=== PATIENT | female | born 1940 | race Caucasian/White ===

== ENCOUNTER → 2016-04-05 | Outpatient (CLI) | payer MEDICARE ==
[~2016-04-05] MED LIST: ATEN50TA2 PO; MODU5TA PO; OMEP20CA3 PO; POTA10CA32 PO
--- NOTE | 2016-04-05 09:36 | REPMRS ---
Patient History The patient states she had a clinical breast exam in December 2015. Patient is postmenopausal, has history of breast cancer at age 67, and had previous chemotherapy. Family history of prostate cancer in father at age 90 and breast cancer in sister at age 50 or over. Chemotherapy. Radiation therapy. Taking tamoxifen for 3 years. Digital Mammo Screening Bilat: April 05, 2016 - Exam #: [id number] Bilateral CC and MLO view(s) were taken. Technologist: Brittani Dykes, Technologist Prior study comparison: April 05, 2015, bilateral digital mammo screening bilat performed at [facility]. April 03, 2014, bilateral digital mammo screening bilat performed at [facility]. February 20, 2013, right breast MRI. January 21, 2013, right breast digital mammo diagnostic unilateral performed at [facility]. April 01, 2012, bilateral bilat screen digital mammo, performed at [facility] ([facility]). FINDINGS: There are scattered fibroglandular densities. There has been no change in the appearance of the mammogram from the prior studies. There are stable post treatment changes in the right breast.There is a mild amount of scattered fibroglandular density which is fairly symmetric. There is no interval development of dominant mass, architectural distortion, or clustered microcalcification suggestive of malignancy. ASSESSMENT: BI-RADS/ACR category 1 mammogram. Negative. Recommendation Routine screening mammogram in 1 year (for women over age 40). This mammogram was interpreted with the aid of an FDA-approved computer-aided dectection system. Electronically Signed By: Pieter Jeffers MD 04/05/16 0991
== END ==
LOC: M RAD 08:53
PROVIDERS: ATTEND Internal Medicine Medical Oncology
DX: Z12.31 Encounter for screening mammogram for malignant neoplasm of breast (principal); Z78.0 Asymptomatic menopausal state; Z85.3 Personal history of malignant neoplasm of breast; Z80.3 Family history of malignant neoplasm of breast; Z92.21 Personal history of antineoplastic chemotherapy; Z92.3 Personal history of irradiation

== ENCOUNTER → 2016-05-04 | Outpatient (REF) | payer MEDICARE ==
[2016-05-04 12:20] LABS: ALBUMIN 3.4 GM/DL (3.2-5.2); ALBUMIN/GLOBULIN RATIO 1.26 (1.00-1.93); ALKALINE PHOSPHATASE 79 U/L (45-117); ALT/SGPT 17 U/L (12-78); ANION GAP 7 MEQ/L (8-16); AST/SGOT 16 U/L (15-37); BILIRUBIN,TOTAL 0.6 MG/DL (0.2-1.0); BLOOD UREA NITROGEN 16 MG/DL (7-18); CALCIUM LEVEL 8.6 MG/DL (8.8-10.2); CARBON DIOXIDE LEVEL 31 MEQ/L (21-32); CHLORIDE LEVEL 105 MEQ/L (98-107); CHOLESTEROL LEVEL 189 MG/DL (<200); CREATININE FOR GFR 0.87 MG/DL (0.55-1.02); GLOMERULAR FILTRATION RATE > 60.0 (>39); GLUCOSE, FASTING 136 MG/DL (83-110); POTASSIUM SERUM 4.1 MEQ/L (3.5-5.1); SODIUM LEVEL 143 MEQ/L (136-145); TOTAL PROTEIN 6.1 GM/DL (6.4-8.2); TRIGLYCERIDES LEVEL 101 MG/DL (<150)
== END ==
LOC: M SFHCCLAY 07:45
PROVIDERS: ATTEND Family Medicine
DX: I10 Essential (primary) hypertension (principal); E11.65 Type 2 diabetes mellitus with hyperglycemia; E78.2 Mixed hyperlipidemia

== ENCOUNTER → 2016-06-28 | Outpatient (REF) | payer MEDICARE | LOC: M LAB REF 16:22 | PROVIDERS: ATTEND Internal Medicine Medical Oncology | DX: C50.919 Malignant neoplasm of unspecified site of unspecified female breast (principal) ==

== ENCOUNTER → 2016-12-01 | Outpatient (REF) | payer MEDICARE ==
[2016-12-01 12:30] LABS: ALBUMIN 3.5 GM/DL (3.2-5.2); ALKALINE PHOSPHATASE 82 U/L (45-117); ALT/SGPT 27 U/L (12-78); ANION GAP 7 MEQ/L (8-16); AST/SGOT 16 U/L (15-37); BILIRUBIN,TOTAL 0.4 MG/DL (0.2-1.0); BLOOD UREA NITROGEN 12 MG/DL (7-18); CALCIUM LEVEL 8.9 MG/DL (8.8-10.2); CARBON DIOXIDE LEVEL 31 MEQ/L (21-32); CHLORIDE LEVEL 103 MEQ/L (98-107); CHOLESTEROL LEVEL 201 MG/DL (<200); CREATININE FOR GFR 0.81 MG/DL (0.55-1.02); GLOMERULAR FILTRATION RATE > 60.0 (>39); GLUCOSE, FASTING 127 MG/DL (83-110); SODIUM LEVEL 141 MEQ/L (136-145); TOTAL PROTEIN 6.2 GM/DL (6.4-8.2); TRIGLYCERIDES LEVEL 148 MG/DL (<150)
== END ==
LOC: M SFHCCLAY 07:39
PROVIDERS: ATTEND Family Medicine
DX: I10 Essential (primary) hypertension (principal); E11.65 Type 2 diabetes mellitus with hyperglycemia; E78.2 Mixed hyperlipidemia

== ENCOUNTER → 2017-01-01 | Outpatient (REF) | payer MEDICARE | LOC: M LAB REF 12:44 | PROVIDERS: ATTEND Internal Medicine Medical Oncology | DX: C50.919 Malignant neoplasm of unspecified site of unspecified female breast (principal) ==

== ENCOUNTER 2017-03-30 17:27 | Emergency (ER) | payer MEDICARE ==
[2017-03-30 20:58] LABS: KETONE, URINE AUTO RFX 1+ mg/dL (NEGATIVE); LEUKOCYTE ESTERASE UR AUTO RFX TRACE (NEGATIVE); MUCUS, URINE RFX SMALL (NEGATIVE); NITRITE, URINE AUTO RFX NEGATIVE (NEGATIVE); RBC, URINE AUTO RFX 8 /HPF (0-3); SPECIFIC GRAVITY UR AUTO RFX 1.013 (1.002-1.035); SQUAM EPITHELIAL CELL UR AURFX 0 /HPF (0-6); WBC, URINE AUTO RFX 6 /HPF (0-3)
[2017-03-30] MEDS: CIPROFLOXACIN 500 MG TAB PO (21:30)
== END 2017-03-30 21:47 | disposition home or self-care (01) ==
LOC: M ED 17:27
DX: H65.03 Acute serous otitis media, bilateral (principal); N39.0 Urinary tract infection, site not specified; I10 Essential (primary) hypertension; Z85.3 Personal history of malignant neoplasm of breast; Z88.0 Allergy status to penicillin; Z88.8 Allergy status to other drugs, medicaments and biological substances; Z79.2 Long term (current) use of antibiotics; Z79.899 Other long term (current) drug therapy
CPT/HCPCS: 71046

== ENCOUNTER → 2017-05-02 | Outpatient (CLI) | payer MEDICARE | LOC: M RAD 10:15 | DX: Z12.31 Encounter for screening mammogram for malignant neoplasm of breast (principal); Z85.3 Personal history of malignant neoplasm of breast; Z78.0 Asymptomatic menopausal state; Z92.21 Personal history of antineoplastic chemotherapy; Z92.3 Personal history of irradiation; Z79.810 Long term (current) use of selective estrogen receptor modulators (SERMs) | CPT/HCPCS: 77067 ==

== ENCOUNTER → 2017-12-24 | Outpatient (REF) | payer MEDICARE ==
[2017-12-24 12:15] LABS: ESTIMATED AVERAGE GLUCOSE 143 MG/DL (60-110); HEMOGLOBIN A1c 6.6 %
[2017-12-24 12:31] LABS: ALBUMIN 3.5 GM/DL (3.2-5.2); ALBUMIN/GLOBULIN RATIO 1.35 (1.00-1.93); ALKALINE PHOSPHATASE 80 U/L (45-117); ALT/SGPT 20 U/L (12-78); ANION GAP 5 MEQ/L (8-16); AST/SGOT 15 U/L (7-37); BILIRUBIN,TOTAL 0.6 MG/DL (0.2-1.0); BLOOD UREA NITROGEN 21 MG/DL (7-18); CALCIUM LEVEL 9.2 MG/DL (8.8-10.2); CARBON DIOXIDE LEVEL 33 MEQ/L (21-32); CHLORIDE LEVEL 105 MEQ/L (98-107); CHOLESTEROL LEVEL 192 MG/DL (<200); CHOLESTEROL RISK RATIO 4.923 (<5); CREATININE FOR GFR 0.96 MG/DL (0.55-1.30); GLOMERULAR FILTRATION RATE 59.7 (>39); GLUCOSE, FASTING 137 MG/DL (70-100); HDL CHOLESTEROL 39 MG/DL (>40); LDL CHOLESTEROL 135 MG/DL (<100); NON-HDL-C 153 MG/DL; POTASSIUM SERUM 4.1 MEQ/L (3.5-5.1); SODIUM LEVEL 143 MEQ/L (136-145); TOTAL PROTEIN 6.1 GM/DL (6.4-8.2); TRIGLYCERIDES LEVEL 89 MG/DL (<150)
== END ==
LOC: M SFHCCLAY 07:17
DX: E11.9 Type 2 diabetes mellitus without complications (principal); E78.2 Mixed hyperlipidemia
CPT/HCPCS: 80053

== ENCOUNTER → 2018-05-06 | Outpatient (CLI) | payer MEDICARE ==
[~2018-05-06] MED LIST changes: +AMOX500C PO; +BENZ-18 PO; +CALC1TAB40 PO; +CIPR-249 PO; +METO50TA7 PO; +VITA10006 PO
--- NOTE | 2018-05-06 09:34 | REPMRS ---
Patient History The patient states she had a clinical breast exam in 2018. Family history of breast cancer at age 50 or over in sister, prostate cancer at age 90 in father. Chemotherapy. Radiation therapy. Taking tamoxifen for 3 years. 3D TOMOSYNTHESIS WAS PERFORMED. Digital Mammo Screening Bilat: May 06, 2018 - Exam #: [id number] Bilateral CC and MLO view(s) were taken. Technologist: Melody Vernon, Technologist Prior study comparison: May 02, 2017, bilateral digital mammo screening bilat performed at [facility]. April 05, 2016, bilateral digital mammo screening bilat performed at [facility]. FINDINGS: There are scattered fibroglandular densities. There is no evidence of cancer on this mammogram. No significant changes when compared with prior studies. Assessment: BI-RADS/ACR category 2 mammogram. Benign Findings. Recommendation Routine screening mammogram of both breasts in 1 year (for women over age 40). This mammogram was interpreted with the aid of an FDA-approved computer-aided dectection system. Electronically Signed By: Abraham Eddy MD 05/06/18 0933
== END ==
LOC: M RAD 08:13
PROVIDERS: ATTEND Nurse Practitioner Family
DX: Z12.31 Encounter for screening mammogram for malignant neoplasm of breast (principal); Z79.890 Hormone replacement therapy; Z80.3 Family history of malignant neoplasm of breast; Z92.21 Personal history of antineoplastic chemotherapy; Z92.3 Personal history of irradiation

== ENCOUNTER → 2018-06-24 | Outpatient (REF) | payer MEDICARE ==
[2018-06-24 12:24] LABS: ALBUMIN 3.7 GM/DL (3.2-5.2); ALT/SGPT 18 U/L (12-78); BILIRUBIN,TOTAL 0.6 MG/DL (0.2-1.0); BLOOD UREA NITROGEN 17 MG/DL (7-18); CALCIUM LEVEL 9.1 MG/DL (8.8-10.2); CARBON DIOXIDE LEVEL 30 MEQ/L (21-32); CHLORIDE LEVEL 105 MEQ/L (98-107); GLOMERULAR FILTRATION RATE > 60.0 (>32); GLUCOSE, FASTING 143 MG/DL (70-100); POTASSIUM SERUM 4.3 MEQ/L (3.5-5.1); SODIUM LEVEL 141 MEQ/L (136-145); TOTAL PROTEIN 6.3 GM/DL (6.4-8.2)
[2018-06-24 21:59] LABS: HEMOGLOBIN A1c 6.7 %
== END ==
LOC: M SFHCCLAY 07:36
PROVIDERS: ATTEND Family Medicine
DX: E11.9 Type 2 diabetes mellitus without complications (principal)

== ENCOUNTER 2018-10-02 10:24 | Emergency (ER) | payer MEDICARE ==
[~2018-10-02] VITALS: Ht 162.6 cm; Wt 61.4 kg
[~2018-10-02 10:24] MED LIST changes: -OMEP20CA3 PO; +OMEP20CA4 PO
[2018-10-02] MEDS ORDERED: AMOX500C PO (11:10)
[2018-10-02 11:33] LABS: BASO # 0.1 10^3/uL (0.0-0.2); BASO % 0.8 % (0.0-1.0); EOS # 0.1 10^3/uL (0.0-0.50); HEMATOCRIT 42.4 % (36.0-47.0); HEMOGLOBIN 15.2 g/dl (12.0-15.5); LYMPH # 1.5 10^3/uL (1.5-4.5); LYMPH % 19.2 % (24.0-44.0); MEAN CORPUSCULAR HEMOGLOBIN 31.7 pg (27.0-33.0); MEAN CORPUSCULAR HGB CONC 35.8 g/dl (32.0-36.5); MEAN CORPUSCULAR VOLUME 88.5 fl (80.0-96.0); MONO # 0.6 10^3/uL (0.0-0.8); MONO % 7.8 % (0.0-5.0); NEUTROPHILS # 5.6 10^3/uL (1.8-7.7); NEUTROPHILS % 70.8 % (36.0-66.0); PLATELET COUNT, AUTOMATED 156 10^3/uL (150-450); RED BLOOD COUNT 4.79 10^6/uL (4.00-5.40); WHITE BLOOD COUNT 7.9 10^3/uL (4.0-10.0)
[2018-10-02 12:07] LABS: CALCIUM LEVEL 9.3 MG/DL (8.8-10.2); CK-MB VALUE MASS 1.7 NG/ML (<3.6); CREATININE FOR GFR 0.99 MG/DL (0.55-1.30); GLOMERULAR FILTRATION RATE 57.5 (>32); MB/CK RELATIVE INDEX 2.74 (< OR =4); TROPONIN I 0.1 NG/ML (< 0.10)
[2018-10-02] MEDS ORDERED: NS 1,000 ML IV ONE (13:00)
--- NOTE | 2018-10-02 13:52 | REP ---
CHEST X-RAY: Two views. HISTORY: Jaw pain and shoulder pain. Recent dental extraction. The patient has a prior history of right breast cancer status post radiation therapy and chemotherapy. Comparison is made with prior chest x-rays, most recent of which is from March 30, 2017 and the most remote of which is from March 24, 2010. FINDINGS: The breast silhouettes are somewhat asymmetric as before with surgical clips in the right axillary soft tissues. There is a nodular opacity projecting in the right lung today increased in size and more nodular than the fibrosis noted in this location previously. It currently measures 1.5 x 1.6 cm. A pulmonary nodule must be suspected. Chest CT scanning is suggested. The lung farmer are otherwise clear. The pleural angles are sharp. The aorta somewhat tortuous. Heart is not enlarged. There are mild degenerative changes in the thoracic spine. IMPRESSION: Nodular density in the right upper lobe, 1.6 cm in greatest diameter, rule out neoplastic pulmonary nodule. Recommend chest CT study. Postoperative changes in the right axilla and right breast. Otherwise no active disease. Electronically Signed by Niall Jeffers MD 10/02/2018 04:41 P
--- NOTE | 2018-10-02 15:17 | REP ---
CT of the chest without contrast Indication: Right upper lobe nodule revealed on chest x-ray. Comparison: Two-view chest of the same day. Technique: Axial CT of the chest was performed from the thoracic inlet to the upper abdomen was lung and soft tissue reformatted images. Coronal and sagittal reformatted images were provided. Findings: The upper airway is patent. There is a somewhat spiculated and lobulated solid nodule within the right upper lobe on image 35. This oblong nodule measures 20 x 14 mm and is suspicious for malignancy. There are a few subcentimeter nodules within the right lower lobe, the largest of which measures 4 mm, image 56 . Smaller two - 3 mm nodules are seen within the right lower lobe on image 61 and 47 in the left lower lobe on image 65. There is peribronchial thickening within the right lung. There are scattered tree-in-bud opacities within the left upper lobe (image 40) and right upper and lower lobes, suggestive of inflammation. There are patchy consolidative opacities within the lung base which may represent atelectasis. There is no pleural effusion. There are atherosclerotic calcifications of the thoracic aorta and coronary arteries. The heart size is normal. There is no pericardial effusion. There are surgical clips within the right subpectoral region. There is an 2.5 cm fluid collection within the right rods adjacent to the chest wall, presumably representing seroma. There are degenerative changes within the imaged thoracolumbar spine. Within the upper abdomen, there is a 1 cm hypodense lesion within the right hepatic lobe on image 92. A gallstone is present. There its extensive atherosclerotic calcifications of the imaged abdominal aorta and its branches. Impression: 2 x 1.4 cm right upper lobe nodules suspicious for malignancy. Scattered two - 4 mm nodules within both lungs. Recommend tissue diagnosis. Background of inflammatory changes within the lungs. No pleural effusion. Right breast fluid collection measuring 2.5 cm, presumably representing seroma. Hypodense lesion within the right hepatic lobe which is nonspecific. Recommend MRI for further characterization. Electronically Signed by Lb Carranza MD 10/02/2018 03:09 P
[2018-10-02 16:31] VITALS: BP 180/82
--- NOTE | 2018-10-03 20:37 | ECGEPIP ---
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
--- NOTE | 2018-10-06 07:33 | ED PDOC ---
Post-Departure Follow-Up dr palacios faxed formal report of cxr for fuy bongg Neena Middleton MD Oct 06, 2018 07:33
--- NOTE | 2018-10-06 07:53 | ED PDOC ---
Post-Departure Follow-Up dr javed faxed formal report of ct chest for fu Neena Cook MD Oct 06, 2018 07:53
[2018-10-08] MEDS ORDERED: ASCO500T PO (08:58)
[2018-10-08] MEDS ORDERED: ATIV1TAB7 PO (09:36)
[2018-11-01] MEDS ORDERED: CHOL100029 PO (09:10)
[2018-11-01] MEDS ORDERED: METO50TA7 PO (09:10)
== END 2018-10-02 16:32 | disposition home or self-care (01) ==
LOC: M ED 10:24
DX: K08.89 Other specified disorders of teeth and supporting structures (principal); R91.8 Other nonspecific abnormal finding of lung field; R00.1 Bradycardia, unspecified; I10 Essential (primary) hypertension; Z85.3 Personal history of malignant neoplasm of breast; Z92.21 Personal history of antineoplastic chemotherapy; Z92.3 Personal history of irradiation; Z79.899 Other long term (current) drug therapy; Z88.0 Allergy status to penicillin; Z88.8 Allergy status to other drugs, medicaments and biological substances

== ENCOUNTER → 2018-10-15 | Outpatient (CLI) | payer MEDICARE ==
[~2018-10-15] MED LIST changes: +ASCO500T PO; +ATIV1TAB7 PO
--- NOTE | 2018-10-15 18:47 | REP ---
PET/CT: History: Diagnosing right upper lobe pulmonary nodule. Remote prior history of breast carcinoma. Comparisons: Comparison chest CT study October 02, 2018. TECHNIQUE: 59 minutes following the intravenous injection of a 8.60 mCi dose of F-18 FDG, three-dimensional PET scintigraphy is acquired from the skull base to the proximal thighs. Triplanar noncontrast CT scanning is acquired through the same anatomic range for attenuation correction, and image registration with scan parameters optimized to minimize radiation exposure to the patient. PET scintigraphy and CT datasets were fused and displayed on a workstation with multiplanar and projection display capability. PET/CT Findings: The right upper lobe nodule seen on recent chest CT is hypermetabolic. Maximum standard uptake value is 5.94. No other hypermetabolic pulmonary parenchymal uptake is appreciated. The other visualized pulmonary nodules are quite small. There is no evidence of adrenal mass. There is no evidence of hilar or mediastinal hypermetabolic uptake. No abnormal hepatic or abdominal or pelvic hypermetabolic uptake is seen. Head and neck soft tissues are unremarkable. Impression: The 2.6 cm spiculated nodule in the anterior aspect of the right upper lobe is hypermetabolic. No other abnormal hypermetabolic uptake is seen. Electronically Signed by Niall Jeffers MD 10/16/2018 09:09 A
== END ==
LOC: M PLARAD 12:03
PROVIDERS: ATTEND Internal Medicine Medical Oncology
DX: R91.1 Solitary pulmonary nodule (principal)
CPT/HCPCS: 78815; A9552

== ENCOUNTER → 2018-11-01 | Outpatient (CLI) | payer MEDICARE ==
[~2018-11-01] MED LIST changes: +CHOL100029 PO; +LIDOCAINE 1% MDV 20ML VIAL As Ordered ONE
--- NOTE | 2018-11-01 10:21 | REP ---
CHEST, SINGLE VIEW: Single view of the chest is performed following CT guided biopsy of a right lung nodule. Postbiopsy CT images showed a tiny focal pneumothorax at the biopsy site. The chest radiograph does not show evidence of an appreciable pneumothorax. The right lung nodule is visualized. Followup will be performed in 2 hours. Electronically Signed by Abraham Eddy MD 11/01/2018 04:37 P
[2018-11-01 12:15] VITALS: BP 151/67
--- NOTE | 2018-11-01 12:42 | REP ---
CHEST, SINGLE VIEW: Single view of the chest is performed status post right lung biopsy. There is no pneumothorax. Right lung mass is again seen. Left lung is clear. IMPRESSION: No pneumothorax status post right lung biopsy. Electronically Signed by Abraham Eddy MD 11/01/2018 04:40 P
--- NOTE | 2018-11-01 16:04 | REP ---
CT-guided right upper lobe lung biopsy The procedure is performed by DMITRI Ramey, under the direct supervision of Dr. Eddy. The patient has a history of a hypermetabolic 2.6 cm spiculated nodule in the anterior aspect of the right upper lobe on a PET CT dated 10/15/2018. The risks and benefits of the procedure were explained to the patient and informed consent was obtained both orally and written. Directly prior to the start of the procedure, a formal timeout was done in the exam room. The right upper lobe lung nodule was localized using CT guidance. Skin was prepped and draped in the usual sterile fashion. 7 ml of 1% lidocaine was used as a local anesthetic. Using CT guidance a 19/20 gauge coaxial needle biopsy system was inserted and advanced into the nodule. 4 core biopsy samples were obtained and sent to the lab. CT images obtained directly after the biopsy show a very small pneumothorax. The pneumothorax was followed by serial chest x-rays and after the appropriate amount of monitored convalescence the patient was discharged from the department. Reviewed by DMITRI Pierce 11/01/2018 01:22 P Electronically Signed by Abraham Eddy MD 11/01/2018 03:56 P
== END ==
LOC: M IRPRO 08:15
PROVIDERS: ATTEND Nurse Practitioner Family
DX: C34.91 Malignant neoplasm of unspecified part of right bronchus or lung (principal)

== ENCOUNTER → 2018-11-11 | Outpatient (CLI) | payer MEDICARE ==
[~2018-11-11] MED LIST changes: -LIDOCAINE 1% MDV 20ML VIAL As Ordered ONE
--- NOTE | 2018-11-11 13:19 | PFTRPT ---
Height: 65.00 Inches Weight: 136.00 Lbs BSA: 1.68 Diagnosis: ABNORMAL FINDING OF LUNG FIELD DATE OF STUDY: 11/11/2018 ORDERED BY: Michelle Nguyen Spirometry: Study of excellent technical quality. Forced vital capacity reduced FEV1 in proportion. Obstructive index is, therefore, normal. Flow Volume Loop: Expiratory limb of the flow volume loop suggests a nonspecific limitation. Lung Volumes: Total lung capacity normal. Residual volume within normal limits. Diffusing Capacity: Diffusing capacity, although reduced, is appropriate for alveolar volume. Hemoglobin: No hemoglobin available for correction. Airway Mechanics: Airway resistance and conductance are normal. IMPRESSION: Nonspecific flow rate limitation with decreased diffusing capacity. Please correlate clinically. MTDD
--- NOTE | 2018-11-13 11:10 | PULFX ---
DATE OF STUDY: 11/11/2018 ORDERING PROVIDER: Michelle Nguyen NP Study of excellent technical quality. Forced vital capacity reduced. FEV1 in proportion. Obstructive index is, therefore, normal. Flow volume loop suggesting nonspecific limitation. Total lung capacity normal. Residual volume within normal limits. Diffusing capacity, although reduced, is appropriate for alveolar volume and no hemoglobin available for correction. Airway resistance and conductance are normal. IMPRESSION: Nonspecific flow rate limitation with decreased diffusing capacity. Please correlate clinically.
== END ==
LOC: M CARPUL 12:23
PROVIDERS: ATTEND Nurse Practitioner Family
DX: R91.8 Other nonspecific abnormal finding of lung field (principal)

== ENCOUNTER → 2018-11-12 | Outpatient (REF) | payer MEDICARE | LOC: M LAB REF 17:01 | PROVIDERS: ATTEND Nurse Practitioner Family | DX: R30.0 Dysuria (principal) ==

== ENCOUNTER → 2019-01-30 | Outpatient (CLI) | payer MEDICARE ==
[~2019-01-30] MED LIST changes: +OMEP-172 PO; -OMEP20CA4 PO; +VITA100054 PO
--- NOTE | 2019-01-30 12:32 | REP ---
BILATERAL LOWER EXTREMITY DUPLEX DOPPLER ARTERIAL ULTRASOUND: Real-time ultrasound evaluation and duplex Doppler interrogation of bilateral lower extremity arterial systems performed. Moderate to severe plaquing is seen bilaterally. On the right, there is no hemodynamically significant stenosis identified in the common femoral, superficial femoral, or popliteal arteries. The tibioperoneal trunk is occluded proximally. There is reconstitution of the distal aspect. Biphasic and triphasic waveforms are seen above that level. Monophasic waveforms are seen distal to that level. Distal right posterior tibial artery is occluded. Distal right anterior tibial artery is occluded with revascularization distally. On the left, there is no hemodynamically significant stenosis proximally with diffuse biphasic waveforms. However, both the distal, anterior, and posterior tibial arteries appear occluded, with distal revascularization and monophasic waveforms. Left popliteal cyst is visualized measuring 3.9 x 1.8 x 3.4 cm. SADIE could not be performed due to pain. PEAK SYSTOLIC VELOCITY RIGHT LEFT Common femoral artery 94.7 cm/s 86.8 cm/s Profunda 76.7 51.3 SFA 71.6 78.7 Popliteal 30.0 46.8 Proximal TICO 72.1 62.1 Tibial/peroneal trunk Occluded/26.3 56.7 Proximal [employer] 28.1 39.3 Distal [employer] Occluded Occluded Distal TICO Occluded Occluded IMPRESSION: Occlusion right tibioperoneal trunk with reconstitution of distal aspect. Bilateral occlusion of distal anterior and posterior tibial arteries with revascularization. Electronically Signed by Abraham Eddy MD 01/30/2019 01:49 P
== END ==
LOC: M RAD 08:59
PROVIDERS: ATTEND Podiatrist Foot & Ankle Surgery
DX: I73.9 Peripheral vascular disease, unspecified (principal)

== ENCOUNTER → 2019-02-11 | Outpatient (POV) | payer MEDICARE ==
[~2019-02-11] VITALS: Ht 160 cm; Wt 61.8 kg
[2019-02-11 14:05] VITALS: BP 137/62
--- NOTE | 2019-02-12 15:48 | IRCOV ---
[facility] IR Consult Office Visit IR Consult Office Visit DATE: Feb 11, 2019 REASON FOR CONSULTATION/CHIEF COMPLAINT: Right leg pain. Cracking fragile skin and sores. HISTORY OF PRESENT ILLNESS: 78-year-old pleasant female complaining of right leg pain for greater than 6 weeks. This is associated with easy skin breakdown on the foot. No problems in the left leg. Pain occurs with walking around the house. Denies rest pain. Pain goes away with rest. No chest pain. No shortness of breath. No paroxysmal nocturnal dyspnea or orthopnea. Patient does not currently take aspirin. ALLERGIES: Please see below. HOME MEDICATIONS: Please see below. PAST MEDICAL HISTORY: Lung cancer PAST SURGICAL HISTORY: Noncontributory FAMILY HISTORY: Noncontributory. SOCIAL HISTORY: Nonsmoker. No alcohol or drugs. REVIEW OF SYSTEMS: Otherwise negative. PHYSICAL EXAMINATION: VITAL SIGNS: Please see below. GENERAL APPEARANCE: Appears well. Comfortable at rest. HEENT: No scleral icterus. RESPIRATORY: Normal breathing at rest. CARDIOVASCULAR: Normal rate. ABDOMEN: Soft nontender. EXTREMITIES: Right lower extremity: No edema. Redness to the skin below the knees. Warm. Dry. No gangrene. No ulcers. Femoral pulse 2+ popliteal pulse plus DP PT negative Left lower extremity: No edema. Skin normal. Warm to touch. Femoral pulse 2+ popliteal pulse +. Mass or cyst in the popliteal fossa. DP PT negative. NEUROLOGICAL: Alert and oriented. PSYCHIATRIC: Appropriate to circumstance. LABORATORY DATA: 10/02/2018 hemoglobin 15.2 hematocrit 42.4 WBC 7.9 platelets 156 sodium 138 potassium 4.0 BUN 17 creatinine 0.99 GFR 57.5 Imaging: I personally reviewed the arterial ultrasound of the lower extremities from January 2019. The right SFA and popliteal are patent. There is below-knee atherosclerotic disease with monophasic waveform. Large Sanchez cyst in the left popliteal fossa. ASSESSMENT/PLAN: 78-year-old female with right lower extremity pain associated with easy skin breakdown and skin changes. I agree a diagnostic angiogram with or without intervention at the same time is appropriate. We will schedule the patient for the procedure under moderate sedation. I spent 30 minutes in consultation with the patient. Thank you for this referral. Cc Dr. Abdiel Hester Allergies Coded Allergies: exemestane (Verified Allergy, Mild, Rash, 06/03/18) Penicillins (Verified Adverse Reaction, Mild, Yeast Infection, 06/03/18) Home Medications Scheduled Amiloride/Hctz (Amiloride HCl-Hctz 5-50 mg Tab), 2 TAB PO DAILY, (Reported) Ascorbic Acid (Ascorbic Acid), 500 MG PO DAILY, (Reported) Calcium Carb/Mag Ox/Zinc Sulf (Vkxnhyd-Nycbqszkc-Aenb Tablet), 1 TAB PO DAILY, (Reported) Cholecalciferol (Vitamin D3) (Vitamin D3), 1 CAP PO DAILY, (Reported) Metoprolol Tartrate (Metoprolol Tartrate), 50 MG PO BID, (Reported) Omeprazole (Omeprazole), 20 MG PO DAILY, (Reported) Potassium Chloride (Potassium Chloride), 10 MEQ PO BID, (Reported) VS, I&O, 24H, Fishbone Vital Signs/I&O Vital Signs Date Time Temp Pulse Resp B/P (MAP) Pulse Ox O2 Delivery O2 Flow Rate FiO2 02/11/19 14:05 97.4 69 16 137/62 (87) 99 Room Air LYNNE HER MD Feb 12, 2019 15:48
== END ==
LOC: M IRPOV 13:55
PROVIDERS: ATTEND Radiology Diagnostic Radiology
DX: I70.221 Atherosclerosis of native arteries of extremities with rest pain, right leg (principal); M71.22 Synovial cyst of popliteal space [Baker], left knee

== ENCOUNTER → 2019-02-20 | Outpatient (CLI) | payer MEDICARE ==
[~2019-02-20] MED LIST changes: +HEPARIN 1,000 UNITS/ML 10ML VIAL (FOR RADIOLOGY& DIALYSIS ONLY) As Ordered ONE; +ISOVUE-300 61% 50ML VIAL (Q9967) As Ordered ONE; +LIDOCAINE 1% MDV 20ML VIAL As Ordered ONE; +MIDAZOLAM INJ 2 MG/2 ML VIAL (J2250) As Ordered ONE; -OMEP-172 PO; +OMEP1CAP73 PO; +diphenhydrAMINE INJ 50MG/ML VIAL (J1200) As Ordered ONE; +fentaNYL 100 MCG/2 ML INJECTION (J3010) As Ordered ONE
[2019-02-20 09:11] LABS: HEMATOCRIT 45.5 % (36.0-47.0); HEMOGLOBIN 15.4 g/dl (12.0-15.5); MEAN CORPUSCULAR HEMOGLOBIN 30.9 pg (27.0-33.0); MEAN CORPUSCULAR HGB CONC 33.8 g/dl (32.0-36.5); MEAN CORPUSCULAR VOLUME 91.4 fl (80.0-96.0); PLATELET COUNT, AUTOMATED 145 10^3/uL (150-450); RED BLOOD COUNT 4.98 10^6/uL (4.00-5.40); WHITE BLOOD COUNT 7.1 10^3/uL (4.0-10.0)
--- NOTE | 2019-02-20 09:29 | IRHP ---
[facility] IR Pre-Procedure H & P General Date of Service: Feb 20, 2019 Procedure: Same Day Surgery Interval History and Physical I have seen the patient and reviewed last H & P performed within 30 days. There is no significant interval change. History of Present Illness Chief Complaint The patient is a 78-year-old female admitted with a reason for visit of PAD. PRE-PROCEDURE DIAGNOSIS:PAD HEART: normal rate. LUNGS: normal breathing at rest. ASA Classification ASA Classification: III-Severe systemic dis. Mallampati Score: I NPO: Yes Problems with prior sedation: No Obstructive Sleep Apnea: No Plan moderate sedation Allergies Coded Allergies: exemestane (Verified Allergy, Mild, Rash, 06/03/18) Penicillins (Verified Adverse Reaction, Mild, Yeast Infection, 06/03/18) Home Medications Scheduled Amiloride/Hctz (Amiloride HCl-Hctz 5-50 mg Tab), 2 TAB PO DAILY, (Reported) Ascorbic Acid (Ascorbic Acid), 500 MG PO DAILY, (Reported) Calcium Carb/Mag Ox/Zinc Sulf (Dmojwey-Zlldrxsqp-Qafc Tablet), 1 TAB PO DAILY, (Reported) Cholecalciferol (Vitamin D3) (Vitamin D3), 1 CAP PO DAILY, (Reported) Metoprolol Tartrate (Metoprolol Tartrate), 50 MG PO BID, (Reported) Omeprazole (Omeprazole), 20 MG PO DAILY, (Reported) Potassium Chloride (Potassium Chloride), 10 MEQ PO BID, (Reported) VS, I&O, 24H, Fishbone Vital Signs/I&O Vital Signs Date Time Temp Pulse Resp B/P (MAP) Pulse Ox O2 Delivery O2 Flow Rate FiO2 02/20/19 09:00 98.5 65 16 98 Room Air Laboratory Data 24H LABS Laboratory Tests 2 02/20/19 08:55: Nucleated Red Blood Cells % (auto) 0.0 CBC/BMP Laboratory Tests 02/20/19 08:55 LYNNE HER MD Feb 20, 2019 09:29
[2019-02-20 09:39] LABS: CALCIUM LEVEL 8.9 MG/DL (8.8-10.2); CREATININE FOR GFR 0.96 MG/DL (0.55-1.30); GLOMERULAR FILTRATION RATE 59.5 (>32)
--- NOTE | 2019-02-20 12:35 | POST-OPPD ---
Postoperative Procedure Note Date Of Procedure: Feb 20, 2019 Time Of Procedure: 11:49 PREOPERATIVE DIAGNOSIS: PAD POSTOPERATIVE DIAGNOSIS: same FINDINGS: popliteal occlusion. 1 vessel run off to foot. PROCEDURE: popliteal and distal SFA angioplasty. supera stent ordered as behind knee stenting will be needed to improve flow. will discuss risk of stent fracture with patient. SURGEON: wilner ANESTHESIA: mod sed ESTIMATED BLOOD LOSS: < 5 ml COMPLICATIONS: none POSTOPERATIVE CONDITION: stable LYNNE HER MD Feb 20, 2019 12:35
[2019-02-20 15:00] VITALS: BP 114/56
--- NOTE | 2019-02-21 07:58 | REP ---
IR Right leg angiogram. IR Selective right iliac artery catheterization. IR Selective right common femoral artery catheterization. IR selective right popliteal artery recanalization. IR right distal SFA and popliteal artery angioplasty. IR right below-knee runoff. IR moderate sedation. Clinical Information: Right lower extremity pain and wounds. Physician: Dr Cadet.Procedure: The patient was advised of the benefits, risks, and alternatives of the procedure and informed consent was obtained.A time out was performed with verification of the patient's name, MRN, site of procedure, and type of procedure to be performed. The patient was positioned in the supine position on the angiographic table. The site was prepped and draped in the usual sterile fashion.Moderate sedation was performed by the physician including the presence of an independent trained observer who assisted in monitoring the patient's level of consciousness and physiological status. Following the administration of Fentanyl and Versed, the physician spent 120 minutes of continuous [id number] time with the patient. A computer applications developer radiograph reveals no gross abnormality. The left femoral artery was accessed with a micropuncture kit. A IKOTECH wire was advanced into the aorta. The micropuncture sheath was exchanged over the wire for a a 6-Iranian vascular sheath. A 4-Iranian flush catheter was advanced over the wire and used to catheterize the abdominal aorta. A pelvic arteriogram was performed. This demonstrates patent right common iliac, external iliac, internal iliac, common femoral, proximal superficial femoral and profunda femoris arteries. A Glidewire was advanced through the flush catheter and under fluoroscopy guidance was used to gain up and over access into the right common iliac artery. The flush catheter was exchanged over the wire for a glide cath. The glide cath in conjunction with a Glidewire was used to catheterize the right common femoral artery. A right leg angiogram was performed and this demonstrates patent proximal superficial femoral artery and profunda femoris. Moderate atherosclerotic irregularity in the mid and distal superficial femoral artery. An angiogram further down the leg was performed and this demonstrates multi short segment stenosis greater than 50%, in the distal superficial femoral artery. Multiple short segment occlusions and severe stenosis in the popliteal artery. A below-knee runoff arteriogram was performed and this demonstrates single vessel peroneal runoff below the knee which supplies distal collaterals to the anterior tibial and posterior tibial artery in the foot. A glide wire in conjunction with the glide cath was used under fluoroscopy guidance to catheterize the mid and distal SFA, and recanalize the occluded popliteal artery. Injection of contrast confirmed intraluminal location in the popliteal artery. A 6 x 200 mm [place] balloon was advanced over the wire under fluoroscopy guidance into the distal SFA. This was used to angioplasty the distal SFA. Heparin was administered. The balloon was deflated and removed over the wire. A 4 x 200 mm Riverside balloon was then advanced over the wire under fluoroscopy guidance into the distal SFA and proximal popliteal artery. This was used to angioplasty up to the mid popliteal artery. The balloon was then deflated and removed over the wire. A 3 x 200 mm balloon was then advanced over the wire under fluoroscopy guidance, into the mid and distal popliteal artery. This was used to angioplasty the mid and distal popliteal artery under fluoroscopy guidance. The balloon was deflated and removed over the wire. A micro catheter and micro wire was advanced through the diagnostic catheter and under fluoroscopy guidance was used to try to recanalize the anterior, posterior tibial or peroneal artery. However, after catheterization of multiple second and third order branch collaterals and extravasation, I felt it best to stop. The catheter was retracted back to the popliteal artery and contrast injection confirmed spasm below the knee. Therefore no further intervention was performed. The catheter was removed. A 6-Iranian Mynx device was used to close the groin arteriotomy and the sheath was removed. Hemostasis achieved. A sterile dressing was applied to the site. Patient tolerated the procedure well and was transferred to PRU in stable condition. Right leg appearance and Doppler remained unchanged post procedure. Complications: None. Estimated blood loss: Less than 5 ml. Impression: 1. Right leg angiogram demonstrates moderate atherosclerotic disease in the mid and distal superficial femoral artery and multi segment occlusions in the popliteal artery. 2. Below-knee runoff demonstrates single vessel peroneal runoff to the foot with distal collaterals to the anterior and posterior tibial artery. 3. Successful distal SFA and popliteal artery angioplasty. 4. 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 Stents are prone to fracture in this location. However, there is a special stent named Supera which would do better in this location. I'll discuss the risks and benefits of behind knee stenting with the patient and order this stent. Will see patient back in 2 weeks for repeat angiogram, angioplasty popliteal stenting and attempt at below-knee recanalization. Thank you for this referral. Electronically Signed by Amrita Cadet MD 02/21/2019 07:57 A
== END ==
LOC: M IRPRO 08:22
PROVIDERS: ATTEND Radiology Diagnostic Radiology
DX: I70.221 Atherosclerosis of native arteries of extremities with rest pain, right leg (principal); I70.239 Atherosclerosis of native arteries of right leg with ulceration of unspecified site; Z88.0 Allergy status to penicillin; Z88.8 Allergy status to other drugs, medicaments and biological substances
CPT/HCPCS: 37224; 75710; 80048; 85027; 99152; 99153; C1725; C1760; C1769; C1887; C1894; J2250; J3010; Q9967

== ENCOUNTER 2019-02-21 19:07 | Inpatient (IN) | payer MEDICARE ==
[~2019-02-21] VITALS: Ht 165.1 cm; Wt 78.7 kg
[~2019-02-21 19:07] MED LIST changes: -ALTEPLASE RECOMBINANT 10 MG in NS 990 ML XX SCH; -CALCIUM CHLORIDE 10% 1 GM/10 ML SYR IV ONE; -HEPARIN 1,000 UNITS/ML 10ML VIAL (FOR RADIOLOGY& DIALYSIS ONLY) As Ordered ONE; -HEPARIN DRIP 25,000 UNITS in IV 1 EA XX SCH; -ISOVUE-300 61% 50ML VIAL (Q9967) As Ordered ONE; -LIDOCAINE 1% MDV 20ML VIAL As Ordered ONE; -MIDAZOLAM INJ 2 MG/2 ML VIAL (J2250) As Ordered ONE; -diphenhydrAMINE INJ 50MG/ML VIAL (J1200) As Ordered ONE; -fentaNYL 100 MCG/2 ML INJECTION (J3010) As Ordered ONE
[2019-02-21 20:10] VITALS: BP 182/72
[2019-02-21 21:00] VITALS: BP 150/95
[2019-02-21] MEDS: HEPARIN DRIP 25,000 UNITS in IV 1 EA XX SCH (21:00)
[2019-02-21] MEDS ORDERED: PERCOCET 5MG/325MG TAB PO PRN (21:00)
[2019-02-21] MEDS ORDERED: ONDANSETRON 4MG/2ML VIAL (J2405) IV PRN (21:00)
[2019-02-21] MEDS: ALTEPLASE RECOMBINANT 10 MG in NS 990 ML XX SCH (21:00)
[2019-02-21] MEDS: POTASSIUM CHLORIDE 10 MEQ SR TABLET PO SCH (21:00)
[2019-02-21] MEDS: METOPROLOL TART 50 MG TAB PO SCH (21:01)
[2019-02-21 22:00] VITALS: BP 156/67
[2019-02-21 23:00] VITALS: BP 152/70
[2019-02-22] VITALS (19 sets, daily range): BP systolic 108–192; BP diastolic 53–132
[2019-02-22 00:22] LABS: INR 1.21
[2019-02-22 00:30] LABS: HEMATOCRIT 35.8 % (36.0-47.0); MEAN CORPUSCULAR HGB CONC 34.9 g/dl (32.0-36.5); MEAN CORPUSCULAR VOLUME 91.6 fl (80.0-96.0); PLATELET COUNT, AUTOMATED 112 10^3/uL (150-450); RED BLOOD COUNT 3.91 10^6/uL (4.00-5.40); WHITE BLOOD COUNT 9.2 10^3/uL (4.0-10.0)
[2019-02-22 00:39] LABS: HEMOGLOBIN 12.5 g/dl (12.0-15.5)
[2019-02-22 00:40] LABS: PARTIAL THROMBOPLASTIN TIME 32.7 SECONDS (25.0-38.4)
[2019-02-22] MEDS: ACETAMINOPHEN TAB 650MG DOSE (2X325MG) PO PRN ×2 (03:54→22:04)
[2019-02-22 06:01] LABS: HEMATOCRIT 35.3 % (36.0-47.0); MEAN CORPUSCULAR HEMOGLOBIN 31.4 pg (27.0-33.0); MEAN CORPUSCULAR VOLUME 92.4 fl (80.0-96.0); PLATELET COUNT, AUTOMATED 114 10^3/uL (150-450); RED BLOOD COUNT 3.82 10^6/uL (4.00-5.40); WHITE BLOOD COUNT 9.1 10^3/uL (4.0-10.0)
[2019-02-22 06:12] LABS: INR 1.26; PROTHROMBIN TIME 15.5 SECONDS (11.8-14.0)
[2019-02-22] MEDS: PERCOCET 5MG/325MG TAB PO PRN ×2 (07:36→10:05)
[2019-02-22] MEDS: HYDROMORPHONE HCL 0.5 MG/ 0.5 ML SYRINGE (J1170 PER 1) IV PRN ×5 (08:52→22:03)
[2019-02-22] MEDS ORDERED: aMILoride 5 MG TAB PO SCH (09:00)
[2019-02-22] MEDS ORDERED: hydroCHLOROthiazide 25 MG TAB PO SCH (09:00)
[2019-02-22] MEDS: POTASSIUM CHLORIDE 10 MEQ SR TABLET PO SCH ×2 (09:00→21:51)
[2019-02-22] MEDS: OMEPRAZOLE 20 MG CAP PO SCH (10:04)
[2019-02-22] MEDS: METOPROLOL TART 50 MG TAB PO SCH ×2 (10:05→21:51)
[2019-02-22 12:05] LABS: HEMATOCRIT 34.1 % (36.0-47.0); HEMOGLOBIN 11.7 g/dl (12.0-15.5); MEAN CORPUSCULAR HEMOGLOBIN 31.4 pg (27.0-33.0); MEAN CORPUSCULAR HGB CONC 34.3 g/dl (32.0-36.5); MEAN CORPUSCULAR VOLUME 91.4 fl (80.0-96.0); PLATELET COUNT, AUTOMATED 126 10^3/uL (150-450); RED BLOOD COUNT 3.73 10^6/uL (4.00-5.40); WHITE BLOOD COUNT 11.9 10^3/uL (4.0-10.0)
[2019-02-22 12:19] LABS: INR 1.31; PROTHROMBIN TIME 16.1 SECONDS (11.8-14.0)
[2019-02-22] MEDS: IBUPROFEN 600 MG TAB PO PRN (14:22)
[2019-02-22] MEDS: ALTEPLASE RECOMBINANT 10 MG in NS 990 ML XX SCH (15:46)
[2019-02-22 18:09] LABS: HEMATOCRIT 32.8 % (36.0-47.0); HEMOGLOBIN 11.1 g/dl (12.0-15.5); MEAN CORPUSCULAR HEMOGLOBIN 31.4 pg (27.0-33.0); MEAN CORPUSCULAR HGB CONC 33.8 g/dl (32.0-36.5); MEAN CORPUSCULAR VOLUME 92.9 fl (80.0-96.0); PLATELET COUNT, AUTOMATED 138 10^3/uL (150-450); RED BLOOD COUNT 3.53 10^6/uL (4.00-5.40); WHITE BLOOD COUNT 15.8 10^3/uL (4.0-10.0)
[2019-02-22 18:22] LABS: PARTIAL THROMBOPLASTIN TIME 35.3 SECONDS (25.0-38.4)
--- NOTE | 2019-02-22 21:00 | POST-OPPD ---
Postoperative Procedure Note Date Of Procedure: Feb 22, 2019 Time Of Procedure: 20:58 PREOPERATIVE DIAGNOSIS: SFA/popliteal artery thrombosis POSTOPERATIVE DIAGNOSIS: same FINDINGS: partial thrombolysis PROCEDURE: angiogram and infusion catheter placement. 24 more hours of thrombolysis and recheck tomorrow evening SURGEON: wilner ANESTHESIA: mod sed ESTIMATED BLOOD LOSS: < 5 ml COMPLICATIONS: none POSTOPERATIVE CONDITION: stable LYNNE HER MD Feb 22, 2019 21:00
[2019-02-22] MEDS: HEPARIN DRIP 25,000 UNITS in IV 1 EA XX SCH (21:53)
[2019-02-23] VITALS (21 sets, daily range): BP systolic 85–149; BP diastolic 46–67; O2SAT 91
[2019-02-23 00:23] LABS: PARTIAL THROMBOPLASTIN TIME 32.3 SECONDS (25.0-38.4)
[2019-02-23 00:38] LABS: HEMATOCRIT 26.2 % (36.0-47.0); MEAN CORPUSCULAR HEMOGLOBIN 31.9 pg (27.0-33.0); MEAN CORPUSCULAR VOLUME 93.9 fl (80.0-96.0); PLATELET COUNT, AUTOMATED 138 10^3/uL (150-450); RED BLOOD COUNT 2.79 10^6/uL (4.00-5.40); WHITE BLOOD COUNT 13.5 10^3/uL (4.0-10.0)
[2019-02-23 00:45] LABS: HEMOGLOBIN 8.9 g/dl (12.0-15.5)
[2019-02-23] MEDS: HYDROMORPHONE HCL 0.5 MG/ 0.5 ML SYRINGE (J1170 PER 1) IV PRN ×3 (02:03→22:37)
[2019-02-23] MEDS: IBUPROFEN 600 MG TAB PO PRN (02:03)
[2019-02-23] MEDS: NS 1,000 ML IV SCH ×6 (02:50→21:01)
--- NOTE | 2019-02-23 03:02 | REPVR ---
PROCEDURE INFORMATION: Exam: US Right Non-Vascular Joint or Other Extremity Structure, Limited Lower Extremity Exam date and time: 02/23/2019 2:22 AM Age: 78 years old Clinical indication: Pain; Lower leg; Right; Additional info: R/O hematoma TECHNIQUE: Imaging protocol: Right US Non-Vascular Joint or Other Extremity Structure. Limited exam of the lower extremity. COMPARISON: US BILAT LOWER EXTREM ARTERIAL 01/30/2019 9:31 AM FINDINGS: Soft tissues: Mild subcutaneous edema in the right calf. No hematoma or other fluid collection is seen. IMPRESSION: 1. Mild subcutaneous edema. 2. No hematoma or other fluid collection. Electronically signed by: Ayo Moseley On 02/23/2019 03:02:11 AM
[2019-02-23 06:09] LABS: HEMATOCRIT 21.1 % (36.0-47.0); HEMOGLOBIN 7.2 g/dl (12.0-15.5); MEAN CORPUSCULAR HGB CONC 34.1 g/dl (32.0-36.5); MEAN CORPUSCULAR VOLUME 93.8 fl (80.0-96.0); PLATELET COUNT, AUTOMATED 124 10^3/uL (150-450); RED BLOOD COUNT 2.25 10^6/uL (4.00-5.40); WHITE BLOOD COUNT 11.6 10^3/uL (4.0-10.0)
[2019-02-23 06:30] LABS: PARTIAL THROMBOPLASTIN TIME 42.6 SECONDS (25.0-38.4)
[2019-02-23 06:31] LABS: CALCIUM LEVEL 7.4 MG/DL (8.8-10.2); CREATININE FOR GFR 1.8 MG/DL (0.55-1.30); GLOMERULAR FILTRATION RATE 28.8 (>32)
--- NOTE | 2019-02-23 07:29 | IRMSE ---
[facility] IR Moderate Sedation Eval. Date and Time Date: Feb 23, 2019 Time: 07:28 ASA Classification ASA Classification: III-Severe systemic dis. Mallampati Score: II NPO: Yes Obstructive Sleep Apnea: No Interval Plan: moderate sedation LYNNE HER MD Feb 23, 2019 07:29
[2019-02-23] MEDS: OMEPRAZOLE 20 MG CAP PO SCH (09:00)
[2019-02-23] MEDS: METOPROLOL TART 50 MG TAB PO SCH ×2 (09:00→21:00)
[2019-02-23] MEDS: POTASSIUM CHLORIDE 10 MEQ SR TABLET PO SCH ×2 (09:00→21:00)
[2019-02-23] MEDS ORDERED: ISOVUE-300 61% 50ML VIAL (Q9967) As Ordered ONE (09:48)
[2019-02-23] MEDS ORDERED: propofoL 200 MG/20 ML VIAL As Ordered ONE (11:14)
[2019-02-23] MEDS ORDERED: LIDOCAINE 2% INJ 100 MG/5 ML SDV (FOR ANES.) As Ordered ONE (11:14)
--- NOTE | 2019-02-23 11:25 | HPEPDOC ---
[facility] Medical History & Physical Date of Admission Feb 23, 2019 Date of Service: Feb 23, 2019 Attending Physician: OSMANI SAMUEL MD History and Physical TIME OF SERVICE: 4:30 PM CHIEF COMPLAINT: Low blood pressure, ANGELINA HISTORY OF PRESENT ILLNESS: This is an 78-year-old female who had an interventional procedure done to improve the blood flow at the right lower extremity; she returned to Dr. Pam deleon's office on the with complaints of a cold right leg and had TPA with catheterization for about 36 hours. Per discussion with Dr. Cadet today the patient's blood pressure dropped and her creatinine was noted to increase to 1.8, therefore, she requested our assistance for medical comanagement. Prior to my evaluation, the patient went back to IR for additional imaging and intervention along with fasciotomy because she had developed compartment syndrome. At the time of my evaluation, the patient was intubated and sedated and couldn't provide a history. Per discussion with nursing staff she was noted to have a hemoglobin of 4.6 and received a total of 4 units of PRBCs along with 4 L of IV fluids; there was some concern that the patient may have had an episode of unspecified altered mental status prior to surgery, but per discussion with Drs. Tejada and Chichi, after the procedure the patient was talking and responsive prior to the procedure and moving all 4 extremities. REVIEW OF SYSTEMS: 12 point review of systems negative except as listed in HPI PAST MEDICAL/ SURGICAL HISTORY: Severe PVD status post multiple interventional procedures CAD Right lower extremity compartment syndrome, status post fasciotomy NIDDM Chronic hypertension. 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 FAMILY HISTORY: Per chart review, CAD ALLERGIES: Please see below. HOME MEDICATIONS: Please see below. PHYSICAL EXAMINATION: VITAL SIGNS: Please see below. GEN: Debated and sedated INTEGUMENT: . She has an IJ at the right neck that's losing quite a bit of blood around the dressing HEENT: ET and OG tubes are in place / she has periorbital edema / I'm unable to assess her biliary response. Because the patient is resisting me opening her eyes CVS: RRR/NMRG/ +2 bilateral lower extremity edema LUNGS: vent settings 200/420/50%/5 PEEP, pressure 13 / has bronchovesicular breath sounds bilaterally ABDOMEN: obese, soft on palpation /doesn't grimace when I palpate the abdomen MSK/EXTREMITIES: occasionally moving all 4 extremities NEURO: Gag reflex intact PSYCH: Frost agitation sedation scale -3 to -4 LABORATORY DATA: See below. IMAGING: Chest x-ray ET tube appears to be about 4 cm's above ry and she appears to have right sided heart enlargement. The final read is pending MICROBIOLOGY: Please see below. ASSESSMENT: 1. Acute Vent Dependent Respiratory Failure Plan: Per Dr. Garza 2. Possible encephalopathy? May have multifactorial in the setting of his receiving sedatives, uremia, hypotension and acute anemia Despite limited exam, the patient appears to be neurologically intact Plan: Follow-up RASS/CAM scores will consider CT of the head if her neurological status does not improve after the sedatives have been weaned off 3. Hypotension. She has a history of hypertension Likely due to dehydration. Lactic acidosis is also likely due to dehydration Plan: Discontinue hydralazine and amiloride / will hold off discontinue metoprolol to avoid rebound tachycardia 4. Acute bicytopenia Her hemoglobin dropped to 4.6 and platelets dropped to 92 Plan: Follow-up serial CBC / transfuse to keep hemoglobin above 8 and platelets above 50,000 / heparin is on hold for now 5. Right lower extremity PVD/compartment syndrome. Plan: Management per Vesna Cadet & Terrell 6. ANGELINA Likely mutifactorial prerenal and possibly SARAH BETH Plan: IV fluids/ / f/u ulytes for FENa or FEUrea / renal US / follow-up CPK 7. Coagulopathy. Her unclear reasons her INR is elevated Plan: we'll give 1 dose of vitamin K / follow-up LFTs 8. Bandemia. The WBC count is normal. The other SIRS criteria. She has had this transient tachycardia. Plan: Monitor vitals. If she spikes a fever, will start antibiotics and order blood cultures DVT PROPHYLAXIS: On hold because of acute bicytopenia DISPOSITION: Pending clinical course Vital Signs Vital Signs Date Time Temp Pulse Resp B/P (MAP) Pulse Ox O2 Delivery O2 Flow Rate FiO2 02/23/19 11:05 86 16 97 Nasal Cannula 6 02/23/19 07:00 100/63 (75) 1/19/20 04:00 98.4 Laboratory Data Labs 24H Laboratory Tests 2 02/22/19 11:56: Nucleated Red Blood Cells % (auto) 0.0, Prothrombin Time 16.1H, Prothromb Time International Ratio 1.31, Activated Partial Thromboplast Time 32.8, Fibrinogen 224 02/22/19 18:04: Nucleated Red Blood Cells % (auto) 0.0, Activated Partial Thromboplast Time 35.3, Fibrinogen 156L 02/22/19 23:52: Nucleated Red Blood Cells % (auto) 0.0, Activated Partial Thromboplast Time 32.3, Fibrinogen 140L 02/23/19 05:53: Nucleated Red Blood Cells % (auto) 0.0, Activated Partial Thromboplast Time 42.6H, Fibrinogen 149L, Anion Gap 8, Glomerular Filtration Rate 28.8L, Calcium Level 7.4#L CBC/BMP Laboratory Tests 02/22/19 11:56 02/22/19 18:04 02/22/19 23:52 02/23/19 05:53 Home Medications Scheduled Amiloride/Hctz (Amiloride HCl-Hctz 5-50 mg Tab) 1 Ea Tab, 2 TAB PO DAILY Ascorbic Acid (Ascorbic Acid) 500 Mg Tablet, 500 MG PO DAILY Calcium Carb/Mag Ox/Zinc Sulf (Ehikrai-Lmxhpavfj-Zchv Tablet) 1 Tab Tab, 1 TAB PO DAILY Cholecalciferol (Vitamin D3) (Vitamin D3) 1,000 Unit Capsule, 1 CAP PO DAILY Metoprolol Tartrate (Metoprolol Tartrate) 50 Mg Tablet, 50 MG PO BID Omeprazole (Omeprazole) 20 Mg Cap, 20 MG PO DAILY Potassium Chloride (Potassium Chloride) 10 Meq Cap, 10 MEQ PO BID Allergies Coded Allergies: exemestane (Verified Allergy, Mild, Rash, 06/03/18) Penicillins (Verified Adverse Reaction, Mild, Yeast Infection, 06/03/18) A-FIB/CHADSVASC A-FIB History Current/History of A-Fib/PAF?: No Current PO Anticoag Therapy: OSMANI Whaley MD Feb 23, 2019 11:25
--- NOTE | 2019-02-23 11:29 | POST-OPPD ---
Postoperative Procedure Note Date Of Procedure: Feb 23, 2019 Time Of Procedure: 11:25 PREOPERATIVE DIAGNOSIS: critical limb ischemia POSTOPERATIVE DIAGNOSIS: same FINDINGS: single vessel outflow to foot as before. poor flow through distal SFA and popliteal. PROCEDURE: The distal SFA and popliteal were stented. The anterior tibial and peroneal were recanalized and angioplastied. Patient sent to OR for fasciotomy for compartment syndrome. PHYSICIANS: Drs. Cadet and Terrell ANESTHESIA: mod sed ESTIMATED BLOOD LOSS: < 15 ml COMPLICATIONS: none POSTOPERATIVE CONDITION: stable LYNNE CADET MD Feb 23, 2019 11:29
--- NOTE | 2019-02-23 11:41 | ROOPDOC ---
[facility] Report Of Operation Report of Operation DATE OF PROCEDURE: 02/23/19 PREPROCEDURE DIAGNOSES: Acute on chronic right lower extremity ischemia. POSTPROCEDURE DIAGNOSES: Same. PROCEDURE: Prior to my arrival, the patient had a planned return to IR for right lower extremity arteriogram status post 48 hours of TPA thrombolysis. Dr. Cadet performed a right lower extremity arteriogram through the existing sheath, angioplasty of the SFA and popliteal, stenting of the proximal popliteal and mid distal SFA. I then joined her to see if I can provide any additional options to improve right lower extremity circulation. 1. Cross focal segmental occlusions in the distal peroneal artery and angioplasty peroneal artery with 2 x 220 Joshua balloon 2. Angioplasty TP trunk and popliteal artery with 3.5 x 220 Joshua balloon 3. Attempt to cross chronic total occlusion posterior tibial artery, aborted 4. Cross chronic total occlusion anterior tibial artery to dorsal pedis artery and angioplasty with 2 x 220 Joshua balloon 5. Completion arteriograms including a selection of the right popliteal artery and runoff to the foot Following my portion of the case the patient also had a left iliofemoral arteriogram after Dr. Cadet replaced the 45 cm 6 Niuean sheath with a short 6 Niuean sheath and she also deployed Mynx closure device in the left groin. Please see her dictation for further details on her portions of the case. SURGEON: Li Tejada MD ANESTHESIA: Sedation was monitored by Dr. Cadet. Please see her dictation for further information about sedation and medications given during the case. INDICATION FOR PROCEDURE: Ms. Montiel is a very pleasant 78-year-old patient who underwent an elective arteriogram and popliteal angioplasty with Dr. Cadet on 02/20/2019, and returned to her clinic the following day with a reported cold leg. Dr. Cadet admitted the patient to the ICU and took her directly for thrombolysis catheter placement with TPA. She underwent thrombolysis for the n ext 2 days, with intermittent imaging with Dr. Cadet. Today, Dr. Cadet brought the patient back to IR for additional imaging and also performed a right SFA and popliteal artery angioplasty and proximal popliteal and mid distal SFA stent placement. During this procedure, she had concerned that there might be some residual thrombus because are still was not good runoff and gave additional TPA and nitroglycerin as well to improve runoff. However, she did not feel this was providing adequate perfusion. She asked if I might join her to see if we could possibly do any additional intervention to help with runoff. We are more than happy to help with this. INTERPRETATION: 1. When I arrived, the patient had patent inflow throughout the SFA, the stent was patent, the popliteal artery stent was patent, the popliteal artery distal to the stent was patent, and there was thready runoff through the peroneal artery to the ankle with no name vessel patent at the ankle or foot. There were intermittent occlusions in the peroneal artery. No residual thrombus was noted in the left popliteal artery after Dr. Cadet's thrombolysis and intraprocedure TPA administration. 2. After angioplasty of the peroneal artery, it was open to the ankle, but there was limited runoff to the foot. 3. After angioplasty of the anterior tibial artery, it was opened down to the DP artery, but runoff from there was almost nonexistent through the microvascular circulation of the foot. There was minimal outflow through some thready collaterals in the proximal vessel, but it is unclear if there is enough outflow to keep this open. REPORT OF PROCEDURE: When I reviewed the images, I felt runoff was likely limited and could not support the in decreased flow provided by angioplasty and stenting in the popliteal artery and SFA. Additionally, I think the patient had a little bit of outflow through genicular arteries which were not patent after angioplasty and stenting, and thus the very thready and diseased small peroneal artery was the only runoff. At the ankle, she just had some very tiny collaterals around to the foot. I was able to cross through to the distal peroneal artery with an O18 wire and angioplasty across the length with a 2 x 220 Joshua balloon. I then angioplastied in the TP trunk and across the popliteal artery with a 3.5 x 220 Joshua balloon. The angioplasties were 3 minutes in duration to help prevent spasm. Following this, there was in-line flow, but it was still sluggish due to lack of outflow at the ankle. I then that without additional outflow we likely with clot off the entire area time, so I first attempted to cross into the posterior tibial artery. The origin was not visible but eventually was able to navigate into the artery however I could only get a few centimeters before the wire went extra anatomical and I felt we were outside the vessel. I therefore aborted that and then tried to cross into the anterior tibial artery. It took some time but I was able to find the origin and get through this. It was completely occluded from the origin to the DP, but after considerable work we were able to get across into the ankle. I angioplasty the length of the vessel with a 2 x 220 Joshua balloon for three-minute inflations. Following this, the entire vessel was open but since the microvascul ature in the foot distal to our angioplasty was chronically occluded and diseased, there still was not great outflow. However the proximal aspect of the AT stayed open due to collaterals in the midportion a little bit of outflow. All in all, despite aggressive efforts, I just do not think the patient has enough outflow at the ankle and in the foot to maintain patency. However, my last hope is that she may have enough increased perfusion that she may have a compartment syndrome. Her calf was tight yesterday, and overnight a venous ultrasound was performed showing swelling in the calf and on my exam after the procedure, the patient definitely had a tight tense calf. With clinical compartment syndrome, runoff can be occluded. I think it is worthwhile to take urgently for a 4 compartment fasciotomy and it attempt for limb salvage. This was discussed with the patient and her family and in consent was obtained. Following my portion of the procedure, Dr. Cadet then exchange the sheath, performed a left groin arteriogram, and a closure device. Please see her operative report for those details. PLAN: Our plan is to go urgently to the OR for 4 compartment fasciotomy. Further recommendations to follow this procedure. LI TEJADA MD Feb 23, 2019 11:41
[2019-02-23] MEDS ORDERED: ROCURONIUM BROMIDE 50 MG/5 ML VIAL As Ordered ONE (11:50)
[2019-02-23] MEDS ORDERED: ONDANSETRON 4MG/2ML VIAL (J2405) As Ordered ONE (11:51)
[2019-02-23] MEDS ORDERED: fentaNYL 100 MCG/2 ML INJECTION (J3010) As Ordered ONE ×2 (11:51→14:13)
[2019-02-23] MEDS ORDERED: ETOMIDATE INJ 20MG/10ML VIAL As Ordered ONE (11:53)
--- NOTE | 2019-02-23 11:54 | CR.PDOC ---
General Date of Consultation: Feb 23, 2019 Consultation REASON FOR CONSULTATION/CHIEF COMPLAINT: Right lower extremity acute on chronic ischemia HISTORY OF PRESENT ILLNESS: Ms. Montiel is a very pleasant 78-year-old patient who underwent an elective right lower extremity arteriogram and intervention with Dr. Cadet on 02/20/2019 rest pain and nonhealing wound of the right foot. She then return to clinic the following day with a cold right leg. Dr. Cadet admitted the patient and started her on tPA thrombolysis, catheter directed. She was then on tPA over the next 24-48 hours with intermittent imaging. Today, Dr. Cadet brought the patient back to IR for additional imaging and possible intervention. Despite opening up flow with angioplasty and stenting in the popliteal and SFA the patient did not have runoff. I was asked if I might come and assist and I was more than happy to do so. I was able to cross down to the ankle and the peroneal vessel and open up flow the length of the peroneal, but it is such a small vessel distal was not enough outflow, and thus I felt we needed additional outflow. Unfortunately, the origins of the posterior tibial artery and anterior tibial artery were not visible, but I still felt it might be worthwhile to try and prosody them and see if we could open them up. I did get into the posterior tibial artery but could not cross past the proximal aspect. I aborted this and was able to get into the anterior tibial artery, and after some extensive maneuvering I was able to cross in the proximal dorsal pedis artery and angioplasty the length of the anterior tibial artery. Unfortunately, there was still not much outflow due to microvascular disease of the foot. Additionally, the cath was noted to be extremely tight and I think compartment syndrome may be contributing to her ischemia. Following the procedure, I discussed with the patient and her family the risks benefits and alternatives to an urgent right 4 compartment fasciotomy and they are agreeable to proceed. Informed consent was obtained we will proceed directly to the OR. ALLERGIES: Please see below. HOME MEDICATIONS: Please see below. PAST MEDICAL HISTORY: 1. Hypertension 2. Diet controlled diabetes 3. Peripheral vascular disease 4. History of lung cancer and breast cancer PAST SURGICAL HISTORY: 1. Lower extremity arteriograms FAMILY HISTORY: Heart disease, denies bleeding or clotting disorders SOCIAL HISTORY: Patient lives independently. Denies tobacco alcohol or illicit drug use. REVIEW OF SYSTEMS: Not performed. Patient is under a small amount of sedation for the procedure and is too tired to answer extensive questions. PHYSICAL EXAMINATION: VITAL SIGNS: Please see below. GENERAL APPEARANCE: Medically stable, some distress due to complaints of back pain and right leg pain HEENT: Poor dentition but otherwise within normal limits RESPIRATORY: Clear to auscultation CARDIOVASCULAR: Radial rate and rhythm ABDOMEN: Soft nontender nondistended. Bruising noted around left groin, appropriate after TPA procedure through sheath from left common femoral access EXTREMITIES: Right lower extremity is cool, sluggish monophasic signals at DP, capillary refill is delayed, calf is tight and tender to touch. Left lower extremity Doppler signals present foot is warm and well-perfused NEUROLOGICAL: Alert and oriented to person and place but not time due to sedation. No focal deficits noted. PSYCHIATRIC: Cooperative but in some distress due to pain. LABORATORY DATA: Please see below. ASSESSMENT/PLAN: Ms. Montiel is a very pleasant 78-year-old patient with acute on chronic right lower extremity ischemia and compartment syndrome of the right lower extremity 1. We'll proceed for fasciotomy of the right lower extremity, 4 compartment calf 2. Recommend full anticoagulation for threatened perfusion right lower extremity 3. Family and patient have been counseled that she is high risk for limb loss due to microvascular disease and limited outflow at the foot with nonhealing wound right foot rest pain. We will see if she has any improvement after fasciotomy. Unfortunately, I do not see further options for revascularization at this time. The patient has in-line flow all the way to the distal tibials status post angioplasty and/or stenting. There still is sluggish flow due to limited outflow. Doing a bypass is not going to change things because there still will be no outflow for the bypass and it will also have sluggish flow and likely clot off. Unfortunately, we do not have a lot of options to improve the microvascular circulation. Hopefully the fasciotomy will allow for more tibial outflow. The patient and her family were extensively counseled and all questions were answered. We appreciate the opportunity to participate in the care of this patient. Vital Signs/I&O Vital Signs Date Time Temp Pulse Resp B/P (MAP) Pulse Ox O2 Delivery O2 Flow Rate FiO2 02/23/19 11:17 96 16 92 Nasal Cannula 6 02/23/19 07:00 100/63 (75) 02/23/19 04:00 98.4 I&O- Last 24 Hours up to 6 AM 02/23/19 06:00 Intake Total 2254 ml Output Total 725 ml Balance 1529 ml Laboratory Data Labs 24H Laboratory Tests 2 02/22/19 11:56: Nucleated Red Blood Cells % (auto) 0.0, Prothrombin Time 16.1H, Prothromb Time International Ratio 1.31, Activated Partial Thromboplast Time 32.8, Fibrinogen 224 02/22/19 18:04: Nucleated Red Blood Cells % (auto) 0.0, Activated Partial Thromboplast Time 35.3, Fibrinogen 156L 02/22/19 23:52: Nucleated Red Blood Cells % (auto) 0.0, Activated Partial Thromboplast Time 32.3, Fibrinogen 140L 02/23/19 05:53: Nucleated Red Blood Cells % (auto) 0.0, Activated Partial Thromboplast Time 42.6H, Fibrinogen 149L, Anion Gap 8, Glomerular Filtration Rate 28.8L, Calcium Level 7.4#L CBC/BMP Laboratory Tests 02/22/19 11:56 02/22/19 18:04 02/22/19 23:52 02/23/19 05:53 Allergies Coded Allergies: exemestane (Verified Allergy, Mild, Rash, 06/03/18) Penicillins (Verified Adverse Reaction, Mild, Yeast Infection, 06/03/18) Home Medications Scheduled Amiloride/Hctz (Amiloride HCl-Hctz 5-50 mg Tab) 1 Ea Tab, 2 TAB PO DAILY, (Reported) Ascorbic Acid (Ascorbic Acid) 500 Mg Tablet, 500 MG PO DAILY, (Reported) Calcium Carb/Mag Ox/Zinc Sulf (Fylgfwd-Zmtmhxyev-Brop Tablet) 1 Tab Tab, 1 TAB PO DAILY, (Reported) Cholecalciferol (Vitamin D3) (Vitamin D3) 1,000 Unit Capsule, 1 CAP PO DAILY for 30 Days, #30 (Reported) Metoprolol Tartrate (Metoprolol Tartrate) 50 Mg Tablet, 50 MG PO BID, (Reported) Omeprazole (Omeprazole) 20 Mg Cap, 20 MG PO DAILY, (Reported) Potassium Chloride (Potassium Chloride) 10 Meq Cap, 10 MEQ PO BID, (Reported) LI OBREGON MD Feb 23, 2019 11:53
[2019-02-23] MEDS ORDERED: ACETAMINOPHEN 650MG ER TAB (TYLENOL ARTHRITIS) PO PRN (12:00)
--- NOTE | 2019-02-23 12:02 | REP ---
IR right leg angiogram. IR lysis check IR infusion catheter placement. IR moderate sedation. Clinical Information: Right cold leg. Lysis check. Physician: Dr Cadet.Procedure: The patient was advised of the benefits, risks, and alternatives of the procedure and informed consent was obtained.A time out was performed with verification of the patient's name, MRN, site of procedure, and type of procedure to be performed. The patient was positioned in the supine position on the angiographic table. The site was prepped and draped in the usual sterile fashion.Moderate sedation was performed by the physician including the presence of an independent trained observer who assisted in monitoring the patient's level of consciousness and physiological status. Following the administration of Fentanyl and Versed, the physician spent 60 minutes of continuous pkih-yj-lrrp time with the patient. A black topper radiograph reveals infusion catheter in the distal SFA and popliteal artery. The inner stylet was removed and an arteriogram was performed through the infusion catheter. This demonstrates single vessel peroneal artery runoff to the right foot with intermittent irregularity. A wire was advanced through the infusion catheter under fluoroscopy guidance and the infusion catheter was removed over the wire. The short vascular sheath was exchanged over the wire for a long vascular sheath which was positioned in the right common femoral artery. A right leg angiogram was performed and this demonstrates patent proximal and mid right superficial femoral artery and patent profunda femoris. An angiogram further down the leg was performed and this demonstrates persistent thrombus in the distal SFA and popliteal artery. A new 20 cm in diffuse catheter was advanced over the wire and positioned in the distal SFA and popliteal artery. The catheter was reconnected to TPA 0.5 mg per hour for continuous lysis. Heparin 400 units per hour was connected to the sheath. The catheters were secured and a sterile dressing was applied to the groin. Patient tolerated the procedure well and was transferred to PRU in stable condition. Complications: None. Estimated blood loss: Less than 5 ml. Impression: 1. Lysis check demonstrates persistent occlusion in the right distal SFA and popliteal artery. 2. Successful replacement of infusion catheter for ongoing lysis. Electronically Signed by Amrita Cadet MD 02/23/2019 12:01 P
[2019-02-23] MEDS ORDERED: VASOPRESSIN INJ 20 UNITS/ML VIAL As Ordered ONE (12:09)
[2019-02-23] MEDS ORDERED: PHENYLEPHRINE INJ 10MG/ML VIAL (J2370) As Ordered ONE (12:10)
[2019-02-23] MEDS ORDERED: CLINDAMYCIN 600 MG/50 ML PREMIX BAG As Ordered ONE (12:18)
[2019-02-23] MEDS ORDERED: BUPIVACAINE/EPIN 0.5% 30 ML VIAL As Ordered ONE (12:20)
--- NOTE | 2019-02-23 12:43 | REP ---
IR right leg angiogram. IR lysis check. IR distal right SFA and popliteal artery stenting. IR distal right SFA and popliteal artery angioplasty. IR anterior tibial artery recanalization. IR anterior tibial artery angioplasty. IR peroneal artery angioplasty. IR moderate sedation. Clinical Information: Right cold leg. Increased swelling. Physicians: Dr Cadet and Dr. Tejada.Procedure: The patient was advised of the benefits, risks, and alternatives of the procedure and informed consent was obtained.A time out was performed with verification of the patient's name, MRN, site of procedure, and type of procedure to be performed. The patient was positioned in the supine position on the angiographic table. The site was prepped and draped in the usual sterile fashion.Moderate sedation was performed by the physician including the presence of an independent trained observer who assisted in monitoring the patient's level of consciousness and physiological status. Following the administration of Fentanyl and Versed, the physicians spent 120 minutes of continuous [id number]-ul-dyyb time with the patient. A freelance interpreter/translator radiograph reveals infusion catheter in the distal SFA and popliteal artery. The inner stylet of the catheter was removed and an arteriogram was performed through the infusion catheter. This demonstrates patent single-vessel peroneal artery runoff to the right foot. An 035 wire was advanced through the catheter under fluoroscopy guidance and the catheter was removed over the wire. A right leg angiogram was performed through the groin sheath and this demonstrates irregular slow flow in the distal superficial femoral artery and proximal popliteal artery. Angiogram further down the right leg was performed and this demonstrates flow in the proximal/mid right superficial femoral artery and irregular flow in the distal superficial femoral artery. Given irregularity of flow in distal superficial femoral artery and popliteal and freshly lysed clot, it was felt best to stent first to prevent distal emboli. A 6 x 120 mm Cristela stent was advanced over the wire under fluoroscopy guidance and positioned in the popliteal artery. This was deployed under fluoroscopy guidance. A second 6 x 120 mm Cristela stent was advanced over the wire under fluoroscopy guidance and overlapped with the first stent. This was deployed in the distal superficial femoral artery. The deployment device was removed over the wire. A 6 x 200 mm Baudette angioplasty balloon was advanced over the wire into the distal SFA and popliteal artery. This was used to angioplasty the stented vessel. Heparin was administered. The balloon was deflated and removed over the wire. A follow-up post angioplasty arteriogram was performed and this demonstrates lack of flow in the proximal right superficial femoral artery. 100 mcg of nitroglycerin were administered into the right superficial femoral artery through the sheath. 2 mg of TPA was also administered into the right superficial femoral artery. After 30 minutes, a follow-up arteriogram was performed and this demonstrates flow in the proximal and mid right superficial femoral artery. However it's irregular and slow. There is no flow through the distal superficial femoral artery stent. This was felt to be due to poor outflow. A 3 x 220 mm stef balloon was advanced over the wire into the right peroneal artery. The catheter in conjunction with a wire was used to catheterize the distal peroneal artery. Prolonged angioplasty was performed. The balloon was deflated and removed over the wire. A 3.5 x 220 mm stef angioplasty balloon was then advanced over the wire into the distal superficial femoral artery popliteal artery. This was inflated under fluoroscopy guidance. After prolonged angioplasty, the balloon was deflated and removed over the wire. A follow-up arteriogram was performed through the groin sheath and this demonstrates no flow within the distal superficial femoral artery and popliteal artery. An 018 wire in conjunction with the angioplasty balloon was used to catheterize the anterior tibial artery. Under fluoroscopy guidance, the catheter and wire were used to catheterize the distal anterior tibial artery. The wire was removed and injection of contrast confirmed intraluminal location. The 2 x 220 mm angioplasty balloon was used under fluoroscopy guidance to angioplasty the anterior tibial artery. Additional heparin was administered. After prolonged angioplasty, the catheter was deflated and removed. A follow-up arteriogram demonstrates reflux in the recanalized anterior tibial artery. However, there is lack of forward flow into the foot. The angioplasty balloon was removed over the wire. The diagnostic catheter was then advanced over the wire into the superficial femoral artery. An arteriogram was performed and this demonstrates flow within the proximal and mid right superficial femoral artery. A pullback arteriogram was performed and this demonstrates flow in the proximal mid and distal popliteal artery and in the distal superficial femoral artery through the stents. However, flow is stagnant likely due to poor outflow. The diagnostic catheter was re-advanced over the wire to the distal popliteal artery and an arteriogram was performed. This demonstrates flow in the distal popliteal artery, proximal anterior tibial artery and peroneal artery. Small area of extravasation from a collateral. Angiogram runoff to the right foot was performed and this demonstrates the vessels are constricted and threadlike, indicating compound effect of compresison syndrome on microvascular disease. Therefore, it was felt best at this time to transfer the patient to the OR for fasciotomy. The left groin sheath was exchanged over the wire for a short sheath. A left groin arteriogram was performed and this demonstrates no extravasation from the accessed right common femoral artery, no vessel spasm or injury. A 6-Welsh Mynx device was used to close the left groin arteriotomy and the sheath was removed. Hemostasis achieved. A sterile dressing was applied to the site. Patient tolerated the procedure well and was transferred to the OR in stable condition. Complications: None. Estimated blood loss: Less than 15 ml. Impression: 1. Right leg angiogram demonstrates preserved single peroneal vessel runoff to the right foot. 2. Successful right distal SFA and popliteal artery stenting. 3. Successful right distal SFA and popliteal artery angioplasty. 4. Successful right anterior tibial artery recanalization and angioplasty. 5. Successful right peroneal artery catheterization and angioplasty. 6. Follow-up demonstrates slow flow through the distal SFA and popliteal artery and improved proximal run off. The patient was transferred to the OR for fasciotomy to relieve pressure in the lower leg in order to help improve distal run off. 7. Continue hourly vascular checks. Systemic heparin will be started. Patient to start on aspirin and Plavix. Electronically Signed by Amrita Cadet MD 02/23/2019 12:41 P
[2019-02-23 12:58] LABS: ABG BASE EXCESS -13.5 (-2.0-2.0); ABG FIO2 60; ABG HCO3 14.2 MEQ/L (22.0-26.0); ABG O2 LITER FLOW 60%; ABG O2 SATURATION 98.5 % (95.0-99.0); ABG PARTIAL PRESSURE CO2 42.6 mmHg (35.0-45.0); ABG PARTIAL PRESSURE O2 188.2 mmHg (75.0-100.0); ABG SITE ART LINE; ABG STANDARD HCO3 13.5 MEQ/L (22.0-26.0); ABG TOTAL CO2 15.5 MEQ/L (23.0-31.0)
[2019-02-23 12:59] LABS: ABG pH (ARTERIAL) 7.141 UNITS (7.350-7.450)
[2019-02-23] MEDS: ALTEPLASE RECOMBINANT 10 MG in NS 990 ML XX SCH (13:00)
[2019-02-23] MEDS ORDERED: SODIUM BICARBONATE 8.4% INJ 50MEQ 50 ML VIAL As Ordered ONE (13:04)
[2019-02-23 13:05] LABS: MEAN CORPUSCULAR HEMOGLOBIN 31.3 pg (27.0-33.0); MEAN CORPUSCULAR HGB CONC 32.2 g/dl (32.0-36.5); MEAN CORPUSCULAR VOLUME 97.3 fl (80.0-96.0); RED BLOOD COUNT 1.47 10^6/uL (4.00-5.40); WHITE BLOOD COUNT 9.6 10^3/uL (4.0-10.0)
[2019-02-23 13:17] LABS: INR 2.33; PROTHROMBIN TIME 25.4 SECONDS (11.8-14.0)
[2019-02-23 13:23] LABS: HEMATOCRIT 14.3 % (36.0-47.0); HEMOGLOBIN 4.6 g/dl (12.0-15.5); PLATELET COUNT, AUTOMATED 92 10^3/uL (150-450)
--- NOTE | 2019-02-23 13:45 | REP ---
Chest x-ray: Two views. History: Central line placement. 4-[id number]-[id number]-second of fluoroscopy time is reported. Findings: A sequence of two last image hold fluoroscopically obtained spot radiographs document a right internal jugular central venous line with its tip in the expected location of the right atrium. Electronically Signed by Niall Jeffers MD 02/23/2019 01:37 P
[2019-02-23 14:03] LABS: CALCIUM LEVEL 5.7 MG/DL (8.8-10.2); CREATININE FOR GFR 1.18 MG/DL (0.55-1.30); GLOMERULAR FILTRATION RATE 46.9 (>32); POTASSIUM SERUM 4.8 MEQ/L (3.5-5.1)
[2019-02-23] MEDS: fentaNYL 100 MCG/2 ML INJECTION (J3010) IV PRN ×4 (14:06→14:52)
[2019-02-23] MEDS ORDERED: ONDANSETRON 4MG/2ML VIAL (J2405) IV PRN (14:15)
[2019-02-23] MEDS ORDERED: PROPOFOL 1,000 MG/100 ML VIAL As Ordered ONE (14:17)
[2019-02-23 14:19] LABS: ABG BASE EXCESS -10.1 (-2.0-2.0); ABG HCO3 15.1 MEQ/L (22.0-26.0); ABG PARTIAL PRESSURE CO2 30.9 mmHg (35.0-45.0); ABG PARTIAL PRESSURE O2 98.5 mmHg (75.0-100.0); ABG STANDARD HCO3 16.3 MEQ/L (22.0-26.0); ABG TOTAL CO2 16.1 MEQ/L (23.0-31.0); ABG pH (ARTERIAL) 7.308 UNITS (7.350-7.450)
[2019-02-23] MEDS: propofoL 1,000 MG in IV 1 EA IV SCH ×4 (14:20→15:08)
--- NOTE | 2019-02-23 15:08 | CCN ---
DATE: 02/23/2019 START TIME: 1350 hours STOP TIME: 1428 hours I was called to attend Rachel Montiel here in the recovery room. The patient has been examined and the chart was reviewed. I spoke at length with Dr. Tejada, as well as Dr. France from anesthesia. 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 She presented with complaints of lower extremity pain. She was found to have significant vascular compromise. She underwent a procedure via interventional radiology and was getting PPA. She underwent reprocedure this morning. She had significant compromise of her outflow and had a markedly edematous leg. Developed essentially compartment syndrome and is now status post fasciotomy. She had a significant hematoma and hemoglobin dropped to 4.6 at 1251 today. She was intubated for her fasciotomy. Blood gas done at 1251 shows a pH of 7.141, PCO2 of 42.6 and PO2 of 198.2. She was volume resuscitated. Blood and blood products were being given by anesthesia and vascular surgery. She is on a SIMV tidal volume of 420, PEEP of 5, rate of 20, FiO2 of 50%, has a pH of 7.308, pCO2 of 30.9, pO2 of 98.5. Chest x-ray is pending at the time of this dictation. PHYSICAL EXAMINATION She is beginning to awaken. Blood pressure 108 systolic, heart rate 80s with a sinus mechanism. She is beginning to move from wearing off of her anesthesia. Pupils interact. Sclerae clear. Endotracheal tube is in place. Chest shows symmetric expansion. Lung famrer are essentially clear without any wheezes, rhonchi, crackles or rubs. Cardiac exam is regular with no gallop. Peripheral pulses are essentially diminished. She has surgical dressings on the right. Abdomen is soft and nontender with normoactive bowel sounds. Extremities show her bandages on the right. Left foot is warm. Neurologically, she is sedate. Repeat coagulations are pending, as are repeat hemoglobin. Repeat electrolytes are also pending. Her first lactic acid at 1251 was 5.4. Sodium at that time was 146, potassium 4.8, chloride 117, CO2 of 15, BUN 21, creatinine 1.18. The most pressing problems requiring my presence at the bedside are: 1. Respiratory failure requiring endotracheal intubation and mechanical ventilation, multifactorial. 2. Profound metabolic acidosis. 3. Blood loss anemia. 4. Peripheral vascular disease, status post procedure. 5. Adenocarcinoma of the right upper lobe, I believe status post SBRT. 6. History of breast cancer, status post radiation. At this point, I need to be able to find more history regarding her underlying lung disease. At this point, her oxygenation is reasonable. There are catching up with her blood loss and her acidosis is improving. She has not made any urine as of yet. Her baseline creatinine of 1.18 will be followed. Of interest, it was 1.80 this morning earlier. I will assure adequate volume resuscitation. No ventilator weaning is planned for tonight. We will use propofol and Versed for sedation. Fentanyl has been ordered for pain. I will speak with her primary service when they are available. At this point, she is critically ill. I left the bedside at 1428 hours. 38 minutes of critical care time was delivered at the bedside, not including procedures.
--- NOTE | 2019-02-23 15:13 | ROOPDOC ---
[facility] Report Of Operation Report of Operation DATE OF PROCEDURE: 02/23/19 PREPROCEDURE DIAGNOSES: 1. Compartment syndrome right lower extremity 2. Need for IV access POSTPROCEDURE DIAGNOSES: Same. PROCEDURE: 1. Four compartment fasciotomy right calf 2. Ultrasound-guided placement of a right IJ triple-lumen catheter, non-tunneled SURGEON: Li Tejada MD ANESTHESIA: General anesthesia INDICATION FOR PROCEDURE: Ms. Montiel is a very pleasant 78-year-old patient stat us post extensive revascularization attempts over the past [address] Cadet, secondary to chronic severe peripheral vascular disease with rest pain and nonhealing wound of the right foot, and then acute on chronic right lower extremity ischemia. Postprocedure in IR today, the patient's calf was very tight and her foot was mottled and cold. Risks benefits and alternatives were explained to the patient and her family for an urgent right lower extremity 4 compartment fasciotomy and they were agreeable to proceed. Informed consent was obtained. REPORT OF OPERATION: The patient was brought to the OR in stable but critical condition. General anesthesia and antibiotics were administered without complication. A Link catheter was placed. A left radial art line was placed. Her right lower extremity was prepped and draped in a sterile fashion. A timeout was performed. An incision was made and the lateral calf over the fibula and carried down through subcutaneous tissue with Bovie cautery. A Metzenbaum scissors was used to open up both the anterior compartment and the lateral compartment along their entire length. The muscle did bulge significantly. There was old clot that was evacuated. There were some bridging veins that we controlled with Bovie cautery, but they did bleed quite a bit initially due to full anticoagulation. Good hemostasis was achieved. We then made an incision along the medial calf and carried this down to the subcutaneous tissue Bovie cautery. The saphenous vein was identified and preserved. The fascia for the medial compartment was opened along its length. There was a considerable bulge of muscle with this as well. We then opened up the deep compartment as well. There was quite a bit of clot in the deep and medial compartments which was evacuated. We then irrigated with 2 L of warm normal saline to evacuate all the old clot from both areas. A large amount of old clot was evacuated and this dramatically reduced the tension in the calf. Next, we examined the lateral compartment. Bovie cautery was used for final hemostasis, and then we were able to close the skin without to much tension with tanner. On the medial side we irrigated a second time, Bovie cautery was used for hemostasis, and we attempted to close the medial skin. Unfortunately only the distal and proximal aspects could be closed the rest of the muscle would've been under too much tension if we closed so this was left open. Surgicel was placed over the ROM muscle where there was a light amount of oozing, with good hemostasis. Xeroform was placed over the open muscle belly and the tanner. Xeroform was placed over the lateral tanner as well. 4 x 4's ABDs Kerlix and Coban were used to dress the leg. The foot appeared slightly better, and the skin over the calf had markedly improved after fasciotomy. However, I could not Doppler significant signals at the DP or PT following fasciotomy. Next, the right neck was prepped and draped in a sterile fashion. Ultrasound was used to guide access to the right jugular vein. Under fluoroscopic guidance a wire was passed into the central system. A small incision was made at the skin and a dilator was passed over the wire using the Seldinger technique. The dilator was removed and the triple-lumen catheter was placed over the wire into the central system and the wire was removed. All 3 ports saloni back and flushed easily and appropriate caps were placed. The line was secured to the neck in 4 places with silk suture. Sterile dressings were applied. The patient was taken out of Trendelenburg and was then transferred to PACU in critical but stable condition. ESTIMATED BLOOD LOSS: Approximately 100 mL somewhat fresh blood and 200 mL older clot evacuated. TRANSFUSIONS: The patient received 2 units of packed red blood cells in the OR, 2 units of packed red blood cells in recovery, 1 unit of FFP and recovery. She will receive 2 more units of packed red blood cells in the ICU. COMPLICATIONS: None. PLAN: The patient will return to the ICU, and we will keep her intubated for now. We are giving her considerable amount of blood and IV fluids to reverse her metabolic acidosis and anemia, and the safest option is to keep her intubated at this point. Although the fasciotomy was urgently needed, unfortunately releasing the muscle compartments did not dramatically improve perfusion to the foot. 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 This is not something that we can improve upon with endovascular techniques or open vascular surgery. We will see how she does after fasciotomies with supportive care. Eventually, we would like to have the patient back on anticoagulation, but for now, she is delusionally anticoagulated secondary to IV fluids, packed red blood cell transfusions, anemia and thrombocytopenia. We will wait until her platelet count is greater than 100,000 and her hemoglobin is greater than 8 before restarting the heparin drip. I discussed the patient at length with the hospitalist team. I've also discussed with Dr. Garza that we would appreciate his help with management management. We appreciate the assistance with this critical patient. It is unclear at this point if her right lower extremity is salvageable. I have discussed with the patient's family that there is a strong possibility she will required above-knee amputation. They are aware that this is very tenuous. I did reassure them that she is starting to look better after appropriate resuscitation. The next 24 hours will be very telling as far as limb salvageability. LI TEJADA MD Feb 23, 2019 15:13
[2019-02-23] MEDS: MIDAZOLAM INJ 2 MG/2 ML VIAL (J2250) IV PRN ×5 (15:22→20:37)
[2019-02-23] MEDS ORDERED: MIDAZOLAM INJ 2 MG/2 ML VIAL (J2250) As Ordered ONE (15:23)
[2019-02-23] MEDS: CALCIUM CHLORIDE 10% 1 GM/10 ML SYR IV ONE ×2 (15:30→16:57)
[2019-02-23] MEDS: NS 1,000 ML IV STA ×2 (15:41→16:57)
[2019-02-23 15:56] LABS: HEMATOCRIT 30.7 % (36.0-47.0); MEAN CORPUSCULAR HEMOGLOBIN 29.7 pg (27.0-33.0); MEAN CORPUSCULAR HGB CONC 33.2 g/dl (32.0-36.5); MEAN CORPUSCULAR VOLUME 89.2 fl (80.0-96.0); RED BLOOD COUNT 3.44 10^6/uL (4.00-5.40); WHITE BLOOD COUNT 7.6 10^3/uL (4.0-10.0)
[2019-02-23 15:58] LABS: PLATELET COUNT, AUTOMATED 65 10^3/uL (150-450)
[2019-02-23 15:59] LABS: HEMOGLOBIN 10.2 g/dl (12.0-15.5)
[2019-02-23] MEDS ORDERED: SODIUM CHLORIDE 0.9% 1000ML IV ONE ×2 (16:45→17:15)
[2019-02-23] MEDS ORDERED: CALCIUM CHLORIDE 10% 1 GM/10 ML SYR IV ONE (16:45)
[2019-02-23 17:01] LABS: HEMATOCRIT 30.4 % (36.0-47.0); MEAN CORPUSCULAR HEMOGLOBIN 29.9 pg (27.0-33.0); MEAN CORPUSCULAR HGB CONC 32.9 g/dl (32.0-36.5); MEAN CORPUSCULAR VOLUME 90.7 fl (80.0-96.0); RED BLOOD COUNT 3.35 10^6/uL (4.00-5.40); WHITE BLOOD COUNT 7.8 10^3/uL (4.0-10.0)
[2019-02-23 17:02] LABS: PLATELET COUNT, AUTOMATED 74 10^3/uL (150-450)
[2019-02-23] MEDS ORDERED: NS 1,000 ML IV SCH (17:15)
[2019-02-23 17:25] LABS: PARTIAL THROMBOPLASTIN TIME 50.1 SECONDS (25.0-38.4)
[2019-02-23 17:35] LABS: CREATININE,RANDOM URINE 58.5 MG/DL
[2019-02-23 17:36] LABS: ANISOCYTOSIS 1+; ATYPICAL LYMPH 8 % (0-5); LYMPHOCYTES 16 % (16-44); MONOCYTES 9 % (0-5); NEUTROPHILS 53 % (28-66)
[2019-02-23 17:37] LABS: BURR CELLS 1+; HYPOCHROMASIA 1+
[2019-02-23 17:39] LABS: PLATELET ESTIMATE DECREASED (NORMAL)
[2019-02-23 18:02] LABS: CALCIUM LEVEL 8.5 MG/DL (8.8-10.2); CREATININE FOR GFR 1.28 MG/DL (0.55-1.30); GLOMERULAR FILTRATION RATE 42.7 (>32); MAGNESIUM LEVEL 1.4 MG/DL (1.8-2.4); POTASSIUM SERUM 4.7 MEQ/L (3.5-5.1)
[2019-02-23] MEDS ORDERED: PHENYLephrine HCL 500 MCG/5 ML (100MCG/ML) SYRINGE (J2370) As Ordered ONE (18:20)
[2019-02-23] MEDS ORDERED: MAG SULF 1GM/100ML (MAG RUN) 1 GM in IV 1 EA IV ONE (18:30)
[2019-02-23] MEDS ORDERED: PHYTONADIONE 5 MG TAB GT ONE (18:45)
[2019-02-23 20:13] LABS: ABG BASE EXCESS -9.1 (-2.0-2.0); ABG HCO3 16.4 MEQ/L (22.0-26.0); ABG O2 SATURATION 98.8 % (95.0-99.0); ABG PARTIAL PRESSURE CO2 34.3 mmHg (35.0-45.0); ABG PARTIAL PRESSURE O2 196.6 mmHg (75.0-100.0); ABG STANDARD HCO3 17.1 MEQ/L (22.0-26.0); ABG TOTAL CO2 17.5 MEQ/L (23.0-31.0); ABG pH (ARTERIAL) 7.298 UNITS (7.350-7.450)
[2019-02-23 20:29] LABS: HEMATOCRIT 27.4 % (36.0-47.0); HEMOGLOBIN 9.1 g/dl (12.0-15.5); MEAN CORPUSCULAR HEMOGLOBIN 29.6 pg (27.0-33.0); MEAN CORPUSCULAR HGB CONC 33.2 g/dl (32.0-36.5); MEAN CORPUSCULAR VOLUME 89.3 fl (80.0-96.0); PLATELET COUNT, AUTOMATED 106 10^3/uL (150-450); RED BLOOD COUNT 3.07 10^6/uL (4.00-5.40); WHITE BLOOD COUNT 8.1 10^3/uL (4.0-10.0)
[2019-02-23 20:46] LABS: INR 1.51; PROTHROMBIN TIME 17.9 SECONDS (11.8-14.0)
[2019-02-23 21:07] LABS: ALBUMIN 1.8 GM/DL (3.2-5.2); BILIRUBIN,DIRECT 0.3 MG/DL (0.0-0.2); TOTAL PROTEIN 3.8 GM/DL (6.4-8.2)
[2019-02-23] MEDS ORDERED: NS 1,000 ML IV ONE (22:00)
[2019-02-23] MEDS: MAG SULF 1GM/100ML (MAG RUN) 1 GM in IV 1 EA IV SCH (22:38)
[2019-02-24] VITALS (30 sets, daily range): BP systolic 93–153; BP diastolic 46–75
[2019-02-24] MEDS: MAG SULF 1GM/100ML (MAG RUN) 1 GM in IV 1 EA IV SCH (00:15)
[2019-02-24 00:30] LABS: HEMATOCRIT 24.8 % (36.0-47.0); HEMOGLOBIN 8.3 g/dl (12.0-15.5); MEAN CORPUSCULAR HEMOGLOBIN 29.4 pg (27.0-33.0); MEAN CORPUSCULAR HGB CONC 33.5 g/dl (32.0-36.5); MEAN CORPUSCULAR VOLUME 87.9 fl (80.0-96.0); PLATELET COUNT, AUTOMATED 123 10^3/uL (150-450); RED BLOOD COUNT 2.82 10^6/uL (4.00-5.40); WHITE BLOOD COUNT 7.1 10^3/uL (4.0-10.0)
[2019-02-24] MEDS: MIDAZOLAM INJ 2 MG/2 ML VIAL (J2250) IV PRN ×2 (00:39→04:04)
[2019-02-24 00:51] LABS: CALCIUM LEVEL 7.8 MG/DL (8.8-10.2); CREATININE FOR GFR 1.23 MG/DL (0.55-1.30); GLOMERULAR FILTRATION RATE 44.7 (>32); POTASSIUM SERUM 4.6 MEQ/L (3.5-5.1)
[2019-02-24] MEDS ORDERED: NS 1,000 ML IV SCH (02:00)
[2019-02-24] MEDS: HYDROMORPHONE HCL 0.5 MG/ 0.5 ML SYRINGE (J1170 PER 1) IV PRN ×2 (02:26→20:24)
[2019-02-24 06:17] LABS: ABG BASE EXCESS -9.5 (-2.0-2.0); ABG HCO3 15.5 MEQ/L (22.0-26.0); ABG O2 SATURATION 96.4 % (95.0-99.0); ABG PARTIAL PRESSURE CO2 30.9 mmHg (35.0-45.0); ABG PARTIAL PRESSURE O2 92.4 mmHg (75.0-100.0); ABG STANDARD HCO3 16.9 MEQ/L (22.0-26.0); ABG TOTAL CO2 16.4 MEQ/L (23.0-31.0); ABG pH (ARTERIAL) 7.317 UNITS (7.350-7.450)
[2019-02-24 07:04] LABS: HEMATOCRIT 34.1 % (36.0-47.0); MEAN CORPUSCULAR HEMOGLOBIN 29.9 pg (27.0-33.0); MEAN CORPUSCULAR HGB CONC 33.7 g/dl (32.0-36.5); MEAN CORPUSCULAR VOLUME 88.6 fl (80.0-96.0); PLATELET COUNT, AUTOMATED 121 10^3/uL (150-450); RED BLOOD COUNT 3.85 10^6/uL (4.00-5.40); WHITE BLOOD COUNT 8.1 10^3/uL (4.0-10.0)
[2019-02-24 07:09] LABS: HEMOGLOBIN 11.5 g/dl (12.0-15.5)
--- NOTE | 2019-02-24 07:14 | REP ---
PORTABLE CHEST X-RAY: Single view. HISTORY: Intubated patient. Comparison chest x-ray November 01, 2018. FINDINGS: A right internal jugular central venous line terminates in the expected location of the right atrium. And endotracheal tube is seen in position at the level of the proximal clavicles. There is no evidence of pneumothorax or hydrothorax. There is right paratracheal fullness consistent with mediastinal adenopathy. There is linear opacity in the right upper lobe consistent with plate-like atelectasis. The previously noted right lung nodule is less well seen. There are surgical clips in the right axillary or breast soft tissues. IMPRESSION: Endotracheal tube in good position. A right internal jugular central venous line is seen in place. There is fullness in the right mediastinum question adenopathy. Right upper lobe plate-like atelectasis. Electronically Signed by Niall Jeffers MD 02/24/2019 07:48 A
[2019-02-24 07:15] LABS: INR 1.24; PROTHROMBIN TIME 15.3 SECONDS (11.8-14.0)
[2019-02-24 07:30] LABS: ALBUMIN 2.3 GM/DL (3.2-5.2); BILIRUBIN,TOTAL 0.5 MG/DL (0.2-1.0); CALCIUM LEVEL 7.9 MG/DL (8.8-10.2); CREATININE FOR GFR 1.11 MG/DL (0.55-1.30); GLOMERULAR FILTRATION RATE 50.3 (>32); MAGNESIUM LEVEL 2.1 MG/DL (1.8-2.4); POTASSIUM SERUM 4.7 MEQ/L (3.5-5.1); TOTAL PROTEIN 4.6 GM/DL (6.4-8.2)
--- NOTE | 2019-02-24 07:54 | REP ---
Portable chest x-ray: Single view. History: Intubated patient. Comparison study: February 23, 2019. Findings: Endotracheal tube is in good position. NG tube enters left upper quadrant of the abdomen. A right-sided central venous catheter is seen in place with its tip in the region of the right atrium. There is mild fullness of the right mediastinum unchanged. No new infiltrate. Electronically Signed by Niall Jeffers MD 02/24/2019 07:46 A
--- NOTE | 2019-02-24 08:06 | IRPN ---
[facility] IR Progress Note IR Progress Note DATE: Feb 24, 2019 FOLLOW-UP: day #2 status post right limb thrombolysis, revascularization, stenting and fasciotomy. Patient's blood pressure now improved after volume repletion. She remains intubated on low PEEp, but alert and cooperative. ON EXAMINATION: Comfortable at rest, alert, intubated but oriented. BP 113/89 HR 90. No respiratory distress. Right lower extremity, warm to touch and improved color. Still edematous to above knee but improved since fasciotomy. Posterior tibial pulse palpable and dorsalis pedis 2+ on Doppler. No discoloration of toes or gangrene. Labs: 02/24/19 0655 Hgb 11.5 Hct 34.1 wbc 8.1 Plt 121 Na 144 K 4.7 BUN 23 Cr 1.11 GFR 50.3 INR 1.24 IMPRESSION: 1. Right cold leg- improved post revascularization, stenting and fasciotomy. Will need to start on ASA 81 mg and Plavix 75mg when appropriate for drug eluting stents in SFA and popliteal artery. Continue vascular checks. 2. Pre renal failure: improved post volume repletion. Improved urine output. Improved GFR. 3. Anemia: related to interventions. Improved post blood transfusions 4. Thrombocytopenia and coagulopathy - improved post FFP and platelet transfusion. Will continue to follow. Allergies Coded Allergies: exemestane (Verified Allergy, Mild, Rash, 06/03/18) Penicillins (Verified Adverse Reaction, Mild, Yeast Infection, 06/03/18) Current Medications Current Medications Medications (Trade) Dose Ordered Sig/Joaquin Route PRN Reason Start Time Stop Time Status Last Admin Dose Admin Acetaminophen (Tylenol Arthritis Er) 1,300 mg Q8HP PRN PO PAIN 02/23/19 12:00 Acetaminophen (Tylenol Tab) 650 mg Q6HP PRN PO PAIN / FEVER 02/21/19 21:00 02/23/19 11:31 DC 02/22/19 22:04 Alteplase, Recombinant 10 mg/ Sodium Chloride 1,000 ml @ 50 mls/hr Q20H XX 02/21/19 21:00 02/23/19 17:22 DC 02/22/19 15:46 Amiloride HCl (Midamor) 5 mg DAILY PO 02/22/19 09:00 02/23/19 11:31 DC 02/22/19 10:04 Fentanyl Citrate (Sublimaze) 25 mcg Q5MP PRN IV PAIN LEVEL 5-10, AGITATION 02/23/19 14:15 02/23/19 15:15 DC 02/23/19 14:17 Heparin Sodium (Porcine) 37824 units/IV Miscellaneous Supplies 250 ml @ 4 mls/hr Q24H XX 02/21/19 21:00 02/23/19 17:22 DC 02/22/19 21:53 Hydrochlorothiazide (Hydrodiuril) 50 mg DAILY PO 02/22/19 09:00 02/23/19 11:31 DC 02/22/19 10:04 Hydromorphone HCl (Dilaudid) 0.5 mg Q2HP PRN IV MODERATE PAIN (PS 5-7) 02/21/19 21:00 02/24/19 02:26 Ibuprofen (Advil) 600 mg Q8HP PRN PO PAIN 02/22/19 13:45 02/23/19 11:31 DC 02/23/19 02:03 Magnesium Sulfate/ Dextrose 1 gm/IV Miscellaneous Supplies 100 ml @ 100 mls/hr 2215,2315 IV 02/23/19 22:15 02/24/19 02:30 DC 02/24/19 00:15 Metoprolol Tartrate (Lopressor) 12.5 mg BID PO 02/24/19 09:00 Metoprolol Tartrate (Lopressor) 50 mg BID PO 02/21/19 21:00 02/24/19 07:24 DC 02/22/19 21:51 Midazolam HCl (Versed) 2 mg Q15MP PRN IV AGITATION 02/23/19 14:45 02/24/19 04:04 Omeprazole (PriLOSEC) 20 mg DAILY PO 02/22/19 09:00 02/22/19 10:04 Ondansetron HCl (ZOFRAN INJection) 4 mg Q4HP PRN IV NAUSEA OR VOMITING 02/23/19 14:15 02/23/19 15:15 DC Ondansetron HCl (ZOFRAN INJection) 4 mg Q8HP PRN IV NAUSEA OR VOMITING 02/21/19 21:00 02/22/19 22:05 Oxycodone/ Acetaminophen (Percocet 5mg/ 325mg Tablet) 1 tab Q8HP PRN PO MILD/MODERATE PAIN (PS 1-7) 02/21/19 21:00 02/22/19 10:05 Oxycodone/ Acetaminophen (Percocet 5mg/ 325mg Tablet) 2 tab Q8HP PRN PO SEVERE PAIN (PS 8-10) 02/21/19 21:00 Potassium Chloride (Micro-K Extencaps) 10 meq BID PO 02/21/19 21:00 02/22/19 21:51 Propofol 1000 mg/ IV Miscellaneous Supplies 100 ml @ 3.924 mls/ hr Q24H IV 02/23/19 15:00 02/23/19 22:12 DC 02/23/19 15:08 Sodium Chloride 1,000 ml @ 100 mls/hr Q10H IV 02/23/19 17:15 02/23/19 17:48 DC 02/23/19 17:36 Sodium Chloride 1,000 ml @ 100 mls/hr Q10H IV 02/24/19 02:00 02/24/19 04:30 Sodium Chloride 1,000 ml @ 150 mls/hr Q6H40M IV 02/23/19 07:00 02/23/19 17:22 DC 02/23/19 07:09 Sodium Chloride 1,000 ml @ 250 mls/hr Q4H IV 02/23/19 02:30 02/23/19 06:30 DC 02/23/19 02:50 Sodium Chloride 1,000 ml @ 250 mls/hr Q4H IV 02/23/19 17:45 02/23/19 21:54 DC 02/23/19 18:21 Sodium Chloride 1,000 ml @ 1,000 mls/hr Q1H STAT IV 02/23/19 16:28 02/23/19 17:27 DC 02/23/19 15:41 VS,Fishbone, I+O VS, Fishbone, I+O Laboratory Tests 02/23/19 12:51 02/23/19 15:25 02/23/19 16:41 02/23/19 17:26 02/23/19 20:15 02/24/19 00:18 02/24/19 06:55 Vital Signs Date Time Temp Pulse Resp B/P (MAP) Pulse Ox O2 Delivery O2 Flow Rate FiO2 02/24/19 06:00 45 02/24/19 04:19 98.3 94 21 105/51 95 Ventilator 02/23/19 11:17 6 I&O- Last 24 Hours up to 6 AM 02/24/19 06:00 Intake Total 68795 ml Output Total 1255 ml Balance 9932 ml LYNNE HER MD Feb 24, 2019 08:06
[2019-02-24] MEDS ORDERED: BUPIVACAINE/EPIN 0.5% 30 ML VIAL IM ONE (10:00)
[2019-02-24] MEDS: POTASSIUM CHLORIDE 10 MEQ SR TABLET PO SCH ×2 (12:05→20:10)
[2019-02-24] MEDS: OMEPRAZOLE 20 MG CAP PO SCH (12:05)
[2019-02-24] MEDS: METOPROLOL TART 12.5 MG PER 1/2 TAB PO SCH ×2 (12:05→20:10)
[2019-02-24] MEDS: NS 1,000 ML IV SCH ×2 (16:27→21:52)
[2019-02-24] MEDS: PERCOCET 5MG/325MG TAB PO PRN (16:27)
--- NOTE | 2019-02-24 16:45 | IPNPDOC ---
Date Seen The patient was seen on 02/24/19. Progress Note Patient seen and examined earlier today. She is doing much better. She is extubated, sitting up in the bed, joking around with her family and I. She is denying any pain, and says she feels a lot better. On exam her foot is warm and pink and she has a strong biphasic PT signal the softer monophasic DP signal. Her lateral fasciotomy wound is completely closed with tanner and has minimal serous oozing. Her medial fasciotomy wound is not closed due to bulging muscle and too much tension to close the skin. The skin at the posterior and anterior calf were cleaned and dried. Due to some light bruising over the medial muscle bellies, the muscle was sprayed with Marcaine with epi, which was also injected into the subcutaneous tissue around the open fasciotomy. This provided excellent hemostasis and analgesia. Xeroform was placed over the lateral tanner and over the muscle belly. 4 x 4's ABDs and Kerlix were used to wrap the leg and a Coban was placed over the top for security and gentle compression. The leg was re- elevated in the bed. The patient tolerated this without difficulty. I'm pleased with her progress. At this point, her right lower extremity appears salvageable although she will likely need a wound VAC placement and a split-thickness skin graft for healing of the medial fasciotomy incision. She currently is not on anticoagulation because of the oozing from the right lower extremity, but she does have fresh stents from Dr. Cadet in the right popliteal and SFA, and ne eds to be on either Plavix or heparin. I would prefer heparin since we can turn it off if she has to much bleeding, but once we have the medial incision managed with a wound VAC, we will likely be able to convert from heparin drip to Plavix. For now continue right lower extremity elevation to diminish swelling and ongoing supportive care. VS, I&O, 24H, Fishbone Vital Signs/I&O Vital Signs Date Time Temp Pulse Resp B/P (MAP) Pulse Ox O2 Delivery O2 Flow Rate FiO2 02/24/19 16:27 20 02/24/19 14:04 107 117/55 (79) 93 Room Air 108/55 02/24/19 12:01 98.6 40 02/23/19 11:17 6 I&O- Last 24 Hours up to 6 AM 02/24/19 06:00 Intake Total 29716 ml Output Total 1255 ml Balance 58685 ml Laboratory Data 24H LABS Laboratory Tests 2 02/23/19 16:41: Nucleated Red Blood Cells % (auto) 0.0, Neutrophils 53, Band Neutrophils 14H, Lymphocytes (Manual) 16, Monocytes (Manual) 9H, Atypical Lymphocytes 8H, Hypochromasia 1+, Anisocytosis 1+, Aristides Cells 1+, Platelet Estimate DECREASED 02/23/19 16:51: Urine Random Creatinine 58.5, Urine Random Sodium 84, Urine Random Urea Nitrogen 375, Lactic Acid Level 3.6*H 02/23/19 16:52: Activated Partial Thromboplast Time 50.1H, Fibrinogen 153L 02/23/19 17:26: Anion Gap 11, Glomerular Filtration Rate 42.7, Calcium Level 8.5#L, Magnesium Level 1.4L 02/23/19 20:00: Blood Gas Bicarbonate Standard 17.1L, Arterial Blood pH 7.298L, Arterial Blood Partial Pressure CO2 34.3L, Arterial Blood Partial Pressure O2 196.6H, Arterial Blood Total CO2 17.5L, Arterial Blood HCO3 16.4L, Arterial Blood Base Excess - 9.1L, Arterial Blood Oxygen Saturation 98.8 02/23/19 20:15: Nucleated Red Blood Cells % (auto) 0.2H, Prothrombin Time 17.9H, Prothromb Time International Ratio 1.51, Fibrinogen 181L, Lactic Acid Followup at 4 Hours 2.8*H, Total Bilirubin 1.0, Direct Bilirubin 0.3H, Aspartate Amino Transf (AST/SGOT) 197H, Alanine Aminotransferase (ALT/SGPT) 33, Alkaline Phosphatase 34L, Total Creatine Kinase 5752H, Total Protein 3.8L, Albumin 1.8L, Albumin/Globulin Ratio 0.90L 02/24/19 00:18: Nucleated Red Blood Cells % (auto) 0.3H, Lactic Acid Followup at 4 Hours 1.8, Anion Gap 8, Glomerular Filtration Rate 44.7, Calcium Level 7.8L, Magnesium Level 2.0 02/24/19 05:59: Blood Gas Bicarbonate Standard 16.9L, Arterial Blood pH 7.317L, Arterial Blood Partial Pressure CO2 30.9L, Arterial Blood Partial Pressure O2 92.4, Arterial Blood Total CO2 16.4L, Arterial Blood HCO3 15.5L, Arterial Blood Base Excess - 9.5L, Arterial Blood Oxygen Saturation 96.4 02/24/19 06:55: Nucleated Red Blood Cells % (auto) 0.7H, Prothrombin Time 15.3H, Prothromb Time International Ratio 1.24, Fibrinogen 283, Anion Gap 7L, Glomerular Filtration Rate 50.3, Calcium Level 7.9L, Magnesium Level 2.1, Total Bilirubin 0.5, Aspartate Amino Transf (AST/SGOT) 381H, Alanine Aminotransferase (ALT/SGPT) 61, Alkaline Phosphatase 39L, Total Creatine Kinase 9756H, Total Protein 4.6#L, Albumin 2.3#L, Albumin/Globulin Ratio 1.00 02/24/19 13:14: Activated Partial Thromboplast Time 26.2 CBC/BMP Laboratory Tests 02/23/19 16:41 02/23/19 17:26 02/23/19 20:15 02/24/19 00:18 02/24/19 06:55 LI OBREGON MD Feb 24, 2019 16:45
--- NOTE | 2019-02-24 17:43 | IPNPDOC ---
Date Seen The patient was seen on 02/24/19. Progress Note SUBJECTIVE: Rachel was seen and examined this morning while lying upright in bed. She was just recently extubated by Dr. Garza of pulmonary/critical care. At time of our exam, she is receiving 10 L of humidified oxygen via aerosol mask. She is awake, alert and oriented 3, interacting with her family. She denies any pain at this time. She does endorse a sore throat which is likely secondary to the recent extubation, as well as some phlegm expectorate. A Link catheter is in place that has approximately 100mL of vivek-colored urine. Patient denies fever, chills, night sweats, headache, lightheadedness, dizziness, syncope, chest pain or pressure, palpitations, increased work of breathing or shortness of breath, abdominal pain, nausea, vomiting, or numbness/paresthesias at this time. OBJECTIVE PHYSICAL EXAMINATION: VITAL SIGNS: Please see below. GENERAL: Elderly female who is lying upright in bed with an aerosol mask supplying 10 L of humidified oxygen. She is awake, alert and oriented 3. She is responding properly to questions and commands. HEENT: Atraumatic, normocephalic. Breathing 10 L oxygen via aerosol mask. Erythema of right lateral eye sclera. Gelatinous substance present in the left lateral eye. Mild pharyngeal erythema with no fragile exudate. Trachea is m idline. CARDIOVASCULAR: Tachycardic rate with regular rhythm. S1, S2 auscultated but very faint with ambient noise aerosol respiratory mask. Difficult to assess for murmurs, rubs or clicks respiratory aerosol mask noise. RESPIRATORY: Breathing with the assistance of 10 L supplemental humidified oxyg en via aerosol mask. Very challenging to assess for wheezes, crackles or rhonchi due to the background ambient noise made by the respiratory aerosol mask ABDOMINAL: Soft, moderately obese. Nondistended and nontender. Hypoactive bowel sounds. No rebound, guarding or rigidity. EXTREMITIES: Right lower extremity is bandaged extensively. There does not appear to be any discharge from the bandaging and no malodorous seroma. NEUROLOGICAL: Awake, alert and oriented 3. Interacting with myself and family, responding appropriately to questions and commands. No focal neurological deficits appreciated. Patient able to move extremities on command, although she is unable to specifically wiggle the toes on her right foot. PSYCHOLOGICAL: Mood and affect appear appropriate LABORATORY DATA, IMAGING STUDIES, MICROBIOLOGY: Please see below. Imaging today (02/24/19)- portable chest x-ray showing good positioning of ET tube with unchanged mild fullness of right mediastinum and no new infiltrate. 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 The right lower extremity. Patient subsequently developed coolness and changed appearance of the skin of the right lower extremity a day after this procedure, and subsequently underwent a second interventional radiology procedure. Drug-eluting stents were inserted into the patient's popliteal artery and SFA. Patient then developed compartment syndrome in the right lower extremity and vascular surgery came on and performed a fasciotomy. For the fasciotomy, patient was intubated and remained intubated after completion of the fasciotomy. Patient developed acute anemia, thrombocytopenia, significant metabolic acidosis, ANGELINA, elevated INR, and bandemia. Patient received 6 transfusions of leukocyte reduced RBCs, 2 transfusions of leukocyte reduced pheresis platelets, and a single transfusion of fresh frozen plasma platelets. Patient's anemia and thrombocytopenia , improved after infusions. Elevated INR, also improved after infusions. Renal functioning improved after IV fluid administration in the form of increased urine output and GFR. Subsequent ABG today still showed metabolic acidosis but that has also improved. After trial of pressure support on the morning of 02/24, the patient was extubated successfully. #Severe peripheral vascular disease, status post drug-eluting stents and right popliteal artery and right SFA -Vascular surgery saw patient today and feels as though the leg is salvageable -Patient will likely need a wound VAC and skin graft to assist in healing of medial fasciotomy incision -Anticoagulation, currently being held due to active oozing of right lower extremity -Patient does have 2 drug-eluting stents in right popliteal artery and right SFA and will soon need to be re-started on Plavix and/or aspirin -Wound dressing changed today by vascular surgery, which included an antimicrobial dressing -c/w vascular check #Right lower extremity compartment syndrome, status post fasciotomy -Patient was seen by vascular surgery today (Dr. Tejada) who is pleased with patient's progress -Right lower extremity seems salvageable although she will likely need a wound VAC placement and skin graft for healing of the medial fasciotomy incision. -Not currently on anticoagulation due to active oozing from right lower extremity but does have stents in right popliteal and SFA and needs to be on either Plavix or heparin. Vascular surgery would prefer heparin since he can be initiated or stopped. If excess bleeding occurs. With placement of wound VAC, patient will likely need to be converted to Plavix. -Continue to elevate right lower extremity to decrease swelling and provide supportive care. -Wound dressing changed today by vascular surgery, which included an antimicrobial dressing #Normocytic normochromic anemia -Hemoglobin improved to 11.5 today (8.3 yesterday from a min of 4.6) -Patient has received 6 transfusions of leukocyte reduced RBCs and one transfusion of fresh frozen plasma -Per interventional radiology, anemia is likely related to patient's recent interventions -Continue to follow repeat CBCs #Thrombocytopenia -Platelets are 121 this morning, improved from 106 yesterday evening. -Patient is status post 2 transfusions of leukocyte reduced pheresis platelets. -Continue to follow repeat CBCs #Elevated total creatinine kinase -Increased to 9756 today, from 5752 yesterday -Potential for rhabdomyolysis -IV fluid rate increased to 150mL/hr -Continue to follow total CK as well as patient's urine output #Acute kidney injury, resolved -Serum creatinine returned to normal limits (most recently 1.11) after acute el evation yesterday evening (1.8) -Improvement occurred status post IV fluid administration -Continue to follow repeat metabolic panels #Metabolic acidosis -PH 7.3, PCO2 30.9, CO2 18 measured this morning -Improved from yesterday -Continue to follow repeat ABGs -Patient extubated this morning #Elevated INR -Improved since yesterday afternoon following blood transfusions, vitamin K and platelet infusions -Continue to monitor via coagulation measures #DVT prophylaxis: Currently not on anticoagulation due to active oozing from right lower extremity. Per vascular surgery, patient should soon be started on both Plavix and aspirin due to drug-eluting stents in SFA and popliteal artery. DISPOSITION: Pending continued overall improvement and recommendations from interventional radiology, vascular surgery, and rounding and backing machine operator teams. VS, I&O, 24H, Fishbone Vital Signs/I&O Vital Signs Date Time Temp Pulse Resp B/P (MAP) Pulse Ox O2 Delivery O2 Flow Rate FiO2 02/24/19 16:57 20 Room Air 02/24/19 16:01 100.1 109 127/60 (85) 93 126/59 02/24/19 12:01 40 02/23/19 11:17 6 I&O- Last 24 Hours up to 6 AM 02/24/19 06:00 Intake Total 07076 ml Output Total 1255 ml Balance 62309 ml Laboratory Data 24H LABS Laboratory Tests 2 02/23/19 20:00: Blood Gas Bicarbonate Standard 17.1L, Arterial Blood pH 7.298L, Arterial Blood Partial Pressure CO2 34.3L, Arterial Blood Partial Pressure O2 196.6H, Arterial Blood Total CO2 17.5L, Arterial Blood HCO3 16.4L, Arterial Blood Base Excess - 9.1L, Arterial Blood Oxygen Saturation 98.8 02/23/19 20:15: Nucleated Red Blood Cells % (auto) 0.2H, Prothrombin Time 17.9H, Prothromb Time International Ratio 1.51, Fibrinogen 181L, Lactic Acid Followup at 4 Hours 2.8*H, Total Bilirubin 1.0, Direct Bilirubin 0.3H, Aspartate Amino Transf (AST/SGOT) 197H, Alanine Aminotransferase (ALT/SGPT) 33, Alkaline Phosphatase 34L, Total Creatine Kinase 5752H, Total Protein 3.8L, Albumin 1.8L, Albumin/Globulin Ratio 0.90L 02/24/19 00:18: Nucleated Red Blood Cells % (auto) 0.3H, Lactic Acid Followup at 4 Hours 1.8, Anion Gap 8, Glomerular Filtration Rate 44.7, Calcium Level 7.8L, Magnesium Level 2.0 02/24/19 05:59: Blood Gas Bicarbonate Standard 16.9L, Arterial Blood pH 7.317L, Arterial Blood Partial Pressure CO2 30.9L, Arterial Blood Partial Pressure O2 92.4, Arterial Blood Total CO2 16.4L, Arterial Blood HCO3 15.5L, Arterial Blood Base Excess - 9.5L, Arterial Blood Oxygen Saturation 96.4 02/24/19 06:55: Nucleated Red Blood Cells % (auto) 0.7H, Prothrombin Time 15.3H, Prothromb Time International Ratio 1.24, Fibrinogen 283, Anion Gap 7L, Glomerular Filtration Rate 50.3, Calcium Level 7.9L, Magnesium Level 2.1, Total Bilirubin 0.5, Aspartate Amino Transf (AST/SGOT) 381H, Alanine Aminotransferase (ALT/SGPT) 61, Alkaline Phosphatase 39L, Total Creatine Kinase 9756H, Total Protein 4.6#L, Albumin 2.3#L, Albumin/Globulin Ratio 1.00 02/24/19 13:14: Activated Partial Thromboplast Time 26.2 CBC/BMP Laboratory Tests 02/23/19 20:15 02/24/19 00:18 02/24/19 06:55 GME ATTESTATION GME ATTESTATION My faculty preceptor for this patient encounter was physically present during the encounter and was fully available. All aspects of the patient interview, examination, medical decision making process, and medical care plan development were reviewed and approved by the faculty preceptor. The faculty preceptor is aware and concurs with the plan as stated in the body of this note and will attest to such by his/her cosignature. ATTENDING NOTE I examined Ms. Montiel at 7:[address] and agree with Dr. Espinosa's note as documented CARLENE ESPINOSA D.O. Feb 24, 2019 17:43 OSMANI SAMUEL MD Feb 24, 2019 19:14
[2019-02-25] VITALS (21 sets, daily range): BP systolic 86–156; BP diastolic 50–87
[2019-02-25 04:26] LABS: HEMATOCRIT 29.6 % (36.0-47.0); HEMOGLOBIN 9.8 g/dl (12.0-15.5); MEAN CORPUSCULAR HGB CONC 33.1 g/dl (32.0-36.5); MEAN CORPUSCULAR VOLUME 90.5 fl (80.0-96.0); PLATELET COUNT, AUTOMATED 105 10^3/uL (150-450); RED BLOOD COUNT 3.27 10^6/uL (4.00-5.40); WHITE BLOOD COUNT 7.5 10^3/uL (4.0-10.0)
[2019-02-25 04:48] LABS: CREATININE FOR GFR 1.07 MG/DL (0.55-1.30); GLOMERULAR FILTRATION RATE 52.5 (>32); MAGNESIUM LEVEL 2.1 MG/DL (1.8-2.4); POTASSIUM SERUM 4.9 MEQ/L (3.5-5.1)
[2019-02-25] MEDS ORDERED: HEPARIN SOD (PORCINE) 5000 UNITS/ML VIAL (J1644 PER 1000UNITS) IV PRN (07:30)
[2019-02-25 08:24] LABS: ABG BASE EXCESS -9.1 (-2.0-2.0); ABG PARTIAL PRESSURE CO2 27.5 mmHg (35.0-45.0); ABG PARTIAL PRESSURE O2 59.9 mmHg (75.0-100.0); ABG TOTAL CO2 15.9 MEQ/L (23.0-31.0); ABG pH (ARTERIAL) 7.356 UNITS (7.350-7.450)
[2019-02-25 08:29] LABS: HEMATOCRIT 31.4 % (36.0-47.0); HEMOGLOBIN 10.4 g/dl (12.0-15.5); MEAN CORPUSCULAR HGB CONC 33.1 g/dl (32.0-36.5); MEAN CORPUSCULAR VOLUME 90.5 fl (80.0-96.0); PLATELET COUNT, AUTOMATED 112 10^3/uL (150-450); RED BLOOD COUNT 3.47 10^6/uL (4.00-5.40); WHITE BLOOD COUNT 9.9 10^3/uL (4.0-10.0)
[2019-02-25] MEDS: METOPROLOL TART 12.5 MG PER 1/2 TAB PO SCH ×2 (08:36→21:13)
[2019-02-25] MEDS: PERCOCET 5MG/325MG TAB PO PRN (08:38)
[2019-02-25] MEDS: OMEPRAZOLE 20 MG CAP PO SCH (08:39)
[2019-02-25] MEDS: HEPARIN DRIP 25,000 UNITS in IV 1 EA IV SCH (10:11)
--- NOTE | 2019-02-25 11:25 | IPNPDOC ---
Text Note Date of Service The patient was seen on 02/25/19. NOTE Vascular surgery. Dr. Tejada Patient seen and examined in the ICU. She is sitting up in the bed. She reports pain is controlled. On exam her right foot is warm and pink and she has a strong biphasic PT signal, softer monophasic DP signal. Left toes are cooler than rt, DP/PT pulses obtained with doppler. Her lateral fasciotomy wound is completely closed with tanner and has had minimal serous oozing. Her medial fasciotomy wound is not closed due to bulging muscle and too much tension to close the skin. Dressing remains intact at this time, there is some oozing noted on the pillowcase. Plan is to change the dressing later today with Dr. Tejada. Heparin per protocol initiated this a.m., she does have fresh stents from Dr. Cadet in the right popliteal and SFA. Possibly consider wound debridement/wound VAC placement. For now continue right lower extremity elevation to diminish swelling and ongoing supportive care. VS,Dewaynebone, I+O VS, Dewaynebone, I+O Laboratory Tests 02/25/19 04:17 02/25/19 08:15 Vital Signs Date Time Temp Pulse Resp B/P (MAP) Pulse Ox O2 Delivery O2 Flow Rate FiO2 02/25/19 08:38 99.5 27 127/65 91 Room Air 02/25/19 08:36 106 02/24/19 12:01 40 02/23/19 11:17 6 I&O- Last 24 Hours up to 6 AM 02/25/19 06:00 Intake Total 3850 ml Output Total 1067 ml Balance 2783 ml Blanche Gómez Feb 25, 2019 11:25
--- NOTE | 2019-02-25 14:15 | IRPN ---
[facility] IR Progress Note IR Progress Note DATE: Feb 25, 2019 FOLLOW-UP: Patient sitting up in bed. Alert and oriented in good spirits and says she feels wonderful. ON EXAMINATION: Blood pressure 124/65 heart rate 90. Sitting comfortably at rest. Lower extremities: Right lower extremity warm to touch, pink. Dorsalis pedis and posterior tibial pulses positive on Doppler. Swelling is still present but impro ving. No discoloration or gangrene. Left lower extremity: Normal color. Cooler then the right lower extremity. DP and PT present on Doppler. Nontender. No edema. Labs: 02/25/2019 hemoglobin 10.4 hematocrit 31.4 WBC 9.9 platelets 112 sodium 147 potassium 4.9 BUN 23 creatinine 1.07 GFR 52.5 IMPRESSION: Doing well post right lower extremity revascularization, stenting and fasciotomy. Started on heparin for drug-eluting stents as aspirin and Plavix are not appropriate at present. Will continue to follow. Thank you all for taking excellent care of this patient. Allergies Coded Allergies: exemestane (Verified Allergy, Mild, Rash, 06/03/18) Penicillins (Verified Adverse Reaction, Mild, Yeast Infection, 06/03/18) Current Medications Current Medications Medications (Trade) Dose Ordered Sig/Joaquin Route PRN Reason Start Time Stop Time Status Last Admin Dose Admin Acetaminophen (Tylenol Arthritis Er) 1,300 mg Q8HP PRN PO PAIN 02/23/19 12:00 Acetaminophen (Tylenol Tab) 650 mg Q6HP PRN PO PAIN / FEVER 02/21/19 21:00 02/23/19 11:31 DC 02/22/19 22:04 Alteplase, Recombinant 10 mg/ Sodium Chloride 1,000 ml @ 50 mls/hr Q20H XX 02/21/19 21:00 02/23/19 17:22 DC 02/22/19 15:46 Amiloride HCl (Midamor) 5 mg DAILY PO 02/22/19 09:00 02/23/19 11:31 DC 02/22/19 10:04 Fentanyl Citrate (Sublimaze) 25 mcg Q5MP PRN IV PAIN LEVEL 5-10, AGITATION 02/23/19 14:15 02/23/19 15:15 DC 02/23/19 14:17 Heparin Sodium (Porcine) (Heparin) ASDIRECTED PRN IV SEE LABEL COMMENTS 02/25/19 07:30 Heparin Sodium (Porcine) 05458 units/IV Miscellaneous Supplies 250 ml @ 0 mls/hr Q0M IV 02/25/19 07:28 02/25/19 10:11 Heparin Sodium (Porcine) 60776 units/IV Miscellaneous Supplies 250 ml @ 4 mls/hr Q24H XX 02/21/19 21:00 02/23/19 17:22 DC 02/22/19 21:53 Hydrochlorothiazide (Hydrodiuril) 50 mg DAILY PO 02/22/19 09:00 02/23/19 11:31 DC 02/22/19 10:04 Hydromorphone HCl (Dilaudid) 0.5 mg Q2HP PRN IV MODERATE PAIN (PS 5-7) 02/21/19 21:00 02/24/19 20:24 Ibuprofen (Advil) 600 mg Q8HP PRN PO PAIN 02/22/19 13:45 02/23/19 11:31 DC 02/23/19 02:03 Magnesium Sulfate/ Dextrose 1 gm/IV Miscellaneous Supplies 100 ml @ 100 mls/hr 2215,2315 IV 02/23/19 22:15 02/24/19 02:30 DC 02/24/19 00:15 Metoprolol Tartrate (Lopressor) 12.5 mg BID PO 02/24/19 09:00 02/25/19 08:36 Metoprolol Tartrate (Lopressor) 50 mg BID PO 02/21/19 21:00 02/24/19 07:24 DC 02/22/19 21:51 Midazolam HCl (Versed) 2 mg Q15MP PRN IV AGITATION 02/23/19 14:45 02/24/19 10:30 DC 02/24/19 04:04 Non-Formulary Medication (Heparin Iv Rate Change Documentation ml/ Hr) ASDIRECTED XX 02/25/19 07:30 03/02/19 07:29 Omeprazole (PriLOSEC) 20 mg DAILY PO 02/22/19 09:00 02/25/19 08:39 Ondansetron HCl (ZOFRAN INJection) 4 mg Q4HP PRN IV NAUSEA OR VOMITING 02/23/19 14:15 02/23/19 15:15 DC Ondansetron HCl (ZOFRAN INJection) 4 mg Q8HP PRN IV NAUSEA OR VOMITING 02/21/19 21:00 02/22/19 22:05 Oxycodone/ Acetaminophen (Percocet 5mg/ 325mg Tablet) 1 tab Q8HP PRN PO MILD/MODERATE PAIN (PS 1-7) 02/21/19 21:00 02/25/19 08:38 Oxycodone/ Acetaminophen (Percocet 5mg/ 325mg Tablet) 2 tab Q8HP PRN PO SEVERE PAIN (PS 8-10) 02/21/19 21:00 02/25/19 00:44 Potassium Chloride (Micro-K Extencaps) 10 meq BID PO 02/21/19 21:00 Hold 02/24/19 20:10 Propofol 1000 mg/ IV Miscellaneous Supplies 100 ml @ 3.924 mls/ hr Q24H IV 02/23/19 15:00 02/23/19 22:12 DC 02/23/19 15:08 Sodium Chloride 1,000 ml @ 100 mls/hr Q10H IV 02/23/19 17:15 02/23/19 17:48 DC 02/23/19 17:36 Sodium Chloride 1,000 ml @ 150 mls/hr Q6H40M IV 02/23/19 07:00 02/23/19 17:22 DC 02/23/19 07:09 Sodium Chloride 1,000 ml @ 150 mls/hr Q6H40M IV 02/24/19 02:00 02/24/19 15:22 DC 02/24/19 04:30 Sodium Chloride 1,000 ml @ 150 mls/hr Q6H40M IV 02/24/19 16:00 02/25/19 05:45 DC 02/24/19 21:52 Sodium Chloride 1,000 ml @ 250 mls/hr Q4H IV 02/23/19 02:30 02/23/19 06:30 DC 02/23/19 02:50 Sodium Chloride 1,000 ml @ 250 mls/hr Q4H IV 02/23/19 17:45 02/23/19 21:54 DC 02/23/19 18:21 Sodium Chloride 1,000 ml @ 1,000 mls/hr Q1H STAT IV 02/23/19 16:28 02/23/19 17:27 DC 02/23/19 15:41 VS,Ivye, I+O VS, Fishbone, I+O Laboratory Tests 02/25/19 04:17 02/25/19 08:15 Vital Signs Date Time Temp Pulse Resp B/P (MAP) Pulse Ox O2 Delivery O2 Flow Rate FiO2 02/25/19 08:38 99.5 27 127/65 91 Room Air 02/25/19 08:36 106 02/24/19 12:01 40 02/23/19 11:17 6 I&O- Last 24 Hours up to 6 AM 02/25/19 06:00 Intake Total 3850 ml Output Total 1067 ml Balance 2783 ml LYNNE HER MD Feb 25, 2019 14:15
[2019-02-25] MEDS: HYDROMORPHONE HCL 0.5 MG/ 0.5 ML SYRINGE (J1170 PER 1) IV PRN (15:20)
[2019-02-25] MEDS ORDERED: METOPROLOL TART 12.5 MG PER 1/2 TAB PO ONE (15:45)
--- NOTE | 2019-02-25 15:45 | IPNPDOC ---
Date Seen The patient was seen on 02/25/19. Progress Note SUBJECTIVE: Rachel was seen and examined today while lying upright in bed. She denies any adverse events overnight and complains of no generalized or specific pain at this time. She tolerated her clear liquid diet well yesterday. She is yet to have a bowel movement since coming to the hospital a few days ago and there is a Link catheter in place. She continues to have a right internal jugular central line in place. She reports her sore throat from yesterday has improved and she no longer has any phlegm expectorate. She is breathing on room air after having been on an aerosol mask with supplemental oxygen yesterday post extubation. Patient denies any fever, chills, night sweats, headache, lightheadedness, dizziness, syncope, chest pain or pressure, palpitations, shortness of breath, cough, abdominal pain, nausea, vomiting, dysuria, or hematuria at this time. OBJECTIVE PHYSICAL EXAMINATION: VITAL SIGNS: Please see below. GENERAL: Elderly female who is lying upright in bed. She is awake, alert and oriented 3. She is responding properly to questions and commands. HEENT: Atraumatic, normocephalic. Erythema of right lateral eye sclera. Gelatinous substance present in the left lateral eye. Mild pharyngeal erythema with no fragile exudate. Trachea is midline. Right internal jugular vein central line present. CARDIOVASCULAR: Tachycardic rate with regular rhythm. S1, S2 auscultated. No murmurs appreciated. RESPIRATORY: Diminished tidal volume, likely secondary to patient's bedbound habitus. Difficult to fully appreciate for any wheezes, crackles or rhonchi. Symmetric chest expansion. Breathing on room air. Speaking in full sentences. ABDOMINAL: Soft, moderately obese. Nondistended and nontender. Normoactive bowel sounds. No rebound, guarding or rigidity. EXTREMITIES: Right lower extremity is bandaged extensively. There is some moderate amount of oozing from the right lower extremity through bandaging, but no malodorous aroma. 2+ pedal edema. Right lower extremity. Trace swelling of left lower extremity. Bilateral hands and left lower extremity cool to the t ouch. NEUROLOGICAL: Awake, alert and oriented 3. Interactive, responding properly to questions and commands. No focal neurological deficits appreciated. Patient able to move extremities on command, except she is unable to specifically wiggle the toes of her right foot, or dorsiflex or plantar flex at right ankle, on command. PSYCHOLOGICAL: Mood and affect appear appropriate LABORATORY DATA, IMAGING STUDIES, MICROBIOLOGY: Please see below. ASSESSMENT AND PLAN: This is an 78-year-old female with history of severe peripheral vascular disease, coronary artery disease, breast cancer and lung cancer, and type 2 diabetes who underwent two interventional radiology revascularization procedures for right lower extremity PVD at [facility] from 02/20-02/22. She subsequently developed RLE compartment syndrome and underwent a fasciotomy on 02/23. She was intubated for the fasciotomy and remain intubated overnight, with extubation on 02/24. Patient tolerated extubation well. Patient also developed bicytopenia (anemia with low platelets) and was transfused multiple times with blood, FFP, and platelets. After extubation, patient's respiratory status steadily improved along with ABGs and overall alertness. #Severe peripheral vascular disease, status post drug-eluting stents and right popliteal artery and right SFA -Vascular surgery saw patient today and feels as though the leg is salvageable -Per medical record, vascular surgery feels leg is salvageable; patient will likely need a wound VAC and skin graft to assist in healing of medial fasciotomy incision -Heparin restarted today as patient has 2 drug-eluting stents in right popliteal artery and right SFA; per IR, aspirin and Plavix not appropriate at this time. -PFS consult to evaluate patient for eventual placement -Bed rest was stopped and PT evaluation placed to prevent deconditioning and critical illness myopathy/neuropathy. Important for patient to optimize activity. #Right lower extremity compartment syndrome, status post fasciotomy -Patient was seen by vascular surgery today (Dr. Tejada) who is pleased with patient's progress -Right lower extremity seems salvageable although she will likely need a wound VAC placement and skin graft for healing of the medial fasciotomy incision. -Per medical record, IR saw patient this morning and started patient back on heparin for drug-eluting stents. ASA and Plavix not deemed appropriate at this time. -Continue to elevate RLE #Bicytopenia -Normocytic normochromic anemia and thrombocytopenia -Hgb 10.4 today; PLT 112 -Patient has received 6 transfusions of leukocyte reduced RBCs, 1 transfusion of FFP, and 2 units of PLTs -Continue to follow repeat CBCs #Elevated total creatinine kinase -Decreased to 8990 today from 9756 yesterday -IV fluids stopped as creatinine values remained within normal limits and patient seemed to be retaining fluid overnight -Continue to follow total CK as well as patient's urine output #Metabolic acidosis -PH 7.3 56, PCO2 27.5, bicarbonate 20 this morning -Continues to improve daily -Continue to follow repeat ABGs -Likely secondary to compartment syndrome #Elevated INR -Improved yesterday from Sunday s/p following blood transfusions, vitamin K and platelet infusions -Continue to monitor via coagulation measures #DVT prophylaxis: Heparin restarted today DISPOSITION: Pending continued improvement rested today and overnight, patient likely will be transferred to PCU (02/26) VS, I&O, 24H, Fishbone Vital Signs/I&O Vital Signs Date Time Temp Pulse Resp B/P (MAP) Pulse Ox O2 Delivery O2 Flow Rate FiO2 02/25/19 08:38 99.5 27 127/65 91 Room Air 02/25/19 08:36 106 02/24/19 12:01 40 02/23/19 11:17 6 I&O- Last 24 Hours up to 6 AM 02/25/19 06:00 Intake Total 3850 ml Output Total 1067 ml Balance 2783 ml Laboratory Data 24H LABS Laboratory Tests 2 02/25/19 04:17: Nucleated Red Blood Cells % (auto) 0.9H, Anion Gap 4L, Glomerular Filtration Rate 52.5, Calcium Level 7.0L, Magnesium Level 2.1 02/25/19 08:15: Nucleated Red Blood Cells % (auto) 0.6H, Activated Partial Thromboplast Time 27.1, Blood Gas Bicarbonate Standard 17.0L, Arterial Blood pH 7.356, Arterial Blood Partial Pressure CO2 27.5L, Arterial Blood Partial Pressure O2 59.9L, Arterial Blood Total CO2 15.9L, Arterial Blood HCO3 15.0L, Arterial Blood Base Excess -9.1L, Arterial Blood Oxygen Saturation 91.0L, Total Creatine Kinase 8990H 02/25/19 09:28: Whole Blood Ionized Calcium 4.7 CBC/BMP Laboratory Tests 02/25/19 04:17 02/25/19 08:15 GME ATTESTATION GME ATTESTATION My faculty preceptor for this patient encounter was physically present during the encounter and was fully available. All aspects of the patient interview, examination, medical decision making process, and medical care plan development were reviewed and approved by the faculty preceptor. The faculty preceptor is aware and concurs with the plan as stated in the body of this note and will attest to such by his/her cosignature. ATTENDING NOTE I examined the patient, at 7:25 AM reviewed and admitted to the notes and agree with the findings as documented CARLENE BENNETT D.O. Feb 25, 2019 15:45 OSMANI SAMUEL MD Feb 25, 2019 19:06
--- NOTE | 2019-02-25 16:59 | IPNPDOC ---
Date Seen The patient was seen on 02/25/19. Progress Note Pt seen and examined. She seems a bit tired this evening, but still friendly and cooperative. She dozed off and on during her dressing change and conversation. On exam her foot is warm and pink and she has a strong monophasic PT signal and a fainter monophasic DP signal. Her lateral fasciotomy wound is completely closed with tanner and has minimal serous oozing. She had a little odor from th e leg with dressings off- possibly due to old blood but concerning for possible infection. Her medial fasciotomy wound is not closed due to bulging muscle and too much tension to close the skin. The skin at the posterior and anterior calf were cleaned and dried. There is some non-viable gastrocnemius muscle visible, and this will need OR debridement. However, the rest of the muscle appeared viable. We thoroughly irrigated with saline. Xeroform was placed over the lateral tanner and over the muscle belly. 4 x 4's ABDs and Kerlix were used to wrap the leg and a Coban was placed over the top for security and gentle compression. Plan for OR tomorrow afternoon as add-on case, tentatively at 3pm. We will hold the heparin gtt prior to leaving the ICU en route to OR. NPO p 6am. When I went back to consent the patient, she was difficult to keep aroused. She fell asleep trying to sign her consent. Her daughter signed the consent with RN witness. She had some SVT with HR 120s-140s, and the nurse reported a temp of 101.9. I spoke with our hospitalist team and they will order lactic acid, blood cultures, UA urine cultures and antibiotics. We will follow closely. I think debriding the leg will be helpful. I restarted heparin gtt this morning, and so far she is doing well with no significant bleeding from her fasciotomies. Will continue anticoagulation with heparin and eventually switch to plavix before discharge. VS, I&O, 24H, Fishbone Vital Signs/I&O Vital Signs Date Time Temp Pulse Resp B/P (MAP) Pulse Ox O2 Delivery O2 Flow Rate FiO2 02/25/19 15:20 144 31 137/73 92 Room Air 02/25/19 08:38 99.5 02/24/19 12:01 40 02/23/19 11:17 6 I&O- Last 24 Hours up to 6 AM 02/25/19 06:00 Intake Total 3850 ml Output Total 1067 ml Balance 2783 ml Laboratory Data 24H LABS Laboratory Tests 2 02/25/19 04:17: Nucleated Red Blood Cells % (auto) 0.9H, Anion Gap 4L, Glomerular Filtration Rate 52.5, Calcium Level 7.0L, Magnesium Level 2.1 02/25/19 08:15: Nucleated Red Blood Cells % (auto) 0.6H, Activated Partial Thromboplast Time 27.1, Blood Gas Bicarbonate Standard 17.0L, Arterial Blood pH 7.356, Arterial Blood Partial Pressure CO2 27.5L, Arterial Blood Partial Pressure O2 59.9L, Arterial Blood Total CO2 15.9L, Arterial Blood HCO3 15.0L, Arterial Blood Base Excess -9.1L, Arterial Blood Oxygen Saturation 91.0L, Total Creatine Kinase 8990H 02/25/19 09:28: Whole Blood Ionized Calcium 4.7 CBC/BMP Laboratory Tests 02/25/19 04:17 02/25/19 08:15 LI OBREGON MD Feb 25, 2019 16:59
[2019-02-25 18:02] LABS: APPEARANCE, URINE TURBID (CLEAR); BACTERIA, URINE AUTO 3+ (NEGATIVE); BILIRUBIN, URINE AUTO NEGATIVE (NEGATIVE); BLOOD, URINE BLOOD 3+ (NEGATIVE); COLOR, URINE AMBER (YELLOW); GLUCOSE, URINE (UA) AUTO NEGATIVE (NEGATIVE); KETONE, URINE AUTO NEGATIVE (NEGATIVE); LEUKOCYTE ESTERASE, URINE AUTO 3+ (NEGATIVE); MUCUS, URINE LARGE (NEGATIVE); NITRITE, URINE AUTO POSITIVE (NEGATIVE); PROTEIN, URINE AUTO 2+ mg/dL (NEGATIVE); RBC, URINE AUTO 41 /HPF (0-3); SPECIFIC GRAVITY URINE AUTO 1.027 (1.002-1.035); SQUAMOUS EPITHELIAL CELL UR AU 7 /HPF (0-6); WBC, URINE AUTO TNTC /HPF (0-3)
[2019-02-25] MEDS ORDERED: NS 1,000 ML IV ONE ×2 (18:15)
[2019-02-25] MEDS: PIPERACILLIN/TAZOBACTAM SOD 4.5 GM in D5W MINI-BAG PLUS 50 ML IV SCH (18:23)
[2019-02-25] MEDS ORDERED: ACETAMINOPHEN 650 MG SUPP PR PRN (18:30)
[2019-02-25 18:32] LABS: ABG BASE EXCESS -7.4 (-2.0-2.0); ABG HCO3 15.7 MEQ/L (22.0-26.0); ABG O2 SATURATION 96.1 % (95.0-99.0); ABG PARTIAL PRESSURE O2 79.2 mmHg (75.0-100.0); ABG STANDARD HCO3 18.4 MEQ/L (22.0-26.0); ABG TOTAL CO2 16.5 MEQ/L (23.0-31.0); ABG pH (ARTERIAL) 7.416 UNITS (7.350-7.450)
[2019-02-25] MEDS ORDERED: diltiaZEM 125 MG in NS 100 ML IV SCH (20:00)
[2019-02-25] MEDS ORDERED: ISOVUE-370 76% 100ML VIAL (Q9967) As Ordered ONE (20:27)
--- NOTE | 2019-02-25 20:57 | REPVR ---
PROCEDURE INFORMATION: Exam: CT Chest With Contrast Exam date and time: 02/25/2019 8:25 PM Age: 78 years old Clinical indication: Dyspnea; Additional info: Dyspnea /tachycardia TECHNIQUE: Imaging protocol: Computed tomography of the chest with intravenous contrast. 3D rendering: MIP and/or 3D reconstructed images were created by the technologist. Radiation optimization: All CT scans at this facility use at least one of these dose optimization techniques: automated exposure control; mA and/or kV adjustment per patient size (includes targeted exams where dose is matched to clinical indication); or iterative reconstruction. Contrast material: ISOVUE 370; Contrast volume: 75 ml; Contrast route: IV; COMPARISON: CT Chest without contrast 10/02/2018 2:23 PM FINDINGS: Lungs: Interval decrease in the size of a spiculated nodular opacity in the right upper lobe now measuring 1.5 x 1 cm. Bibasilar atelectasis. Pleural space: Small bilateral pleural effusions. Heart: There is moderate atherosclerotic calcification of the coronary arteries. Aorta: The aorta demonstrates mild atherosclerotic calcification. Lymph nodes: Unremarkable. No enlarged lymph nodes. Multiple small mediastinal lymph nodes. Bones/joints: Unremarkable. No acute fracture. Soft tissues: Unremarkable. IMPRESSION: 1. Small bilateral pleural effusions. 2. Interval decrease in the size of a spiculated nodular opacity in the right upper lobe now measuring 1.5 x 1 cm. Continued interval follow-up suggested in 3-6 months. Electronically signed by: Da Mclaughlin On 02/25/2019 20:57:27 PM
[2019-02-25] MEDS ORDERED: FUROSEMIDE 40 MG/4 ML VIAL (J1940) IV ONE (21:00)
[2019-02-25 21:31] LABS: CALCIUM LEVEL 7.8 MG/DL (8.8-10.2); CREATININE FOR GFR 1.36 MG/DL (0.55-1.30); GLOMERULAR FILTRATION RATE 39.8 (>32); MAGNESIUM LEVEL 2.1 MG/DL (1.8-2.4); POTASSIUM SERUM 4.7 MEQ/L (3.5-5.1); THYROID STIMULATING HORMONE 0.259 uIU/ML (0.358-3.740); TROPONIN I 33.2 NG/ML (< 0.10)
[2019-02-25 22:16] LABS: CK-MB VALUE MASS 28.1 NG/ML (<3.6); MB/CK RELATIVE INDEX 0.45 (< OR =4); TROPONIN I 37.7 NG/ML (< 0.10)
--- NOTE | 2019-02-25 23:56 | ECHO ---
DATE OF PROCEDURE: 02/25/2019 REFERRING PHYSICIAN: Dr. Nicole Griffiths INDICATION: Troponin elevation. DIMENSIONS: IVS: 0.9 LV: 4.3 LVPW: 1.1 LA: 4.2 Aorta: 3.1 Mitral E wave velocity: 86 E prime septal: 8.3 E prime lateral: 8.4 FINDINGS: The study is of acceptable technical quality. The patient is in sinus tachycardia with ventricular rate approximately 110 beats per minute. Left ventricle is normal size. There is extensive wall motion abnormality involving mid and distal septum, and distal anterior wall and apex. These segments are virtually akinetic, the septum appears almost dyskinetic. I estimate overall LVEF around 25-30%. Right ventricle appears grossly normal and has normal contractility. Left atrium is at least mildly enlarged. Right atrium was poorly seen but also appears enlarged. Aortic valve is mildly sclerotic but cusp mobility is preserved. There are mild degenerative abnormalities of mitral valve but mobility of leaflets is preserved as well. Tricuspid valve appears normal. Pulmonic valve also appears normal. No pericardial effusion is noted. Left pleural effusion is noted. Inferior vena cava is dilated, and there is fairly small collapse with inspiration, indicative of likely very high central venous pressure. Doppler interrogation reveals trivial aortic stenosis and mild aortic insufficiency. There is approximately moderate mitral insufficiency and mild tricuspid insufficiency. Calculated pulmonary artery pressure is around 30, corresponding to borderline pulmonary hypertension. Mild pulmonic insufficiency is also seen. Evaluation of diastolic function is inconclusive due to fusion of E and A wave on mitral inflow, but tissue Doppler velocities are relatively preserved considering patient's age. CONCLUSIONS: 1. Study is of acceptable technical quality, the patient is in sinus rhythm. 2. Normal left ventricular (LV) size with extensive wall motion abnormality as noted above and overall estimated left ventricular ejection fraction (LVEF) 25-30%. 3. Mild aortic insufficiency. 4. Moderate mitral insufficiency. 5. Likely high central venous pressure and probably at least mild pulmonary hypertension. COMMENT: Subacute bacterial endocarditis (SBE) prophylaxis is not recommended. Results of the study were discussed with Dr. Nicole Briscoe. [facility]
[2019-02-26] VITALS (15 sets, daily range): BP systolic 79–103; BP diastolic 49–60
[2019-02-26] MEDS: ASPIRIN 81 MG ENTERIC TAB PO SCH ×2 (00:50→09:26)
[2019-02-26] MEDS: PIPERACILLIN/TAZOBACTAM SOD 4.5 GM in D5W MINI-BAG PLUS 50 ML IV SCH ×2 (02:40→09:25)
[2019-02-26] MEDS ORDERED: CLOPIDOGREL 75 MG TAB PO STA (02:45)
[2019-02-26 03:01] LABS: CK-MB VALUE MASS 23.8 NG/ML (<3.6); MB/CK RELATIVE INDEX 0.4 (< OR =4)
[2019-02-26] MEDS ORDERED: DAKIN'S 0.25% HALF-STRENGTH SOLN 480 ML TOP SCH (03:15)
--- NOTE | 2019-02-26 04:32 | IPNPDOC ---
Date Seen The patient was seen on 02/26/19. Progress Note Pt seen and examined. Hospitalist d/w me last night that pt had a CT chest to r/o PE, and I reviewed this last night and there was no PE, and I notified hospitalist. I would not expect PE with pt on heparin gtt, but was still worried about her tacchycardia, and felt it might be related to sepsis, or other factors. The workup continued and troponin was 30, and echo confirmed anterior septal defect. I was notified and told there was concern about transferring the pt due to fasciotomy, and inability to give plavix after PCI, but I assured the hospitalist team it is fine to give plavix- it is always life over limb and we can wrap the leg tighter if increased oozing occurred from fasciotomy. However, pt has tolerated heparin gtt without bleeding thus she will likely have no trouble with plavix if needed post PCI. I then saw the pt and she is sitting up in bed, no c/o chest pain, afib with RVR, BP stable. I feel urgent transfer for PCI is indicated and have asked the hospitalist team to fascilitate transfer for her and she was accepted to [facility], Dr Armendariz was accepting physician. I have spoken to the family and notified them of imminent transfer, and nurses will call them with details of where/when she will transfer. I have changed her dressing RLE prior to transfer: soap and water and rinse for skin, xeroform and 4x4 over lateral fasciotomy, dakins damp to dry medial fasciotomy, ABDs, kerlex, coban not too tight. DP signal is monophasic, PT is strong but monophasic RLE. LLE PT is strong monophasic signal, DP is faint. Pt tolerated without difficulty. Unfortunately, she will not be able to undergo washout of her fasciotomy today with possible wound vac as planned. Will address when pt returns. The pt is agreeable to transfer and plan. Later this morning, [facility] informed me transfer was delayed indefinitely due to lack of ICU beds, and I asked that she d/w Dr Velázquez and see if he could facilitate a transfer sooner/elsewhere/possibly [place], and he spoke with Dr. Alarcon at [facility] in [place] who willing to accept the patient. Hopefully this will provide more rapid attention for her [place]. VS, I&O, 24H, Fishbone Vital Signs/I&O Vital Signs Date Time Temp Pulse Resp B/P (MAP) Pulse Ox O2 Delivery O2 Flow Rate FiO2 02/26/19 01:00 100 24 84/51 (62) 98 Nasal Cannula 2.0 02/26/19 00:00 98.0 02/24/19 12:01 40 I&O- Last 24 Hours up to 6 AM 02/26/19 05:59 Intake Total 1412 ml Output Total 701 ml Balance 711 ml Laboratory Data 24H LABS Laboratory Tests 2 02/25/19 04:17: Nucleated Red Blood Cells % (auto) 0.9H, Anion Gap 4L, Glomerular Filtration Rate 52.5, Calcium Level 7.0L, Magnesium Level 2.1 02/25/19 08:15: Nucleated Red Blood Cells % (auto) 0.6H, Activated Partial Thromboplast Time 27.1, Blood Gas Bicarbonate Standard 17.0L, Arterial Blood pH 7.356, Arterial Blood Partial Pressure CO2 27.5L, Arterial Blood Partial Pressure O2 59.9L, Arterial Blood Total CO2 15.9L, Arterial Blood HCO3 15.0L, Arterial Blood Base Excess -9.1L, Arterial Blood Oxygen Saturation 91.0L, Total Creatine Kinase 8990H 02/25/19 09:28: Whole Blood Ionized Calcium 4.7 02/25/19 16:30: Activated Partial Thromboplast Time 71.9H 02/25/19 17:37: Urine Color [place], Urine Appearance TURBIDH, Urine pH 5.0, Urine Specific [place] 1.027, Urine Protein 2+H, Urine Glucose (Auto)(UA) NEGATIVE, Urine Ketones (Auto) NEGATIVE, Urine Blood 3+H, Urine Nitrite POSITIVE, Urine Bilirubin NEGATIVE, Urine Urobilinogen 2.0H, Urine Leukocyte Esterase (Auto) 3+H, Urine WBC (Auto) TNTCH, Urine RBC (Auto) 41H, Urine Hyaline Casts (Auto) 0, Urine Bacteria (Auto) 3+H, Urine Squamous Epithelial Cells 7, Urine Mucus (Auto) LARGE, Urine Sperm (Auto) 02/25/19 17:57: Activated Partial Thromboplast Time 43.8H, Lactic Acid Level 2.4*H 02/25/19 18:20: Blood Gas Bicarbonate Standard 18.4L, Arterial Blood pH 7.416, Arterial Blood Partial Pressure CO2 25.0L, Arterial Blood Partial Pressure O2 79.2, Arterial Blood Total CO2 16.5L, Arterial Blood HCO3 15.7L, Arterial Blood Base Excess - 7.4L, Arterial Blood Oxygen Saturation 96.1 02/25/19 20:05: Anion Gap 8, Glomerular Filtration Rate 39.8, Calcium Level 7.8L, Magnesium Level 2.1, Troponin I 33.20*H, CH-Efq-[id number]-Type Natriuretic Peptide 07076N, Thyroid Stimulating Hormone (TSH) 0.259L 02/25/19 21:30: Total Creatine Kinase 6244H, Creatine Kinase MB 28.1H, Creatine Kinase MB Relative Index 0.45, Troponin I 37.70*H 02/26/19 01:01: Activated Partial Thromboplast Time > 240.0*H 02/26/19 02:09: Total Creatine Kinase 5976H, Creatine Kinase MB 23.8H, Creatine Kinase MB Relative Index 0.40, Troponin I 43.00*H, Activated Partial Thromboplast Time > 240.0*H CBC/BMP Laboratory Tests 02/25/19 04:17 02/25/19 08:15 02/25/19 20:05 02/25/19 20:06 Microbiology Microbiology 02/25/19 Blood Culture, Received Pending 02/25/19 Blood Culture, Received Pending LI OBREGON MD Feb 26, 2019 04:32
[2019-02-26 05:48] LABS: HEMATOCRIT 27.8 % (36.0-47.0); HEMOGLOBIN 9.3 g/dl (12.0-15.5); MEAN CORPUSCULAR HEMOGLOBIN 30.9 pg (27.0-33.0); MEAN CORPUSCULAR HGB CONC 33.5 g/dl (32.0-36.5); MEAN CORPUSCULAR VOLUME 92.4 fl (80.0-96.0); PLATELET COUNT, AUTOMATED 114 10^3/uL (150-450); RED BLOOD COUNT 3.01 10^6/uL (4.00-5.40); WHITE BLOOD COUNT 14.6 10^3/uL (4.0-10.0)
[2019-02-26 06:08] LABS: CALCIUM LEVEL 7.6 MG/DL (8.8-10.2); CREATININE FOR GFR 1.56 MG/DL (0.55-1.30); MAGNESIUM LEVEL 2.1 MG/DL (1.8-2.4); POTASSIUM SERUM 4.5 MEQ/L (3.5-5.1)
--- NOTE | 2019-02-26 07:00 | ECGEPIP ---
[facility] Test Date: 2019-02-25 Pat Name: NATALY HOLLAND Department: Room: [place] [address] Gender: Female Computer Technical Support Specialist: PAYTON : 1940 Requested By: OSMANI SAMUEL Order Number: [id number] Reading MD: Chito Luna Measurements Intervals [place] Rate: 115 P: AL: 0 QRS: -16 QRSD: 108 T: 114 QT: 289 QTc: 401 Interpretive Statements Atrial fibrillation with a moderate ventricular response Diffusely low QRS voltages Leftward axis Incomplete right bundle branch block Prior anterior wall myocardial infarction Nonspecific repolarization abnormalities Since prior tracing of 10/02/2018, atrial fibrillation, low voltages, delayed anterior R-wave progression and repolarization abnormalities are new Electronically Signed on 02-26-2019 7:00:52 EST by Chiot Luna
--- NOTE | 2019-02-26 07:07 | ECGEPIP ---
[facility] Test Date: 2019-02-26 Pat Name: NATALY HOLLAND Department: Room: [place] [address] Gender: Female Electronic Publisher: FUENTES : 1940 Requested By: KAREN Enamorado Order Number: [id number] Reading MD: Chito Luna Measurements Intervals [place] Rate: 106 P: GA: 0 QRS: 67 QRSD: 125 T: -32 QT: 350 QTc: 467 Interpretive Statements Atrial fibrillation with moderate ventricular response Low QRS voltages in the limb leads Incomplete right bundle branch block Consider prior anteroseptal myocardial infarction Nonspecific repolarization abnormalities Since prior tracing of 02/25/2019, there is better anterior R-wave progression and a shift in the frontal axis Electronically Signed on 02-26-2019 7:06:50 EST by Chito Luna
--- NOTE | 2019-02-26 07:08 | ECGEPIP ---
[facility] Test Date: 2019-02-26 Pat Name: NATALY HOLLAND Department: Room: [place] [address] Gender: Female Oil Mixer: : 1940 Requested By: KAREN Enamorado Order Number: [id number] Reading MD: Chito Luna Measurements Intervals [place] Rate: 103 P: AR: 0 QRS: 56 QRSD: 130 T: -33 QT: 315 QTc: 413 Interpretive Statements Atrial fibrillation with a controlled ventricular response Diffusely low QRS voltages Incomplete right bundle branch block Prior anteroseptal myocardial infarction Nonspecific repolarization abnormalities No significant change since prior tracing of this date Electronically Signed on 02-26-2019 7:07:58 EST by Chito Luna
[2019-02-26] MEDS: HEPARIN DRIP 25,000 UNITS in IV 1 EA IV SCH (07:45)
--- NOTE | 2019-02-26 08:17 | CCN ---
DATE: 02/24/2019 I again attended Ms. Montiel here in the intensive care unit. Patient has been examined, chart reviewed, and I spoke at length with the nurse at the bedside. She is awake, alert, and appropriate this morning. Follows all commands. She is receiving only as-needed Versed and some Dilaudid for pain. Maximum temperature (Tmax) overnight 98.3, blood pressure between 90 and 140 systolic. She has not required vasopressors. Heart rate in the 80s to 90s with a sinus mechanism. Respiratory rate generally between 18 and 24 without obvious accessory muscle use. Ins and outs midnight to midnight 13,619 mL in with 1115 mL out. Most recent laboratories showed a white blood cell count 8.1, hemoglobin 11.5, platelet count of 121,000. Sodium 144, potassium (K) 4.7, chloride 119, CO2 of 18, BUN 23, creatinine down to 1.11. CPK are still on the rise at 9756. Blood gas done this morning on pressure-regulated volume control (PRVC) rate of 20, tidal volume 380, PEEP 5, FiO2 of 50% has a pH of 7.317, pCO2 of 30.9, and a pO2 of 92.4. Chest x-ray done this morning shows lines and tubes in good position, no infiltrates, and no pneumothorax. On exam, she is awake, alert, and appropriate. Pupils reactive. Sclerae clear. Orogastric and oroendotracheal tube in place. Trachea is in the midline. Chest is clear to both auscultation and percussion, symmetric chest rise, and no significant focal adventitious sounds are identified. Tactile fremitus palpable throughout. Cardiac exam distant but regular. Abdomen soft, nontender with active bowel sounds. Extremities show the dressings on the right lower extremity unchanged. The right foot is erythematous, and I do not appreciate any spontaneous movement of the toes on the right. IMPRESSION: 1. Metabolic acidosis. 2. Respiratory failure requiring mechanical ventilatory support on the basis of the above. 3. Profound blood loss anemia. 4. Hypotension, resolved. 5. Renal failure, resolved. 6. Compartment syndrome. 7. Peripheral artery disease. 8. Lung cancer status post stereotactic body radiation therapy (SBRT). RECOMMENDATIONS: At this point, she appears reasonably comfortable. Her acidosis has responded nicely to volume resuscitation, and she very well may be able to be extubated this morning. I do expect some fluid shifts but with her improved renal function, we will push her with the weaning process and we will see how that goes. I did discuss this with her, and she is in agreement with the plan. For now ulcer/deep venous thrombosis (DVT) prophylaxis is ordered by the primary service. We await repeat evaluation by vascular surgery regarding her foot. Certainly, she is at high risk for loss of that limb. We will proceed as outlined above. Further recommendations will be made in the progress record as new information becomes available.
--- NOTE | 2019-02-26 08:39 | IPNPDOC ---
Date Seen The patient was seen on 02/26/19. Progress Note Since I last seen the patient ON 02/25/2019 at 7 AM the following events occurred during the day. She was doing very well in the morning and around the afternoon time she got thoracic which they contributed to the Dilaudid she got recently. She had no issues with the dressing change of her fasciotomy wound even though it was foul-smelling. She then spiked a fever of 101.9 around 4 PM and she was started on fluids as well as Zosyn. It was noted that she was having some dyspnea and atrial fibrillation with a rate 148. She was given 1 dose of lopressor 12.5mg po. A stat CT with contrast was ordered and troponin as well. Imaging showed small bilateral pleural effusions and troponin was elevated at 33.20 [place] [address]. A stat echocardiogram was order and Dr. Velázquez was consulted cardiology recommendations. Echocardiogram showed a extensive wall motion abnormality involving mid and distal septum, and distal anterior wall and apex. She also had an ejection fraction of 25-30%. Recommendations were no negative inotropes, start aspirin 81 mg, Plavix 75 mg and continue with heparin drip. Dr. Tejada was called Who came overnight to dress her fasciotomy wound so she can be stable for transfer. The patient remained stable throughout the evening with a MAP >60, rate 90-110, with respiration rate of 20-24 while an accepting hospital and provider was found. Orginally the patient was going to Dr. Armendariz at [facility] but Dr. Velázquez spoke with Dr. Alarcon at [facility] in [place] who willing to accept the patient. Therefor the patient will be transferred to [facility] ifor its the closest PCI facility. VS, I&O, 24H, [facility] Vital Signs/I&O Vital Signs Date Time Temp Pulse Resp B/P (MAP) Pulse Ox O2 Delivery O2 Flow Rate FiO2 02/26/19 06:30 100 97/56 (71) 97 Nasal Cannula 1.0 02/26/19 06:00 21 02/26/19 04:00 98.6 02/24/19 12:01 40 I&O- Last 24 Hours up to 6 AM 02/26/19 05:59 Intake Total 1412 ml Output Total 746 ml Balance 666 ml Laboratory Data 24H LABS Laboratory Tests 2 02/25/19 09:28: Whole Blood Ionized Calcium 4.7 02/25/19 16:30: Activated Partial Thromboplast Time 71.9H 02/25/19 17:37: Urine Color [place], Urine Appearance TURBIDH, Urine pH 5.0, Urine Specific [place] 1.027, Urine Protein 2+H, Urine Glucose (Auto)(UA) NEGATIVE, Urine Ketones (Auto) NEGATIVE, Urine Blood 3+H, Urine Nitrite POSITIVE, Urine Bilirubin NEGATIVE, Urine Urobilinogen 2.0H, Urine Leukocyte Esterase (Auto) 3+H, Urine WBC (Auto) TNTCH, Urine RBC (Auto) 41H, Urine Hyaline Casts (Auto) 0, Urine Bacteria (Auto) 3+H, Urine Squamous Epithelial Cells 7, Urine Mucus (Auto) LARGE, Urine Sperm (Auto) 02/25/19 17:57: Activated Partial Thromboplast Time 43.8H, Lactic Acid Level 2.4*H 02/25/19 18:20: Blood Gas Bicarbonate Standard 18.4L, Arterial Blood pH 7.416, Arterial Blood Partial Pressure CO2 25.0L, Arterial Blood Partial Pressure O2 79.2, Arterial Blood Total CO2 16.5L, Arterial Blood HCO3 15.7L, Arterial Blood Base Excess - 7.4L, Arterial Blood Oxygen Saturation 96.1 02/25/19 20:05: Anion Gap 8, Glomerular Filtration Rate 39.8, Calcium Level 7.8L, Magnesium Level 2.1, Troponin I 33.20*H, KZ-Dvq-D-Type Natriuretic Peptide 77425G, Thyroid Stimulating Hormone (TSH) 0.259L 02/25/19 21:30: Troponin I 37.70*H, Total Creatine Kinase 6244H, Creatine Kinase MB 28.1H, Creatine Kinase MB Relative Index 0.45 02/26/19 01:01: Activated Partial Thromboplast Time > 240.0*H 02/26/19 02:09: Activated Partial Thromboplast Time > 240.0*H, Total Creatine Kinase 5976H, Creatine Kinase MB 23.8H, Creatine Kinase MB Relative Index 0.40, Troponin I 43.00*H 02/26/19 05:36: Nucleated Red Blood Cells % (auto) 0.7H, Anion Gap 8, Glomerular Filtration Rate 34.0, Calcium Level 7.6L, Magnesium Level 2.1 CBC/BMP Laboratory Tests 02/25/19 20:05 02/25/19 20:06 02/26/19 05:36 Microbiology Microbiology 02/25/19 Blood Culture, Received Pending 02/25/19 Blood Culture, Received Pending GME ATTESTATION GME ATTESTATION My faculty preceptor for this patient encounter was physically present during the encounter and was fully available. All aspects of the patient interview, examination, medical decision making process, and medical care plan development were reviewed and approved by the faculty preceptor. The faculty preceptor is aware and concurs with the plan as stated in the body of this note and will attest to such by his/her cosignature. ATTENDING NOTE I saw Ms. Montiel with Dr. Gavin. She is a lady who was admitted for acute limb ischemia and was placed received tPA and heparin gtt but her course was c/b compartment syndrome that was managed by fasciotomy c/b sepsis with fever, tachycardia and decreased output and eventual discovery of troponin to 30s. We were called to bedside by nursing on return of troponin where we found the patient clinically stable and unchanged without chest pain without shayy ST changes. She had a stat TTE that showed anteroseptal WMA per Dr. Velázquez and on discussion with Dr. Woods the decision was eventually made to transfer out to a facility with PCI facilities with eventual decision to transfer to [facility] after discussion with Dr. Velázquez. KAREN GAVIN DO Feb 26, 2019 08:39 LILIANE BUI MD Feb 28, 2019 06:45
--- NOTE | 2019-02-26 08:55 | DS.PDOC ---
Discharge Summary General Date of Admission Feb 21, 2019 at 20:32 Date of Discharge 02/26/2019 Attending Physician: OSMANI SAMUEL MD Specialist/Consultants Involve: LI TEJADA MD Specialist/Consultants Involve Dr. Amrita Cadet M.D., Interventional Radiology; Dr. Juliano Velázquez M.D., Cardiology Discharge Summary PROCEDURES PERFORMED DURING STAY: Elective right lower extremity arteriogram and intervention, 02/20/2019 Follow-up revascularization intervention of right lower extremity, 02/22/2019 Urgent right lower extremity 4 compartment fasciotomy, 02/23/2019 ADMITTING DIAGNOSES: Acute ventilator-dependent respiratory failure Possible encephalopathy Hypotension Acute bicytopenia (anemia and thrombocytopenia) Right lower extremity PVD Right lower extremity compartment syndrome Acute kidney injury Coagulopathy Bandemia Metabolic acidosis DISCHARGE DIAGNOSES: Anterior septal wall myocardial infarction Severe peripheral vascular disease, status post 4 compartment fasciotomy Pyrexia Tachycardia Leukocytosis Normocytic normochromic anemia Thrombocytopenia Atrial fibrillation with rapid ventricular response Type 2 diabetes Coronary artery disease Chronic hypertension 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 Montiel is an 78-year-old female who underwent elective right lower extremity arteriogram and intervention with Dr. Amrita Cadet, of interventional radiology and . Right lower extremity pain and nonhealing wound of the right foot. Patient then went to clinic the following day with a cold right leg and was seen by Dr. Cadet. Dr. Cadet admitted the patient and started her on catheter directed tPA thrombolysis. Patient was then started on TPA over the next 2448 hrs. with intermittent imaging. On 02/23/19, Dr. Cadet took the patient back to IR for additional imaging and possible intervention. Flow was opened up with angioplasty and stenting. Even with opening of flow via angioplasty and stenting in the popliteal and SFA, the patient did not have runoff. Dr. Tejada of vascular surgery was asked to come and assist. Dr. Tejada was able to cross down to the ankle and the peroneal vessel and open up flow the length of the peroneal, but there was little outflow, and therefore it was felt additional outflow was needed. Unfortunately, posterior tibial artery and anterior tibial artery origins were not visible, but was still felt t o be worthwhile to try and prosody them to see if they could be opened back up. Dr. Tejada was able to get into the posterior tibial artery, but could not cross past the proximal aspect. The procedure was then aborted. After extensive maneuvering, Dr. Tejada was able to cross in the proximal dorsalis pedis artery and angioplasty the length of the intervertebral artery. Unfortunately, there was still not great outflow due to microvascular disease of the right foot. Additionally, the catheter was noted to be extremely tight and Dr. Tejada felt compartment syndrome could be contributing to patient's ischemia. Following this procedure, Dr. Tejada spoke to the patient and her family about risks, benefits and alternatives to an urgent right lower extremity 4 compartment fasciotomy. Patient and patient's family acknowledged verbal understanding of the fasciotomy and agreed to proceed. Informed consent was obtained and patient was taken directly to the operating room for the fasciotomy. Following the fasciotomy, patient remained intubated and was brought to the ICU under the care of both the micro computer specialist team and hospitalist team. Patient is currently developed acute anemia, thrown cytopenia, significant metabolic acidosis, ANGELINA, elevated INR, and bandemia. Patient received 6 transfusions of leukocyte reduced RBCs, 2 transfusions of leukocytes reduced pheresis platelets, and a single transfusion of fresh frozen plasma. Patient's anemia from CP knee improved after the infusions. Elevated INR, also improved after infusions. Renal functioning improve after IV fluid menstruation the form of increased urine output and GFR. Subsequent ABG on 02/24 still showed metabolic acidosis, but that also improved. After a trial of pressure support. On the morning of 02/24, the patient was extubated successfully. Patient's mental status. On assessment, soon after extubation was alert and oriented 3. She was interactive, following questions and commands. Her mental status continued to be intact and appropriate through midday on 02/25. Patient continued to have improvement in her anemia, thrombocytopenia, and ABGs with respect to metabolic acidosis. Patient's acute kidney injury also resolved. Patient was doing very well in the morning and around early afternoon of 02/25. She had no issues with the dressing change of her fasciotomy wound even though it was foul-smelling. She then spiked a fever of 101.9 around 4 PM and she was started on fluids as well as Zosyn. It was noted that she was having some dyspnea and atrial fibrillation with a rate 148. She was given 1 dose of lopressor 12.5mg po. A stat CT with contrast was ordered and troponin as well. Imaging showed small bilateral pleural effusions and troponin was elevated at 33.20 [place] [address]. A stat echocardiogram was order and Dr. Velázquez was consulted cardiology recommendations. Echocardiogram showed a extensive wall motion abnormality involving mid and distal septum, and distal anterior wall and apex. She also had an ejection fraction of 25-30%. Recommendations were no negative inotropes, start aspirin 81 mg, Plavix 75 mg and continue with heparin drip. Dr. Tejada was called Who came overnight to dress her fasciotomy wound so she can be stable for transfer. The patient remained stable throughout the evening with a MAP >60, rate 90-110, with respiration rate of 20-24. Originally the patient was going to Dr. Armendariz at [facility] but the transfer was rescinded. Dr. Velázquez spoke with Dr. Alarcon at [facility] in [place] who accepted the patient. Therefor the patient will be transferred to [facility] its the closest PCI facility. DISCHARGE MEDICATIONS: Please see below. ALLERGIES: Please see below. PHYSICAL EXAMINATION ON DISCHARGE: VITAL SIGNS: Please see below. GENERAL: Elderly female who is lying upright in bed. She is awake, alert and oriented 3. She is responding properly to questions and commands. HEENT: Atraumatic, normocephalic. Erythema of both right lateral sclera and left lateral eye. No pharyngeal erythema or exudate. Trachea is midline. Right internal jugular vein central line present with no surrounding erythema or induration. CARDIOVASCULAR: Tachycardic rate. S1, S2 auscultated. Faint heart sounds make it difficult to appreciate for any murmurs appreciated. On telemetry RESPIRATORY: Diminished tidal volume. Difficult to fully appreciate for any wheezes, crackles or rhonchi. Expiratory squeaks present but no appreciable wheezing. Symmetric chest expansion. Breathing on 1L O2 NC. Speaking in full sentences. ABDOMINAL: Soft, moderately obese. Nondistended and nontender. Normoactive bowel sounds. No rebound, guarding or rigidity. EXTREMITIES: Right lower extremity is bandaged extensively, with new Dakin's dressing applied early this morning. There is no visible oozing from the right nor malodorous aroma. 2+ pedal edema right lower extremity. Trace swelling of left lower extremity. Bilateral hands and left lower extremity cool to the touch. NEUROLOGICAL: Awake, alert and oriented 3. Interactive, responding properly to questions and commands. No focal neurological deficits appreciated. Patient able to move extremities on command, except she is unable to specifically wiggle the toes of her right foot, or dorsiflex or plantar flex at right ankle, on command. Diminished sensation of rt foot as compared to left. PSYCHOLOGICAL: Mood and affect appear appropriate LABORATORY DATA: Please see below. IMAGING: IR right leg angiogram, 02/22/19: Lysis check demonstrates persistent occlusion in the right distal SFA and popliteal artery. Successful replacement of infusion catheter for ongoing lysis. Ultrasound right lower extremity nonvascular limited study, 02/23/19: Mild subcutaneous edema. No hematoma or other fluid collection. IR fluoroscopic guidance, right leg angiogram, 02/23/19: Right leg angiogram demonstrates preserved single peroneal vessel runoff to the right foot. Successful right distal SFA and popliteal artery stenting. Successful right distal SFA and popliteal artery angioplasty. Successful right anterior tibial artery recanalization angioplasty. Successful right peroneal artery catheterization and angioplasty. Follow-up demonstrates slow flow through the distal SFA and popliteal artery and improve her proximal runoff. The patient was transferred to the OR for fasciotomy to relieve pressure in the lower leg in order to help improve distal runoff. Continue early vascular checks. Systemic heparin will be started. Patient to start an aspirin and Plavix. Fluoroscopic guidance for needle placement of central line, 02/23/19: A sequence of 2 last image hold fluoroscopically obtained spot radiographs documented a right internal jugular central venous line with its tip in the expected location of the right atrium. Portable chest x-ray, 02/23/19: Endotracheal tube in good position. A right internal jugular central venous line is seen in place. There is fullness in the right mediastinum, question adenopathy. Right upper lobe plate-like atelectasis. Portable chest x-ray, 02/24/19: Endotracheal tube is in good position. NG tube enters left upper quadrant of the abdomen. A right-sided central venous catheter is seen in place with its tip in the region of the right atrium. There is mild fullness of the right mediastinum unchanged. No new infiltrate. CT chest with contrast, 02/25/19: Small bilateral pleural effusions. Interval disease in the size of the spiculated nodular opacity in the right upper lobe now measuring 1.5 x 1 70. Continue interval follow-up suggested through 6 months. PROGNOSIS: Poor, guarded based on OK DIET: As tolerated DISCHARGE PLAN: Patient will be directly transferred out of the [facility] ICU to the [facility] cardiac ICU for continued management of ongoing anterior septal wall infarction. DISCHARGE CONDITION: Medically stable for transfer TIME SPENT ON DISCHARGE: Total time spent in discharge including coordination of care, review of chart documentation, and actual patient contact was approximately 35 minutes. Vital Signs/I&Os Vital Signs Date Time Temp Pulse Resp B/P (MAP) Pulse Ox O2 Delivery O2 Flow Rate FiO2 02/26/19 06:30 100 97/56 (71) 97 Nasal Cannula 1.0 02/26/19 06:00 21 02/26/19 04:00 98.6 02/24/19 12:01 40 I&O- Last 24 Hours up to 6 AM 02/26/19 05:59 Intake Total 1412 ml Output Total 746 ml Balance 666 ml Laboratory Data Labs 24H Laboratory Tests 2 02/25/19 08:15: Nucleated Red Blood Cells % (auto) 0.6H, Activated Partial Thromboplast Time 27.1, Blood Gas Bicarbonate Standard 17.0L, Arterial Blood pH 7.356, Arterial Blood Partial Pressure CO2 27.5L, Arterial Blood Partial Pressure O2 59.9L, Arterial Blood Total CO2 15.9L, Arterial Blood HCO3 15.0L, Arterial Blood Base Excess -9.1L, Arterial Blood Oxygen Saturation 91.0L, Total Creatine Kinase 8990H 02/25/19 09:28: Whole Blood Ionized Calcium 4.7 02/25/19 16:30: Activated Partial Thromboplast Time 71.9H 02/25/19 17:37: Urine Color [place], Urine Appearance TURBIDH, Urine pH 5.0, Urine Specific [place] 1.027, Urine Protein 2+H, Urine Glucose (Auto)(UA) NEGATIVE, Urine Ketones (Auto) NEGATIVE, Urine Blood 3+H, Urine Nitrite POSITIVE, Urine Bilirubin NEGATIVE, Urine Urobilinogen 2.0H, Urine Leukocyte Esterase (Auto) 3+H, Urine WBC (Auto) TNTCH, Urine RBC (Auto) 41H, Urine Hyaline Casts (Auto) 0, Urine Bacteria (Auto) 3+H, Urine Squamous Epithelial Cells 7, Urine Mucus (Auto) LARGE, Urine Sperm (Auto) 02/25/19 17:57: Activated Partial Thromboplast Time 43.8H, Lactic Acid Level 2.4*H 02/25/19 18:20: Blood Gas Bicarbonate Standard 18.4L, Arterial Blood pH 7.416, Arterial Blood Partial Pressure CO2 25.0L, Arterial Blood Partial Pressure O2 79.2, Arterial Blood Total CO2 16.5L, Arterial Blood HCO3 15.7L, Arterial Blood Base Excess - 7.4L, Arterial Blood Oxygen Saturation 96.1 02/25/19 20:05: Anion Gap 8, Glomerular Filtration Rate 39.8, Calcium Level 7.8L, Magnesium Level 2.1, Troponin I 33.20*H, EN-Keb-Y-Type Natriuretic Peptide 86045E, Thyroid Stimulating Hormone (TSH) 0.259L 02/25/19 21:30: Troponin I 37.70*H, Total Creatine Kinase 6244H, Creatine Kinase MB 28.1H, Crea deepali Kinase MB Relative Index 0.45 02/26/19 01:01: Activated Partial Thromboplast Time > 240.0*H 02/26/19 02:09: Activated Partial Thromboplast Time > 240.0*H, Total Creatine Kinase 5976H, Creatine Kinase MB 23.8H, Creatine Kinase MB Relative Index 0.40, Troponin I 43.00*H 02/26/19 05:36: Nucleated Red Blood Cells % (auto) 0.7H, Anion Gap 8, Glomerular Filtration Rate 34.0, Calcium Level 7.6L, Magnesium Level 2.1 CBC/BMP Laboratory Tests 02/25/19 08:15 02/25/19 20:05 02/25/19 20:06 02/26/19 05:36 Microbiology Microbiology 02/25/19 Blood Culture, Received Pending 02/25/19 Blood Culture, Received Pending Discharge Medications Scheduled Amiloride/Hctz (Amiloride HCl-Hctz 5-50 mg Tab) 1 Ea Tab, 2 TAB PO DAILY, (Reported) Ascorbic Acid (Ascorbic Acid) 500 Mg Tablet, 500 MG PO DAILY, (Reported) Calcium Carb/Mag Ox/Zinc Sulf (Qnudvom-Xxkfamolp-Ixmb Tablet) 1 Tab Tab, 1 TAB PO DAILY, (Reported) Cholecalciferol (Vitamin D3) (Vitamin D3) 1,000 Unit Capsule, 1 CAP PO DAILY, (Reported) Metoprolol Tartrate (Metoprolol Tartrate) 50 Mg Tablet, 50 MG PO BID, (Reported) Omeprazole (Omeprazole) 20 Mg Cap, 20 MG PO DAILY, (Reported) Potassium Chloride (Potassium Chloride) 10 Meq Cap, 10 MEQ PO BID, (Reported) Allergies Coded Allergies: exemestane (Verified Allergy, Mild, Rash, 06/03/18) Penicillins (Verified Adverse Reaction, Mild, Yeast Infection, 06/03/18) GME ATTESTATION GME ATTESTATION My faculty preceptor for this patient encounter was physically present during the encounter and was fully available. All aspects of the patient interview, examination, medical decision making process, and medical care plan development were reviewed and approved by the faculty preceptor. The faculty preceptor is aware and concurs with the plan as stated in the body of this note and will attest to such by his/her cosignature. ATTENDING NOTE I examined Ms. Montiel is 7:30 AM, reviewed and edited the note, discussed the case with the resident and agree with the findings as documented. CARLENE BENNETT D.O. Feb 26, 2019 08:55 OSMANI SAMUEL MD Feb 26, 2019 13:08
[2019-02-26] MEDS ORDERED: FUROSEMIDE 100 MG/10 ML VIAL (J1940) IV ONE (09:00)
[2019-02-26] MEDS ORDERED: CLOPIDOGREL 75 MG TAB PO ONE (09:00)
[2019-02-26] MEDS: OMEPRAZOLE 20 MG CAP PO SCH (09:26)
--- NOTE | 2019-02-26 09:35 | CR ---
DATE OF CONSULTATION: 02/26/2018 REFERRING PHYSICIAN: Hospitalist team. I was originally called by Dr. Eliza Griffiths. INDICATIONS: Myocardial infarction. HISTORY OF PRESENT ILLNESS: Mrs. Montiel is previously unknown to me. She is an 78-year-old female who has no prior history of coronary artery disease. She was admitted to our facility because of ischemia of the right lower extremity. She had a recent intervention and apparently she subsequently developed compartment syndrome and underwent fasciotomy. Postprocedure she was intubated and transfused heavily with packed red blood cells as well as fresh frozen plasma and platelets but nevertheless she was successfully extubated after approximately 24 hours. She was doing clinically reasonably well but yesterday evening developed SVT. It responded to administration of beta blockers and Cardizem, but as a part of the evaluation cardiac enzymes were drawn and revealed markedly elevated troponin over 30. At that point the patient was denying any chest discomfort and ECG did not reveal any acute ST-segment shift. An echocardiogram was performed urgently last evening that I interpreted. It revealed fairly large anteroapical wall motion abnormality and left ventricle ejection fraction of neighborhood of 25-30%. Her blood pressure was mildly soft. She was already on heparin. We gave her additional aspirin and later also Plavix. Apparently arrangements were made by primary team to transfer the patient. I did not have the impression that the situation was emergent because the onset of heart attack was unclear. The patient was relatively asymptomatic, most importantly she denied any chest discomfort and there were no convincing ST-segment elevations on ECG. Consequently I felt that the need for cardiac catheterization is non-emergent. But nevertheless, I was informed later at night that she is being transferred to [facility]. This morning though after walking into ICU I learned that the transfer did not materialize because the hospital bed was not available. The attending physician called apparently numerous hospitals in [place] and also in [place] and [place] and so far there is no bed availability. At bedside the patient feels comfortable. She denies any chest discomfort or dyspnea. She does admit that she has some discomfort in her leg and does not have any specific cardiac complaints. PAST MEDICAL HISTORY: 1. PVD with numerous interventions in the past. 2. Type 2 diabetes. 3. Hypertension. 4. History of stage IA other lung adenocarcinoma status post radiation. 5. Status post breast cancer status post lumpectomy and chemo radiation. SOCIAL HISTORY: The patient does not smoke. She is . No significant alcohol use. FAMILY HISTORY: Positive for CAD. REVIEW OF SYSTEMS: Not relevant considering the situation but the patient denies any prior symptoms to suggest coronary artery disease. She does not believe that she ever had any cardiac evaluation. PHYSICAL EXAMINATION: Mrs. Montiel is an elderly woman who is alert and oriented appropriate does not seem to be in any distress at all and appears comfortable. Blood pressure 97/56, heart rate around 90s and low 100s. She is afebrile. Saturation 97% of 1 liter of oxygen. Her fluid balance yesterday was positive about 1300. She made about 720 mL of urine yesterday and 130 mL already today. Weight is recorded 78.7 kg. She has an IJ triple-lumen catheter in place. There JVP is elevated. Lungs are reasonably clear though I hear only very rare end inspiratory crackles over bases. Heart: Exam is muffled. I do not appreciate any gallop, rub or murmur. Abdomen is soft, nontender. Bowel sounds are positive. There is swelling of both extremities. There is dressing over right lower extremity in the left lower extremity he has palpable pulses and about one to 2+ edema. There is generalized swelling of the whole torso. LABORATORY: Basic metabolic panel sodium 144, potassium 4.5, BUN 31, creatinine 1.6 and glucose 227. She has three troponins from 8 o'clock to 2 o'clock this morning the last one is 43. CKMBs was 23 but total CK is obviously very high. Considering the fasciotomy. Internal pro BNP was 30,000. TSH was 0.2. She had CBC this morning hemoglobin 9.3, hematocrit 28 and platelet count 114,000. There are several ECGs all reveal relatively low voltage and nonspecific repolarization abnormalities with occasional was ventricular and supraventricular ectopy. An echocardiogram as per HPI. ASSESSMENT/PLAN: Mrs. Montiel is a 78-year-old female without prior history of CAD who presented with ischemic right lower extremity and after intervention there were complication in the form of compartment syndrome. At some point she had coronary event. Because the initial troponin was already very elevated I suspect that the ischemic insult occurred at least 6 and probably 12 or more hours prior to detection. Surprisingly the patient still denies any chest discomfort of any sort. I do believe that she is best served by coronary angiography even though I do not believe that it is emergent in this situation. I have contacted [place]'s interventional cardiology to see whether they can arrange for transfer to [facility]. If not then will keep looking for alternative facility. I spoke with the patient and her daughter who is at bedside and explained the situation. I explained that the scenarios involve medical management, PCI as well as coronary artery bypass surgery and they are open to all possibilities. PRUDENCE
[2019-02-26 10:52] LABS: CK-MB VALUE MASS 21.3 NG/ML (<3.6); MB/CK RELATIVE INDEX 0.4 (< OR =4); TROPONIN I 32.7 NG/ML (< 0.10)
== END 2019-02-26 10:44 | disposition short-term general hospital (02) | DRG 252 ==
LOC: M ICU 20:32
PROVIDERS: ADMIT Radiology Diagnostic Radiology; ATTEND Internal Medicine
PROC: 5A1945Z Respiratory Ventilation, 24-96 Consecutive Hours (ICD-10-PCS; 2019-02-22)
PROC: B41F1ZZ Fluoroscopy of Right Lower Extremity Arteries using Low Osmolar Contrast (ICD-10-PCS; 2019-02-22)
PROC: 3E05317 Introduction of Other Thrombolytic into Peripheral Artery, Percutaneous Approach (ICD-10-PCS; 2019-02-22)
PROC: 3E05317 Introduction of Other Thrombolytic into Peripheral Artery, Percutaneous Approach (ICD-10-PCS; 2019-02-22)
PROC: 04HM3DZ Insertion of Intraluminal Device into Right Popliteal Artery, Percutaneous Approach (ICD-10-PCS; 2019-02-23)
PROC: 047T3ZZ Dilation of Right Peroneal Artery, Percutaneous Approach (ICD-10-PCS; 2019-02-23)
PROC: 047P3ZZ Dilation of Right Anterior Tibial Artery, Percutaneous Approach (ICD-10-PCS; 2019-02-23)
PROC: 047M3ZZ Dilation of Right Popliteal Artery, Percutaneous Approach (ICD-10-PCS; 2019-02-23)
PROC: 047R3ZZ Dilation of Right Posterior Tibial Artery, Percutaneous Approach (ICD-10-PCS; 2019-02-23)
PROC: 0KNS0ZZ Release Right Lower Leg Muscle, Open Approach (ICD-10-PCS; 2019-02-23)
PROC: 0KNS0ZZ Release Right Lower Leg Muscle, Open Approach (ICD-10-PCS; 2019-02-23)
PROC: 0KNS0ZZ Release Right Lower Leg Muscle, Open Approach (ICD-10-PCS; 2019-02-23)
PROC: 0KNS0ZZ Release Right Lower Leg Muscle, Open Approach (ICD-10-PCS; 2019-02-23)
PROC: 30233N1 Transfusion of Nonautologous Red Blood Cells into Peripheral Vein, Percutaneous Approach (ICD-10-PCS; 2019-02-23)
PROC: 30233K1 Transfusion of Nonautologous Frozen Plasma into Peripheral Vein, Percutaneous Approach (ICD-10-PCS; 2019-02-23)
PROC: 30233R1 Transfusion of Nonautologous Platelets into Peripheral Vein, Percutaneous Approach (ICD-10-PCS; 2019-02-23)
PROC: 0YP Anatomical Regions, Lower Extremities, Removal (ICD-10-PCS; 2019-02-23)
PROC: B41F1ZZ Fluoroscopy of Right Lower Extremity Arteries using Low Osmolar Contrast (ICD-10-PCS; 2019-02-23)
PROC: 0YP Anatomical Regions, Lower Extremities, Removal (ICD-10-PCS; 2019-02-23)
PROC: 3E05317 Introduction of Other Thrombolytic into Peripheral Artery, Percutaneous Approach (ICD-10-PCS; 2019-02-23)
PROC: 0Y9H0ZZ Drainage of Right Lower Leg, Open Approach (ICD-10-PCS; 2019-02-23)
PROC: 05HM33Z Insertion of Infusion Device into Right Internal Jugular Vein, Percutaneous Approach (ICD-10-PCS; 2019-02-23)
PROC: B5131ZA Fluoroscopy of Right Jugular Veins using Low Osmolar Contrast, Guidance (ICD-10-PCS; 2019-02-23)
PROC: 02H633Z Insertion of Infusion Device into Right Atrium, Percutaneous Approach (ICD-10-PCS; 2019-02-23)
PROC: 30233R1 Transfusion of Nonautologous Platelets into Peripheral Vein, Percutaneous Approach (ICD-10-PCS; 2019-02-23)
PROC: 04HK3DZ Insertion of Intraluminal Device into Right Femoral Artery, Percutaneous Approach (ICD-10-PCS; principal; 2019-02-23 07:33)
DX: I77.1 Stricture of artery (principal); I21.09 ST elevation (STEMI) myocardial infarction involving other coronary artery of anterior wall; A41.9 Sepsis, unspecified organism; J96.90 Respiratory failure, unspecified, unspecified whether with hypoxia or hypercapnia; E87.4 Mixed disorder of acid-base balance; N17.9 Acute kidney failure, unspecified; G93.40 Encephalopathy, unspecified; D68.9 Coagulation defect, unspecified; I74.3 Embolism and thrombosis of arteries of the lower extremities; T79.A21A Traumatic compartment syndrome of right lower extremity, initial encounter; I70.92 Chronic total occlusion of artery of the extremities; D64.9 Anemia, unspecified; I48.91 Unspecified atrial fibrillation; D69.6 Thrombocytopenia, unspecified; I25.10 Atherosclerotic heart disease of native coronary artery without angina pectoris; E11.51 Type 2 diabetes mellitus with diabetic peripheral angiopathy without gangrene; I95.9 Hypotension, unspecified; I10 Essential (primary) hypertension; Y83.8 Other surgical procedures as the cause of abnormal reaction of the patient, or of later complication, without mention of misadventure at the time of the procedure; I70.201 Unspecified atherosclerosis of native arteries of extremities, right leg; Z85.118 Personal history of other malignant neoplasm of bronchus and lung; Z92.3 Personal history of irradiation; Z85.3 Personal history of malignant neoplasm of breast; Z88.0 Allergy status to penicillin; Z88.8 Allergy status to other drugs, medicaments and biological substances; Z79.899 Other long term (current) drug therapy; Z92.21 Personal history of antineoplastic chemotherapy

== ENCOUNTER → 2019-02-21 | Outpatient (CLI) | payer MEDICARE ==
[~2019-02-21] VITALS: Ht 165.1 cm; Wt 61.8 kg
[~2019-02-21] MED LIST changes: +ALTEPLASE RECOMBINANT 10 MG in NS 990 ML XX SCH; +CALCIUM CHLORIDE 10% 1 GM/10 ML SYR IV ONE; +HEPARIN DRIP 25,000 UNITS in IV 1 EA XX SCH
[2019-02-21 19:42] VITALS: BP 164/70
--- NOTE | 2019-02-21 19:59 | POST-OPPD ---
Postoperative Procedure Note Date Of Procedure: Feb 21, 2019 Time Of Procedure: 19:58 PREOPERATIVE DIAGNOSIS: cold right leg POSTOPERATIVE DIAGNOSIS: same FINDINGS: acutely thrombosed distal SFA and popliteal. Single vessel run off to foot as before. PROCEDURE: right SFA and popliteal artery infusion catheter placement for TPA thrombolysis. SURGEON: wilner ANESTHESIA: mod sed ESTIMATED BLOOD LOSS: < 5 ml COMPLICATIONS: none POSTOPERATIVE CONDITION: stable LYNNE HER MD Feb 21, 2019 19:59
--- NOTE | 2019-02-25 14:39 | REP ---
IR right leg angiogram. IR Selective right iliac artery catheterization. IR Selective right common femoral artery catheterization. IR recanalization of right SFA and popliteal artery. IR below-knee runoff. IR thrombolysis. IR ultrasound guided left femoral artery access. IR moderate sedation. Clinical Information: Cold right leg. Physician: Dr Cadet.Procedure: The patient was advised of the benefits, risks, and alternatives of the procedure and informed consent was obtained.A time out was performed with verification of the patient's name, MRN, site of procedure, and type of procedure to be performed. The patient was positioned in the supine position on the angiographic table. The site was prepped and draped in the usual sterile fashion.Moderate sedation was performed by the physician including the presence of an independent trained observer who assisted in monitoring the patient's level of consciousness and physiological status. Following the administration of Fentanyl and Versed, the physician spent 90 minutes of continuous [id number] time with the patient. A chlorobutadiene scrubber operator radiograph reveals no gross abnormality. The left femoral artery was accessed with a micropuncture kit under ultrasound guidance. A W4 wire was advanced into the aorta. The micropuncture sheath was exchanged over the wire for a a 6-Finnish vascular sheath. A 4-Finnish flush catheter was advanced over the wire and used to catheterize the abdominal aorta. A pelvic arteriogram was performed. This demonstrates patent right common iliac, external iliac and internal iliac arteries. A Glidewire was advanced through the flush catheter and under fluoroscopy guidance was used to gain up and over access into the right common iliac artery. The flush catheter was exchanged over the wire for a glide cath. The glide cath in conjunction with a Glidewire was used to catheterize the right common femoral artery. A right leg angiogram was performed from this location. This demonstrates patent right common femoral artery, proximal and mid superficial femoral artery and profunda femoris. There is complete occlusion of the distal superficial femoral artery and popliteal artery. An angiogram further down the leg was performed and this demonstrates reconstitution of the distal popliteal artery. A below-knee runoff arteriogram was performed and this demonstrates single peroneal artery runoff to the right foot. A Glidewire was advanced through the diagnostic catheter under fluoroscopy guidance used to recanalize through the acute thrombus within the right distal SFA and popliteal artery. A 5-Finnish glide cath was advanced over the wire under fluoroscopy guidance into the popliteal artery. Injection of contrast confirmed intraluminal location and thrombosed popliteal and SFA. The catheter was removed over the wire. A 20 cm infusion catheter was advanced over the wire under fluoroscopy guidance and positioned within the clot. The wire was removed and the inner stylet of the catheter was secured in place. The catheter was connected to TPA 0.5 mg per hour for 24 hour thrombolysis. Heparin 400 units per hour was connected to the groin sheath. A sterile dressing was applied to the groin. Patient tolerated the procedure well and was transferred to ICU in stable condition. Complications: None. Estimated blood loss: Less than 5 ml. Impression: 1. Right leg angiogram demonstrates acute thrombus in the distal superficial femoral artery and popliteal artery. 2. Single peroneal vessel runoff below the knee to the foot. 3. Successful infusion catheter placement for thrombolysis for acute clot. The patient will be brought back tomorrow for lysis check. Electronically Signed by Amrita Cadet MD 02/23/2019 11:54 A
== END ==
LOC: M IRPRO 16:21 → M MSPAV 17:20 → M ED INP 02-22 11:27 → M MSPAV 02-22 11:27
PROVIDERS: ATTEND Radiology Diagnostic Radiology
DX: I82.401 Acute embolism and thrombosis of unspecified deep veins of right lower extremity (principal); I70.92 Chronic total occlusion of artery of the extremities
CPT/HCPCS: 36247; 37211; 75710; 99152; 99153; C1757; C1769; C1887; C1894; J1200; J2250; J3010; Q9967

== ENCOUNTER → 2019-03-19 | Outpatient (REF) ==
[2019-03-19 11:14] LABS: HEMATOCRIT 28.3 % (36.0-47.0); HEMOGLOBIN 8.6 g/dl (12.0-15.5); MEAN CORPUSCULAR HEMOGLOBIN 30.9 pg (27.0-33.0); MEAN CORPUSCULAR HGB CONC 30.4 g/dl (32.0-36.5); MEAN CORPUSCULAR VOLUME 101.8 fl (80.0-96.0); PLATELET COUNT, AUTOMATED 176 10^3/uL (150-450); RED BLOOD COUNT 2.78 10^6/uL (4.00-5.40); WHITE BLOOD COUNT 5.4 10^3/uL (4.0-10.0)
[2019-03-19 11:41] LABS: ALBUMIN 1.6 GM/DL (3.2-5.2); BILIRUBIN,DIRECT 0.2 MG/DL (0.0-0.2); BILIRUBIN,TOTAL 0.5 MG/DL (0.2-1.0); CALCIUM LEVEL 7.5 MG/DL (8.8-10.2); CREATININE FOR GFR 1.05 MG/DL (0.55-1.30); GLOMERULAR FILTRATION RATE 53.7 (>32); TOTAL PROTEIN 4.5 GM/DL (6.4-8.2)
== END ==
PROVIDERS: ATTEND Family Medicine
DX: I48.91 Unspecified atrial fibrillation (principal)

== ENCOUNTER → 2019-03-21 | Outpatient (REF) ==
[2019-03-21 12:56] LABS: HEMATOCRIT 26.1 % (36.0-47.0); MEAN CORPUSCULAR HEMOGLOBIN 30.8 pg (27.0-33.0); MEAN CORPUSCULAR HGB CONC 30.7 g/dl (32.0-36.5); MEAN CORPUSCULAR VOLUME 100.4 fl (80.0-96.0); PLATELET COUNT, AUTOMATED 215 10^3/uL (150-450); WHITE BLOOD COUNT 5.7 10^3/uL (4.0-10.0)
[2019-03-21 13:25] LABS: ALBUMIN 1.4 GM/DL (3.2-5.2); BILIRUBIN,TOTAL 0.4 MG/DL (0.2-1.0); CALCIUM LEVEL 7.3 MG/DL (8.8-10.2); CREATININE FOR GFR 0.97 MG/DL (0.55-1.30); GLOMERULAR FILTRATION RATE 58.8 (>32); POTASSIUM SERUM 4.1 MEQ/L (3.5-5.1); TOTAL PROTEIN 4.4 GM/DL (6.4-8.2)
== END ==
PROVIDERS: ATTEND Family Medicine
DX: I48.91 Unspecified atrial fibrillation (principal)

== ENCOUNTER → 2019-03-25 | Outpatient (REF) ==
[~2019-03-25] MED LIST changes: +ACET1TAB55 PO; +AMIO200T PO; +ASPI81CH33 PO; +ATOR40TA75 PO; +CALC1TAB26 PO; +CALC500T44 PO; +CARV6.25 PO; +CLOP75TA2 PO; +CVS1SPR4 PO; +DOCU100C16 PO; +DULC10SU2 PR; +ENSU1LIQ36 PO; +FURO40TA2 PO; +GABA-843 PO; +GLUC1KIT IM; +HUMA100I5 SC; +HYDR-3713 PO; +MICO2CRE42 TOP; +MILKSUS3 PO; +MULTCAP PO; +NITR0.4S14 SL; +OMEP-218 PO; +POTA20TA6 PO; +VITA500C24 PO
[2019-03-25 12:33] LABS: HEMATOCRIT 29.4 % (36.0-47.0); MEAN CORPUSCULAR HEMOGLOBIN 30.4 pg (27.0-33.0); MEAN CORPUSCULAR HGB CONC 30.6 g/dl (32.0-36.5); MEAN CORPUSCULAR VOLUME 99.3 fl (80.0-96.0); PLATELET COUNT, AUTOMATED 287 10^3/uL (150-450); RED BLOOD COUNT 2.96 10^6/uL (4.00-5.40); WHITE BLOOD COUNT 9.5 10^3/uL (4.0-10.0)
[2019-03-25 13:08] LABS: ALBUMIN 1.6 GM/DL (3.2-5.2); ALT/SGPT 137 U/L (12-78); BILIRUBIN,TOTAL 0.4 MG/DL (0.2-1.0); BLOOD UREA NITROGEN 26 MG/DL (7-18); CALCIUM LEVEL 7.9 MG/DL (8.8-10.2); CARBON DIOXIDE LEVEL 34 MEQ/L (21-32); CHLORIDE LEVEL 102 MEQ/L (98-107); CREATININE FOR GFR 0.89 MG/DL (0.55-1.30); GLOMERULAR FILTRATION RATE > 60.0 (>32); GLUCOSE, FASTING 155 MG/DL (70-100); POTASSIUM SERUM 4.5 MEQ/L (3.5-5.1); SODIUM LEVEL 142 MEQ/L (136-145); TOTAL PROTEIN 4.7 GM/DL (6.4-8.2)
[2019-03-25 13:10] LABS: PERCENT SATURATION 43.4 % (13.2-45.0)
[2019-03-25 13:13] LABS: FOLATE 10.6 NG/ML (>5.4)
== END ==
PROVIDERS: ATTEND Family Medicine
DX: I48.91 Unspecified atrial fibrillation (principal)

== ENCOUNTER 2019-03-26 05:47 | Inpatient (IN) | payer BC, MEDICARE, OTHER ==
[~2019-03-26] VITALS: Ht 162.6 cm; Wt 51.8 kg
[~2019-03-26 05:47] MED LIST changes: -ACET1TAB55 PO; -AMIO200T PO; -ASPI81CH33 PO; -ATOR40TA75 PO; -CALC1TAB26 PO; -CALC500T44 PO; -CARV6.25 PO; -CLOP75TA2 PO; -CVS1SPR4 PO; -DOCU100C16 PO; -DULC10SU2 PR; -ENSU1LIQ36 PO; -FURO40TA2 PO; -GABA-843 PO; -GLUC1KIT IM; -HUMA100I5 SC; -HYDR-3713 PO; -MICO2CRE42 TOP; -MILKSUS3 PO; -MULTCAP PO; -NITR0.4S14 SL; -OMEP-218 PO; -POTA20TA6 PO; -VITA500C24 PO
[2019-03-26] MEDS: IPRATROPIUM 0.5MG/ALBUTEROL 2.5MG INH SOL UD 3ML (DUONEB)(J7620) NEB SCH ×3 (06:25→07:53)
[2019-03-26 06:29] LABS: BASO # 0.1 10^3/uL (0.0-0.2); BASO % 0.7 % (0.0-1.0); EOS # 0.3 10^3/uL (0.0-0.5); EOS % 2.7 % (0.0-3.0); HEMATOCRIT 28.6 % (36.0-47.0); HEMOGLOBIN 8.7 g/dl (12.0-15.5); LYMPH # 0.8 10^3/uL (1.5-5.0); LYMPH % 8.4 % (24.0-44.0); MEAN CORPUSCULAR HEMOGLOBIN 30.2 pg (27.0-33.0); MEAN CORPUSCULAR HGB CONC 30.4 g/dl (32.0-36.5); MEAN CORPUSCULAR VOLUME 99.3 fl (80.0-96.0); MONO # 0.6 10^3/uL (0.0-0.8); MONO % 6.4 % (0.0-5.0); NEUTROPHILS # 7.8 10^3/uL (1.5-8.5); NEUTROPHILS % 78.6 % (36.0-66.0); PLATELET COUNT, AUTOMATED 296 10^3/uL (150-450); RED BLOOD COUNT 2.88 10^6/uL (4.00-5.40); WHITE BLOOD COUNT 9.9 10^3/uL (4.0-10.0)
[2019-03-26] MEDS ORDERED: LevoFLOXacin IV 500 MG in IV 1 EA IV ONE (06:30)
[2019-03-26] MEDS ORDERED: VANCOMYCIN HCL 920 MG in IV FLUID PLACE HOLDER 1 EA IV ONE (06:30)
[2019-03-26] MEDS ORDERED: VANCOMYCIN HCL 1,000 MG, VIAL MATE ADAPTER 1 EACH in D5W 250 ML IV ONE (06:30)
[2019-03-26] MEDS ORDERED: FUROSEMIDE 40 MG/4 ML VIAL (J1940) IV ONE (06:30)
[2019-03-26 06:39] LABS: INR 1.27; PROTHROMBIN TIME 15.6 SECONDS (11.8-14.0)
[2019-03-26 06:50] LABS: BLOOD UREA NITROGEN 27 MG/DL (7-18); CALCIUM LEVEL 7.7 MG/DL (8.8-10.2); CARBON DIOXIDE LEVEL 33 MEQ/L (21-32); CHLORIDE LEVEL 106 MEQ/L (98-107); CPK CREATINE PHOSPHOKINASE 37 U/L (26-192); CREATININE FOR GFR 0.91 MG/DL (0.55-1.30); GLOMERULAR FILTRATION RATE > 60.0 (>32); GLUCOSE, FASTING 193 MG/DL (70-100); MB/CK RELATIVE INDEX 5.41 (< OR =4); POTASSIUM SERUM 4.5 MEQ/L (3.5-5.1); SODIUM LEVEL 144 MEQ/L (136-145); TROPONIN I 0.07 NG/ML (< 0.10)
[2019-03-26 06:55] LABS: INFLUENZA A AMPLIFICATION NEGATIVE (NEGATIVE); INFLUENZA B AMPLIFICATION NEGATIVE (NEGATIVE)
[2019-03-26] MEDS ORDERED: MICO2CRE42 TOP (07:00)
[2019-03-26] MEDS ORDERED: CVS1SPR4 PO (07:00)
[2019-03-26] MEDS ORDERED: ACET1TAB55 PO (07:00)
[2019-03-26] MEDS ORDERED: HUMA100I5 SC (07:00)
[2019-03-26] MEDS ORDERED: DOCU100C16 PO (07:00)
[2019-03-26] MEDS ORDERED: FURO40TA2 PO (07:00)
[2019-03-26] MEDS ORDERED: HYDR-3713 PO (07:00)
[2019-03-26] MEDS ORDERED: NITR0.4S14 SL (07:00)
[2019-03-26] MEDS ORDERED: ASPI81CH33 PO (07:00)
[2019-03-26] MEDS ORDERED: CALC1TAB26 PO (07:00)
[2019-03-26] MEDS ORDERED: GLUC1KIT IM (07:00)
[2019-03-26] MEDS ORDERED: OMEP-218 PO (07:00)
[2019-03-26] MEDS ORDERED: AMIO200T PO (07:00)
[2019-03-26] MEDS ORDERED: MILKSUS3 PO (07:00)
[2019-03-26] MEDS ORDERED: CARV6.25 PO (07:00)
[2019-03-26] MEDS ORDERED: GABA-843 PO (07:00)
[2019-03-26] MEDS ORDERED: ATOR40TA75 PO (07:00)
[2019-03-26] MEDS ORDERED: CALC500T44 PO (07:00)
[2019-03-26] MEDS ORDERED: MULTCAP PO (07:00)
[2019-03-26] MEDS ORDERED: VITA500C24 PO (07:00)
[2019-03-26] MEDS ORDERED: ENSU1LIQ36 PO (07:00)
[2019-03-26] MEDS ORDERED: POTA20TA6 PO (07:00)
[2019-03-26] MEDS ORDERED: CLOP75TA2 PO (07:00)
[2019-03-26] MEDS ORDERED: DULC10SU2 PR (07:00)
[2019-03-26 07:36] LABS: NT-PRO BNP 9234 PG/ML (<450)
[2019-03-26] MEDS ORDERED: DEXTROSE 50% 50 ML SYRINGE IV PRN (08:15)
[2019-03-26] MEDS ORDERED: GLUCAGON FOR INJ 1 MG VIAL (J1610) SC PRN (08:15)
[2019-03-26] MEDS ORDERED: VANCOMYCIN HCL 1,000 MG, VIAL MATE ADAPTER 1 EACH in D5W 250 ML IV SCH (08:15)
[2019-03-26] MEDS ORDERED: GLUCOSE 4 GM CHEW TABLET PO PRN (08:15)
[2019-03-26] MEDS ORDERED: BISACODYL 10 MG SUPP PR PRN (08:30)
--- NOTE | 2019-03-26 08:33 | HPEPDOC ---
[facility] Medical History & Physical Date of Admission Mar 26, 2019 Date of Service: Mar 26, 2019 Attending Physician: ZI FARMER MD History and Physical CHIEF COMPLAINT: Shortness of breath and fever HISTORY OF PRESENT ILLNESS: 6-year-old female with past medical history of atrial fibrillation, CHF (EF 25-30%), coronary artery disease, recent GA, status post stent placement, peripheral vascular disease, diabetes mellitus and hypertension, presents with fever and shortness of breath. Patient was admitted to [facility]. one month ago with right lower extremity ischemia, status post angioplasty, underwent further vascular intervention along with fasciotomy. She had a postop GA and was transferred to [facility] for PCI which resulted in 3 stent placements. She also underwent right AKA and was discharged to [facility] for rehabilitation. She woke up this morning with shortness of breath and reportedly had fever of 103, for which she received Tylenol prior to coming to the emergency department. In the ED, imaging and workup was concerning for pneumonia/CHF exacerbation. Patient received IV Lasix along with broad-spectrum antibiotics. Patient reports improvement in shortness of breath with Lasix and nebulizer treatments, otherwise a symptomatic at this time. She denies any cough, nausea, vomiting, abdominal pain or diarrhea at this time. 10 point review of system is negative except for above PAST MEDICAL HISTORY: 1. Atrial fibrillation. 2. Congestive heart failure. 3. Diabetes mellitus. 4. Hypertension. 5. Coronary artery disease. 6. GA. 7. Peripheral vascular disease PAST SURGICAL HISTORY: 1. Right AKA. 2. PCI, stent placement 3. SOCIAL HISTORY: Previous smoker. Denies alcohol use. Denies drug use FAMILY HISTORY: Positive for heart disease ALLERGIES: Please see below. HOME MEDICATIONS: Please see below. PHYSICAL EXAMINATION: VITAL SIGNS: Please see below. GENERAL: No distress HEENT: Normocephalic, atraumatic, moist mucous membranes NECK: Supple CARDIOVASCULAR EXAMINATION: S1, S2, no murmurs RESPIRATORY EXAMINATION: Scattered rhonchi ABDOMINAL EXAMINATION: Soft, nontender, nondistended, positive bowel sounds EXTREMITIES: Status post right AKA, surgical wound without any erythema or drainage, left lower showed a pitting edema SKIN: No rash NEUROLOGICAL EXAMINATION: Alert and oriented 3, no focal deficits PSYCHIATRIC EXAMINATION: Calm and cooperative LABORATORY DATA: See below. IMAGING: Chest x-ray showing vascular congestion with possible infiltration MICROBIOLOGY: Please see below. ASSESSMENT: 78-year-old female with extensive medical history who underwent recent right AKA and stent placement post GA presents from rehabilitation with symptoms concerning for pneumonia/CHF exacerbation. PLAN: 1. Healthcare associated pneumonia. Was febrile prior to arrival, continue vancomycin and aztreonam, blood cultures pending, pro-calcitonin and respiratory viral panel ordered. 2) congestive heart failure. EF 25-30%, although was post GA, Lasix 40 mg IV twice a day, monitor I's and O's, daily weight, does not appear to be far from her baseline clinically. 3) diabetes mellitus. Sliding scale insulin with meals and at bedtime. 4) atrial fibrillation. Currently in normal sinus rhythm, continue amiodarone, not on anticoagulation. 5) coronary artery disease. History of recent GA, status post stent placement 3, continue optimal medical management with aspirin, Plavix, statin and beta isidra. 6) hypertension. Continue Coreg DVT prophylaxis: Heparin subcutaneous GI prophylaxis: Home PPI Vital Signs Vital Signs Date Time Temp Pulse Resp B/P (MAP) Pulse Ox O2 Delivery O2 Flow Rate FiO2 03/26/19 07:15 82 132/61 (84) 100 03/26/19 06:30 16 03/26/19 06:25 Nasal Cannula 4.0 100 03/26/19 06:00 98.1 Laboratory Data Labs 24H Laboratory Tests 2 03/26/19 06:12: Immature Granulocyte % (Auto) 3.2H, Neutrophils (%) (Auto) 78.6H, Lymphocytes (%) (Auto) 8.4L, Monocytes (%) (Auto) 6.4H, Eosinophils (%) (Auto) 2.7, Basophils (%) (Auto) 0.7, Neutrophils # (Auto) 7.8, Lymphocytes # (Auto) 0.8L, Monocytes # (Auto) 0.6, Eosinophils # (Auto) 0.3, Basophils # (Auto) 0.1, N ucleated Red Blood Cells % (auto) 0.2H, Prothrombin Time 15.6H, Prothromb Time International Ratio 1.27, Anion Gap 5L, Glomerular Filtration Rate > 60.0, Lactic Acid Level 1.8, Calcium Level 7.7L, Total Creatine Kinase 37, Creatine Kinase MB 2.0, Creatine Kinase MB Relative Index 5.41H, Troponin I 0.07, SU-Niz-X-Type Natriuretic Peptide 9234H, Influenza Type A (RT-PCR) NEGATIVE, Influenza Type B (RT-PCR) NEGATIVE CBC/BMP Laboratory Tests 03/26/19 06:12 Microbiology Microbiology 03/26/19 Blood Culture, Received Pending 03/26/19 Blood Culture, Received Pending Home Medications Scheduled Amiodarone HCl (Amiodarone HCl) 200 Mg Tablet, 200 MG PO DAILY Ascorbic Acid (Vitamin C) 500 Mg Capsule, 500 MG PO DAILY Aspirin (Aspirin) 81 Mg Tab.chew, 81 MG PO DAILY Atorvastatin Calcium (Atorvastatin Calcium) 40 Mg Tablet, 40 MG PO QPM @1900 Calcium Carbonate/Vitamin D3 (Calcium 500-Vit D3 200 Tablet) 1 Each Tablet, 1 TAB PO DAILY Calcium Carbonate/Vitamin D3 (Calcium 600-Vit D3 800 Tablet) 1 Each Tablet, 1 TAB PO DAILY Carvedilol (Carvedilol) 6.25 Mg Tablet, 6.25 MG PO BID 2ND DOSE AT 1600 Clopidogrel Bisulfate (Clopidogrel) 75 Mg Tablet, 75 MG PO DAILY Docusate Sodium (Docusate Sodium) 100 Mg Capsule, 100 MG PO QHS Furosemide (Furosemide) 40 Mg Tablet, 40 MG PO DAILY Gabapentin (Gabapentin) 300 Mg Capsule, 300 MG PO BID Glucagon,Human Recombinant (Glucagon Emergency Kit) 1 Mg Vial, 1 MG IM ASDIRECTED Insulin Lispro (Humalog Kwikpen U-100) 100 Unit/1 Ml Insuln.pen, 1 DOSE SC AC SLIDING SCALE Lactose-Reduced Food (Ensure Enlive) 237 Ml Liquid, 237 ML PO BID Miconazole Nitrate (Miconazole Nitrate) 30 Gm Cream..g., 1 APPLIC TOP BID APPLY UNDER LEFT BREAST Multivitamin (Multivitamins) 1 Each Capsule, 1 CAP PO DAILY Omeprazole (Omeprazole) 20 Mg Capsule.dr, 20 MG PO DAILY Potassium Chloride (Potassium Chloride) 20 Meq Tab.er.prt, 20 MEQ PO BID Saliva Stimulant Comb. No.4 (Dry Mouth) 45 Ml [place], 1 SPR PO QID 0800, 1300, 1700, 2100 Scheduled PRN Acetaminophen (Acetaminophen) 325 Mg Tablet, 650 MG PO Q4H PRN for PAIN Bisacodyl (Dulcolax) 10 Mg Supp.rect, 10 MG [place] DAILY PRN for CONSTIPATION Hydrocodone/Acetaminophen (Hydrocodone-Acetamin 5-325 mg) 1 Each Tablet, 1 TAB PO Q4H PRN for PAIN Magnesium Hydroxide (Milk of Magnesia) 400 Mg/5 Ml Oral.susp, 30 ML PO DAILY PRN for CONSTIPATION Nitroglycerin (Nitroglycerin) 0.4 Mg Tab.subl, 0.4 MG SL NITRO PRN for CHEST PAIN Allergies Coded Allergies: exemestane (Verified Allergy, Mild, Rash, 03/26/19) Penicillins (Verified Adverse Reaction, Mild, Yeast Infection, 03/26/19) A-FIB/CHADSVASC A-FIB History Current/History of A-Fib/PAF?: Yes Current PO Anticoag Therapy: No Treatment Reason Anticoagulant not given: Patient refusal, Other Other reason anticoagulant not: high bleeding risk ZI FARMER MD Mar 26, 2019 08:33
--- NOTE | 2019-03-26 09:50 | REP ---
Clinical: Cough and dyspnea. Comparison: 02/24/2019. Findings: Mediastinum and cardiac silhouette are stable. Diffuse chronic interstitial changes are appreciated. Superimposed diffuse bilateral air space disease including area of consolidation at the basilar right upper lobe. No obvious effusion. No pneumothorax. Skeletal structures are intact. Evidence for prior right axillary node dissection. Impression: Findings suggest multifocal pneumonia. Electronically Signed by Tadeo Allen MD 03/26/2019 07:52 A
[2019-03-26] MEDS: AZTREONAM 1 GM in D5W MINI-BAG PLUS 50 ML IV SCH ×2 (10:00→18:03)
[2019-03-26 11:45] VITALS: BP 143/67
[2019-03-26] MEDS: CALCIUM/VITAMIN D 500 MG TAB PO SCH (12:03)
[2019-03-26] MEDS: ASPIRIN 81 MG CHEW TABLET PO SCH (12:03)
[2019-03-26] MEDS: GABAPENTIN 300 MG CAP PO SCH ×2 (12:03→20:50)
[2019-03-26] MEDS: POTASSIUM CHLORIDE 10 MEQ SR TABLET PO SCH ×2 (12:03→20:50)
[2019-03-26] MEDS: AMIODARONE 200 MG TAB (PACERONE) PO SCH (12:04)
[2019-03-26] MEDS: ACETAMINOPHEN TAB 650MG DOSE (2X325MG) PO PRN (12:04)
[2019-03-26] MEDS: CLOPIDOGREL 75 MG TAB PO SCH (12:04)
[2019-03-26] MEDS: CARVedilol 6.25 MG TAB PO SCH ×2 (12:04→20:51)
[2019-03-26] MEDS: ASCORBIC ACID 500 MG TAB PO SCH (12:04)
[2019-03-26] MEDS: OMEPRAZOLE 20 MG CAP PO SCH (12:04)
[2019-03-26] MEDS: HEPARIN SOD (PORCINE) 5000 UNITS/ML VIAL (J1644 PER 1000UNITS) SC SCH ×2 (12:05→20:49)
[2019-03-26] MEDS: HumaLOG INSULIN (NovoLOG) PER UNIT SC SCH ×3 (12:12→20:31)
[2019-03-26] MEDS: FUROSEMIDE 40 MG/4 ML VIAL (J1940) IV SCH ×2 (12:12→20:49)
--- NOTE | 2019-03-26 20:33 | ECGEPIP ---
[facility] - ED Test Date: 2019-03-26 Pat Name: NATALY HOLLAND Department: Room: - Gender: Female Speech Pathology Assistant: AILEEN : 1940 Requested By: EVAN VENTURA Order Number: [id number] Reading MD: Matt Hoang Measurements Intervals Orange Rate: 90 P: 56 ND: 168 QRS: 9 QRSD: 82 T: 48 QT: 349 QTc: 427 Interpretive Statements SINUS RHYTHM POOR R WAVE PROGRESSION POSSIBLE INCOMPLETE RIGHT BUNDLE BRANCH BLOCK RHYTHM/RATE CHANGE COMPARED TO 02/26/19 Electronically Signed on 03-26-2019 20:32:23 EST by Matt Hoang
[2019-03-26] MEDS: DOCUSATE SODIUM 100 MG CAP PO SCH (20:50)
[2019-03-26] MEDS: ATORVASTATIN 20 MG TAB PO SCH (20:50)
[2019-03-26 22:00] VITALS: BP 142/64
[2019-03-27] MEDS: ACETAMINOPHEN TAB 650MG DOSE (2X325MG) PO PRN ×3 (01:00→18:46)
[2019-03-27] MEDS: AZTREONAM 1 GM in D5W MINI-BAG PLUS 50 ML IV SCH ×2 (01:51→11:00)
[2019-03-27 06:00] VITALS: BP 122/49
[2019-03-27 06:16] LABS: HEMATOCRIT 26.1 % (36.0-47.0); HEMOGLOBIN 8.2 g/dl (12.0-15.5); MEAN CORPUSCULAR HEMOGLOBIN 30.6 pg (27.0-33.0); MEAN CORPUSCULAR HGB CONC 31.4 g/dl (32.0-36.5); MEAN CORPUSCULAR VOLUME 97.4 fl (80.0-96.0); PLATELET COUNT, AUTOMATED 268 10^3/uL (150-450); RED BLOOD COUNT 2.68 10^6/uL (4.00-5.40); WHITE BLOOD COUNT 8.6 10^3/uL (4.0-10.0)
[2019-03-27 06:46] LABS: ALBUMIN 1.5 GM/DL (3.2-5.2); BILIRUBIN,TOTAL 0.4 MG/DL (0.2-1.0); CALCIUM LEVEL 7.8 MG/DL (8.8-10.2); GLOMERULAR FILTRATION RATE 56.8 (>32); MAGNESIUM LEVEL 1.6 MG/DL (1.8-2.4); POTASSIUM SERUM 3.6 MEQ/L (3.5-5.1); TOTAL PROTEIN 5.2 GM/DL (6.4-8.2)
[2019-03-27] MEDS: HumaLOG INSULIN (NovoLOG) PER UNIT SC SCH ×4 (08:48→21:00)
[2019-03-27] MEDS: FUROSEMIDE 40 MG/4 ML VIAL (J1940) IV SCH ×2 (08:48→21:41)
[2019-03-27] MEDS: HEPARIN SOD (PORCINE) 5000 UNITS/ML VIAL (J1644 PER 1000UNITS) SC SCH ×2 (08:48→21:39)
[2019-03-27] MEDS: CLOPIDOGREL 75 MG TAB PO SCH (08:49)
[2019-03-27] MEDS: GABAPENTIN 300 MG CAP PO SCH ×2 (08:49→21:40)
[2019-03-27] MEDS: AMIODARONE 200 MG TAB (PACERONE) PO SCH (08:49)
[2019-03-27] MEDS: OMEPRAZOLE 20 MG CAP PO SCH (08:49)
[2019-03-27] MEDS: ASCORBIC ACID 500 MG TAB PO SCH (08:49)
[2019-03-27] MEDS: POTASSIUM CHLORIDE 10 MEQ SR TABLET PO SCH ×2 (08:49→21:40)
[2019-03-27] MEDS: ASPIRIN 81 MG CHEW TABLET PO SCH (08:49)
[2019-03-27] MEDS: CALCIUM/VITAMIN D 500 MG TAB PO SCH (08:49)
[2019-03-27] MEDS: CARVedilol 6.25 MG TAB PO SCH ×2 (08:52→21:40)
[2019-03-27] MEDS ORDERED: POTASSIUM CHLORIDE 10 MEQ SR TABLET PO ONE (10:00)
[2019-03-27] MEDS: MAG SULF 1GM/100ML (MAG RUN) 1 GM in IV 1 EA IV SCH ×3 (11:44→15:34)
[2019-03-27 14:00] VITALS: BP 127/60
[2019-03-27] MEDS ORDERED: MAGNESIUM SULFATE 1 GM/100 ML D5W BAG (10MG/ML) (J3475) As Ordered ONE (15:31)
--- NOTE | 2019-03-27 18:28 | IPNPDOC ---
Date Seen The patient was seen on 03/27/19. Progress Note SUBJECTIVE: 78-year-old female with past medical history of atrial fibrillation, CHF (EF 25-30%), coronary artery disease, recent IL, status post stent placement, peripheral vascular disease, diabetes mellitus and hypertension, presents with fever and shortness of breath. Patient was admitted to [facility]. one month ago with right lower extremity ischemia, status post angioplasty, underwent further vascular intervention along with fasciotomy. She had a postop IL and was transferred to [facility] for PCI which resulted in 3 stent placements. She also underwent right AKA and was discharged to [facility] for rehabilitation. She woke up this morning with shortness of breath and reportedly had fever of 103, for which she received Tylenol prior to coming to the emergency department. In the ED, imaging and workup was concerning for pneumonia/CHF exacerbation. Patient received IV Lasix along with broad-spectrum antibiotics. Patient reports improvement in shortness of breath with Lasix and nebulizer treatments, otherwise a symptomatic at this time. She denies any cough, nausea, vomiting, abdominal pain or diarrhea at this time. 03/27/19 Patient seen in the morning, reports improvement from yesterday, resting comfortably in chair, no complaints at this time. She denies any shortness of breath, chest pain, nausea, vomiting, abdominal pain or diarrhea. 10 point review of system is negative except for above PHYSICAL EXAMINATION: VITAL SIGNS: Please see below. GENERAL: No distress HEENT: Normocephalic, atraumatic, moist mucous membranes NECK: Supple CARDIOVASCULAR EXAMINATION: S1, S2, no murmurs RESPIRATORY EXAMINATION: Scattered rhonchi ABDOMINAL EXAMINATION: Soft, nontender, nondistended, positive bowel sounds EXTREMITIES: Status post right AKA, surgical wound without any erythema or drainage, left lower showed a pitting edema SKIN: Extensive sacral wounds NEUROLOGICAL EXAMINATION: Alert and oriented 3, no focal deficits PSYCHIATRIC EXAMINATION: Calm and cooperative LABORATORY DATA: See below. IMAGING: Chest x-ray showing vascular congestion with possible infiltration MICROBIOLOGY: Please see below. ASSESSMENT: 78-year-old female with extensive medical history who underwent recent right AKA and stent placement post IL presents from rehabilitation with symptoms concerning for pneumonia/CHF exacerbation. PLAN: 1. Acute on chronic systolic congestive heart failure. EF 25-30%, continue Lasix, clinically improving, monitor I's and O's, daily weight, fluid restriction. Infectious etiology was ruled out, no clinical symptoms suggestive of infection. 2) diabetes mellitus. Sliding scale insulin with meals and at bedtime. 3) atrial fibrillation. Currently in normal sinus rhythm, continue amiodarone, not on anticoagulation. 4) coronary artery disease. History of recent IL, status post stent placement 3, continue optimal medical management with aspirin, Plavix, statin and beta isidra. 5) hypertension. Continue Coreg DVT prophylaxis: Heparin subcutaneous GI prophylaxis: Home PPI VS, I&O, 24H, Fishbone Vital Signs/I&O Vital Signs Date Time Temp Pulse Resp B/P (MAP) Pulse Ox O2 Delivery O2 Flow Rate FiO2 03/27/19 14:00 97.6 85 18 127/60 (82) 95 Room Air 03/27/19 06:00 0.5 03/26/19 06:25 100 I&O- Last 24 Hours up to 6 AM 03/27/19 06:00 Intake Total 1620 ml Output Total 2490 ml Balance -870 ml Laboratory Data 24H LABS Laboratory Tests 2 03/26/19 19:59: Bedside Glucose (Misc Panel) 238H 03/27/19 05:39: Nucleated Red Blood Cells % (auto) 0.2H, Anion Gap 6L, Glomerular Filtration Rate 56.8, Calcium Level 7.8L, Magnesium Level 1.6L, Total Bilirubin 0.4, Aspartate Amino Transf (AST/SGOT) 84H, Alanine Aminotransferase (ALT/SGPT) 116H, Alkaline Phosphatase 103, Total Protein 5.2L, Albumin 1.5L, Albumin/Globulin Ratio 0.41L 03/27/19 11:43: Bedside Glucose (Misc Panel) 237H 03/27/19 16:53: Bedside Glucose (Misc Panel) 193H CBC/BMP Laboratory Tests 03/27/19 05:39 Microbiology Microbiology 03/26/19 Blood Culture - Preliminary, Resulted No growth after 24 hours . All specim... 03/26/19 Respiratory Virus Panel (PCR) ([facility]) - Final, Complete 03/26/19 Blood Culture - Preliminary, Resulted No growth after 24 hours . All specim... ZI FARMER MD Mar 27, 2019 18:28
[2019-03-27] MEDS: DOCUSATE SODIUM 100 MG CAP PO SCH (21:00)
[2019-03-27] MEDS: ATORVASTATIN 20 MG TAB PO SCH (21:40)
[2019-03-27 22:00] VITALS: BP 122/50
[2019-03-28 03:12] VITALS: BP 138/68
[2019-03-28] MEDS: ACETAMINOPHEN TAB 650MG DOSE (2X325MG) PO PRN ×3 (03:23→16:32)
[2019-03-28] MEDS: IPRATROPIUM 0.5MG/ALBUTEROL 2.5MG INH SOL UD 3ML (DUONEB)(J7620) NEB PRN ×3 (03:42→08:16)
[2019-03-28 06:00] VITALS: BP 132/63
[2019-03-28 07:26] LABS: HEMATOCRIT 27.5 % (36.0-47.0); HEMOGLOBIN 8.5 g/dl (12.0-15.5); MEAN CORPUSCULAR HEMOGLOBIN 30.1 pg (27.0-33.0); MEAN CORPUSCULAR HGB CONC 30.9 g/dl (32.0-36.5); MEAN CORPUSCULAR VOLUME 97.5 fl (80.0-96.0); PLATELET COUNT, AUTOMATED 266 10^3/uL (150-450); RED BLOOD COUNT 2.82 10^6/uL (4.00-5.40); WHITE BLOOD COUNT 9.6 10^3/uL (4.0-10.0)
[2019-03-28 07:57] LABS: ALBUMIN 1.6 GM/DL (3.2-5.2); ALT/SGPT 86 U/L (12-78); BILIRUBIN,TOTAL 0.4 MG/DL (0.2-1.0); BLOOD UREA NITROGEN 23 MG/DL (7-18); CALCIUM LEVEL 7.8 MG/DL (8.8-10.2); CARBON DIOXIDE LEVEL 32 MEQ/L (21-32); CHLORIDE LEVEL 103 MEQ/L (98-107); CREATININE FOR GFR 0.94 MG/DL (0.55-1.30); GLOMERULAR FILTRATION RATE > 60.0 (>32); GLUCOSE, FASTING 167 MG/DL (70-100); NT-PRO BNP 11039 PG/ML (<450); SODIUM LEVEL 140 MEQ/L (136-145); TOTAL PROTEIN 5.3 GM/DL (6.4-8.2)
[2019-03-28] MEDS ORDERED: PREVNAR 13 VACCINE SYRINGE (CPT CODE:90670) IM ONE (09:00)
[2019-03-28] MEDS: CARVedilol 6.25 MG TAB PO SCH ×2 (09:12→20:03)
[2019-03-28] MEDS: GABAPENTIN 300 MG CAP PO SCH ×2 (09:13→20:03)
[2019-03-28] MEDS: ASCORBIC ACID 500 MG TAB PO SCH (09:13)
[2019-03-28] MEDS: FUROSEMIDE 40 MG/4 ML VIAL (J1940) IV SCH ×2 (09:13→20:04)
[2019-03-28] MEDS: POTASSIUM CHLORIDE 10 MEQ SR TABLET PO SCH ×2 (09:13→20:03)
[2019-03-28] MEDS: ASPIRIN 81 MG CHEW TABLET PO SCH (09:13)
[2019-03-28] MEDS: CALCIUM/VITAMIN D 500 MG TAB PO SCH (09:14)
[2019-03-28] MEDS: OMEPRAZOLE 20 MG CAP PO SCH (09:14)
[2019-03-28] MEDS: HumaLOG INSULIN (NovoLOG) PER UNIT SC SCH ×4 (09:14→21:08)
[2019-03-28] MEDS: HEPARIN SOD (PORCINE) 5000 UNITS/ML VIAL (J1644 PER 1000UNITS) SC SCH ×2 (09:14→20:04)
[2019-03-28] MEDS: CLOPIDOGREL 75 MG TAB PO SCH (09:14)
[2019-03-28] MEDS: AMIODARONE 200 MG TAB (PACERONE) PO SCH (09:14)
[2019-03-28 14:00] VITALS: BP 111/50
[2019-03-28] MEDS: ATORVASTATIN 20 MG TAB PO SCH (20:03)
[2019-03-28] MEDS: DOCUSATE SODIUM 100 MG CAP PO SCH (20:03)
[2019-03-28 20:10] VITALS: BP 117/49
--- NOTE | 2019-03-28 21:04 | IPNPDOC ---
Date Seen The patient was seen on 03/28/19. Progress Note SUBJECTIVE: 78-year-old female with past medical history of atrial fibrillation, CHF (EF 25-30%), coronary artery disease, recent WI, status post stent placement, peripheral vascular disease, diabetes mellitus and hypertension, presents with fever and shortness of breath. Patient was admitted to [facility]. one month ago with right lower extremity ischemia, status post angioplasty, underwent further vascular intervention along with fasciotomy. She had a postop WI and was transferred to [facility] for PCI which resulted in 3 stent placements. She also underwent right AKA and was discharged to [facility] for rehabilitation. She woke up this morning with shortness of breath and reportedly had fever of 103, for which she received Tylenol prior to coming to the emergency department. In the ED, imaging and workup was concerning for pneumonia/CHF exacerbation. Patient received IV Lasix along with broad-spectrum antibiotics. Patient reports improvement in shortness of breath with Lasix and nebulizer treatments, otherwise a symptomatic at this time. She denies any cough, nausea, vomiting, abdominal pain or diarrhea at this time. 03/27/19 Patient seen in the morning, reports improvement from yesterday, resting comfortably in chair, no complaints at this time. She denies any shortness of breath, chest pain, nausea, vomiting, abdominal pain or diarrhea. 03/28/19 Patient seen in the morning, breathing has improved compared to yesterday. Patient continued to have small amount of formed stool ~30 minutes which she doesn't feel due to which cleaning is delayed and patient's excoriated skin around the buttock/thigh region is worsening because of it. Patient is currently being turned hourly and cleaned as often as possible, along with Metronidazole gel & allevyn dressing. Patient has no other complaints at this time, denies CP, N/V or abdominal pain. 10 point review of system is negative except for above PHYSICAL EXAMINATION: VITAL SIGNS: Please see below. GENERAL: No distress HEENT: Normocephalic, atraumatic, moist mucous membranes NECK: Supple CARDIOVASCULAR EXAMINATION: S1, S2, no murmurs RESPIRATORY EXAMINATION: Scattered rhonchi ABDOMINAL EXAMINATION: Soft, nontender, nondistended, positive bowel sounds EXTREMITIES: Status post right AKA, surgical wound without any erythema or drainage, left lower showed a pitting edema SKIN: Extensive sacral wounds NEUROLOGICAL EXAMINATION: Alert and oriented 3, no focal deficits PSYCHIATRIC EXAMINATION: Calm and cooperative LABORATORY DATA: See below. IMAGING: Chest x-ray showing vascular congestion with possible infiltration MICROBIOLOGY: Please see below. ASSESSMENT: 78-year-old female with extensive medical history who underwent recent right AKA and stent placement post WI presents from rehabilitation with symptoms concerning for pneumonia/CHF exacerbation. PLAN: 1. Acute on chronic systolic congestive heart failure. EF 25-30%, continue Lasix, clinically improving, monitor I's and O's, daily weight, fluid restriction. 2) diabetes mellitus. Sliding scale insulin with meals and at bedtime. 3) atrial fibrillation. Currently in normal sinus rhythm, continue amiodarone, not on anticoagulation. 4) coronary artery disease. History of recent WI, status post stent placement 3, continue optimal medical management with aspirin, Plavix, statin and beta isidra. 5) hypertension. Continue Coreg DVT prophylaxis: Heparin subcutaneous GI prophylaxis: Home PPI VS, I&O, 24H, Fishbone Vital Signs/I&O Vital Signs Date Time Temp Pulse Resp B/P (MAP) Pulse Ox O2 Delivery O2 Flow Rate FiO2 03/28/19 20:10 97.3 83 20 117/49 (71) 95 Nasal Cannula 1.0 03/26/19 06:25 100 I&O- Last 24 Hours up to 6 AM 03/28/19 06:00 Intake Total 3350 ml Output Total 3400 ml Balance -50 ml Laboratory Data 24H LABS Laboratory Tests 2 03/28/19 07:08: Nucleated Red Blood Cells % (auto) 0.0, Anion Gap 5L, Glomerular Filtration Rate > 60.0, Calcium Level 7.8L, Total Bilirubin 0.4, Aspartate Amino Transf (AST/SGOT) 42H, Alanine Aminotransferase (ALT/SGPT) 86H, Alkaline Phosphatase 104, [id number]-Type Natriuretic Peptide 34539X, Total Protein 5.3L, Albumin 1.6L, Albumin/Globulin Ratio 0.43L 03/28/19 12:40: Bedside Glucose (Misc Panel) 144H 03/28/19 16:49: Bedside Glucose (Misc Panel) 204H 03/28/19 20:28: Bedside Glucose (Misc Panel) 309H CBC/BMP Laboratory Tests 03/28/19 07:08 Microbiology Microbiology 2/19/20 Blood Culture - Preliminary, Resulted No Growth after 48 hours. All Specime... 03/26/19 Respiratory Virus Panel (PCR) ([facility]) - Final, Complete 03/26/19 Blood Culture - Preliminary, Resulted No Growth after 48 hours. All Specime... ZI FARMER MD Mar 28, 2019 21:04
[2019-03-28 22:00] VITALS: BP 117/43
[2019-03-29] MEDS: ACETAMINOPHEN TAB 650MG DOSE (2X325MG) PO PRN ×3 (02:15→20:02)
[2019-03-29 06:00] VITALS: BP 116/50
[2019-03-29 06:16] LABS: HEMATOCRIT 26.9 % (36.0-47.0); HEMOGLOBIN 8.4 g/dl (12.0-15.5); MEAN CORPUSCULAR HEMOGLOBIN 30.4 pg (27.0-33.0); MEAN CORPUSCULAR HGB CONC 31.2 g/dl (32.0-36.5); MEAN CORPUSCULAR VOLUME 97.5 fl (80.0-96.0); PLATELET COUNT, AUTOMATED 278 10^3/uL (150-450); RED BLOOD COUNT 2.76 10^6/uL (4.00-5.40); WHITE BLOOD COUNT 8.7 10^3/uL (4.0-10.0)
[2019-03-29 06:40] LABS: ALBUMIN 1.5 GM/DL (3.2-5.2); BILIRUBIN,TOTAL 0.3 MG/DL (0.2-1.0); CALCIUM LEVEL 7.7 MG/DL (8.8-10.2); CREATININE FOR GFR 0.98 MG/DL (0.55-1.30); GLOMERULAR FILTRATION RATE 58.1 (>32); POTASSIUM SERUM 3.8 MEQ/L (3.5-5.1); TOTAL PROTEIN 5.1 GM/DL (6.4-8.2)
[2019-03-29] MEDS ORDERED: VANCOMYCIN HCL 1,000 MG, VIAL MATE ADAPTER 1 EACH in D5W 250 ML IV SCH (07:45)
[2019-03-29] MEDS: HEPARIN SOD (PORCINE) 5000 UNITS/ML VIAL (J1644 PER 1000UNITS) SC SCH ×2 (08:30→20:02)
[2019-03-29] MEDS: HumaLOG INSULIN (NovoLOG) PER UNIT SC SCH ×4 (08:32→20:02)
[2019-03-29] MEDS: FUROSEMIDE 40 MG/4 ML VIAL (J1940) IV SCH ×2 (08:33→20:02)
[2019-03-29] MEDS: MEROPENEM INJ 1 GM in IV 1 EA IV SCH ×2 (08:33→20:00)
[2019-03-29] MEDS: ASPIRIN 81 MG CHEW TABLET PO SCH (08:36)
[2019-03-29] MEDS: CALCIUM/VITAMIN D 500 MG TAB PO SCH (08:36)
[2019-03-29] MEDS: POTASSIUM CHLORIDE 10 MEQ SR TABLET PO SCH ×2 (08:36→20:01)
[2019-03-29] MEDS: ASCORBIC ACID 500 MG TAB PO SCH (08:37)
[2019-03-29] MEDS: CLOPIDOGREL 75 MG TAB PO SCH (08:37)
[2019-03-29] MEDS: AMIODARONE 200 MG TAB (PACERONE) PO SCH (08:37)
[2019-03-29] MEDS: OMEPRAZOLE 20 MG CAP PO SCH (08:37)
[2019-03-29] MEDS: GABAPENTIN 300 MG CAP PO SCH ×2 (08:37→20:01)
[2019-03-29] MEDS: CARVedilol 6.25 MG TAB PO SCH ×2 (08:38→20:01)
[2019-03-29] MEDS ORDERED: VANCOMYCIN HCL 750 MG, VIAL MATE ADAPTER 1 EACH in D5W 250 ML IV ONE (10:00)
[2019-03-29] MEDS ORDERED: VANCOMYCIN HCL 500 MG in D5W MINI-BAG PLUS 100 ML IV ONE (11:00)
--- NOTE | 2019-03-29 11:08 | PHACANCOPD ---
PHARMACY VANCOMYCIN DOSING Pt Demographics Demographics Patient Age:78 , Weight:57.500 , Gender: female Adjusted Body Weight Date: 03/29/19, Adjusted Body Weight: Kg Events Past 24 Hours Events Past 24 Hours: YES: Fever; NO: Dialysis, Diuretic Therapy, Change in CrCl, Elevation in WBC, Pending Diagnostics, Pending Procedures, Other Vancomycin Vancomycin indication: POSSIBLE SSTI Vancomycin Target Ranges: 10-20 mcg/ml Vancomycin Load Y/N: Yes Load Dose Date Time Vancomycin Load Dose: 1250MG Date: 03/29/19 Time: 1000 Vancomycin Dose Date: 03/29/19. Current Vancomycin Dose: [ 750mg every 18 hours ] Intermittent Dosing?: No Labs Labs Vital Signs Label Value Date Time Patient Temperature 100.4 degrees F 03/29/19 0600 Temperature Source Rectal 03/29/19 0600 Patient Temperature 97.2 degrees F 03/28/19 2340 Temperature Source Oral 03/28/19 2340 Patient Temperature 98.2 degrees F 03/28/190 Temperature Source Oral 03/28/192199 Patient Temperature 97.3 degrees F 03/28/192009 Temperature Source Oral 03/28/192009 Item Value Date Time White Blood Count 9.9 10^3/uL 03/26/19 0612 White Blood Count 8.6 10^3/uL 03/27/19 0539 White Blood Count 9.6 10^3/uL 03/28/19 0708 White Blood Count 8.7 10^3/uL 03/29/19 0547 Micro Microbiology 03/29/19 Blood Culture, Received Pending 03/29/19 Blood Culture, Received Pending 03/26/19 Blood Culture - Preliminary, Resulted No Growth after 72 hours. All specime... 03/26/19 Respiratory Virus Panel (PCR) ([facility]) - Final, Complete 03/26/19 Blood Culture - Preliminary, Resulted No Growth after 72 hours. All specime... Creatinine Clearance Date:03/29/19. Creatinine Clearance: [ 42.4 mL/min ]. Assessment and Plan Maintaining Current Dose?: Yes Reason for dose change: No Dose Change Pharmacist Note Pharmacist Note Date: 03/29/19. Pharmacist note: Ms. Montiel is an 78-year-old female who was placed on broad-spectrum antibiotic therapy consisting or meropenem and vancomycin for a possible skin and soft tissue infection. She has no previous history of vancomycin therapy at [facility] and her renal function is decent given her age. She was scheduled a loading dose of 1250mg this morning, followed by a subsequent maintenance dose of 750mg every 18 hours starting tomorrow morning at 0400. A trough was scheduled for 03/31/19 @1500, prior to the fourth dose, with a goal trough of 10-20 mcg/dL. A basic metabolic panel was ordered for tomorrow morning. We will continue to monitor and make adjustments as needed. [facility] Mar 29, 2019 11:08
[2019-03-29 14:00] VITALS: BP 105/45
[2019-03-29] MEDS: IPRATROPIUM 0.5MG/ALBUTEROL 2.5MG INH SOL UD 3ML (DUONEB)(J7620) NEB PRN (19:30)
[2019-03-29 20:00] VITALS: BP 125/55
[2019-03-29] MEDS: DOCUSATE SODIUM 100 MG CAP PO SCH (20:01)
[2019-03-29] MEDS: ATORVASTATIN 20 MG TAB PO SCH (20:01)
--- NOTE | 2019-03-29 22:16 | IPNPDOC ---
Date Seen The patient was seen on 03/29/19. Progress Note SUBJECTIVE: 78-year-old female with past medical history of atrial fibrillation, CHF (EF 25-30%), coronary artery disease, recent CO, status post stent placement, peripheral vascular disease, diabetes mellitus and hypertension, presents with fever and shortness of breath. Patient was admitted to [facility]. one month ago with right lower extremity ischemia, status post angioplasty, underwent further vascular intervention along with fasciotomy. She had a postop CO and was transferred to [facility] for PCI which resulted in 3 stent placements. She also underwent right AKA and was discharged to [facility] for rehabilitation. She woke up this morning with shortness of breath and reportedly had fever of 103, for which she received Tylenol prior to coming to the emergency department. In the ED, imaging and workup was concerning for pneumonia/CHF exacerbation. Patient received IV Lasix along with broad-spectrum antibiotics. Patient reports improvement in shortness of breath with Lasix and nebulizer treatments, otherwise a symptomatic at this time. She denies any cough, nausea, vomiting, abdominal pain or diarrhea at this time. 03/27/19 Patient seen in the morning, reports improvement from yesterday, resting comfortably in chair, no complaints at this time. She denies any shortness of breath, chest pain, nausea, vomiting, abdominal pain or diarrhea. 03/28/19 Patient seen in the morning, breathing has improved compared to yesterday. Patient continued to have small amount of formed stool ~30 minutes which she doesn't feel due to which cleaning is delayed and patient's excoriated skin around the buttock/thigh region is worsening because of it. Patient is currently being turned hourly and cleaned as often as possible, along with Metronidazole gel & allevyn dressing. Patient has no other complaints at this time, denies CP, N/V or abdominal pain. 03/29/19 Patient spiking fever, continues to stool incontinence and now having bloody drainage from R AKA incision. 10 point review of system is negative except for above PHYSICAL EXAMINATION: VITAL SIGNS: Please see below. GENERAL: No distress HEENT: Normocephalic, atraumatic, moist mucous membranes NECK: Supple CARDIOVASCULAR EXAMINATION: S1, S2, no murmurs RESPIRATORY EXAMINATION: Scattered rhonchi ABDOMINAL EXAMINATION: Soft, nontender, nondistended, positive bowel sounds EXTREMITIES: Status post right AKA, surgical with small amount of bloody drainage, left lower showed a pitting edema SKIN: skin excoriation over buttock & inner thigh NEUROLOGICAL EXAMINATION: Alert and oriented 3, no focal deficits PSYCHIATRIC EXAMINATION: Calm and cooperative LABORATORY DATA: See below. IMAGING: Chest x-ray showing vascular congestion with possible infiltration MICROBIOLOGY: Please see below. ASSESSMENT: 78-year-old female with extensive medical history who underwent recent right AKA and stent placement post CO presents from rehabilitation with symptoms concerning for pneumonia/CHF exacerbation. PLAN: 1. Acute on chronic systolic congestive heart failure. EF 25-30%, continue Lasix, clinically improving, monitor I's and O's, daily weight, fluid restriction. 2) diabetes mellitus. Sliding scale insulin with meals and at bedtime. 3) atrial fibrillation. Currently in normal sinus rhythm, continue amiodarone, not on anticoagulation. 4) coronary artery disease. History of recent CO, status post stent placement 3, continue optimal medical management with aspirin, Plavix, statin and beta isidra. 5) hypertension. Continue Coreg 6) Sepsis - febrile, has skin excoriation over buttock/inner thigh and having stool incontinence, now also have bloody drainage from R AKA incision which can be a possible source of infection, Vanc/Merrem, repeat cultures, will monitor and consider surgical consultation for post of infection. DVT prophylaxis: Heparin subcutaneous GI prophylaxis: Home PPI VS, I&O, 24H, Fishbone Vital Signs/I&O Vital Signs Date Time Temp Pulse Resp B/P (MAP) Pulse Ox O2 Delivery O2 Flow Rate FiO2 03/29/19 21:10 100.6 03/29/19 20:01 88 145/55 03/29/19 14:00 19 99 Nasal Cannula 1.0 03/26/19 06:25 100 I&O- Last 24 Hours up to 6 AM 03/29/19 06:00 Intake Total 840 ml Output Total 1700 ml Balance -860 ml Laboratory Data 24H LABS Laboratory Tests 2 03/29/19 05:47: Nucleated Red Blood Cells % (auto) 0.0, Anion Gap 4L, Glomerular Filtration Rate 58.1, Calcium Level 7.7L, Total Bilirubin 0.3, Aspartate Amino Transf (AST/SGOT) 38H, Alanine Aminotransferase (ALT/SGPT) 71, Alkaline Phosphatase 101, Total Protein 5.1L, Albumin 1.5L, Albumin/Globulin Ratio 0.42L 03/29/19 11:43: Bedside Glucose (Misc Panel) 278H 03/29/19 16:46: Bedside Glucose (Misc Panel) 124H 03/29/19 19:47: Bedside Glucose (Misc Panel) 189H CBC/BMP Laboratory Tests 03/29/19 05:47 Microbiology Microbiology 03/29/19 Blood Culture, Received Pending 03/29/19 Blood Culture, Received Pending 03/26/19 Blood Culture - Preliminary, Resulted No Growth after 72 hours. All specime... 03/26/19 Respiratory Virus Panel (PCR) ([facility]) - Final, Complete 03/26/19 Blood Culture - Preliminary, Resulted No Growth after 72 hours. All specime... ZI FARMER MD Mar 29, 2019 22:16
[2019-03-30] VITALS: BP 124/45
[2019-03-30] MEDS: VANCOMYCIN HCL 750 MG, VIAL MATE ADAPTER 1 EACH in D5W 250 ML IV SCH ×2 (04:03→22:59)
[2019-03-30 06:00] VITALS: BP 137/62
[2019-03-30] MEDS: IPRATROPIUM 0.5MG/ALBUTEROL 2.5MG INH SOL UD 3ML (DUONEB)(J7620) NEB PRN ×3 (06:13→21:16)
[2019-03-30 07:14] LABS: HEMOGLOBIN 9.1 g/dl (12.0-15.5); MEAN CORPUSCULAR HEMOGLOBIN 30.8 pg (27.0-33.0); MEAN CORPUSCULAR HGB CONC 31.4 g/dl (32.0-36.5); MEAN CORPUSCULAR VOLUME 98.3 fl (80.0-96.0); PLATELET COUNT, AUTOMATED 275 10^3/uL (150-450); RED BLOOD COUNT 2.95 10^6/uL (4.00-5.40); WHITE BLOOD COUNT 9.8 10^3/uL (4.0-10.0)
[2019-03-30 07:36] LABS: BLOOD UREA NITROGEN 23 MG/DL (7-18); CALCIUM LEVEL 8.2 MG/DL (8.8-10.2); CARBON DIOXIDE LEVEL 34 MEQ/L (21-32); CHLORIDE LEVEL 104 MEQ/L (98-107); GLOMERULAR FILTRATION RATE > 60.0 (>32); GLUCOSE, FASTING 165 MG/DL (70-100); POTASSIUM SERUM 3.8 MEQ/L (3.5-5.1); SODIUM LEVEL 141 MEQ/L (136-145)
[2019-03-30] MEDS: MEROPENEM INJ 1 GM in IV 1 EA IV SCH ×2 (09:09→20:51)
[2019-03-30] MEDS: HEPARIN SOD (PORCINE) 5000 UNITS/ML VIAL (J1644 PER 1000UNITS) SC SCH ×2 (09:10→20:52)
[2019-03-30] MEDS: CLOPIDOGREL 75 MG TAB PO SCH (09:10)
[2019-03-30] MEDS: HumaLOG INSULIN (NovoLOG) PER UNIT SC SCH ×4 (09:10→20:52)
[2019-03-30] MEDS: POTASSIUM CHLORIDE 10 MEQ SR TABLET PO SCH ×2 (09:11→20:52)
[2019-03-30] MEDS: GABAPENTIN 300 MG CAP PO SCH ×2 (09:11→20:52)
[2019-03-30] MEDS: ASCORBIC ACID 500 MG TAB PO SCH (09:11)
[2019-03-30] MEDS: ASPIRIN 81 MG CHEW TABLET PO SCH (09:11)
[2019-03-30] MEDS: AMIODARONE 200 MG TAB (PACERONE) PO SCH (09:11)
[2019-03-30] MEDS: OMEPRAZOLE 20 MG CAP PO SCH (09:11)
[2019-03-30] MEDS: CARVedilol 6.25 MG TAB PO SCH ×2 (09:11→20:52)
[2019-03-30] MEDS: CALCIUM/VITAMIN D 500 MG TAB PO SCH (09:12)
[2019-03-30] MEDS: FUROSEMIDE 40 MG/4 ML VIAL (J1940) IV SCH (09:12)
[2019-03-30 10:00] VITALS: BP 116/52
--- NOTE | 2019-03-30 11:58 | CR.PDOC ---
General Date of Consultation: Mar 30, 2019 Consultation REASON FOR CONSULTATION/CHIEF COMPLAINT: Drainage R AKA stump HISTORY OF PRESENT ILLNESS: Ms. Montiel is a very pleasant 78-year-old patient with significant peripheral vascular disease. She underwent an endovascular intervention of the right lower extremity with Dr. Cadet, followed by 2 days TPA thrombolysis for postprocedure ischemia, followed by endovascular revascularization with Dr. Cadet and myself, followed by right lower extremity fasciotomies for severe compartment syndrome, followed by transfer to [place] for MA where she underwent percutaneous cardiac intervention and right lower extremity above-knee amputation. She was in rehabilitation at the halfway when she developed worsening respiratory insufficiency and was admitted and subsequently developed some serosanguineous drainage from the midportion of her AKA incision and also a fever last night of 103F. We were consulted for evaluation. I examined the patient, and her stump is for the most part clean dry and intact with tanner and incision well healed, but in the midportion there is a 2 mm opening with serosanguineous drainage. I removed 2 tanner in this area, opened the incision a few centimeters, and cultures were taken. I then irrigated with normal saline to washout the area, and did not find an abscess or large hematoma, but a small area that was likely a retained hematoma post surgical intervention. Although we will follow cultures, I would say it is unlikely that this was the source of the patient's fever. The area was packed loosely with Hydrofera Blue and dressed with a dry dressing. We will continue daily irrigation and dressing changes for a day or 2, and if everything looks good and the cultures are negative, likely we will remove the tanner in place a wound VAC early next week. This will help the wound to heal from the inside out. The patient's family is at the bedside and they were extensively counseled and all questions were answered. We will continue to follow along and further recommendations to follow based on clinical progress. ALLERGIES: Please see below. HOME MEDICATIONS: Please see below. PAST MEDICAL HISTORY: 1. Atrial fibrillation. 2. Congestive heart failure. 3. Diabetes mellitus. 4. Hypertension. 5. Coronary artery disease. 6. MA. 7. Peripheral vascular disease. PAST SURGICAL HISTORY: 1. Right AKA. 2. Endovascular intervention right lower extremity and cardiac SOCIAL HISTORY: Denies current use of tobacco alcohol or illicit drugs. FAMILY HISTORY: Positive for heart disease REVIEW OF SYSTEMS: CONSTITUTIONAL: Positive fevers HEENT: Denies vision changes CARDIOVASCULAR: Denies chest pain RESPIRATORY: Positive shortness of breath and increased work of breathing GENITOURINARY: Denies dysuria MUSCULOSKELETAL: Positive right AKA GASTROINTESTINAL: Positive diarrhea SKIN: Positive skin breakdown sacral area NEUROLOGICAL: Denies seizures or headaches PSYCHIATRIC: Denies anxiety or depression ENDOCRINE: Positive diabetes HEMATOLOGIC/LYMPHATIC: Positive easy bruising ALLERGIC/IMMUNOLOGIC: Denies PHYSICAL EXAMINATION: VITAL SIGNS: Please see below. GENERAL APPEARANCE: Medically stable HEENT: Vision grossly intact. TMI. RESPIRATORY: Slightly coarse breath sounds bilaterally with slight diminishment by basilar CARDIOVASCULAR: Regular rate and rhythm ABDOMEN: Abdomen soft nontender nondistended EXTREMITIES: Scant serosanguinous drainage noted in center of R AKA incision with tanner intact and the rest of the incision well healed. Removed 2 tanner, opened the area 3 cm, and cultures taken. Irrigated with NS, packed with hydrofera blue and dry dressing placed. NEUROLOGICAL: Alert and oriented and moves all extremities equally PSYCHIATRIC: Pleasant and cooperative with exam LABORATORY DATA: Please see below. ASSESSMENT/PLAN: Very pleasant 78yo patient s/p intervention RLE with Dr Cadet, followed by TPA thrombolysis and attempted revascularization, followed by RLE fasciotomies, diagnosis MA, transfer to [place] and s/p R AKA in [place] due to non-viable muscle, and now readmitted with respiratory insufficiency and today draining from R mid AKA incision with fever overnight 1. Follow up culture R AKA stump. 2. Daily R AKA stump NS irrigation, light packing, dressing changes. If improved in a few days, we may remove tanner and place wound vac to help manage drainage and help wound to heal from the inside out. We appreciate the opportunity to participate in the care of this patient. Vital Signs/I&O Vital Signs Date Time Temp Pulse Resp B/P (MAP) Pulse Ox O2 Delivery O2 Flow Rate FiO2 03/30/19 10:00 98.4 91 22 116/52 (73) 98 Nasal Cannula 1.0 03/26/19 06:25 100 I&O- Last 24 Hours up to 6 AM 03/30/19 06:00 Intake Total 690 ml Output Total 1150 ml Balance -460 ml Laboratory Data Labs 24H Laboratory Tests 2 03/29/19 16:46: Bedside Glucose (Misc Panel) 124H 03/29/19 19:47: Bedside Glucose (Misc Panel) 189H 03/30/19 06:49: Nucleated Red Blood Cells % (auto) 0.0, Anion Gap 3L, Glomerular Filtration Rate > 60.0, Calcium Level 8.2L 03/30/19 11:29: Bedside Glucose (Misc Panel) 276H CBC/BMP Laboratory Tests 03/30/19 06:49 Microbiology Microbiology 03/30/19 Gram Stain, Received Pending 03/30/19 Wound Culture, Received Pending 03/29/19 Blood Culture - Preliminary, Resulted No growth after 24 hours . All specim... 03/29/19 Blood Culture - Preliminary, Resulted No growth after 24 hours . All specim... 03/26/19 Blood Culture - Preliminary, Resulted No Growth after 72 hours. All specime... 03/26/19 Respiratory Virus Panel (PCR) ([facility]) - Final, Complete 03/26/19 Blood Culture - Preliminary, Resulted No Growth after 72 hours. All specime... Allergies Coded Allergies: exemestane (Verified Allergy, Mild, Rash, 03/26/19) Penicillins (Verified Adverse Reaction, Mild, Yeast Infection, 03/26/19) Home Medications Scheduled Amiodarone HCl (Amiodarone HCl) 200 Mg Tablet, 200 MG PO DAILY, (Reported) Ascorbic Acid (Vitamin C) 500 Mg Capsule, 500 MG PO DAILY, (Reported) Aspirin (Aspirin) 81 Mg Tab.chew, 81 MG PO DAILY, (Reported) Atorvastatin Calcium (Atorvastatin Calcium) 40 Mg Tablet, 40 MG PO QPM, (Reported) @1900 Calcium Carbonate/Vitamin D3 (Calcium 500-Vit D3 200 Tablet) 1 Each Tablet, 1 TAB PO DAILY, (Reported) Calcium Carbonate/Vitamin D3 (Calcium 600-Vit D3 800 Tablet) 1 Each Tablet, 1 TAB PO DAILY, (Reported) Carvedilol (Carvedilol) 6.25 Mg Tablet, 6.25 MG PO BID, (Reported) 2ND DOSE AT 1600 Clopidogrel Bisulfate (Clopidogrel) 75 Mg Tablet, 75 MG PO DAILY, (Reported) Docusate Sodium (Docusate Sodium) 100 Mg Capsule, 100 MG PO QHS, (Reported) Furosemide (Furosemide) 40 Mg Tablet, 40 MG PO DAILY, (Reported) Gabapentin (Gabapentin) 300 Mg Capsule, 300 MG PO BID, (Reported) Glucagon,Human Recombinant (Glucagon Emergency Kit) 1 Mg Vial, 1 MG IM ASDIRECTED, (Reported) Insulin Lispro (Humalog Kwikpen U-100) 100 Unit/1 Ml Insuln.pen, 1 DOSE SC AC, (Reported) SLIDING SCALE Lactose-Reduced Food (Ensure Enlive) 237 Ml Liquid, 237 ML PO BID, (Reported) Miconazole Nitrate (Miconazole Nitrate) 30 Gm Cream..g., 1 APPLIC TOP BID, (Reported) APPLY UNDER LEFT BREAST Multivitamin (Multivitamins) 1 Each Capsule, 1 CAP PO DAILY, (Reported) Omeprazole (Omeprazole) 20 Mg Capsule.dr, 20 MG PO DAILY, (Reported) Potassium Chloride (Potassium Chloride) 20 Meq Tab.er.prt, 20 MEQ PO BID, (Reported) Saliva Stimulant Comb. No.4 (Dry Mouth) 45 Ml [place], 1 SPR PO QID, (Reported) 0800, 1300, 1700, 2100 Scheduled PRN Acetaminophen (Acetaminophen) 325 Mg Tablet, 650 MG PO Q4H PRN for PAIN, (Reported) Bisacodyl (Dulcolax) 10 Mg Supp.rect, 10 MG MD DAILY PRN for CONSTIPATION, (Reported) Hydrocodone/Acetaminophen (Hydrocodone-Acetamin 5-325 mg) 1 Each Tablet, 1 TAB PO Q4H PRN for PAIN, (Reported) Magnesium Hydroxide (Milk of Magnesia) 400 Mg/5 Ml Oral.susp, 30 ML PO DAILY PRN for CONSTIPATION, (Reported) Nitroglycerin (Nitroglycerin) 0.4 Mg Tab.subl, 0.4 MG SL NITRO PRN for CHEST PAIN, (Reported) LI OBREGON MD Mar 30, 2019 11:58
[2019-03-30 14:00] VITALS: BP 128/49
[2019-03-30] MEDS: FUROSEMIDE 20 MG/2 ML VIAL (J1940) IV SCH (17:29)
[2019-03-30] MEDS: ACETAMINOPHEN TAB 650MG DOSE (2X325MG) PO PRN (17:35)
[2019-03-30 18:00] VITALS: BP 128/50
[2019-03-30] MEDS: ATORVASTATIN 20 MG TAB PO SCH (20:51)
[2019-03-30] MEDS: DOCUSATE SODIUM 100 MG CAP PO SCH (20:51)
--- NOTE | 2019-03-30 20:54 | IPNPDOC ---
Date Seen The patient was seen on 03/30/19. Progress Note SUBJECTIVE: 78-year-old female with past medical history of atrial fibrillation, CHF (EF 25-30%), coronary artery disease, recent MD, status post stent placement, peripheral vascular disease, diabetes mellitus and hypertension, presents with fever and shortness of breath. Patient was admitted to [facility]. one month ago with right lower extremity ischemia, status post angioplasty, underwent further vascular intervention along with fasciotomy. She had a postop MD and was transferred to [facility] for PCI which resulted in 3 stent placements. She also underwent right AKA and was discharged to [facility] for rehabilitation. She woke up this morning with shortness of breath and reportedly had fever of 103, for which she received Tylenol prior to coming to the emergency department. In the ED, imaging and workup was concerning for pneumonia/CHF exacerbation. Patient received IV Lasix along with broad-spectrum antibiotics. Patient reports improvement in shortness of breath with Lasix and nebulizer treatments, otherwise a symptomatic at this time. She denies any cough, nausea, vomiting, abdominal pain or diarrhea at this time. 03/27/19 Patient seen in the morning, reports improvement from yesterday, resting comfortably in chair, no complaints at this time. She denies any shortness of breath, chest pain, nausea, vomiting, abdominal pain or diarrhea. 03/28/19 Patient seen in the morning, breathing has improved compared to yesterday. Patient continued to have small amount of formed stool ~30 minutes which she doesn't feel due to which cleaning is delayed and patient's excoriated skin around the buttock/thigh region is worsening because of it. Patient is currently being turned hourly and cleaned as often as possible, along with Metronidazole gel & allevyn dressing. Patient has no other complaints at this time, denies CP, N/V or abdominal pain. 03/29/19 Patient spiking fever, continues to stool incontinence and now having bloody drainage from R AKA incision. 03/30/19 Patient had another fever overnight, continues to have bloody drainage from AKA incision, dyspnea improving, no other complaints. She denies any chest pain, nausea, vomiting, abdominal pain or diarrhea. 10 point review of system is negative except for above PHYSICAL EXAMINATION: VITAL SIGNS: Please see below. GENERAL: No distress HEENT: Normocephalic, atraumatic, moist mucous membranes NECK: Supple CARDIOVASCULAR EXAMINATION: S1, S2, no murmurs RESPIRATORY EXAMINATION: Scattered rhonchi ABDOMINAL EXAMINATION: Soft, nontender, nondistended, positive bowel sounds EXTREMITIES: Status post right AKA, small amount of bloody drainage from mid incision, left lower extremity pitting edema SKIN: skin excoriation over buttock & inner thigh NEUROLOGICAL EXAMINATION: Alert and oriented 3, no focal deficits PSYCHIATRIC EXAMINATION: Calm and cooperative LABORATORY DATA: See below. IMAGING: Chest x-ray showing vascular congestion with possible infiltration MICROBIOLOGY: Please see below. ASSESSMENT: 78-year-old female with extensive medical history who underwent rec ent right AKA and stent placement post MD presents from rehabilitation with symptoms concerning for pneumonia/CHF exacerbation. PLAN: 1. Acute on chronic systolic congestive heart failure. EF 25-30%, clinically improving, decreased Lasix dose, monitor I's and O's, daily weight, fluid restriction. 2) diabetes mellitus. Sliding scale insulin with meals and at bedtime. 3) atrial fibrillation. Currently in normal sinus rhythm, continue amiodarone, not on anticoagulation. 4) coronary artery disease. History of recent MD, status post stent placement 3, continue optimal medical management with aspirin, Plavix, statin and beta isidra. 5) hypertension. Continue Coreg 6) Sepsis - febrile, has skin excoriation over buttock/inner thigh and having stool incontinence, also having bloody drainage from R AKA incision which can be a possible source of infection, Vanc/Merrem, repeat cultures negative to date, vascular surgery consultation appreciated. DVT prophylaxis: Heparin subcutaneous GI prophylaxis: Home PPI VS, I&O, 24H, Fishbone Vital Signs/I&O Vital Signs Date Time Temp Pulse Resp B/P (MAP) Pulse Ox O2 Delivery O2 Flow Rate FiO2 03/30/19 18:00 97.9 90 22 128/50 (76) 94 Nasal Cannula 1.0 03/26/19 06:25 100 I&O- Last 24 Hours up to 6 AM 03/30/19 06:00 Intake Total 690 ml Output Total 1150 ml Balance -460 ml Laboratory Data 24H LABS Laboratory Tests 2 03/30/19 06:49: Nucleated Red Blood Cells % (auto) 0.0, Anion Gap 3L, Glomerular Filtration Rate > 60.0, Calcium Level 8.2L 03/30/19 11:29: Bedside Glucose (Misc Panel) 276H 03/30/19 16:23: Bedside Glucose (Misc Panel) 153H CBC/BMP Laboratory Tests 03/30/19 06:49 Microbiology Microbiology 03/30/19 Gram Stain - Final, Resulted 03/30/19 Wound Culture, Resulted Pending 03/29/19 Blood Culture - Preliminary, Resulted No growth after 24 hours . All specim... 03/29/19 Blood Culture - Preliminary, Resulted No growth after 24 hours . All specim... 03/26/19 Blood Culture - Preliminary, Resulted No Growth after 72 hours. All specime... 03/26/19 Respiratory Virus Panel (PCR) ([facility]) - Final, Complete 03/26/19 Blood Culture - Preliminary, Resulted No Growth after 72 hours. All specime... ZI FARMER MD Mar 30, 2019 20:54
[2019-03-30 22:00] VITALS: BP 137/63
[2019-03-31] VITALS (10 sets, daily range): BP systolic 127–138; BP diastolic 55–76
[2019-03-31] MEDS: ACETAMINOPHEN TAB 650MG DOSE (2X325MG) PO PRN (03:00)
[2019-03-31 06:14] LABS: HEMATOCRIT 28.9 % (36.0-47.0); MEAN CORPUSCULAR HEMOGLOBIN 30.3 pg (27.0-33.0); MEAN CORPUSCULAR HGB CONC 31.1 g/dl (32.0-36.5); MEAN CORPUSCULAR VOLUME 97.3 fl (80.0-96.0); PLATELET COUNT, AUTOMATED 290 10^3/uL (150-450); RED BLOOD COUNT 2.97 10^6/uL (4.00-5.40); WHITE BLOOD COUNT 11.2 10^3/uL (4.0-10.0)
[2019-03-31 06:34] LABS: BLOOD UREA NITROGEN 29 MG/DL (7-18); CALCIUM LEVEL 8.8 MG/DL (8.8-10.2); CARBON DIOXIDE LEVEL 33 MEQ/L (21-32); CHLORIDE LEVEL 104 MEQ/L (98-107); CREATININE FOR GFR 0.88 MG/DL (0.55-1.30); GLOMERULAR FILTRATION RATE > 60.0 (>32); GLUCOSE, FASTING 156 MG/DL (70-100); POTASSIUM SERUM 4.1 MEQ/L (3.5-5.1); SODIUM LEVEL 140 MEQ/L (136-145)
--- NOTE | 2019-03-31 07:33 | REP ---
Portable chest, 06:26 a.m., single AP view with the patient semi upright: Comparison is 03/26/2019. Diffuse interstitial coarsening is unchanged. Focal areas of consolidation in the right upper lobe, right lower lobe and left lower lobe are unchanged. Cardiac size is normal. There are focal zones of consolidation in the right upper lobe and right lower lobe. There is a tiny zone of consolidation adjacent to the cardiac apex. Surgical clips in the right axilla. Impression: No significant interval change except for the small zone of consolidation at the cardiac apex. Electronically Signed by Abraham Gomez MD 03/31/2019 07:25 A
[2019-03-31] MEDS: DIAPER RELIEF PASTE (DESITIN) 60GM TOP SCH (09:00)
[2019-03-31] MEDS: HumaLOG INSULIN (NovoLOG) PER UNIT SC SCH ×4 (09:59→21:00)
[2019-03-31] MEDS: FUROSEMIDE 20 MG/2 ML VIAL (J1940) IV SCH (10:00)
[2019-03-31] MEDS: HEPARIN SOD (PORCINE) 5000 UNITS/ML VIAL (J1644 PER 1000UNITS) SC SCH ×2 (10:00→22:23)
[2019-03-31] MEDS: MEROPENEM INJ 1 GM in IV 1 EA IV SCH (10:00)
[2019-03-31] MEDS: CARVedilol 6.25 MG TAB PO SCH ×2 (10:01→22:22)
[2019-03-31] MEDS: GABAPENTIN 300 MG CAP PO SCH ×2 (10:01→22:22)
[2019-03-31] MEDS: ASPIRIN 81 MG CHEW TABLET PO SCH (10:01)
[2019-03-31] MEDS: OMEPRAZOLE 20 MG CAP PO SCH (10:01)
[2019-03-31] MEDS: POTASSIUM CHLORIDE 10 MEQ SR TABLET PO SCH ×2 (10:01→22:22)
[2019-03-31] MEDS: AMIODARONE 200 MG TAB (PACERONE) PO SCH (10:01)
[2019-03-31] MEDS: CLOPIDOGREL 75 MG TAB PO SCH (10:01)
[2019-03-31] MEDS: CALCIUM/VITAMIN D 500 MG TAB PO SCH (10:02)
[2019-03-31] MEDS: ASCORBIC ACID 500 MG TAB PO SCH (10:02)
[2019-03-31] MEDS: VANCOMYCIN HCL 750 MG, VIAL MATE ADAPTER 1 EACH in D5W 250 ML IV SCH (15:46)
--- NOTE | 2019-03-31 16:01 | IPNPDOC ---
Date Seen The patient was seen on 03/31/19. Progress Note SUBJECTIVE: 78-year-old female with past medical history of atrial fibrillation, CHF (EF 25-30%), coronary artery disease, recent DE, status post stent placement, peripheral vascular disease, diabetes mellitus and hypertension, presents with fever and shortness of breath. Patient was admitted to [facility]. one month ago with right lower extremity ischemia, status post angioplasty, underwent further vascular intervention along with fasciotomy. She had a postop DE and was transferred to [facility] for PCI which resulted in 3 stent placements. She also underwent right AKA and was discharged to [facility] for rehabilitation. She was admitted this time for acute on chronic congestive heart failure, infection secondary to skin excoriation over buttock/inner thigh along with bloody drainage from right AKA sutures. Patient has been evaluated by vascular surgery and AKA site drainage was sent for culture, likely hematoma, remains on empiric antibiotics. Dermatology was contacted regarding skin excoriation, recommend Allevyn, metronidazole gel and frequent position changes. Patient has progressed well throughout hospitalization and currently awaiting acute rehabilitation unit evaluation. 03/31/19 Patient seen in the morning, reports improvement in dyspnea, having dry mouth, right AKA drainage site was packed by vascular surgery, no other complaints, awaiting acute rehabilitation unit evaluation. 10 point review of system is negative except for above PHYSICAL EXAMINATION: VITAL SIGNS: Please see below. GENERAL: No distress HEENT: Normocephalic, atraumatic, moist mucous membranes NECK: Supple CARDIOVASCULAR EXAMINATION: S1, S2, no murmurs RESPIRATORY EXAMINATION: Scattered rhonchi ABDOMINAL EXAMINATION: Soft, nontender, nondistended, positive bowel sounds EXTREMITIES: Status post right AKA, drainage site has been packed, left lower extremity pitting edema SKIN: skin excoriation over buttock & inner thigh, improving NEUROLOGICAL EXAMINATION: Alert and oriented 3, no focal deficits PSYCHIATRIC EXAMINATION: Calm and cooperative LABORATORY DATA: See below. IMAGING: Chest x-ray showing vascular congestion with possible infiltration MICROBIOLOGY: Please see below. ASSESSMENT: 78-year-old female with extensive medical history who underwent recent right AKA and stent placement post DE presents from rehabilitation with symptoms concerning for pneumonia/CHF exacerbation. PLAN: 1. Acute on chronic systolic congestive heart failure. EF 25-30%, clinically improving, urine output decreased to an unacceptable level with decrease in Lasix dose, significantly low albumin of 1.5, will increase Lasix to 40 mg IV twice a day, start albumin 25 g every 12 hours (to be given 30 minutes before Lasix) 4 doses, monitor I's and O's, daily weight, fluid restriction. 2) diabetes mellitus. Sliding scale insulin with meals and at bedtime. 3) atrial fibrillation. Currently in normal sinus rhythm, continue amiodarone, not on anticoagulation. 4) coronary artery disease. History of recent DE, status post stent placement 3, continue optimal medical management with aspirin, Plavix, statin and beta isidra. 5) hypertension. Continue Coreg 6) Sepsis - febrile, has skin excoriation over buttock/inner thigh and having stool incontinence, also having bloody drainage from R AKA incision which can be a possible source of infection, continue vancomycin, repeat cultures negative to date, vascular surgery consultation appreciated. DVT prophylaxis: Heparin subcutaneous GI prophylaxis: Home PPI VS, I&O, 24H, Fishbone Vital Signs/I&O Vital Signs Date Time Temp Pulse Resp B/P (MAP) Pulse Ox O2 Delivery O2 Flow Rate FiO2 03/31/19 14:00 98.0 82 20 132/56 (81) 97 Nasal Cannula 0.5 03/26/19 06:25 100 I&O- Last 24 Hours up to 6 AM 03/31/19 06:00 Intake Total 1755 ml Output Total 1800 ml Balance -45 ml Laboratory Data 24H LABS Laboratory Tests 2 03/30/19 16:23: Bedside Glucose (Misc Panel) 153H 03/30/19 20:17: Bedside Glucose (Misc Panel) 224H 03/31/19 05:40: Nucleated Red Blood Cells % (auto) 0.0, Anion Gap 3L, Glomerular Filtration Rate > 60.0, Calcium Level 8.8 03/31/19 11:28: Bedside Glucose (Misc Panel) 272H 03/31/19 14:48: Vancomycin Level Trough 13.6 CBC/BMP Laboratory Tests 03/31/19 05:40 Microbiology Microbiology 03/30/19 Gram Stain - Final, Resulted 03/30/19 Wound Culture, Resulted Pending 03/29/19 Blood Culture - Preliminary, Resulted No Growth after 48 hours. All Specime... 03/29/19 Blood Culture - Preliminary, Resulted No Growth after 48 hours. All Specime... 03/26/19 Blood Culture - Final, Complete NO GROWTH AFTER 5 DAYS 03/26/19 Respiratory Virus Panel (PCR) ([facility]) - Final, Complete 03/26/19 Blood Culture - Final, Complete NO GROWTH AFTER 5 DAYS ZI FARMER MD Mar 31, 2019 16:01
--- NOTE | 2019-03-31 16:18 | IPNPDOC ---
Date Seen The patient was seen on 03/31/19. Progress Note Patient seen and examined. She is doing well today. No erythema or redness around the area we opened in the mid AKA incision. There is significant serosanguineous drainage and we irrigated with copious amounts of saline this morning. Her initial Gram stain is negative for organisms, which is encouraging. Our plan is to place a wound VAC here this afternoon or tomorrow. Dressings were placed at the bedside this morning. The patient tolerated her dressing change well. VS, I&O, 24H, Fishbone Vital Signs/I&O Vital Signs Date Time Temp Pulse Resp B/P (MAP) Pulse Ox O2 Delivery O2 Flow Rate FiO2 03/31/19 14:00 98.0 82 20 132/56 (81) 97 Nasal Cannula 0.5 03/26/19 06:25 100 I&O- Last 24 Hours up to 6 AM 03/31/19 05:59 Intake Total 1655 ml Output Total 1450 ml Balance 205 ml Laboratory Data 24H LABS Laboratory Tests 2 03/30/19 16:23: Bedside Glucose (Misc Panel) 153H 03/30/19 20:17: Bedside Glucose (Misc Panel) 224H 03/31/19 05:40: Nucleated Red Blood Cells % (auto) 0.0, Anion Gap 3L, Glomerular Filtration Rate > 60.0, Calcium Level 8.8 03/31/19 11:28: Bedside Glucose (Misc Panel) 272H 03/31/19 14:48: Vancomycin Level Trough 13.6 CBC/BMP Laboratory Tests 03/31/19 05:40 Microbiology Microbiology 03/30/19 Gram Stain - Final, Resulted 03/30/19 Wound Culture, Resulted Pending 03/29/19 Blood Culture - Preliminary, Resulted No Growth after 48 hours. All Specime... 03/29/19 Blood Culture - Preliminary, Resulted No Growth after 48 hours. All Specime... 03/26/19 Blood Culture - Final, Complete NO GROWTH AFTER 5 DAYS 03/26/19 Respiratory Virus Panel (PCR) ([facility]) - Final, Complete 03/26/19 Blood Culture - Final, Complete NO GROWTH AFTER 5 DAYS LI OBREGON MD Mar 31, 2019 16:18
[2019-03-31] MEDS: ATORVASTATIN 20 MG TAB PO SCH (22:22)
[2019-03-31] MEDS: DOCUSATE SODIUM 100 MG CAP PO SCH (22:23)
--- NOTE | 2019-03-31 22:36 | CR ---
DATE OF CONSULTATION: 03/31/2019 ADVANCED WOUND CARE CONSULT VIA TELEMEDICINE CONSULT REQUESTED BY: Dr. Roseann Hopkins. This is in regards to wound care recommendations for incontinent dermatitis involving the buttocks, moisture skin fold irritations, and nonhealing wound dehiscence involving a right above-knee amputation site. 78-year-old female admitted for rule out sepsis, status post right above-knee amputation for ischemic necrosis performed on 02/21/2019, developed incontinent dermatitis involving right and left buttocks along with Talisha dermatitis involving both right and left inguinal skin folds. There are superficial ulcerations involving the inferior buttocks and buttocks folds. The patient now has a Link catheter and was on IV meropenem and has been switched to IV vancomycin. The patient has been afebrile since 03/30/2019, has a white count of 11.2, a GFR greater than 60, and a fasting glucose of 156. There is no recorded hemoglobin A1c. The patient's oral intake is fair and she has complaints of stomatitis and difficulty swallowing which quite probably is thrush related to her antibiotic therapy which should be discontinued. On physical examination, the patient is alert and oriented. There is a right above-knee amputation site with a wound dehiscence in the central portion of the amputation site measuring 1.0 cm x 2.0 cm with a wound depth of 2.5 cm. There is significant edema involving the stump and no compression has been added to her treatment. This wound has been packed with an open 4x4 gauze covered with a foam dressing. The dressing shows moderate serosanguineous drainage. The periwound shows no erythema. Both right and left buttock show diffuse,symmetrical incontinence dermatitis without ulceration. There is, however, some superficial ulceration on the inferior buttocks folds. The inguinal crease show a Talisha-like moist erythematous dermatitis. WOUND CARE RECOMMENDATIONS: Antibiotics can be discontinued as the patient is not presently septic and shows no sign of cellulitis or wound infection. The amputation site wound is colonized and treatment will be tailored towards that. Packing the wound with gauze serves no purpose, keeps the wound open, may dry out and decrease in drainage, is uncomfortable and when removed is traumatic without selective debridement. This will be discontinued and substituted with Hydrofera Blue classic foam. This is a polyvinyl alcohol foam which will wick out fluid and acts as a mini wound VAC. It contains gentian adia and methylene blue, which will treat gram-positive and gram-negative organisms. It should be inserted into the wound dry, then moistened with saline and the external portion of the foam should be at least 2.0 cm outside the wound. Desitin, which is a zinc oxide, and cod liver oil mixture should be applied to the periwound to protect against skin maceration from wound drainage.. The Hydrofera Blue is then covered with an overlying foam dressing. A stump chief counsel is indicated as this will reduce amputation site edema necessary in wound healing. This can be obtained from the physical therapy department, but if this is not available, one can fashion a stump chief counsel using a Tubigrip stocking placed over the stump and, taping the open and for closure. Additionally Coban can be wrapped around the Tubigrip stocking for additional compression. This can be changed with the dressings every other day. As edema decreases, the size of the Tubigrip stocking should also decrease. InterDry is being used for the inguinal fold area and should be continued as this is the dressing of choice for this. The InterDry should extend at least 2.0 cm outside the skin fold It should be removed on a daily basis, allowed to dry and can be reinserted. It can be used in this manner interrupted 5 applications. The incontinence dermatitis is being addressed with a Link catheter, which should be continued, and again Desitin should be applied to all erythematous areas. This can be reapplied using a thin layer every other day. It does not have to be wiped off or removed. Any superficial wounds in this area should be covered with foam dressings and changed every other day A Roho cushion should be obtained when the patient is out of bed. When the patient gets close to discharge, if she wishes, she can be scheduled for follow-up evaluation and treatment at our advanced wound care center. Thank you for this consultation. PRUDENCE
[2019-03-31] MEDS: FUROSEMIDE 40 MG/4 ML VIAL (J1940) IV SCH (23:31)
[2019-04-01] VITALS (13 sets, daily range): BP systolic 113–142; BP diastolic 46–66
[2019-04-01 06:24] LABS: HEMATOCRIT 28.7 % (36.0-47.0); HEMOGLOBIN 8.9 g/dl (12.0-15.5); MEAN CORPUSCULAR HEMOGLOBIN 30.8 pg (27.0-33.0); MEAN CORPUSCULAR VOLUME 99.3 fl (80.0-96.0); PLATELET COUNT, AUTOMATED 278 10^3/uL (150-450); RED BLOOD COUNT 2.89 10^6/uL (4.00-5.40); WHITE BLOOD COUNT 10.3 10^3/uL (4.0-10.0)
[2019-04-01 06:41] LABS: BLOOD UREA NITROGEN 25 MG/DL (7-18); CALCIUM LEVEL 8.3 MG/DL (8.8-10.2); CARBON DIOXIDE LEVEL 34 MEQ/L (21-32); CHLORIDE LEVEL 106 MEQ/L (98-107); CREATININE FOR GFR 0.83 MG/DL (0.55-1.30); GLOMERULAR FILTRATION RATE > 60.0 (>32); GLUCOSE, FASTING 181 MG/DL (70-100); SODIUM LEVEL 144 MEQ/L (136-145)
--- NOTE | 2019-04-01 07:48 | IPNPDOC ---
Date Seen The patient was seen on 04/01/19. Progress Note Patient seen and examined. Doing well overnight. Still having copious serous drainage from mid right AKA incision status post drainage of small retained postop hematoma. John removed at bedside today. Wound VAC placed at bedside today. Incision cleaned and dried after irrigating the open area with normal saline. Measurements of the open area is 0.6 cm in length by 1.9 cm with by 1.2 cm depth. No sting skin prep placed around the wound. Adaptic placed over AKA incision with opening over the open area in the mid incision. Single piece of wound VAC sponge placed with the tip in the open area and then over the Adaptic over the lateral incision and a single piece of sponge placed over the medial incision and then the sponge tracked over drape over the upper thigh and this was placed in -125 mmHg low continuous suction. Good seal was noted. The patient tolerated this well. Hopefully this will better manage her drainage and keep the skin around the incision for breaking down due to increased serous drainage. This will also help the area to heal and more rapidly and I anticipate in a few days to a week she will be able to resume dressings with Hydrofera Blue and foam cover. VS, I&O, 24H, Fishbone Vital Signs/I&O Vital Signs Date Time Temp Pulse Resp B/P (MAP) Pulse Ox O2 Delivery O2 Flow Rate FiO2 04/01/19 07:11 97.9 85 18 113/49 95 Nasal Cannula 0.5 03/26/19 06:25 100 I&O- Last 24 Hours up to 6 AM 04/01/19 06:00 Intake Total 760.0 ml Output Total 700 ml Balance 60.0 ml Laboratory Data 24H LABS Laboratory Tests 2 03/31/19 11:28: Bedside Glucose (Misc Panel) 272H 03/31/19 14:48: Vancomycin Level Trough 13.6 03/31/19 16:48: Bedside Glucose (Misc Panel) 159H 03/31/19 20:06: Bedside Glucose (Misc Panel) 201H 04/01/19 05:47: Nucleated Red Blood Cells % (auto) 0.2H, Anion Gap 4L, Glomerular Filtration Rate > 60.0, Calcium Level 8.3L CBC/BMP Laboratory Tests 04/01/19 05:47 Microbiology Microbiology 03/30/19 Gram Stain - Final, Resulted 03/30/19 Wound Culture, Resulted Pending 03/29/19 Blood Culture - Preliminary, Resulted No Growth after 48 hours. All Specime... 03/29/19 Blood Culture - Preliminary, Resulted No Growth after 48 hours. All Specime... 03/26/19 Blood Culture - Final, Complete NO GROWTH AFTER 5 DAYS 03/26/19 Respiratory Virus Panel (PCR) ([facility]) - Final, Complete 03/26/19 Blood Culture - Final, Complete NO GROWTH AFTER 5 DAYS LI OBREGON MD Apr 01, 2019 07:48
[2019-04-01] MEDS: HumaLOG INSULIN (NovoLOG) PER UNIT SC SCH ×5 (09:55→21:00)
[2019-04-01] MEDS: CALCIUM/VITAMIN D 500 MG TAB PO SCH (09:56)
[2019-04-01] MEDS: GABAPENTIN 300 MG CAP PO SCH ×2 (09:56→21:22)
[2019-04-01] MEDS: POTASSIUM CHLORIDE 10 MEQ SR TABLET PO SCH ×2 (09:56→21:23)
[2019-04-01] MEDS: OMEPRAZOLE 20 MG CAP PO SCH (09:56)
[2019-04-01] MEDS: ASCORBIC ACID 500 MG TAB PO SCH (09:56)
[2019-04-01] MEDS: CLOPIDOGREL 75 MG TAB PO SCH (09:56)
[2019-04-01] MEDS: ASPIRIN 81 MG CHEW TABLET PO SCH (09:56)
[2019-04-01] MEDS: AMIODARONE 200 MG TAB (PACERONE) PO SCH (09:56)
[2019-04-01] MEDS: CARVedilol 6.25 MG TAB PO SCH ×2 (09:56→21:24)
[2019-04-01] MEDS: HEPARIN SOD (PORCINE) 5000 UNITS/ML VIAL (J1644 PER 1000UNITS) SC SCH ×2 (09:56→21:23)
[2019-04-01] MEDS: DIAPER RELIEF PASTE (DESITIN) 60GM TOP SCH (09:57)
[2019-04-01] MEDS: FUROSEMIDE 40 MG/4 ML VIAL (J1940) IV SCH ×2 (11:26→18:25)
[2019-04-01] MEDS: ACETAMINOPHEN TAB 650MG DOSE (2X325MG) PO PRN ×2 (14:06→22:40)
--- NOTE | 2019-04-01 20:32 | IPNPDOC ---
Date Seen The patient was seen on 04/01/19. Progress Note SUBJECTIVE: 78-year-old female with past medical history of atrial fibrillation, CHF (EF 25-30%), coronary artery disease, recent SD, status post stent placement, peripheral vascular disease, diabetes mellitus and hypertension, presents with fever and shortness of breath. Patient was admitted to [facility]. one month ago with right lower extremity ischemia, status post angioplasty, underwent further vascular intervention along with fasciotomy. She had a postop SD and was transferred to [facility] for PCI which resulted in 3 stent placements. She also underwent right AKA and was discharged to [facility] for rehabilitation. She was admitted this time for acute on chronic congestive heart failure, infection secondary to skin excoriation over buttock/inner thigh along with bloody drainage from right AKA sutures. Patient has been evaluated by vascular surgery and AKA site drainage was sent for culture, likely hematoma, remains on empiric antibiotics. Dermatology was contacted regarding skin excoriation, recommend Allevyn, metronidazole gel and frequent position changes. Patient has progressed well throughout hospitalization and currently awaiting acute rehabilitation unit evaluation. 03/31/19 Patient seen in the morning, reports improvement in dyspnea, having dry mouth, right AKA drainage site was packed by vascular surgery, no other complaints, awaiting acute rehabilitation unit evaluation. 04/01/19 Patient seen in the morning, urine output has improved w/ addition of IV albumin, patient without dyspnea, continues to experience dry mouth, now with wound vac over R AKA incision. 10 point review of system is negative except for above PHYSICAL EXAMINATION: VITAL SIGNS: Please see below. GENERAL: No distress HEENT: Normocephalic, atraumatic, moist mucous membranes NECK: Supple CARDIOVASCULAR EXAMINATION: S1, S2, no murmurs RESPIRATORY EXAMINATION: Scattered rhonchi ABDOMINAL EXAMINATION: Soft, nontender, nondistended, positive bowel sounds EXTREMITIES: Status post right AKA, wound vac in place, left lower extremity pitting edema improving SKIN: skin excoriation over buttock & inner thigh, improving NEUROLOGICAL EXAMINATION: Alert and oriented 3, no focal deficits PSYCHIATRIC EXAMINATION: Calm and cooperative LABORATORY DATA: See below. IMAGING: Chest x-ray showing vascular congestion with possible infiltration MICROBIOLOGY: Please see below. ASSESSMENT: 78-year-old female with extensive medical history who underwent recent right AKA and stent placement post SD presents from rehabilitation with symptoms concerning for pneumonia/CHF exacerbation. PLAN: 1. Acute on chronic systolic congestive heart failure. EF 25-30%, clinically improving, urine output improved w/ addition of IV albumin, target net negative ~1L per day, monitor I's and O's, daily weight, fluid restriction. Initially thought to have Pneumonia, did not have significant clinical evidence suggestive of pulmonary infection, Procal negative. 2) diabetes mellitus. Sliding scale insulin with meals and at bedtime. 3) atrial fibrillation. Continue amiodarone, not on anticoagulation. 4) coronary artery disease. History of recent SD, status post stent placement 3, continue optimal medical management with aspirin, Plavix, statin and beta isidra. 5) hypertension. Continue Coreg DVT prophylaxis: Heparin subcutaneous GI prophylaxis: Home PPI VS, I&O, 24H, Fishbone Vital Signs/I&O Vital Signs Date Time Temp Pulse Resp B/P (MAP) Pulse Ox O2 Delivery O2 Flow Rate FiO2 04/01/19 20:04 97.9 87 17 122/46 Nasal Cannula 0.5 04/01/19 18:56 87 03/26/19 06:25 100 I&O- Last 24 Hours up to 6 AM 04/01/19 06:00 Intake Total 810.0 ml Output Total 1450 ml Balance -640.0 ml Laboratory Data 24H LABS Laboratory Tests 2 04/01/19 05:47: Nucleated Red Blood Cells % (auto) 0.2H, Anion Gap 4L, Glomerular Filtration Rate > 60.0, Calcium Level 8.3L 04/01/19 17:04: Bedside Glucose (Misc Panel) 131H CBC/BMP Laboratory Tests 04/01/19 05:47 Microbiology Microbiology 03/30/19 Gram Stain - Final, Resulted 03/30/19 Wound Culture, Resulted Pending 03/29/19 Blood Culture - Preliminary, Resulted No Growth after 72 hours. All specime... 03/29/19 Blood Culture - Preliminary, Resulted No Growth after 72 hours. All specime... 03/26/19 Blood Culture - Final, Complete NO GROWTH AFTER 5 DAYS 03/26/19 Respiratory Virus Panel (PCR) ([facility]) - Final, Complete 03/26/19 Blood Culture - Final, Complete NO GROWTH AFTER 5 DAYS ZI FARMER MD Apr 01, 2019 20:32
[2019-04-01] MEDS: DOCUSATE SODIUM 100 MG CAP PO SCH (21:22)
[2019-04-01] MEDS: ATORVASTATIN 20 MG TAB PO SCH (21:22)
[2019-04-02] VITALS (8 sets, daily range): BP systolic 124–150; BP diastolic 55–67; O2SAT 97
[2019-04-02 06:25] LABS: HEMATOCRIT 30.3 % (36.0-47.0); HEMOGLOBIN 9.1 g/dl (12.0-15.5); MEAN CORPUSCULAR HEMOGLOBIN 30.4 pg (27.0-33.0); MEAN CORPUSCULAR VOLUME 101.3 fl (80.0-96.0); PLATELET COUNT, AUTOMATED 275 10^3/uL (150-450); RED BLOOD COUNT 2.99 10^6/uL (4.00-5.40); WHITE BLOOD COUNT 11.7 10^3/uL (4.0-10.0)
[2019-04-02 06:48] LABS: BLOOD UREA NITROGEN 27 MG/DL (7-18); CALCIUM LEVEL 8.9 MG/DL (8.8-10.2); CARBON DIOXIDE LEVEL 34 MEQ/L (21-32); CHLORIDE LEVEL 105 MEQ/L (98-107); CREATININE FOR GFR 0.84 MG/DL (0.55-1.30); GLOMERULAR FILTRATION RATE > 60.0 (>32); GLUCOSE, FASTING 164 MG/DL (70-100); NT-PRO BNP 12232 PG/ML (<450); POTASSIUM SERUM 4.1 MEQ/L (3.5-5.1); SODIUM LEVEL 143 MEQ/L (136-145)
[2019-04-02] MEDS: IPRATROPIUM 0.5MG/ALBUTEROL 2.5MG INH SOL UD 3ML (DUONEB)(J7620) NEB PRN (07:50)
[2019-04-02] MEDS: FUROSEMIDE 40 MG/4 ML VIAL (J1940) IV SCH ×2 (08:39→17:04)
[2019-04-02] MEDS: HEPARIN SOD (PORCINE) 5000 UNITS/ML VIAL (J1644 PER 1000UNITS) SC SCH ×2 (08:39→20:37)
[2019-04-02] MEDS: CARVedilol 6.25 MG TAB PO SCH ×2 (08:40→20:36)
[2019-04-02] MEDS: CALCIUM/VITAMIN D 500 MG TAB PO SCH (08:40)
[2019-04-02] MEDS: GABAPENTIN 300 MG CAP PO SCH ×2 (08:40→20:35)
[2019-04-02] MEDS: HumaLOG INSULIN (NovoLOG) PER UNIT SC SCH ×5 (08:40→21:00)
[2019-04-02] MEDS: ASPIRIN 81 MG CHEW TABLET PO SCH (08:41)
[2019-04-02] MEDS: DIAPER RELIEF PASTE (DESITIN) 60GM TOP SCH ×2 (08:41→17:04)
[2019-04-02] MEDS: AMIODARONE 200 MG TAB (PACERONE) PO SCH (08:41)
[2019-04-02] MEDS: CLOPIDOGREL 75 MG TAB PO SCH (08:41)
[2019-04-02] MEDS: OMEPRAZOLE 20 MG CAP PO SCH (08:41)
[2019-04-02] MEDS: POTASSIUM CHLORIDE 10 MEQ SR TABLET PO SCH (08:41)
[2019-04-02] MEDS: ASCORBIC ACID 500 MG TAB PO SCH (08:41)
--- NOTE | 2019-04-02 08:46 | REP ---
Portable chest, 08:19 a.m., single AP view with the the patient sitting: Comparison is 03/31/2019. The the diffuse interstitial coarsening has increased compatible with increasing interstitial infiltrates. The focal areas of consolidation in the right upper lobe, right lower lobe and left lower lobe have increased in density. There are no pleural effusions. Cardiac size is normal. Surgical clips in the right axilla are unchanged. Impression: The diffuse interstitial coarsening is increased. The focal areas of consolidation at bilaterally have increased in density Electronically Signed by Abraham Gomez MD 04/02/2019 08:38 A
[2019-04-02] MEDS ORDERED: CEFEPIME HCL 1 GM in D5W MINI-BAG PLUS 50 ML IV SCH (11:00)
[2019-04-02] MEDS ORDERED: VANCOMYCIN HCL 1,000 MG, VIAL MATE ADAPTER 1 EACH in D5W 250 ML IV SCH (11:00)
--- NOTE | 2019-04-02 11:15 | CR.PDOC ---
General Date of Consultation: Apr 02, 2019 Referring Provider: ZI FARMER MD Consultation REASON FOR CONSULTATION/CHIEF COMPLAINT: Worsening respiratory failure. HISTORY OF PRESENT ILLNESS: Patient is an 78-year-old female past medical history significant for recent prolonged hospital stay requiring transfer to [facility] resulting in resulting in RI with cardiac stent placement 3 and right AKA with wound VAC in place. She initially presented to [facility] emergency department on 03/26/2019 with complaint of shortness of breath and fever reported to be 103. Patient was admitted to the hospital for suspected healthcare associated pneumonia and started on vancomycin, Levaquin, aztreonam, however upon further workup shortness of breath was thought to be related to pulmonary edema rather than infectious etiology and antibiotics were discontinued after 24 hours. Patient was aggressively diuresed with -3 L fluid balance throughout hospital course and a 5 kg weight loss. Patient is currently 56 kg which is the lowest documented weight per hospital records. Despite treatment patient with progressively worsening shortness of breath. Patient was transferred to the intensive care unit for increased work of breathing and noninvasive ventilation. Patient is currently awake, and alert, and speaking in full sentences on 2 L nasal cannula with an SPO2 equal 94%. Patient states that her shortness of breath has worsened throughout the course of her hospital stay. She denies cough, fevers, runny nose, sore throat. Patient does state that she is thirsty and her mouth feels very dry. Complains that dry mouth is causing difficulty in swallowing. 10 point review of system is negative except as otherwise stated above. PAST MEDICAL HISTORY: 1. Atrial fibrillation. 2. Congestive systolic heart failure with an ejection fraction 25-30% 3. Diabetes mellitus. 4. Hypertension. 5. Coronary artery disease status post cardiac stents 3 placed in February 2019 7. Peripheral vascular disease status post right AKA with wound VAC in place 8. Breast cancer and approximately 2009 status post lumpectomy, chemotherapy, radiation 9. Right upper lobe lung cancer status post radiation in January 2019 PAST SURGICAL HISTORY: 1. Right AKA March 2019 2. PCI, stent placement 3. 3. Right breast lumpectomy for cancer in 2009 SOCIAL HISTORY: Former smoker, denies alcohol or illicit drug use FAMILY HISTORY: Heart disease "runs in the family " ALLERGIES: Please see below. HOME MEDICATIONS: Please see below. PHYSICAL EXAMINATION: VITAL SIGNS: Please see below. GENERAL: Alert and oriented, in no acute distress, appears dry HENT: Normocephalic, atraumatic EYES: Pupils equal round and reactive to light, no scleral icterus CARDIOVASCULAR: Irregularly irregular, no lower extremity edema, no JVD noted RESPIRATORY: Coarse breath sounds diffusely with decreased breath sounds at bilateral bases ABDOMINAL: Soft, thin nontender, nondistended, positive bowel sounds EXTREMITIES: Right AKA with wound VAC in place, normal range of motion of upper extremities NEUROLOGICAL: Alert and oriented 3 without focal deficits noted SKIN: Warm and dry, large area of excoriation with ulcerations and sloughing of the skin noted in sacral region LABORATORY DATA: Please see below. ECHO: Bedside echo independently visualized during acquisition. Patient with mild aortic insufficiency, moderate mitral regurg, akinesis of the septal wall, and depressed ejection fraction. After reviewing the report from echo done in February, echo appears largely unchanged. Will await official cardiology report. Of note, bilateral pleural effusions were seen. IVC without dilation measured at less than 2 cm. Respiratory variation noted. ASSESSMENT/PLAN: #Acute hypoxic respiratory failure - Likely secondary to HCAP and bilateral pleural effusions - CT chest (04/02) = large bilateral upper lobe infiltrates - At this time patient has been aggressively diuresed him and likely not benefit from further diuretic use - Stop Lasix 40 mg IV twice a day but continue strict I's and O's and daily w eights - Start broad-spectrum antibiotics with Vanco, cefepime - Check procalcitonin, obtain sputum culture if able - DuoNeb's every 6 hours - Nasal cannula during the day, CPAP at night, titrate SPO2 greater than 92% # Bilateral healthcare acquired pneumonia - Blood cultures on admission negative 5 days, will repeat blood cultures if fever develops - Continue antibiotics with Vanco and cefepime #Bilateral pleural effusions - Patient is currently intravascularly depleted and will likely not benefit from further diuresis - Insetting of pneumonia pleural effusions may be parapneumonic in nature - BNP is elevated and uptrending but this may be related to infectious process. ABG performed and shows an alkalosis given clinical picture suspect this to be a contraction alkalosis - Echo performed at bedside and reviewed. IVC is normal caliber with significant respiratory variation. Went imperative to report from 02/25/2019 echo appears largely unchanged, however will await official cardiology report - Continue antibiotics, Will monitor #Catheter associated UTI -Catheter present prior prior to arrival at Hospital, replaced at time of admission to ICU -Urine with 3+ positive leukocyte esterase, cultures pending - Continue antibiotics #Chronic systolic heart failure without exacerbation - Repeat echo pending, however, echo in February 2019 and ejection fraction 25- 30% - Patient appears at her dry weight and intravascularly depleted at this time - Discontinue Lasix, continue to monitor strict I's and O's #Atrial fibrillation - Rate controlled - Continue amiodarone 200 mg daily, carvedilol 6.25 mg twice a day #Coronary artery disease status post recent stent placement - Continue aspirin 81 mg and Plavix 35 mg daily, atorvastatin 40 mg daily #Peripheral vascular disease status post right AKA - Wound VAC in place #Lung nodule - Right upper lobe spiculated nodule concerning for malignancy, will need outpatient follow-up with repeat CT in 3-6 months - Status post radiation #Diabetes mellitus, type 2 - Accu-Cheks, sliding scale insulin #Hypertension - Carvedilol 6.25 mg twice a day #Sacral wound - Excoriation secondary to stool incontinence - Desitin - Keep area clean - Reposition every 2 hours to avoid pressure ulcers - Wound care following #Dry mouth - Saliva substitute -Humidified air with CPAP - Chopped and moistened food -Stop Lasix Diet: Cardiac diet with chopped and moistened food DVT prophylaxis: Heparin subcutaneous GI prophylaxis: Not indicated at this time O2: 2 L nasal cannula, titrate to keep SPO2 greater than 92%, will trial CPAP @8 at night L/T/D: Right AKA stump wound VAC, Link ([employer]TER) Drips: None CODE STATUS: Full code. Discussed with daughter and patient at bedside who are both agreeable to full resuscitative measures Disposition: We'll monitor in the ICU. Initiate broad-spectrum antibiotics. Start scheduled DuoNeb's. Titrate O2 to keep SPO2 greater than 92%. Will trial CPAP at night. Bill[place] Vital Signs/I&O Vital Signs Date Time Temp Pulse Resp B/P (MAP) Pulse Ox O2 Delivery O2 Flow Rate FiO2 04/02/19 10:00 99.6 80 20 132/55 (80) 95 Nasal Cannula 2.0 I&O- Last 24 Hours up to 6 AM 04/02/19 06:00 Intake Total 1270.0 ml Output Total 1400 ml Balance -130.0 ml Laboratory Data Labs 24H Laboratory Tests 2 04/01/19 17:04: Bedside Glucose (Misc Panel) 131H 04/01/19 20:32: Bedside Glucose (Misc Panel) 224H 04/02/19 06:06: Nucleated Red Blood Cells % (auto) 0.2H, Anion Gap 4L, Glomerular Filtration Rate > 60.0, Calcium Level 8.9, OI-Wfr-A-Type Natriuretic Peptide [id number] 04/02/19 08:11: Troponin I 0.05 CBC/BMP Laboratory Tests 04/02/19 06:06 Microbiology Microbiology 03/30/19 Gram Stain - Final, Complete 03/30/19 Wound Culture - Final, Complete Staphylococcus Sp Coag Neg 03/29/19 Blood Culture - Preliminary, Resulted No Growth after 72 hours. All specime... 03/29/19 Blood Culture - Preliminary, Resulted No Growth after 72 hours. All specime... 03/26/19 Blood Culture - Final, Complete NO GROWTH AFTER 5 DAYS 03/26/19 Respiratory Virus Panel (PCR) ([facility]) - Final, Complete 03/26/19 Blood Culture - Final, Complete NO GROWTH AFTER 5 DAYS Allergies Coded Allergies: exemestane (Verified Allergy, Mild, Rash, 03/26/19) Penicillins (Verified Adverse Reaction, Mild, Yeast Infection, 03/26/19) Home Medications Scheduled Amiodarone HCl (Amiodarone HCl) 200 Mg Tablet, 200 MG PO DAILY, (Reported) Ascorbic Acid (Vitamin C) 500 Mg Capsule, 500 MG PO DAILY, (Reported) Aspirin (Aspirin) 81 Mg Tab.chew, 81 MG PO DAILY, (Reported) Atorvastatin Calcium (Atorvastatin Calcium) 40 Mg Tablet, 40 MG PO QPM, (Reported) @1900 Calcium Carbonate/Vitamin D3 (Calcium 500-Vit D3 200 Tablet) 1 Each Tablet, 1 TAB PO DAILY, (Reported) Calcium Carbonate/Vitamin D3 (Calcium 600-Vit D3 800 Tablet) 1 Each Tablet, 1 TAB PO DAILY, (Reported) Carvedilol (Carvedilol) 6.25 Mg Tablet, 6.25 MG PO BID, (Reported) 2ND DOSE AT 1600 Clopidogrel Bisulfate (Clopidogrel) 75 Mg Tablet, 75 MG PO DAILY, (Reported) Docusate Sodium (Docusate Sodium) 100 Mg Capsule, 100 MG PO QHS, (Reported) Furosemide (Furosemide) 40 Mg Tablet, 40 MG PO DAILY, (Reported) Gabapentin (Gabapentin) 300 Mg Capsule, 300 MG PO BID, (Reported) Glucagon,Human Recombinant (Glucagon Emergency Kit) 1 Mg Vial, 1 MG IM ASDIRECTED, (Reported) Insulin Lispro (Humalog Kwikpen U-100) 100 Unit/1 Ml Insuln.pen, 1 DOSE SC AC, (Reported) SLIDING SCALE Lactose-Reduced Food (Ensure Enlive) 237 Ml Liquid, 237 ML PO BID, (Reported) Miconazole Nitrate (Miconazole Nitrate) 30 Gm Cream..g., 1 APPLIC TOP BID, (Repo rted) APPLY UNDER LEFT BREAST Multivitamin (Multivitamins) 1 Each Capsule, 1 CAP PO DAILY, (Reported) Omeprazole (Omeprazole) 20 Mg Capsule.dr, 20 MG PO DAILY, (Reported) Potassium Chloride (Potassium Chloride) 20 Meq Tab.er.prt, 20 MEQ PO BID, (Reported) Saliva Stimulant Comb. No.4 (Dry Mouth) 45 Ml [place], 1 SPR PO QID, (Reported) 0800, 1300, 1700, 2100 Scheduled PRN Acetaminophen (Acetaminophen) 325 Mg Tablet, 650 MG PO Q4H PRN for PAIN, (Reported) Bisacodyl (Dulcolax) 10 Mg Supp.rect, 10 MG NM DAILY PRN for CONSTIPATION, (Reported) Hydrocodone/Acetaminophen (Hydrocodone-Acetamin 5-325 mg) 1 Each Tablet, 1 TAB PO Q4H PRN for PAIN, (Reported) Magnesium Hydroxide (Milk of Magnesia) 400 Mg/5 Ml Oral.susp, 30 ML PO DAILY PRN for CONSTIPATION, (Reported) Nitroglycerin (Nitroglycerin) 0.4 Mg Tab.subl, 0.4 MG SL NITRO PRN for CHEST PAIN, (Reported) REYNALDO RODRIGUEZ DO Apr 02, 2019 11:15
[2019-04-02] MEDS ORDERED: ISOVUE-370 76% 100ML VIAL (Q9967) As Ordered ONE (11:22)
--- NOTE | 2019-04-02 11:40 | PHACANCOPD ---
PHARMACY VANCOMYCIN DOSING Pt Demographics Demographics Patient Age:78 , Weight:57.600 , Gender: female Adjusted Body Weight Date: 03/29/19, Adjusted Body Weight: Kg Events Past 24 Hours Events Past 24 Hours: YES: Elevation in WBC Vancomycin Vancomycin indication: POSSIBLE SSTI/HAP Vancomycin Target Ranges: 15-20 mcg/ml Vancomycin Load Y/N: Yes Load Dose Date Time Vancomycin Load Dose: 1250MG Date: 04/02/19 Time: 1300 Vancomycin Load Dose: 1250MG Date: 03/29/19 Time: 1000 Vancomycin Dose Date: 04/02/19. Current Vancomycin Dose: [ 750mg IV Q18H] Date: 03/29/19. Current Vancomycin Dose: [ 750mg every 18 hours ] Intermittent Dosing?: No Labs Micro Microbiology 03/30/19 Gram Stain - Final, Complete 03/30/19 Wound Culture - Final, Complete Staphylococcus Sp Coag Neg 03/29/19 Blood Culture - Preliminary, Resulted No Growth after 72 hours. All specime... 03/29/19 Blood Culture - Preliminary, Resulted No Growth after 72 hours. All specime... 03/26/19 Blood Culture - Final, Complete NO GROWTH AFTER 5 DAYS 03/26/19 Respiratory Virus Panel (PCR) ([facility]) - Final, Complete 03/26/19 Blood Culture - Final, Complete NO GROWTH AFTER 5 DAYS Creatinine Clearance Date:03/29/19. Creatinine Clearance: [ 42.4 mL/min ]. Assessment and Plan Maintaining Current Dose?: Yes Reason for dose change: No Dose Change Pharmacist Note Pharmacist Note Date: 04/02/19. Pharmacist note: Pharmacy was consulted to restart Vancomycin for SSTI and HAP, she did well on previous regimen so we will reload her with 1250 mg and follow with 750 mg IV q18h. Pharmacy will continue to monitor and make adjustments. Date: 03/29/19. Pharmacist note: Ms. Montiel is an 78-year-old female who was placed on broad-spectrum antibiotic therapy consisting or meropenem and vancomycin for a possible skin and soft tissue infection. She has no previous history of vancomycin therapy at [facility] and her renal function is decent given her age. She was scheduled a loading dose of 1250mg this morning, followed by a subsequent maintenance dose of 750mg every 18 hours starting tomorrow morning at 0400. A trough was scheduled for 2/24/20 @1500, prior to the fourth dose, with a goal trough of 10-20 mcg/dL. A basic metabolic panel was ordered for tomorrow morning. We will continue to monitor and make adjustments as needed. SHAYLEE TABOR PHARMACY Apr 02, 2019 11:40
[2019-04-02] MEDS: CEFEPIME HCL 2 GM in D5W MINI-BAG PLUS 50 ML IV SCH ×2 (12:17→23:57)
[2019-04-02 12:26] LABS: ABG BASE EXCESS 9.2 (-2.0-2.0); ABG O2 SATURATION 88.7 % (95.0-99.0); ABG PARTIAL PRESSURE CO2 48.6 mmHg (35.0-45.0); ABG PARTIAL PRESSURE O2 57.9 mmHg (75.0-100.0); ABG STANDARD HCO3 32.8 MEQ/L (22.0-26.0); ABG TOTAL CO2 35.5 MEQ/L (23.0-31.0); ABG pH (ARTERIAL) 7.463 UNITS (7.350-7.450)
--- NOTE | 2019-04-02 12:30 | REP ---
CT of the chest with IV contrast, CT pulmonary angiography: Comparison is 02/25/2019. There are no emboli in the pulmonary trunk or central pulmonary arteries. There are no emboli in the pulmonary lobe or segment branches. The there are bilateral upper lobe infiltrates as an interval change. There are bilateral pleural effusions. These have decreased in size from the prior study. The spiculated right upper lobe nodular density seen previously is obscured by the upper lobe infiltrates today. No mediastinal or hilar lymph node enlargement is identified. No axillary lymph enlargement. Thoracic aorta is unremarkable. Cardiac size normal. No pericardial effusion. The visualized upper abdominal contents are unremarkable. Impression: There are large bilateral upper lobe infiltrates as an interval change. There are bilateral pleural effusions. These have decreased in size. The right upper lobe spiculated nodular density is obscured by the right upper lobe infiltrate. Electronically Signed by Abraham Gomez MD 04/02/2019 12:21 P
[2019-04-02] MEDS: VANCOMYCIN HCL 750 MG, VIAL MATE ADAPTER 1 EACH in D5W 250 ML IV SCH (12:55)
[2019-04-02] MEDS ORDERED: VANCOMYCIN HCL 500 MG in D5W MINI-BAG PLUS 100 ML IV ONE (14:00)
[2019-04-02] MEDS: IPRATROPIUM 0.5MG/ALBUTEROL 2.5MG INH SOL UD 3ML (DUONEB)(J7620) NEB SCH ×2 (15:22→21:51)
--- NOTE | 2019-04-02 16:31 | IPNPDOC ---
Date Seen The patient was seen on 04/02/19. Progress Note SUBJECTIVE: 78-year-old female with past medical history of atrial fibrillation, CHF (EF 25-30%), coronary artery disease, recent AL, status post stent placement, peripheral vascular disease, diabetes mellitus and hypertension, presents with fever and shortness of breath. Patient was admitted to [facility]. one month ago with right lower extremity ischemia, status post angioplasty, underwent further vascular intervention along with fasciotomy. She had a postop AL and was transferred to [facility] for PCI which resulted in 3 stent placements. She also underwent right AKA and was discharged to [facility] for rehabilitation. She was admitted this time for acute on chronic congestive heart failure, infection secondary to skin excoriation over buttock/inner thigh along with bloody drainage from right AKA sutures. Patient has been evaluated by vascular surgery and AKA site drainage was sent for culture, likely hematoma, remains on empiric antibiotics. Dermatology was contacted regarding skin excoriation, recommend Allevyn, metronidazole gel and frequent position changes. Patient has progressed well throughout hospitalization and currently awaiting acute rehabilitation unit evaluation. 03/31/19 Patient seen in the morning, reports improvement in dyspnea, having dry mouth, right AKA drainage site was packed by vascular surgery, no other complaints, awaiting acute rehabilitation unit evaluation. 04/01/19 Patient seen in the morning, urine output has improved w/ addition of IV albumin, patient without dyspnea, continues to experience dry mouth, now with wound vac over R AKA incision. 04/02/19 Patient seen in the morning, increased dyspnea, increased supplements, Levoxyl requirement, chest x-ray repeated in the morning showing worsening pulmonary vascular congestion/edema, transferred to ICU for BiPAP and increased work of breathing. 10 point review of system is negative except for above PHYSICAL EXAMINATION: VITAL SIGNS: Please see below. GENERAL: No distress HEENT: Normocephalic, atraumatic, moist mucous membranes NECK: Supple CARDIOVASCULAR EXAMINATION: S1, S2, no murmurs RESPIRATORY EXAMINATION: Scattered rhonchi, poor air movement ABDOMINAL EXAMINATION: Soft, nontender, nondistended, positive bowel sounds EXTREMITIES: Status post right AKA, wound vac in place, left lower extremity pitting edema improving SKIN: skin excoriation over buttock & inner thigh, improving NEUROLOGICAL EXAMINATION: Alert and oriented 3, no focal deficits PSYCHIATRIC EXAMINATION: Calm and cooperative LABORATORY DATA: See below. IMAGING: Chest x-ray showing vascular congestion with possible infiltration MICROBIOLOGY: Please see below. ASSESSMENT: 78-year-old female with extensive medical history who underwent recent right AKA and stent placement post AL presents from rehabilitation with symptoms concerning for pneumonia/CHF exacerbation. PLAN: 1. Acute on chronic systolic congestive heart failure. EF 25-30%, urine output has been net negative as targeted but patient with worsening dyspnea, hypoxemia and chest x-ray findings with increased vascular congestion/edema. Possibly related to IV albumin infusion, although patient has had good urine output with it, start BiPAP for hypoxemic respiratory failure to aid in work of breathing, cardiac and urine output, transferred to ICU. 2) diabetes mellitus. Sliding scale insulin with meals and at bedtime. 3) atrial fibrillation. Continue amiodarone, not on anticoagulation. 4) coronary artery disease. History of recent AL, status post stent placement 3, continue optimal medical management with aspirin, Plavix, statin and beta isidra. 5) hypertension. Continue Coreg DVT prophylaxis: Heparin subcutaneous GI prophylaxis: Home PPI VS, I&O, 24H, [facility] Vital Signs/I&O Vital Signs Date Time Temp Pulse Resp B/P (MAP) Pulse Ox O2 Delivery O2 Flow Rate FiO2 04/02/19 14:00 84 29 146/63 (90) 97 Nasal Cannula 2.0 04/02/19 10:58 98.8 I&O- Last 24 Hours up to 6 AM 04/02/19 06:00 Intake Total 1270.0 ml Output Total 1400 ml Balance -130.0 ml Laboratory Data 24H LABS Laboratory Tests 2 04/01/19 17:04: Bedside Glucose (Misc Panel) 131H 04/01/19 20:32: Bedside Glucose (Misc Panel) 224H 04/02/19 06:06: Nucleated Red Blood Cells % (auto) 0.2H, Anion Gap 4L, Glomerular Filtration Rate > 60.0, Calcium Level 8.9, GJ-Jpw-A-Type Natriuretic Peptide [id number] 04/02/19 08:11: Troponin I 0.05 04/02/19 12:13: Blood Gas Bicarbonate Standard 32.8H, Arterial Blood pH 7.463H, Arterial Blood Partial Pressure CO2 48.6H, Arterial Blood Partial Pressure O2 57.9L, Arterial Blood Total CO2 35.5H, Arterial Blood HCO3 34.0H, Arterial Blood Base Excess 9.2H, Arterial Blood Oxygen Saturation 88.7L 04/02/19 12:20: Bedside Glucose (Misc Panel) 141H 04/02/19 12:59: Urine Color YELLOW, Urine Appearance HAZY, Urine pH 6.0, Urine Specific [place] 1.044, Urine Protein NEGATIVE, Urine Glucose (UA) NEGATIVE, Urine Ketones NEGATIVE, Urine Blood NEGATIVE, Urine Nitrite NEGATIVE, Urine Bilirubin NEGATIVE, Urine Urobilinogen 0.2, Urine Leukocyte Esterase 3+H, Urine WBC (Auto) 37H, Urine RBC (Auto) 6H, Urine Hyaline Casts (Auto) 0, Urine Bacteria (Auto) NEGATIVE, Urine Squamous Epithelial Cells 0, Urine Mucus (Auto) SMALL, Urine Yeast-Like Cells (Auto) SMALLH, Urine Sperm (Auto) CBC/BMP Laboratory Tests 04/02/19 06:06 Microbiology Microbiology 04/02/19 Urine Culture, Received Pending 03/30/19 Gram Stain - Final, Complete 03/30/19 Wound Culture - Final, Complete Staphylococcus Sp Coag Neg 03/29/19 Blood Culture - Preliminary, Resulted No Growth after 72 hours. All specime... 03/29/19 Blood Culture - Preliminary, Resulted No Growth after 72 hours. All specime... 03/26/19 Blood Culture - Final, Complete NO GROWTH AFTER 5 DAYS 03/26/19 Respiratory Virus Panel (PCR) ([facility]) - Final, Complete 03/26/19 Blood Culture - Final, Complete NO GROWTH AFTER 5 DAYS ZI FARMER MD Apr 02, 2019 16:31
[2019-04-02] MEDS ORDERED: SALIVA SUBSTITUTE(MOUTHKOTE) BTL MT PRN (16:45)
[2019-04-02] MEDS ORDERED: NYSTATIN 100,000 UNITS/GM TOPICAL PWD 15 GM TOP PRN (18:00)
[2019-04-02] MEDS: DOCUSATE SODIUM 100 MG CAP PO SCH (20:34)
[2019-04-02] MEDS: ATORVASTATIN 20 MG TAB PO SCH (20:35)
[2019-04-02] MEDS: ACETAMINOPHEN TAB 650MG DOSE (2X325MG) PO PRN (21:02)
[2019-04-03] VITALS (11 sets, daily range): BP systolic 103–140; BP diastolic 51–65; O2SAT 94–98
[2019-04-03] MEDS: IPRATROPIUM 0.5MG/ALBUTEROL 2.5MG INH SOL UD 3ML (DUONEB)(J7620) NEB SCH ×4 (03:05→19:44)
[2019-04-03 05:08] LABS: BASO # 0.1 10^3/uL (0.0-0.2); BASO % 0.6 % (0.0-1.0); EOS # 0.2 10^3/uL (0.0-0.5); EOS % 2.3 % (0.0-3.0); HEMATOCRIT 28.4 % (36.0-47.0); HEMOGLOBIN 8.5 g/dl (12.0-15.5); LYMPH # 0.8 10^3/uL (1.5-5.0); LYMPH % 7.9 % (24.0-44.0); MEAN CORPUSCULAR HEMOGLOBIN 30.2 pg (27.0-33.0); MEAN CORPUSCULAR HGB CONC 29.9 g/dl (32.0-36.5); MEAN CORPUSCULAR VOLUME 101.1 fl (80.0-96.0); MONO # 0.7 10^3/uL (0.0-0.8); MONO % 6.6 % (0.0-5.0); NEUTROPHILS % 81.1 % (36.0-66.0); PLATELET COUNT, AUTOMATED 248 10^3/uL (150-450); RED BLOOD COUNT 2.81 10^6/uL (4.00-5.40); WHITE BLOOD COUNT 9.9 10^3/uL (4.0-10.0)
[2019-04-03 05:23] LABS: HEMOGLOBIN A1c 5.8 %
[2019-04-03 05:30] LABS: ALBUMIN 2.6 GM/DL (3.2-5.2); ALT/SGPT 38 U/L (12-78); BILIRUBIN,TOTAL 0.6 MG/DL (0.2-1.0); BLOOD UREA NITROGEN 27 MG/DL (7-18); CALCIUM LEVEL 8.3 MG/DL (8.8-10.2); CARBON DIOXIDE LEVEL 35 MEQ/L (21-32); CHLORIDE LEVEL 107 MEQ/L (98-107); CREATININE FOR GFR 0.83 MG/DL (0.55-1.30); GLOMERULAR FILTRATION RATE > 60.0 (>32); GLUCOSE, FASTING 159 MG/DL (70-100); MAGNESIUM LEVEL 1.8 MG/DL (1.8-2.4); PHOSPHORUS LEVEL 3.3 MG/DL (2.5-4.9); POTASSIUM SERUM 3.7 MEQ/L (3.5-5.1); SODIUM LEVEL 146 MEQ/L (136-145); TOTAL PROTEIN 5.2 GM/DL (6.4-8.2)
--- NOTE | 2019-04-03 06:38 | ECHO ---
DATE OF PROCEDURE: 04/02/2019 DATE OF : 1940 AGE: 78 REFERRING PROVIDER: Dr. Foreman PATIENT LOCATION: Room 3208 REASON FOR STUDY: Shortness of breath. 2-D MEASUREMENTS: IVS: 0.9 cm LV: 5.0 cm LVPW: 1.0 cm LA: 4.3 cm Aorta: 3.0 cm IVC: 1.7 cm DOPPLER MEASUREMENTS: Peak velocity across the aortic valve: 1.3 m/s Peak velocity across the LVOT: 0.98 m/s Mitral E: 1.1 Mitral: 0.49 Ratio: Greater than 2.0 Maximum tricuspid valve velocity: 2.6 m/s 2-D COMMENTS: 1. Normal left ventricular size and wall thickness, but with a depressed global left ventricular systolic function. The anterior septum and the apex appeared to be markedly hypokinetic. The estimated global left ventricular systolic ejection fraction is 30-35%. 2. Mildly enlarged left atrium. Normal right atrium and right ventricle. 3. The atrial septum appeared to be normal without evidence of defect or shunt. 4. Normal aortic root. 5. A small pericardial effusion was noted, no evidence of cardiac tamonade. Pleural effusion also was noted. 6. Mildly calcified aortic valve with normal leaflet excursion. Mildly calcified mitral annulus with normal anterior mitral valve leaflet motion. Normal tricuspid valve and pulmonic valve. The proximal pulmonary artery branches were not well visualized. 7. The inferior vena cava was normal in size, central venous pressure likely normal. DOPPLER: It detects mild aortic regurgitation, moderate mitral regurgitation, mild tricuspid regurgitation, and mild pulmonic regurgitation. The calculated pulmonary artery systolic pressure varies between 30-40 mmHg. A restrictive mitral inflow pattern was noted in limited views. IMPRESSION: 1. Moderately severe global left ventricular systolic dysfunction with regional wall motion abnormalities consistent with underlying coronary artery disease. 2. Aortic valve sclerosis with mild aortic regurgitation, but no aortic stenosis. 3. Mitral annulus calcification with mildly enlarged left atrium and moderate mitral regurgitation. 4. Mild tricuspid regurgitation with mild pulmonary hypertension. 5. Mild pulmonic regurgitation. 6 Small pericardial effusion noted, no evidence of cardiac tamponade. Pleural effusion also was noted. 7. Global longitudinal strain was calculated at 10.7%. 8. The most recent echocardiogram was on 02/25/2019 and at that time left ventricular systolic function was estimated at 25-30%. Those images were reviewed and it seems that the anterior septum and apex was almost akinetic at that time. MTDD
[2019-04-03] MEDS: VANCOMYCIN HCL 750 MG, VIAL MATE ADAPTER 1 EACH in D5W 250 ML IV SCH (07:44)
[2019-04-03] MEDS: ASPIRIN 81 MG CHEW TABLET PO SCH (08:55)
[2019-04-03] MEDS: AMIODARONE 200 MG TAB (PACERONE) PO SCH (08:55)
[2019-04-03] MEDS: CLOPIDOGREL 75 MG TAB PO SCH (08:55)
[2019-04-03] MEDS: HumaLOG INSULIN (NovoLOG) PER UNIT SC SCH ×4 (08:56→21:00)
[2019-04-03] MEDS: CALCIUM/VITAMIN D 500 MG TAB PO SCH (08:56)
[2019-04-03] MEDS: CARVedilol 6.25 MG TAB PO SCH ×2 (08:56→21:02)
[2019-04-03] MEDS: ASCORBIC ACID 500 MG TAB PO SCH (08:56)
[2019-04-03] MEDS: HEPARIN SOD (PORCINE) 5000 UNITS/ML VIAL (J1644 PER 1000UNITS) SC SCH ×2 (08:57→21:02)
[2019-04-03] MEDS: GABAPENTIN 300 MG CAP PO SCH ×2 (08:57→21:03)
[2019-04-03] MEDS ORDERED: LR 500 ML IV ONE (12:30)
--- NOTE | 2019-04-03 12:35 | IPNPDOC ---
Text Note Date of Service The patient was seen on 04/03/19. NOTE Patient seen and examined. Good seal was noted on wound vac. Possibly remove wound vac tomorrow. She may able to resume dressings with Hydrofera Blue and foam cover. Continue to follow. VS,Fishbone, I+O VS, Fishbone, I+O Laboratory Tests 04/03/19 04:33 Vital Signs Date Time Temp Pulse Resp B/P (MAP) Pulse Ox O2 Delivery O2 Flow Rate FiO2 04/03/19 10:00 79 121/56 (77) 98 Nasal Cannula 2.0 04/03/19 07:32 28 04/03/19 04:00 97.6 18 I&O- Last 24 Hours up to 6 AM 04/03/19 06:00 Intake Total 975.0 ml Output Total 1642 ml Balance -667.0 ml Blanche Gómez Apr 03, 2019 12:35
[2019-04-03] MEDS: CEFEPIME HCL 2 GM in D5W MINI-BAG PLUS 50 ML IV SCH (12:52)
--- NOTE | 2019-04-03 20:21 | IPNPDOC ---
Date Seen The patient was seen on 04/03/19. Progress Note SUBJECTIVE: Patient seen and examined. No acute events overnight. Patient tolerated BiPAP overnight. She reports this morning she feels much better and shortness of breath is improved. She denies chest pain, palpitations. She denies runny nose, sore throat, cough. She denies abdominal pain, nausea, vomiting. Patient continues to complain of dry mouth which she states is affecting her ability to swallow. She states she never had dry mouth prior to admission. Brief Hospital course: Patient is an 78-year-old female past medical history significant for recent prolonged hospital stay requiring transfer to [facility] resulting in resulting in ID with cardiac stent placement 3 and right AKA with wound VAC in place. She initially presented to [facility] emergency department on 03/26/2019 with complaint of shortness of breath and fever reported to be 103. Patient was admitted to the hospital for suspected healthcare associated pneumonia and started on vancomycin, Levaquin, aztreonam, however upon further workup shortness of breath was thought to be related to pulmonary edema rather than infectious etiology and antibiotics were discontinued after 24 hours. Patient was aggressively diuresed with -3 L fluid balance throughout hospital course and a 5 kg weight loss. Patient is currently 56 kg which is the lowest documented weight per hospital records. Despite treatment patient with progressively worsening shortness of breath. Patient was transferred to the intensive care unit for increased work of breathing and noninvasive ventilation. Further workup included CT scan which showed bilateral infiltrates and air bronchograms concerning for pneumonia. Patient started on vancomycin, and cefepime which was later descalated to cefepime alone PHYSICAL EXAMINATION: VITAL SIGNS: Please see below. GENERAL: Alert and oriented, in no acute distress, appears dry HENT: Normocephalic, atraumatic EYES: Pupils equal round and reactive to light, no scleral icterus CARDIOVASCULAR: Irregularly irregular, no lower extremity edema, no JVD noted RESPIRATORY: Coarse breath sounds diffusely, no wheezing heard ABDOMINAL: Soft, thin nontender, nondistended, positive bowel sounds EXTREMITIES: Right AKA with wound VAC in place, normal range of motion of upper extremities NEUROLOGICAL: Alert and oriented 3 without focal deficits noted SKIN: Warm and dry, large area of excoriation with ulcerations and sloughing of the skin noted in sacral region LABORATORY DATA: Please see below. ECHO: Utterly severe globally depressed LV function with an ejection fraction of 30-35% ASSESSMENT/PLAN: #Acute hypoxic respiratory failure improving - Likely secondary to HCAP and bilateral pleural effusions - CT chest (04/02) = large bilateral upper lobe infiltrates - At this time patient has been aggressively diuresed and likely not benefit from further diuretic use -Continue cefepime (04/02). Will stop vancomycin given negative MRSA screen - Check procalcitonin, obtain sputum culture if able - DuoNeb's every 6 hours - Nasal cannula during the day, titrate SPO2 greater than 92% # Bilateral healthcare acquired pneumonia - Blood cultures on admission negative 5 days, will repeat blood cultures if fever develops - Continue antibiotics with cefepime #Bilateral pleural effusions - Patient is currently intravascularly depleted and will likely not benefit from further diuresis - Insetting of pneumonia pleural effusions may be parapneumonic in nature - BNP is elevated and uptrending but this may be related to infectious process. ABG performed and shows an alkalosis given clinical picture suspect this to be a contraction alkalosis - Continue antibiotics, Will monitor #Catheter associated UTI -Catheter present prior prior to arrival at Hospital, replaced at time of admission to ICU -Urine with 3+ positive leukocyte esterase, cultures pending - He's like organism noted in urine, will start Diflucan #Chronic systolic heart failure without exacerbation - Repeat echo with an ejection fraction of 30-35% - Patient appears at her dry weight and intravascularly depleted at this time - Continue to monitor strict I's and O's #Atrial fibrillation - Rate controlled - Continue amiodarone 200 mg daily, carvedilol 6.25 mg twice a day #Coronary artery disease status post recent stent placement - Continue aspirin 81 mg and Plavix 35 mg daily, atorvastatin 40 mg daily #Peripheral vascular disease status post right AKA - Wound VAC in place #Lung nodule - Right upper lobe spiculated nodule concerning for malignancy, will need outpatient follow-up with repeat CT in 3-6 months - Status post radiation #Diabetes mellitus, type 2 - Accu-Cheks, sliding scale insulin #Hypertension - Carvedilol 6.25 mg twice a day #Sacral wound - Excoriation secondary to stool incontinence - Desitin - Keep area clean - Reposition every 2 hours to avoid pressure ulcers - Wound care following #Dry mouth - Saliva substitute -Humidified air with CPAP - Chopped and moistened food - Will give 500 mL LR bolus -Stop Lasix Diet: Cardiac diet with chopped and moistened food DVT prophylaxis: Heparin subcutaneous GI prophylaxis: Not indicated at this time O2: 2 L nasal cannula, titrate to keep SPO2 greater than 92% L/T/D: Right AKA stump wound VAC, Link (LSW) Drips: None CODE STATUS: Full code. Daughter is healthcare power of aviation maintenance technician. Disposition: Patient improved with initiation of antibiotics. Currently on nasal cannula. We'll transfer to the medical floor. Further care per hospitalist service, discuss with Dr. Stevens Billin VS, I&O, 24H, Gayle Vital Signs/I&O Vital Signs Date Time Temp Pulse Resp B/P (MAP) Pulse Ox O2 Delivery O2 Flow Rate FiO2 04/03/19 14:39 2.0 04/03/19 14:15 98.1 81 18 123/59 (80) 96 Nasal Cannula 04/03/19 07:32 28 I&O- Last 24 Hours up to 6 AM 04/03/19 06:00 Intake Total 975.0 ml Output Total 1642 ml Balance -667.0 ml Laboratory Data 24H LABS Laboratory Tests 2 04/02/19 20:47: Bedside Glucose (Misc Panel) 145H 04/03/19 04:33: Immature Granulocyte % (Auto) 1.5, Neutrophils (%) (Auto) 81.1H, Lymphocytes (%) (Auto) 7.9L, Monocytes (%) (Auto) 6.6H, Eosinophils (%) (Auto) 2.3, Basophils (%) (Auto) 0.6, Neutrophils # (Auto) 8.0, Lymphocytes # (Auto) 0.8L, Monocytes # (Auto) 0.7, Eosinophils # (Auto) 0.2, Basophils # (Auto) 0.1, Nucleated Red Blood Cells % (auto) 0.0, Anion Gap 4L, Glomerular Filtration Rate > 60.0, Estimated Mean Plasma Glucose 120H, Hemoglobin A1c 5.8, Calcium Level 8.3L, Phosphorus Level 3.3, Magnesium Level 1.8, Total Bilirubin 0.6, Aspartate Amino Transf (AST/SGOT) 34, Alanine Aminotransferase (ALT/SGPT) 38, Alkaline Phosphatase 76, Total Protein 5.2L, Albumin 2.6L, Albumin/Globulin Ratio 1.00 04/03/19 07:42: Bedside Glucose (Misc Panel) 183H 04/03/19 12:49: Bedside Glucose (Misc Panel) 283H 04/03/19 16:51: Bedside Glucose (Misc Panel) 100 CBC/BMP Laboratory Tests 04/03/19 04:33 Microbiology Microbiology 04/02/19 Urine Culture - Final, Complete Yeast Like Organism 03/30/19 Gram Stain - Final, Complete 03/30/19 Wound Culture - Final, Complete Staphylococcus Sp Coag Neg 03/29/19 Blood Culture - Final, Complete NO GROWTH AFTER 5 DAYS 03/29/19 Blood Culture - Final, Complete NO GROWTH AFTER 5 DAYS 03/26/19 Blood Culture - Final, Complete NO GROWTH AFTER 5 DAYS 03/26/19 Respiratory Virus Panel (PCR) ([facility]) - Final, Complete 03/26/19 Blood Culture - Final, Complete NO GROWTH AFTER 5 DAYS REYNALDO RODRIGUEZ DO Apr 03, 2019 20:21
[2019-04-03] MEDS: DOCUSATE SODIUM 100 MG CAP PO SCH (21:00)
[2019-04-03] MEDS ORDERED: FLUCONAZOLE 50MG TABLET PO SCH (21:00)
[2019-04-03] MEDS: ACETAMINOPHEN TAB 650MG DOSE (2X325MG) PO PRN (21:02)
[2019-04-03] MEDS: FLUCONAZOLE 100 MG TAB PO SCH (21:03)
[2019-04-03] MEDS: ATORVASTATIN 20 MG TAB PO SCH (21:03)
[2019-04-04] MEDS: CEFEPIME HCL 2 GM in D5W MINI-BAG PLUS 50 ML IV SCH ×3 (00:32→23:47)
[2019-04-04] MEDS: IPRATROPIUM 0.5MG/ALBUTEROL 2.5MG INH SOL UD 3ML (DUONEB)(J7620) NEB SCH ×4 (00:48→19:59)
[2019-04-04 06:00] VITALS: BP 121/59
[2019-04-04 07:24] LABS: BASO # 0.1 10^3/uL (0.0-0.2); BASO % 0.6 % (0.0-1.0); EOS # 0.5 10^3/uL (0.0-0.5); HEMATOCRIT 27.5 % (36.0-47.0); HEMOGLOBIN 8.4 g/dl (12.0-15.5); LYMPH # 0.8 10^3/uL (1.5-5.0); LYMPH % 5.1 % (24.0-44.0); MEAN CORPUSCULAR HEMOGLOBIN 30.9 pg (27.0-33.0); MEAN CORPUSCULAR HGB CONC 30.5 g/dl (32.0-36.5); MEAN CORPUSCULAR VOLUME 101.1 fl (80.0-96.0); MONO # 0.8 10^3/uL (0.0-0.8); MONO % 5.4 % (0.0-5.0); NEUTROPHILS # 12.7 10^3/uL (1.5-8.5); NEUTROPHILS % 84.6 % (36.0-66.0); PLATELET COUNT, AUTOMATED 275 10^3/uL (150-450); RED BLOOD COUNT 2.72 10^6/uL (4.00-5.40)
[2019-04-04 07:46] LABS: BLOOD UREA NITROGEN 27 MG/DL (7-18); CALCIUM LEVEL 8.5 MG/DL (8.8-10.2); CARBON DIOXIDE LEVEL 35 MEQ/L (21-32); CHLORIDE LEVEL 106 MEQ/L (98-107); CREATININE FOR GFR 0.74 MG/DL (0.55-1.30); GLOMERULAR FILTRATION RATE > 60.0 (>32); GLUCOSE, FASTING 150 MG/DL (70-100); MAGNESIUM LEVEL 1.9 MG/DL (1.8-2.4); POTASSIUM SERUM 3.4 MEQ/L (3.5-5.1); SODIUM LEVEL 145 MEQ/L (136-145)
[2019-04-04] MEDS: HumaLOG INSULIN (NovoLOG) PER UNIT SC SCH ×4 (08:04→21:00)
[2019-04-04] MEDS: CALCIUM/VITAMIN D 500 MG TAB PO SCH (08:04)
[2019-04-04] MEDS: GABAPENTIN 300 MG CAP PO SCH ×2 (08:04→21:41)
[2019-04-04] MEDS: ASPIRIN 81 MG CHEW TABLET PO SCH (08:04)
[2019-04-04] MEDS: CLOPIDOGREL 75 MG TAB PO SCH (08:04)
[2019-04-04] MEDS: HEPARIN SOD (PORCINE) 5000 UNITS/ML VIAL (J1644 PER 1000UNITS) SC SCH ×2 (08:04→21:41)
[2019-04-04] MEDS: ASCORBIC ACID 500 MG TAB PO SCH (08:04)
[2019-04-04] MEDS: CARVedilol 6.25 MG TAB PO SCH ×2 (08:06→21:41)
[2019-04-04] MEDS: AMIODARONE 200 MG TAB (PACERONE) PO SCH (08:06)
[2019-04-04] MEDS: DIAPER RELIEF PASTE (DESITIN) 60GM TOP SCH (08:07)
--- NOTE | 2019-04-04 09:37 | IPNPDOC ---
Text Note Date of Service The patient was seen on 04/04/19. NOTE Vascular Surgery. Dr Tejada. Patient seen and examined. Wound vac is removed, there was very small amount noted in the wound VAC canister. Wound appears to be healing. Resume dressings with Hydrofera Blue and foam cover. Applied today. Continue to follow. VS,Fishbone, I+O VS, Fishbone, I+O Laboratory Tests 04/04/19 06:25 Vital Signs Date Time Temp Pulse Resp B/P (MAP) Pulse Ox O2 Delivery O2 Flow Rate FiO2 04/04/19 08:06 81 141/64 04/04/19 06:00 98.1 19 95 Nasal Cannula 3.0 04/03/19 07:32 28 I&O- Last 24 Hours up to 6 AM 04/04/19 06:00 Intake Total 1615 ml Output Total 535 ml Balance 1080 ml Blanche Gómez Apr 04, 2019 09:37
--- NOTE | 2019-04-04 09:47 | IPNPDOC ---
Date Seen The patient was seen on 04/04/19. Progress Note Pt seen and examined. Says she is still SOB today, but a little better after her breathing treatment. I removed her wound vac, and there is good granulation tissue at the base and edges of the wound, which I am hopeful will help decrease the drainage with regular dressing changes. Prior to wound vac dressings, the hydrofera blue and foam dressings were rapidly saturated and now I am hopeful th at we can resume the dressing changes without so much drainage and the associated skin excoriation. The skin edges are healing well medial and lateral to the small open area, s/p staple removal earlier this week. Overall, I am pleased with her wound progress this week and if her drainage is manageable, we should not need to replace the wound vac. The patient tolerated the dressing change well with small piece of hydrofera blue and foam border dressing placed. VS, I&O, 24H, Fishbone Vital Signs/I&O Vital Signs Date Time Temp Pulse Resp B/P (MAP) Pulse Ox O2 Delivery O2 Flow Rate FiO2 04/04/19 08:06 81 141/64 04/04/19 06:00 98.1 19 95 Nasal Cannula 3.0 04/03/19 07:32 28 I&O- Last 24 Hours up to 6 AM 04/04/19 06:00 Intake Total 1615 ml Output Total 535 ml Balance 1080 ml Laboratory Data 24H LABS Laboratory Tests 2 04/03/19 12:49: Bedside Glucose (Misc Panel) 283H 04/03/19 16:51: Bedside Glucose (Misc Panel) 100 04/03/19 21:05: Bedside Glucose (Misc Panel) 196H 04/04/19 04:57: Bedside Glucose (Misc Panel) 138H 04/04/19 06:25: Immature Granulocyte % (Auto) 1.3, Neutrophils (%) (Auto) 84.6H, Lymphocytes (%) (Auto) 5.1L, Monocytes (%) (Auto) 5.4H, Eosinophils (%) (Auto) 3.0, Basophils (%) (Auto) 0.6, Neutrophils # (Auto) 12.7H, Lymphocytes # (Auto) 0.8L, Monocytes # (Auto) 0.8, Eosinophils # (Auto) 0.5, Basophils # (Auto) 0.1, Nucleated Red Blood Cells % (auto) 0.0, Anion Gap 4L, Glomerular Filtration Rate > 60.0, Calcium Level 8.5L, Magnesium Level 1.9 CBC/BMP Laboratory Tests 04/04/19 06:25 Microbiology Microbiology 04/02/19 Urine Culture - Final, Complete Yeast Like Organism 03/30/19 Gram Stain - Final, Complete 03/30/19 Wound Culture - Final, Complete Staphylococcus Sp Coag Neg 03/29/19 Blood Culture - Final, Complete NO GROWTH AFTER 5 DAYS 03/29/19 Blood Culture - Final, Complete NO GROWTH AFTER 5 DAYS 03/26/19 Blood Culture - Final, Complete NO GROWTH AFTER 5 DAYS 03/26/19 Respiratory Virus Panel (PCR) ([facility]) - Final, Complete 03/26/19 Blood Culture - Final, Complete NO GROWTH AFTER 5 DAYS LI OBREGON MD Apr 04, 2019 09:47
[2019-04-04] MEDS ORDERED: POTASSIUM CHLORIDE 10 MEQ SR TABLET PO ONE (10:00)
--- NOTE | 2019-04-04 11:31 | REP ---
CHEST, TWO VIEWS: Two views of the chest are performed. COMPARISON: 04/02/2019. Bilateral infiltrates and effusions appear essentially unchanged. Cardiomediastinal silhouette is unchanged. There are mild degenerative changes of the spine. IMPRESSION: Stable infiltrates and effusions. Electronically Signed by Abraham Eddy MD 04/04/2019 11:59 A
--- NOTE | 2019-04-04 12:56 | IPNPDOC ---
Date Seen The patient was seen on 04/04/19. Progress Note SUBJECTIVE: 78-year-old female with past medical history of atrial fibrillation, CHF (EF 25-30%), coronary artery disease, recent UT, status post stent placement, peripheral vascular disease, diabetes mellitus and hypertension, presents with fever and shortness of breath. Patient was admitted to [facility]. one month ago with right lower extremity ischemia, status post angioplasty, underwent further vascular intervention along with fasciotomy. She had a postop UT and was transferred to [facility] for PCI which resulted in 3 stent placements. She also underwent right AKA and was discharged to [facility] for rehabilitation. She was admitted this time for acute on chronic congestive heart failure, infection secondary to skin excoriation over buttock/inner thigh along with bloody drainage from right AKA sutures. Patient has been evaluated by vascular surgery and AKA site drainage was sent for culture, likely hematoma, remains on empiric antibiotics. Dermatology was contacted regarding skin excoriation, recommend Allevyn, metronidazole gel and frequent position changes. Patient has progressed well throughout hospitalization and currently awaiting acute rehabilitation unit evaluation. 03/31/19 Patient seen in the morning, reports improvement in dyspnea, having dry mouth, right AKA drainage site was packed by vascular surgery, no other complaints, awaiting acute rehabilitation unit evaluation. 04/01/19 Patient seen in the morning, urine output has improved w/ addition of IV albumin, patient without dyspnea, continues to experience dry mouth, now with wound vac over R AKA incision. 04/02/19 Patient seen in the morning, increased dyspnea, increased supplemental oxygen requirement, chest x-ray repeated in the morning showing worsening pulmonary v ascular congestion/edema, transferred to ICU for BiPAP and increased work of breathing. 04/04/19 Patient seen in the morning, comfortable in bed, reports significant improvement in dyspnea, downgraded to floor yesterday, wound VAC removed today by vascular surgery. She continues to require 2-3 L via nasal cannula. 10 point review of system is negative except for above PHYSICAL EXAMINATION: VITAL SIGNS: Please see below. GENERAL: No distress HEENT: Normocephalic, atraumatic, moist mucous membranes NECK: Supple CARDIOVASCULAR EXAMINATION: S1, S2, no murmurs RESPIRATORY EXAMINATION: Scattered rhonchi, poor air movement, diminished in the bases ABDOMINAL EXAMINATION: Soft, nontender, nondistended, positive bowel sounds EXTREMITIES: Status post right AKA, left lower extremity edema improving SKIN: skin excoriation over buttock & inner thigh, improving NEUROLOGICAL EXAMINATION: Alert and oriented 3, no focal deficits PSYCHIATRIC EXAMINATION: Calm and cooperative LABORATORY DATA: See below. IMAGING: Chest x-ray showing vascular congestion with possible infiltration MICROBIOLOGY: Please see below. ASSESSMENT: 78-year-old female with extensive medical history who underwent recent right AKA and stent placement post UT presents from rehabilitation with symptoms concerning for pneumonia/CHF exacerbation. PLAN: 1. Bilateral pneumonia Continue cefepime, MRSA PCR negative, cultures have remained negative, clinically improving, continues to require supplemental oxygen, awaiting acute rehabilitation unit evaluation. 2. Acute on chronic systolic congestive heart failure. Treated with IV Lasix, had good clinical response, net -3 L. Will attempt to start oral diuretics tomorrow. 3) diabetes mellitus. Sliding scale insulin with meals and at bedtime. 4) atrial fibrillation. Continue amiodarone, not on anticoagulation. 5) coronary artery disease. History of recent UT, status post stent placement 3, continue optimal medical management with aspirin, Plavix, statin and beta isidra. 6) hypertension. Continue Coreg DVT prophylaxis: Heparin subcutaneous GI prophylaxis: Home PPI VS, I&O, 24H, Fishbone Vital Signs/I&O Vital Signs Date Time Temp Pulse Resp B/P (MAP) Pulse Ox O2 Delivery O2 Flow Rate FiO2 04/04/19 08:06 81 141/64 04/04/19 06:00 98.1 19 95 Nasal Cannula 3.0 04/03/19 07:32 28 I&O- Last 24 Hours up to 6 AM 04/04/19 06:00 Intake Total 1615 ml Output Total 535 ml Balance 1080 ml Laboratory Data 24H LABS Laboratory Tests 2 04/03/19 16:51: Bedside Glucose (Misc Panel) 100 04/03/19 21:05: Bedside Glucose (Misc Panel) 196H 04/04/19 04:57: Bedside Glucose (Misc Panel) 138H 04/04/19 06:25: Immature Granulocyte % (Auto) 1.3, Neutrophils (%) (Auto) 84.6H, Lymphocytes (%) (Auto) 5.1L, Monocytes (%) (Auto) 5.4H, Eosinophils (%) (Auto) 3.0, Basophils (%) (Auto) 0.6, Neutrophils # (Auto) 12.7H, Lymphocytes # (Auto) 0.8L, Monocytes # (Auto) 0.8, Eosinophils # (Auto) 0.5, Basophils # (Auto) 0.1, Nucleated Red Blood Cells % (auto) 0.0, Anion Gap 4L, Glomerular Filtration Rate > 60.0, Calcium Level 8.5L, Magnesium Level 1.9 04/04/19 12:21: Bedside Glucose (Misc Panel) 212H CBC/BMP Laboratory Tests 04/04/19 06:25 Microbiology Microbiology 04/02/19 Urine Culture - Final, Complete Yeast Like Organism 03/30/19 Gram Stain - Final, Complete 03/30/19 Wound Culture - Final, Complete Staphylococcus Sp Coag Neg 03/29/19 Blood Culture - Final, Complete NO GROWTH AFTER 5 DAYS 03/29/19 Blood Culture - Final, Complete NO GROWTH AFTER 5 DAYS 03/26/19 Blood Culture - Final, Complete NO GROWTH AFTER 5 DAYS 03/26/19 Respiratory Virus Panel (PCR) ([facility]) - Final, Complete 03/26/19 Blood Culture - Final, Complete NO GROWTH AFTER 5 DAYS ZI FARMER MD Apr 04, 2019 12:56
[2019-04-04 14:00] VITALS: BP 114/49
[2019-04-04] MEDS: DOCUSATE SODIUM 100 MG CAP PO SCH (21:40)
[2019-04-04] MEDS: FLUCONAZOLE 100 MG TAB PO SCH (21:41)
[2019-04-04] MEDS: ATORVASTATIN 20 MG TAB PO SCH (21:41)
[2019-04-04 22:00] VITALS: BP 114/48
[2019-04-05] MEDS: IPRATROPIUM 0.5MG/ALBUTEROL 2.5MG INH SOL UD 3ML (DUONEB)(J7620) NEB SCH ×4 (00:56→20:12)
[2019-04-05 06:00] VITALS: BP 133/67
[2019-04-05 06:32] LABS: HEMATOCRIT 28.5 % (36.0-47.0); HEMOGLOBIN 8.6 g/dl (12.0-15.5); MEAN CORPUSCULAR HEMOGLOBIN 30.8 pg (27.0-33.0); MEAN CORPUSCULAR HGB CONC 30.2 g/dl (32.0-36.5); MEAN CORPUSCULAR VOLUME 102.2 fl (80.0-96.0); PLATELET COUNT, AUTOMATED 266 10^3/uL (150-450); RED BLOOD COUNT 2.79 10^6/uL (4.00-5.40); WHITE BLOOD COUNT 14.1 10^3/uL (4.0-10.0)
[2019-04-05 06:49] LABS: BLOOD UREA NITROGEN 28 MG/DL (7-18); CALCIUM LEVEL 8.1 MG/DL (8.8-10.2); CARBON DIOXIDE LEVEL 34 MEQ/L (21-32); CHLORIDE LEVEL 108 MEQ/L (98-107); CREATININE FOR GFR 0.72 MG/DL (0.55-1.30); GLOMERULAR FILTRATION RATE > 60.0 (>32); GLUCOSE, FASTING 156 MG/DL (70-100); POTASSIUM SERUM 4.4 MEQ/L (3.5-5.1); SODIUM LEVEL 145 MEQ/L (136-145)
[2019-04-05] MEDS: AMIODARONE 200 MG TAB (PACERONE) PO SCH (08:29)
[2019-04-05] MEDS: HEPARIN SOD (PORCINE) 5000 UNITS/ML VIAL (J1644 PER 1000UNITS) SC SCH ×2 (08:29→20:57)
[2019-04-05] MEDS: ASCORBIC ACID 500 MG TAB PO SCH (08:29)
[2019-04-05] MEDS: ASPIRIN 81 MG CHEW TABLET PO SCH (08:29)
[2019-04-05] MEDS: GABAPENTIN 300 MG CAP PO SCH ×2 (08:29→20:57)
[2019-04-05] MEDS: HumaLOG INSULIN (NovoLOG) PER UNIT SC SCH ×4 (08:29→20:56)
[2019-04-05] MEDS: CLOPIDOGREL 75 MG TAB PO SCH (08:30)
[2019-04-05] MEDS: CARVedilol 6.25 MG TAB PO SCH ×2 (08:30→20:59)
[2019-04-05] MEDS: CALCIUM/VITAMIN D 500 MG TAB PO SCH (08:30)
[2019-04-05] MEDS: DIAPER RELIEF PASTE (DESITIN) 60GM TOP SCH (08:35)
--- NOTE | 2019-04-05 10:11 | IPNPDOC ---
Date Seen The patient was seen on 04/05/19. Progress Note Pt seen and examined. Says she is still SOB today, but a little better after her breathing treatment. There is good granulation tissue at the base and edges of the wound, which I am hopeful will help decrease the drainage with regular dressing changes, but we still not a bit of serosanguinous drainage on her foam dressing today. Prior to wound vac dressings, the hydrofera blue and foam dressings were rapidly saturated, and if she develops skin excoriation now that we have resumed these daily dressing changes, we will replace the wound vac. The skin edges are healing well medial and lateral to the small open area, s/p staple removal earlier this week. Overall, I am pleased with her wound progress this week and the patient tolerated the dressing change well with small piece of hydrofera blue and foam border dressing replaced. VS, I&O, 24H, Fishbone Vital Signs/I&O Vital Signs Date Time Temp Pulse Resp B/P (MAP) Pulse Ox O2 Delivery O2 Flow Rate FiO2 04/05/19 08:30 83 130/62 04/05/19 06:00 98.2 18 94 Nasal Cannula 2.0 04/03/19 07:32 28 I&O- Last 24 Hours up to 6 AM 04/05/19 06:00 Intake Total 955 ml Output Total 425 ml Balance 530 ml Laboratory Data 24H LABS Laboratory Tests 2 04/04/19 12:21: Bedside Glucose (Misc Panel) 212H 04/04/19 16:52: Bedside Glucose (Misc Panel) 216H 04/04/19 20:59: Bedside Glucose (Misc Panel) 247H 04/05/19 05:56: Nucleated Red Blood Cells % (auto) 0.0, Anion Gap 3L, Glomerular Filtration Rate > 60.0, Calcium Level 8.1L CBC/BMP Laboratory Tests 04/05/19 05:56 Microbiology Microbiology 04/02/19 Urine Culture - Final, Complete Yeast Like Organism 03/30/19 Gram Stain - Final, Complete 03/30/19 Wound Culture - Final, Complete Staphylococcus Sp Coag Neg 03/29/19 Blood Culture - Final, Complete NO GROWTH AFTER 5 DAYS 03/29/19 Blood Culture - Final, Complete NO GROWTH AFTER 5 DAYS 03/26/19 Blood Culture - Final, Complete NO GROWTH AFTER 5 DAYS 03/26/19 Respiratory Virus Panel (PCR) ([place]) - Final, Complete 03/26/19 Blood Culture - Final, Complete NO GROWTH AFTER 5 DAYS LI OBREGON MD Apr 05, 2019 10:11
[2019-04-05] MEDS: CEFEPIME HCL 2 GM in D5W MINI-BAG PLUS 50 ML IV SCH ×2 (13:09→23:21)
[2019-04-05 14:00] VITALS: BP 126/60
[2019-04-05] MEDS: FLUCONAZOLE 100 MG TAB PO SCH (20:57)
[2019-04-05] MEDS: DOCUSATE SODIUM 100 MG CAP PO SCH ×2 (20:57→21:00)
[2019-04-05] MEDS: ATORVASTATIN 20 MG TAB PO SCH (20:57)
[2019-04-05 22:00] VITALS: BP 128/62
--- NOTE | 2019-04-05 22:26 | IPNPDOC ---
Date Seen The patient was seen on 04/05/19. Progress Note SUBJECTIVE: 78-year-old female with past medical history of atrial fibrillation, CHF (EF 25-30%), coronary artery disease, recent KS, status post stent placement, peripheral vascular disease, diabetes mellitus and hypertension, presents with fever and shortness of breath. Patient was admitted to [facility]. one month ago with right lower extremity ischemia, status post angioplasty, underwent further vascular intervention along with fasciotomy. She had a postop KS and was transferred to [facility] for PCI which resulted in 3 stent placements. She also underwent right AKA and was discharged to [facility] for rehabilitation. She was admitted this time for acute on chronic congestive heart failure, infection secondary to skin excoriation over buttock/inner thigh along with bloody drainage from right AKA sutures. Patient has been evaluated by vascular surgery and AKA site drainage was sent for culture, likely hematoma, remains on empiric antibiotics. Dermatology was contacted regarding skin excoriation, recommend Allevyn, metronidazole gel and frequent position changes. Patient has progressed well throughout hospitalization and currently awaiting acute rehabilitation unit evaluation. 03/31/19 Patient seen in the morning, reports improvement in dyspnea, having dry mouth, right AKA drainage site was packed by vascular surgery, no other complaints, awaiting acute rehabilitation unit evaluation. 04/01/19 Patient seen in the morning, urine output has improved w/ addition of IV albumin, patient without dyspnea, continues to experience dry mouth, now with wound vac over R AKA incision. 04/02/19 Patient seen in the morning, increased dyspnea, increased supplemental oxygen requirement, chest x-ray repeated in the morning showing worsening pulmonary v ascular congestion/edema, transferred to ICU for BiPAP and increased work of breathing. 04/04/19 Patient seen in the morning, comfortable in bed, reports significant improvement in dyspnea, downgraded to floor yesterday, wound VAC removed today by vascular surgery. She continues to require 2-3 L via nasal cannula. 04/05/19 Patient was titrated down to room air earlier today, unfortunately aspirated while taking one of her medications, was placed back on 4L via NC. She currently reports dyspnea & dry cough, worsened due to the aspiration episode, no other complaints. 10 point review of system is negative except for above PHYSICAL EXAMINATION: VITAL SIGNS: Please see below. GENERAL: No distress HEENT: Normocephalic, atraumatic, moist mucous membranes NECK: Supple CARDIOVASCULAR EXAMINATION: S1, S2, no murmurs RESPIRATORY EXAMINATION: Scattered rhonchi, poor air movement, diminished in the bases ABDOMINAL EXAMINATION: Soft, nontender, nondistended, positive bowel sounds EXTREMITIES: Status post right AKA, left lower extremity edema improving SKIN: skin excoriation over buttock & inner thigh, improving NEUROLOGICAL EXAMINATION: Alert and oriented 3, no focal deficits PSYCHIATRIC EXAMINATION: Calm and cooperative LABORATORY DATA: See below. IMAGING: Chest x-ray showing vascular congestion with possible infiltration MICROBIOLOGY: Please see below. ASSESSMENT: 78-year-old female with extensive medical history who underwent recent right AKA and stent placement post KS presents from rehabilitation with symptoms concerning for pneumonia/CHF exacerbation. PLAN: 1. Bilateral pneumonia Continue cefepime, MRSA PCR negative, cultures have remained negative, clinically improving, continues to require supplemental oxygen, awaiting acute rehabilitation unit evaluation. 2. Acute on chronic systolic congestive heart failure. will start diuresis today with Lasix 40 mg IV x1 followed by 40 mg PO daily tomorrow. 3) diabetes mellitus. Sliding scale insulin with meals and at bedtime. 4) atrial fibrillation. Continue amiodarone, not on anticoagulation. 5) coronary artery disease. History of recent KS, status post stent placement 3, continue optimal medical management with aspirin, Plavix, statin and beta isidra. 6) hypertension. Continue Coreg DVT prophylaxis: Heparin subcutaneous GI prophylaxis: Home PPI VS, I&O, 24H, Fishbone Vital Signs/I&O Vital Signs Date Time Temp Pulse Resp B/P (MAP) Pulse Ox O2 Delivery O2 Flow Rate FiO2 04/05/19 20:59 83 128/62 04/05/19 14:00 98.0 20 99 Nasal Cannula 2.0 04/03/19 07:32 28 I&O- Last 24 Hours up to 6 AM 04/05/19 06:00 Intake Total 955 ml Output Total 425 ml Balance 530 ml Laboratory Data 24H LABS Laboratory Tests 2 04/05/19 05:56: Nucleated Red Blood Cells % (auto) 0.0, Anion Gap 3L, Glomerular Filtration Rate > 60.0, Calcium Level 8.1L 04/05/19 12:10: Bedside Glucose (Misc Panel) 206H 04/05/19 17:06: Bedside Glucose (Misc Panel) 124H 04/05/19 20:14: Bedside Glucose (Misc Panel) 280H CBC/BMP Laboratory Tests 04/05/19 05:56 Microbiology Microbiology 04/02/19 Urine Culture - Final, Complete Yeast Like Organism 03/30/19 Gram Stain - Final, Complete 03/30/19 Wound Culture - Final, Complete Staphylococcus Sp Coag Neg 03/29/19 Blood Culture - Final, Complete NO GROWTH AFTER 5 DAYS 03/29/19 Blood Culture - Final, Complete NO GROWTH AFTER 5 DAYS 03/26/19 Blood Culture - Final, Complete NO GROWTH AFTER 5 DAYS 03/26/19 Respiratory Virus Panel (PCR) ([place]) - Final, Complete 03/26/19 Blood Culture - Final, Complete NO GROWTH AFTER 5 DAYS ZI FARMER MD Apr 05, 2019 22:26
[2019-04-05] MEDS ORDERED: FUROSEMIDE 20 MG/2 ML VIAL (J1940) IV ONE (22:30)
[2019-04-06] MEDS: IPRATROPIUM 0.5MG/ALBUTEROL 2.5MG INH SOL UD 3ML (DUONEB)(J7620) NEB SCH ×4 (02:22→21:06)
[2019-04-06] MEDS: ACETAMINOPHEN TAB 650MG DOSE (2X325MG) PO PRN (03:23)
[2019-04-06 06:00] VITALS: BP 121/58
[2019-04-06 06:32] LABS: HEMATOCRIT 27.7 % (36.0-47.0); HEMOGLOBIN 8.5 g/dl (12.0-15.5); MEAN CORPUSCULAR HEMOGLOBIN 30.9 pg (27.0-33.0); MEAN CORPUSCULAR HGB CONC 30.7 g/dl (32.0-36.5); MEAN CORPUSCULAR VOLUME 100.7 fl (80.0-96.0); PLATELET COUNT, AUTOMATED 252 10^3/uL (150-450); RED BLOOD COUNT 2.75 10^6/uL (4.00-5.40); WHITE BLOOD COUNT 12.8 10^3/uL (4.0-10.0)
[2019-04-06 06:48] LABS: BLOOD UREA NITROGEN 28 MG/DL (7-18); CALCIUM LEVEL 8.3 MG/DL (8.8-10.2); CARBON DIOXIDE LEVEL 35 MEQ/L (21-32); CHLORIDE LEVEL 104 MEQ/L (98-107); CREATININE FOR GFR 0.78 MG/DL (0.55-1.30); GLOMERULAR FILTRATION RATE > 60.0 (>32); GLUCOSE, FASTING 162 MG/DL (70-100); SODIUM LEVEL 142 MEQ/L (136-145)
[2019-04-06] MEDS: HumaLOG INSULIN (NovoLOG) PER UNIT SC SCH ×4 (08:39→20:36)
[2019-04-06] MEDS: HEPARIN SOD (PORCINE) 5000 UNITS/ML VIAL (J1644 PER 1000UNITS) SC SCH ×2 (08:39→20:36)
[2019-04-06] MEDS: CARVedilol 6.25 MG TAB PO SCH ×2 (08:41→20:35)
[2019-04-06] MEDS: CALCIUM/VITAMIN D 500 MG TAB PO SCH (08:41)
[2019-04-06] MEDS: ASPIRIN 81 MG CHEW TABLET PO SCH (08:41)
[2019-04-06] MEDS: ASCORBIC ACID 500 MG TAB PO SCH (08:41)
[2019-04-06] MEDS: AMIODARONE 200 MG TAB (PACERONE) PO SCH (08:42)
[2019-04-06] MEDS: DIAPER RELIEF PASTE (DESITIN) 60GM TOP SCH (08:43)
[2019-04-06] MEDS: CLOPIDOGREL 75 MG TAB PO SCH (08:43)
[2019-04-06] MEDS: FUROSEMIDE 40 MG TAB PO SCH (08:43)
[2019-04-06] MEDS: GABAPENTIN 300 MG CAP PO SCH ×2 (08:43→20:34)
--- NOTE | 2019-04-06 10:47 | IPNPDOC ---
Date Seen The patient was seen on 04/06/19. Progress Note SUBJECTIVE: 78-year-old female with past medical history of atrial fibrillation, CHF (EF 25-30%), coronary artery disease, recent GA, status post stent placement, peripheral vascular disease, diabetes mellitus and hypertension, presents with fever and shortness of breath. Patient was admitted to [facility]. one month ago with right lower extremity ischemia, status post angioplasty, underwent further vascular intervention along with fasciotomy. She had a postop GA and was transferred to [facility] for PCI which resulted in 3 stent placements. She also underwent right AKA and was discharged to [facility] for rehabilitation. She was admitted this time for acute on chronic congestive heart failure, infection secondary to skin excoriation over buttock/inner thigh along with bloody drainage from right AKA sutures. Patient has been evaluated by vascular surgery and AKA site drainage was sent for culture, likely hematoma, remains on empiric antibiotics. Dermatology was contacted regarding skin excoriation, recommend Allevyn, metronidazole gel and frequent position changes. Patient has progressed well throughout hospitalization and currently awaiting acute rehabilitation unit evaluation. 03/31/19 Patient seen in the morning, reports improvement in dyspnea, having dry mouth, right AKA drainage site was packed by vascular surgery, no other complaints, awaiting acute rehabilitation unit evaluation. 04/01/19 Patient seen in the morning, urine output has improved w/ addition of IV albumin, patient without dyspnea, continues to experience dry mouth, now with wound vac over R AKA incision. 04/02/19 Patient seen in the morning, increased dyspnea, increased supplemental oxygen requirement, chest x-ray repeated in the morning showing worsening pulmonary va scular congestion/edema, transferred to ICU for BiPAP and increased work of breathing. 04/04/19 Patient seen in the morning, comfortable in bed, reports significant improvement in dyspnea, downgraded to floor yesterday, wound VAC removed today by vascular surgery. She continues to require 2-3 L via nasal cannula. 04/05/19 Patient was titrated down to room air earlier today, unfortunately aspirated while taking one of her medications, was placed back on 4L via NC. She currently reports dyspnea & dry cough, worsened due to the aspiration episode, no other complaints. 04/06/19. Patient with significant improvement in dyspnea today, diuresed well with Lasix last night, FiO2 requirements down to 2 L via nasal cannula, no other complaints, awaiting insurance approval for acute rehabilitation unit. 10 point review of system is negative except for above PHYSICAL EXAMINATION: VITAL SIGNS: Please see below. GENERAL: No distress HEENT: Normocephalic, atraumatic, moist mucous membranes NECK: Supple CARDIOVASCULAR EXAMINATION: S1, S2, no murmurs RESPIRATORY EXAMINATION: Scattered rhonchi, diminished in the bases ABDOMINAL EXAMINATION: Soft, nontender, nondistended, positive bowel sounds EXTREMITIES: Status post right AKA, left lower extremity edema improving SKIN: skin excoriation over buttock & inner thigh, improving NEUROLOGICAL EXAMINATION: Alert and oriented 3, no focal deficits PSYCHIATRIC EXAMINATION: Calm and cooperative LABORATORY DATA: See below. IMAGING: Chest x-ray showing vascular congestion with possible infiltration MICROBIOLOGY: Please see below. ASSESSMENT: 78-year-old female with extensive medical history who underwent recent right AKA and stent placement post GA presents from rehabilitation with symptoms concerning for pneumonia/CHF exacerbation. PLAN: 1. Bilateral pneumonia Continue cefepime, MRSA PCR negative, cultures have remained negative, clinic ally improving, continues to require supplemental oxygen, awaiting insurance approval for acute rehabilitation unit. 2. Acute on chronic systolic congestive heart failure. Diuresed well with IV Lasix yesterday, continue Lasix 40 mg by mouth daily. 3) diabetes mellitus. Sliding scale insulin with meals and at bedtime. 4) atrial fibrillation. Continue amiodarone, not on anticoagulation. 5) coronary artery disease. History of recent GA, status post stent placement 3, continue optimal medical management with aspirin, Plavix, statin and beta isidra. 6) hypertension. Continue Coreg DVT prophylaxis: Heparin subcutaneous GI prophylaxis: Home PPI VS, I&O, 24H, Dewaynebone Vital Signs/I&O Vital Signs Date Time Temp Pulse Resp B/P (MAP) Pulse Ox O2 Delivery O2 Flow Rate FiO2 04/06/19 08:41 85 130/59 04/06/19 06:00 97.6 17 97 Nasal Cannula 2.0 04/03/19 07:32 28 I&O- Last 24 Hours up to 6 AM 04/06/19 06:00 Intake Total 1540 ml Output Total 2550 ml Balance -1010 ml Laboratory Data 24H LABS Laboratory Tests 2 04/05/19 12:10: Bedside Glucose (Misc Panel) 206H 04/05/19 17:06: Bedside Glucose (Misc Panel) 124H 04/05/19 20:14: Bedside Glucose (Misc Panel) 280H 04/06/19 06:05: Nucleated Red Blood Cells % (auto) 0.0, Anion Gap 3L, Glomerular Filtration Rate > 60.0, Calcium Level 8.3L CBC/BMP Laboratory Tests 04/06/19 06:05 Microbiology Microbiology 04/02/19 Urine Culture - Final, Complete Yeast Like Organism 03/30/19 Gram Stain - Final, Complete 03/30/19 Wound Culture - Final, Complete Staphylococcus Sp Coag Neg 03/29/19 Blood Culture - Final, Complete NO GROWTH AFTER 5 DAYS 03/29/19 Blood Culture - Final, Complete NO GROWTH AFTER 5 DAYS ZI FARMER MD Apr 06, 2019 10:47
[2019-04-06] MEDS: CEFEPIME HCL 2 GM in D5W MINI-BAG PLUS 50 ML IV SCH ×2 (12:19→23:55)
[2019-04-06 14:00] VITALS: BP 123/58
--- NOTE | 2019-04-06 15:30 | IPNPDOC ---
Date Seen The patient was seen on 04/06/19. Progress Note Pt seen and examined. Says she is only a little SOB today, but feeling better. Her dressing was changed by the nurses just before my arrival, but I peaked at her wound and there is good granulation tissue at the base and edges of the wound, which I am hopeful will help decrease the drainage with regular dressing changes. Prior to wound vac dressings, the hydrofera blue and foam dressings were rapidly saturated, and if she develops skin excoriation now that we have resumed these daily dressing changes, we will replace the wound vac. However, so far the skin edges are healing well medial and lateral to the small open area s/p staple removal earlier this week and there is no surrounding excoriation or erythema of the skin. Overall, I am pleased with her wound progress this week and the patient says she tolerated the dressing change well, with small piece of hydrofera blue and foam border dressing replaced. If we could just get her nutrition improved, but unfortunately the patient still has very little appetite. She is trying to drink her supplement shakes, but otherwise has fairly poor PO intake. If possible, will like her to have a much higher protein intake for wound healing, but unfortunately at this point she doesn't seem to be able to eat very much. We will continue to follow. VS, I&O, 24H, Dewaynebone Vital Signs/I&O Vital Signs Date Time Temp Pulse Resp B/P (MAP) Pulse Ox O2 Delivery O2 Flow Rate FiO2 04/06/19 09:30 3.0 04/06/19 08:41 85 130/59 04/06/19 06:00 97.6 17 97 Nasal Cannula 04/03/19 07:32 28 I&O- Last 24 Hours up to 6 AM 04/06/19 06:00 Intake Total 1540 ml Output Total 2550 ml Balance -1010 ml Laboratory Data 24H LABS Laboratory Tests 2 04/05/19 17:06: Bedside Glucose (Misc Panel) 124H 04/05/19 20:14: Bedside Glucose (Misc Panel) 280H 04/06/19 06:05: Nucleated Red Blood Cells % (auto) 0.0, Anion Gap 3L, Glomerular Filtration Rate > 60.0, Calcium Level 8.3L 04/06/19 11:46: Bedside Glucose (Misc Panel) 169H CBC/BMP Laboratory Tests 04/06/19 06:05 Microbiology Microbiology 04/02/19 Urine Culture - Final, Complete Yeast Like Organism 03/30/19 Gram Stain - Final, Complete 03/30/19 Wound Culture - Final, Complete Staphylococcus Sp Coag Neg 03/29/19 Blood Culture - Final, Complete NO GROWTH AFTER 5 DAYS 03/29/19 Blood Culture - Final, Complete NO GROWTH AFTER 5 DAYS LI OBREGON MD Apr 06, 2019 15:30
[2019-04-06] MEDS: ATORVASTATIN 20 MG TAB PO SCH (20:34)
[2019-04-06] MEDS: DOCUSATE SODIUM 100 MG CAP PO SCH (20:35)
[2019-04-06] MEDS: FLUCONAZOLE 100 MG TAB PO SCH (20:35)
[2019-04-06 21:06] VITALS: O2SAT 96
[2019-04-06 22:00] VITALS: BP 111/62
[2019-04-07] MEDS: IPRATROPIUM 0.5MG/ALBUTEROL 2.5MG INH SOL UD 3ML (DUONEB)(J7620) NEB SCH ×4 (04:27→19:40)
[2019-04-07 06:00] VITALS: BP 122/53
[2019-04-07] MEDS: HumaLOG INSULIN (NovoLOG) PER UNIT SC SCH ×4 (08:31→21:00)
[2019-04-07] MEDS: AMIODARONE 200 MG TAB (PACERONE) PO SCH (08:32)
[2019-04-07] MEDS: CLOPIDOGREL 75 MG TAB PO SCH (08:32)
[2019-04-07] MEDS: HEPARIN SOD (PORCINE) 5000 UNITS/ML VIAL (J1644 PER 1000UNITS) SC SCH ×2 (08:32→22:57)
[2019-04-07] MEDS: ASPIRIN 81 MG CHEW TABLET PO SCH (08:32)
[2019-04-07] MEDS: DIAPER RELIEF PASTE (DESITIN) 60GM TOP SCH (08:32)
[2019-04-07] MEDS: ASCORBIC ACID 500 MG TAB PO SCH (08:33)
[2019-04-07] MEDS: CALCIUM/VITAMIN D 500 MG TAB PO SCH (08:33)
[2019-04-07] MEDS: GABAPENTIN 300 MG CAP PO SCH ×2 (08:33→22:56)
[2019-04-07] MEDS: FUROSEMIDE 40 MG TAB PO SCH (08:33)
[2019-04-07] MEDS: CARVedilol 6.25 MG TAB PO SCH ×2 (08:34→22:56)
--- NOTE | 2019-04-07 09:00 | IPNPDOC ---
Text Note Date of Service The patient was seen on 04/07/19. NOTE Pt seen and examined. Her dressing was changed this AM, good granulation tissue at the base and edges of the wound. The skin edges appear to be healing, no surrounding excoriation or erythema of the skin. No maceration of the skin. Continue to monitor wound progress. Continue with small piece of hydrofera blue and foam dressing daily. If possible, will like her to have a much higher protein intake for wound healing, but unfortunately at this point she doesn't seem to be able to eat very much. We will continue to follow. VS,Fishbone, I+O VS, Fishbone, I+O Vital Signs Date Time Temp Pulse Resp B/P (MAP) Pulse Ox O2 Delivery O2 Flow Rate FiO2 04/07/19 07:56 82 20 04/07/19 06:00 97.9 122/53 (76) 95 Nasal Cannula 2.0 04/06/19 21:06 32 I&O- Last 24 Hours up to 6 AM 04/07/19 06:00 Intake Total 1850 ml Output Total 625 ml Balance 1225 ml Blanche Gómez Apr 07, 2019 09:00
--- NOTE | 2019-04-07 11:29 | REP ---
CHEST, TWO VIEWS: Two views of the chest performed and compared to a prior study of 04/04/2019. Bilateral infiltrates and effusions do not appear to have significantly changed. Cardiac silhouette is mildly prominent and is probably magnified. Metallic clips are seen in the right axillary region. IMPRESSION: Bilateral infiltrates and effusions appear quite similar to the prior study of 04/04/2019. Electronically Signed by Abraham Eddy MD 04/07/2019 01:35 P
[2019-04-07 14:00] VITALS: BP 118/51
[2019-04-07] MEDS: IPRATROPIUM 0.5MG/ALBUTEROL 2.5MG INH SOL UD 3ML (DUONEB)(J7620) NEB PRN (17:03)
--- NOTE | 2019-04-07 20:02 | IPNPDOC ---
Date Seen The patient was seen on 04/07/19. Progress Note SUBJECTIVE: 78-year-old female with past medical history of atrial fibrillation, CHF (EF 25-30%), coronary artery disease, recent TN, status post stent p lacement, peripheral vascular disease, diabetes mellitus and hypertension, presents with fever and shortness of breath. Patient was admitted to [facility]. one month ago with right lower extremity ischemia, status post angioplasty, underwent further vascular intervention along with fasciotomy. She had a postop TN and was transferred to [facility] for PCI which resulted in 3 stent placements. She also underwent right AKA and was discharged to [facility] for rehabilitation. She was admitted this time for acute on chronic congestive heart failure, infection secondary to skin excoriation over buttock/inner thigh along with bloody drainage from right AKA sutures. Patient has been evaluated by vascular surgery and AKA site drainage was sent for culture, likely hematoma, remains on empiric antibiotics. Dermatology was contacted regarding skin excoriation, recommend Allevyn, metronidazole gel and frequent position changes. Patient has progressed well throughout hospitalization and currently awaiting acute rehabilitation unit evaluation. 03/31/19 Patient seen in the morning, reports improvement in dyspnea, having dry mouth, right AKA drainage site was packed by vascular surgery, no other complaints, awaiting acute rehabilitation unit evaluation. 04/01/19 Patient seen in the morning, urine output has improved w/ addition of IV albumin, patient without dyspnea, continues to experience dry mouth, now with wound vac over R AKA incision. 04/02/19 Patient seen in the morning, increased dyspnea, increased supplemental oxygen requirement, chest x-ray repeated in the morning showing worsening pulmonary vascular congestion/edema, transferred to ICU for BiPAP and increased work of breathing. 04/04/19 Patient seen in the morning, comfortable in bed, reports significant improvement in dyspnea, downgraded to floor yesterday, wound VAC removed today by vascular surgery. She continues to require 2-3 L via nasal cannula. 04/05/19 Patient was titrated down to room air earlier today, unfortunately aspirated irene hummel taking one of her medications, was placed back on 4L via NC. She currently reports dyspnea & dry cough, worsened due to the aspiration episode, no other complaints. 04/06/19. Patient with significant improvement in dyspnea today, diuresed well with Lasix last night, FiO2 requirements down to 2 L via nasal cannula, no other complaints, awaiting insurance approval for acute rehabilitation unit. 04/07/19 Patient seen in the morning, continues to have dyspnea, continues to require supplemental oxygen via NC, no acute events overnight, no other complaints. 10 point review of system is negative except for above PHYSICAL EXAMINATION: VITAL SIGNS: Please see below. GENERAL: No distress HEENT: Normocephalic, atraumatic, moist mucous membranes NECK: Supple CARDIOVASCULAR EXAMINATION: S1, S2, no murmurs RESPIRATORY EXAMINATION: Scattered rhonchi, diminished in the bases ABDOMINAL EXAMINATION: Soft, nontender, nondistended, positive bowel sounds EXTREMITIES: Status post right AKA, left lower extremity edema improving SKIN: skin excoriation over buttock & inner thigh, improving NEUROLOGICAL EXAMINATION: Alert and oriented 3, no focal deficits PSYCHIATRIC EXAMINATION: Calm and cooperative LABORATORY DATA: See below. IMAGING: Chest x-ray shows stable infiltrate & bilateral pleural effusions. MICROBIOLOGY: Please see below. ASSESSMENT: 78-year-old female with extensive medical history who underwent recent right AKA and stent placement post TN presents from rehabilitation with symptoms concerning for pneumonia/CHF exacerbation. PLAN: 1. Bilateral pneumonia s/p antibiotics, cultures have remained negative, remains dyspneic & requiring supplemental oxygen, likely multifactorial from CHF w/ b/l pleural effusions, pneumonia & h/o radiation for Lung/breast Ca, Pulmonary consulted for assistance in further management. 2. Acute on chronic systolic congestive heart failure. repeat CXR showing stable pleural effusions, continue Lasix 40 mg by mouth daily. 3) diabetes mellitus. Sliding scale insulin with meals and at bedtime. 4) atrial fibrillation. Continue amiodarone, not on anticoagulation. 5) coronary artery disease. History of recent TN, status post stent placement 3, continue optimal medical management with aspirin, Plavix, statin and beta isidra. 6) hypertension. Continue Coreg DVT prophylaxis: Heparin subcutaneous GI prophylaxis: Home PPI VS, I&O, 24H, Fishbone Vital Signs/I&O Vital Signs Date Time Temp Pulse Resp B/P (MAP) Pulse Ox O2 Delivery O2 Flow Rate FiO2 04/07/19 19:40 80 04/07/19 14:00 97.7 20 118/51 (73) 91 04/07/19 09:00 2.0 04/07/19 06:00 Nasal Cannula 04/06/19 21:06 32 I&O- Last 24 Hours up to 6 AM 04/07/19 06:00 Intake Total 1850 ml Output Total 625 ml Balance 1225 ml Laboratory Data 24H LABS Laboratory Tests 2 04/06/19 20:04: Bedside Glucose (Misc Panel) 252H 04/07/19 05:19: Bedside Glucose (Misc Panel) 175H 04/07/19 11:42: Bedside Glucose (Misc Panel) 215H 04/07/19 16:46: Bedside Glucose (Misc Panel) 147H Microbiology Microbiology 04/02/19 Urine Culture - Final, Complete Yeast Like Organism 03/30/19 Gram Stain - Final, Complete 03/30/19 Wound Culture - Final, Complete Staphylococcus Sp Coag Neg 03/29/19 Blood Culture - Final, Complete NO GROWTH AFTER 5 DAYS 03/29/19 Blood Culture - Final, Complete NO GROWTH AFTER 5 DAYS ZI FARMER MD Apr 07, 2019 20:02
[2019-04-07] MEDS: DOCUSATE SODIUM 100 MG CAP PO SCH (21:00)
[2019-04-07 22:00] VITALS: BP 145/68
[2019-04-07] MEDS: ATORVASTATIN 20 MG TAB PO SCH (22:56)
[2019-04-08] MEDS: IPRATROPIUM 0.5MG/ALBUTEROL 2.5MG INH SOL UD 3ML (DUONEB)(J7620) NEB SCH ×4 (01:26→20:06)
[2019-04-08 06:00] VITALS: BP 125/73
--- NOTE | 2019-04-08 07:46 | IPNPDOC ---
Date Seen The patient was seen on 04/08/19. Progress Note Patient seen and examined. Doing well today. Her open area on her right AKA is improving, but is still has serous drainage daily, and I'm wondering if I replaced the wound VAC for a few days if that would help the deep aspect to granulate in better and it might diminish the drainage. I replaced the Hydrofera Blue and foam for now, but likely will come back this afternoon and place a wound VAC on the distal stump. The patient has been counseled about this and she is agreeable. She is awaiting in an ARU consult, and thinks she might be going to rehabilitation later this week or next week, so we will likely do the wound VAC until she goes to rehabilitation and then restart Hydrofera Blue and foam dressings. She is agreeable to this plan. VS, I&O, 24H, Fishbone Vital Signs/I&O Vital Signs Date Time Temp Pulse Resp B/P (MAP) Pulse Ox O2 Delivery O2 Flow Rate FiO2 04/08/19 06:00 98.1 85 20 125/73 (90) 95 Nasal Cannula 2.0 04/06/19 21:06 32 I&O- Last 24 Hours up to 6 AM 04/08/19 06:00 Intake Total 940 ml Output Total 1400 ml Balance -460 ml Laboratory Data 24H LABS Laboratory Tests 2 04/07/19 11:42: Bedside Glucose (Misc Panel) 215H 04/07/19 16:46: Bedside Glucose (Misc Panel) 147H 04/07/19 20:39: Bedside Glucose (Misc Panel) 231H Microbiology Microbiology 04/02/19 Urine Culture - Final, Complete Yeast Like Organism 03/30/19 Gram Stain - Final, Complete 03/30/19 Wound Culture - Final, Complete Staphylococcus Sp Coag Neg 03/29/19 Blood Culture - Final, Complete NO GROWTH AFTER 5 DAYS 03/29/19 Blood Culture - Final, Complete NO GROWTH AFTER 5 DAYS LI OBREGON MD Apr 08, 2019 07:46
[2019-04-08] MEDS: CARVedilol 6.25 MG TAB PO SCH ×2 (08:26→22:12)
[2019-04-08] MEDS: AMIODARONE 200 MG TAB (PACERONE) PO SCH (08:26)
[2019-04-08] MEDS: CALCIUM/VITAMIN D 500 MG TAB PO SCH (08:26)
[2019-04-08] MEDS: FUROSEMIDE 40 MG TAB PO SCH ×2 (08:26→18:37)
[2019-04-08] MEDS: CLOPIDOGREL 75 MG TAB PO SCH (08:26)
[2019-04-08] MEDS: GABAPENTIN 300 MG CAP PO SCH ×2 (08:26→22:12)
[2019-04-08] MEDS: HumaLOG INSULIN (NovoLOG) PER UNIT SC SCH ×4 (08:27→21:00)
[2019-04-08] MEDS: ASPIRIN 81 MG CHEW TABLET PO SCH (08:27)
[2019-04-08] MEDS: ASCORBIC ACID 500 MG TAB PO SCH (08:28)
[2019-04-08] MEDS: HEPARIN SOD (PORCINE) 5000 UNITS/ML VIAL (J1644 PER 1000UNITS) SC SCH ×2 (08:28→22:13)
[2019-04-08] MEDS: DIAPER RELIEF PASTE (DESITIN) 60GM TOP SCH (08:29)
[2019-04-08 14:00] VITALS: BP 120/79
[2019-04-08 14:13] LABS: NT-PRO BNP 15613 PG/ML (<450)
[2019-04-08 18:26] LABS: BASO # 0.1 10^3/uL (0.0-0.2); BASO % 0.7 % (0.0-1.0); EOS # 0.4 10^3/uL (0.0-0.5); EOS % 2.8 % (0.0-3.0); HEMATOCRIT 31.4 % (36.0-47.0); HEMOGLOBIN 9.6 g/dl (12.0-15.5); MEAN CORPUSCULAR HEMOGLOBIN 30.8 pg (27.0-33.0); MEAN CORPUSCULAR HGB CONC 30.6 g/dl (32.0-36.5); MEAN CORPUSCULAR VOLUME 100.6 fl (80.0-96.0); MONO % 7.1 % (0.0-5.0); NEUTROPHILS # 11.6 10^3/uL (1.5-8.5); NEUTROPHILS % 80.7 % (36.0-66.0); PLATELET COUNT, AUTOMATED 269 10^3/uL (150-450); RED BLOOD COUNT 3.12 10^6/uL (4.00-5.40); WHITE BLOOD COUNT 14.3 10^3/uL (4.0-10.0)
--- NOTE | 2019-04-08 18:39 | IPNPDOC ---
Date Seen The patient was seen on 04/08/19. Progress Note SUBJECTIVE: 78-year-old female with past medical history of atrial fibrillation, CHF (EF 25-30%), coronary artery disease, recent FL, status post stent p lacement, peripheral vascular disease, diabetes mellitus and hypertension, presents with fever and shortness of breath. Patient was admitted to [facility]. one month ago with right lower extremity ischemia, status post angioplasty, underwent further vascular intervention along with fasciotomy. She had a postop FL and was transferred to [facility] for PCI which resulted in 3 stent placements. She also underwent right AKA and was discharged to [facility] for rehabilitation. She was admitted this time for acute on chronic congestive heart failure, infection secondary to skin excoriation over buttock/inner thigh along with bloody drainage from right AKA sutures. Patient has been evaluated by vascular surgery and AKA site drainage was sent for culture, likely hematoma, remains on empiric antibiotics. Dermatology was contacted regarding skin excoriation, recommend Allevyn, metronidazole gel and frequent position changes. Patient has progressed well throughout hospitalization and currently awaiting acute rehabilitation unit evaluation. 03/31/19 Patient seen in the morning, reports improvement in dyspnea, having dry mouth, right AKA drainage site was packed by vascular surgery, no other complaints, awaiting acute rehabilitation unit evaluation. 04/01/19 Patient seen in the morning, urine output has improved w/ addition of IV albumin, patient without dyspnea, continues to experience dry mouth, now with wound vac over R AKA incision. 04/02/19 Patient seen in the morning, increased dyspnea, increased supplemental oxygen requirement, chest x-ray repeated in the morning showing worsening pulmonary vascular congestion/edema, transferred to ICU for BiPAP and increased work of breathing. 04/04/19 Patient seen in the morning, comfortable in bed, reports significant improvement in dyspnea, downgraded to floor yesterday, wound VAC removed today by vascular surgery. She continues to require 2-3 L via nasal cannula. 04/05/19 Patient was titrated down to room air earlier today, unfortunately aspirated irene hummel taking one of her medications, was placed back on 4L via NC. She currently reports dyspnea & dry cough, worsened due to the aspiration episode, no other complaints. 04/06/19. Patient with significant improvement in dyspnea today, diuresed well with Lasix last night, FiO2 requirements down to 2 L via nasal cannula, no other complaints, awaiting insurance approval for acute rehabilitation unit. 04/07/19 Patient seen in the morning, continues to have dyspnea, continues to require supplemental oxygen via NC, no acute events overnight, no other complaints. 04/08/19 Patient comfortable in chair, continues to have slight dyspnea & requiring supplemental oxygen, unchanged from yesterday, no other complaints, awaiting insurance approval for ARU. 10 point review of system is negative except for above PHYSICAL EXAMINATION: VITAL SIGNS: Please see below. GENERAL: No distress HEENT: Normocephalic, atraumatic, moist mucous membranes NECK: Supple CARDIOVASCULAR EXAMINATION: S1, S2, no murmurs RESPIRATORY EXAMINATION: Scattered rhonchi, diminished in the bases ABDOMINAL EXAMINATION: Soft, nontender, nondistended, positive bowel sounds EXTREMITIES: Status post right AKA, left lower extremity edema improving SKIN: skin excoriation over buttock & inner thigh, improving NEUROLOGICAL EXAMINATION: Alert and oriented 3, no focal deficits PSYCHIATRIC EXAMINATION: Calm and cooperative LABORATORY DATA: See below. IMAGING: Chest x-ray shows stable infiltrate & bilateral pleural effusions. MICROBIOLOGY: Please see below. ASSESSMENT: 78-year-old female with extensive medical history who underwent recent right AKA and stent placement post FL presents from rehabilitation with symptoms concerning for pneumonia/CHF exacerbation. PLAN: 1. Bilateral pneumonia s/p antibiotics, cultures have remained negative, remains dyspneic & requiring supplemental oxygen, likely multifactorial from CHF w/ b/l pleural effusions, pneumonia & h/o radiation for Lung/breast Ca, Pulmonary consult appreciated. 2. Acute on chronic systolic congestive heart failure. repeat CXR showing stable pleural effusions, increase Lasix to 40 mg BID. 3) diabetes mellitus. Sliding scale insulin with meals and at bedtime. 4) atrial fibrillation. Continue amiodarone, not on anticoagulation. 5) coronary artery disease. History of recent FL, status post stent placement 3, continue optimal medical management with aspirin, Plavix, statin and beta isidra. 6) hypertension. Continue Coreg DVT prophylaxis: Heparin subcutaneous GI prophylaxis: Home PPI VS, I&O, 24H, Fishbone Vital Signs/I&O Vital Signs Date Time Temp Pulse Resp B/P (MAP) Pulse Ox O2 Delivery O2 Flow Rate FiO2 04/08/19 14:00 98.0 78 14 120/79 (93) 91 Nasal Cannula 2.0 04/06/19 21:06 32 I&O- Last 24 Hours up to 6 AM 04/08/19 06:00 Intake Total 940 ml Output Total 1400 ml Balance -460 ml Laboratory Data 24H LABS Laboratory Tests 2 04/07/19 20:39: Bedside Glucose (Misc Panel) 231H 04/08/19 12:05: Bedside Glucose (Misc Panel) 206H 04/08/19 16:56: Bedside Glucose (Misc Panel) 240H Microbiology Microbiology 04/02/19 Urine Culture - Final, Complete Yeast Like Organism 03/30/19 Gram Stain - Final, Complete 03/30/19 Wound Culture - Final, Complete Staphylococcus Sp Coag Neg 03/29/19 Blood Culture - Final, Complete NO GROWTH AFTER 5 DAYS 03/29/19 Blood Culture - Final, Complete NO GROWTH AFTER 5 DAYS ZI FARMER MD Apr 08, 2019 18:39
[2019-04-08 18:59] LABS: ALBUMIN 2.1 GM/DL (3.2-5.2); ALT/SGPT 62 U/L (12-78); BILIRUBIN,TOTAL 0.3 MG/DL (0.2-1.0); BLOOD UREA NITROGEN 25 MG/DL (7-18); CARBON DIOXIDE LEVEL 35 MEQ/L (21-32); CHLORIDE LEVEL 102 MEQ/L (98-107); CREATININE FOR GFR 0.77 MG/DL (0.55-1.30); GLOMERULAR FILTRATION RATE > 60.0 (>32); GLUCOSE, FASTING 206 MG/DL (70-100); POTASSIUM SERUM 3.6 MEQ/L (3.5-5.1); SODIUM LEVEL 141 MEQ/L (136-145); TOTAL PROTEIN 5.9 GM/DL (6.4-8.2)
--- NOTE | 2019-04-08 20:36 | CR ---
DATE OF CONSULTATION: 04/08/2019 CHIEF COMPLAINT: Shortness of breath. HISTORY OF PRESENT ILLNESS: Ms. Montiel is an 78-year-old female with a past medical history of atrial fibrillation, congestive heart failure (CHF), diabetes, hypertension, history of a recent admission with a right lower extremity ischemia, status post angioplasty and complicated by the need for a fasciotomy as well as with a postop myocardial infarction (UT), was transferred to [facility] for percutaneous coronary intervention (PCI) with 3 stent placements. The patient then also underwent a right ojzxn-pos-lgxj amputation (AKA) and was discharged to [facility] for rehabilitation. She presented almost 2 weeks ago now with complaints of increasing shortness of breath as well as with a fever. The patient was admitted for pneumonia as well as for a CHF exacerbation and was treated during her stay here with antibiotics, broad-spectrum initially with vancomycin and meropenem, and more recently had been on cefepime. The patient was also being diuresed with Lasix, although she did have issues with her renal function and had required albumin to assist with her diuresis given her hypoalbuminemia. Pulmonary is consulted as the patient continues to have symptoms of shortness of breath and dyspnea, which she states has not been improving. She is also still requiring nasal cannula oxygen supplementation when she has not usually been on any oxygen previous to her hospitalizations. The patient has not had any recent fevers. She denies having any chills. She denies any chest pain besides her shortness of breath. She does complain of some cough occasionally productive of mucus, but does not feel that it has been significantly worsening. She does not notice if she coughs particularly after she eats or drinks. She denies any abdominal pain, has had not had any nausea or vomiting. She does have some weakness, but she has been out of bed into the chair earlier in the day. PAST MEDICAL AND SURGICAL HISTORY: 1. Atrial fibrillation. 2. Congestive heart failure (CHF). 3. Diabetes. 4. Hypertension. 5. Coronary artery disease (CAD). 6. Myocardial infarction (UT) status post percutaneous coronary intervention (PCI) and stent. 7. Peripheral vascular disease. 8. Right zfvij-vor-cavw amputation (AKA). FAMILY HISTORY: Positive for a family history of heart disease. SOCIAL HISTORY: The patient is a former smoker. Denies history of alcohol use or drug use. HOME MEDICATIONS: - amiodarone - vitamin C - aspirin - atorvastatin - calcium - carvedilol - Plavix - furosemide 40 mg daily - gabapentin - insulin - multivitamin - miconazole cream - docusate - omeprazole - potassium chloride - Percocet as needed - magnesium hydroxide as needed - nitroglycerin as needed - Tylenol as needed ALLERGIES: EXAMETAZIME AND PENICILLIN. PHYSICAL EXAMINATION: VITAL SIGNS: Temperature 98.1, pulse of 85, respirations 20, blood pressure 125/73, oxygen saturation 95% on 3 liters nasal cannula. INPUT AND OUTPUT: Ins 940 mL, out 1.2 liters, net negative 260 mL. GENERAL: The patient is lying in bed, does not appear to be in any acute distress, is not using any accessory muscles for respiration and is speaking in full sentences. HEENT: Normocephalic, atraumatic. Pupils are reactive to light bilaterally. Neck is supple. There is no palpable cervical adenopathy and trachea is midline. CARDIOVASCULAR: Irregularly irregular with a normal S1, S2, with a systolic murmur. PULMONARY: There are crackles at the bases bilaterally with some diminished breath sounds. No wheezing. ABDOMEN: Obese, soft, nontender, nondistended. LOWER EXTREMITIES: There is +1 pitting edema in the ankle and feet on her left lower extremity. Her right lower extremity is status post AKA. LABORATORY DATA: No labs for today. MICROBIOLOGY: Previous blood cultures have been no growth to date. Respiratory virus panel previously was negative. A wound culture had previously been positive for Staphylococcus coagulase-negative, which was methicillin-resistant. IMAGING: Chest x-ray from 04/07/2019 shows some pulmonary vascular congestion with some interstitial opacities and some consolidation, more on the right upper lobe than in the left upper lobe. There is a right pleural effusion as well with fluid tracking into the fissure. CT angiogram from 04/02/2019 showed bilateral pleural effusions, right slightly with greater than the left. There are also bilateral opacities, more in the upper lobes, with some ground-glass opacity and intralobular septal thickening. There is no pulmonary embolism noted. There is no significant mediastinal or hilar adenopathy. Echocardiogram from 04/02/2019 showed a reduced ejection fraction (EF) approximately 30-35% with some areas of hypokinesis. There is a mildly enlarged left atrium as well as a small pericardial effusion with no evidence of tamponade. There is also moderate mitral regurgitation and mild tricuspid regurgitation with mild pulmonary hypertension. ASSESSMENT AND PLAN: Ms. Montiel is a 78-year-old female with a past medical history of CHF, atrial fibrillation, peripheral vascular disease, diabetes, hypertension, recent UT, status post stent, who presented from rehabilitation with complaints of shortness of breath and fever. The patient was admitted almost two weeks ago now and was treated for pneumonia with broad-spectrum antibiotics as well as with Lasix for decompensated CHF. Pulmonary was consulted today, as the patient continues to have shortness of breath which she states has not improved in the past few days. The patient's recent chest x-ray shows evidence of some pulmonary vascular congestion, as well as some interstitial opacities, more in the right upper lobe then in the left, as well as a right pleural effusion. Her previous CT showed evidence of bilateral pleural effusions with some ground-glass opacities and consolidation, more in the upper lobes, with intralobular septal thickening as well, which is consistent with pulmonary edema. She does have significantly elevated BNP, which on this admission, has continued to trend up a despite diuresis. The patient has been documented to have weights that are decreasing; however, her last reported input and output show she has not been significantly net negative. On exam, she does have evidence of crackles as well as some pitting edema in her left lower extremity and she does have hypoalbuminemia. Patient's echocardiogram on this admission also showed evidence of reduced EF, as well as with some moderate mitral regurgitation. Suspect her shortness of breath is likely due to pulmonary edema and that her persistent right upper lobe opacity may be due to her mitral regurgitation with a regurgitant jet directed into the right upper lobe causing more edema differentially there compared to the other lobes. She does have a reported difficulty with diuresis given her hypoalbuminemia and so she may need additional albumin to help with diuresis. She does not have any labs for today, so we will followup with her repeat labs including her renal function as well as with her albumin today. The patient likely does also have a component of atelectasis as well, given her prolonged hospitalization and other medical issues leading up to this. We did encourage her to use an incentive spirometer as well. The patient does have some leukocytosis from her complete blood count (CBC) a few days ago, but she has been afebrile and she did complete treatment with broad-spectrum antibiotics for pneumonia. Her last procalcitonin had also trended down, making a continued bacterial infection less likely. - Would continue with diuresis then, with close monitoring of her ins and outs. Would consider additional albumin supplementation as needed to help with diuresis. - The patient will likely need cardiology evaluation, given her persistent reduced EF, as well as with her moderate mitral regurgitation. The patient is on cardiac medications such as a beta isidra as well as a statin and aspirin and Plavix. She is also on amiodarone for rate control for her atrial fibrillation. Given her reduced EF, she may also benefit from an angiotensin-converting enzyme (CANDICE) inhibitor, but would defer to her primary team to start that. She was previously seen by Dr. Albright for cardiology during her last admission. - Would continue to monitor her white count. If increasing, would consider potentially a diagnostic and therapeutic thoracentesis for her right pleural effusion, although it is most likely related to her CHF and third spacing. 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 She does need repeat imaging for evaluation and followup with pulmonary as an outpatient. - Will continue with nasal cannula oxygen supplementation and continue to wean down as tolerated to maintain an oxygen saturation above 90%. Deep venous thrombosis (DVT) prophylaxis. Heparin. FULL CODE. Please do not hesitate to call for any further questions or concerns. MTDD
[2019-04-08 22:00] VITALS: BP 125/54
[2019-04-08] MEDS: ATORVASTATIN 20 MG TAB PO SCH (22:12)
[2019-04-08] MEDS: DOCUSATE SODIUM 100 MG CAP PO SCH (22:12)
[2019-04-09] MEDS: IPRATROPIUM 0.5MG/ALBUTEROL 2.5MG INH SOL UD 3ML (DUONEB)(J7620) NEB SCH ×4 (02:00→19:48)
[2019-04-09 06:00] VITALS: BP 144/66
[2019-04-09 06:14] LABS: BASO # 0.2 10^3/uL (0.0-0.2); EOS # 0.7 10^3/uL (0.0-0.5); EOS % 4.3 % (0.0-3.0); HEMATOCRIT 32.1 % (36.0-47.0); HEMOGLOBIN 9.8 g/dl (12.0-15.5); LYMPH % 6.2 % (24.0-44.0); MEAN CORPUSCULAR HGB CONC 30.5 g/dl (32.0-36.5); MEAN CORPUSCULAR VOLUME 101.6 fl (80.0-96.0); MONO # 1.1 10^3/uL (0.0-0.8); MONO % 6.9 % (0.0-5.0); NEUTROPHILS # 12.4 10^3/uL (1.5-8.5); NEUTROPHILS % 79.5 % (36.0-66.0); PLATELET COUNT, AUTOMATED 274 10^3/uL (150-450); RED BLOOD COUNT 3.16 10^6/uL (4.00-5.40); WHITE BLOOD COUNT 15.6 10^3/uL (4.0-10.0)
[2019-04-09 06:35] LABS: BLOOD UREA NITROGEN 24 MG/DL (7-18); CALCIUM LEVEL 8.6 MG/DL (8.8-10.2); CARBON DIOXIDE LEVEL 37 MEQ/L (21-32); CHLORIDE LEVEL 102 MEQ/L (98-107); CREATININE FOR GFR 0.66 MG/DL (0.55-1.30); GLOMERULAR FILTRATION RATE > 60.0 (>32); GLUCOSE, FASTING 173 MG/DL (70-100); POTASSIUM SERUM 3.6 MEQ/L (3.5-5.1); SODIUM LEVEL 142 MEQ/L (136-145)
[2019-04-09] MEDS: HumaLOG INSULIN (NovoLOG) PER UNIT SC SCH ×4 (08:05→21:00)
[2019-04-09] MEDS: CLOPIDOGREL 75 MG TAB PO SCH (08:05)
[2019-04-09] MEDS: FUROSEMIDE 40 MG TAB PO SCH ×2 (08:05→17:04)
[2019-04-09] MEDS: AMIODARONE 200 MG TAB (PACERONE) PO SCH (08:05)
[2019-04-09] MEDS: GABAPENTIN 300 MG CAP PO SCH ×2 (08:05→22:07)
[2019-04-09] MEDS: ASPIRIN 81 MG CHEW TABLET PO SCH (08:05)
[2019-04-09] MEDS: CALCIUM/VITAMIN D 500 MG TAB PO SCH (08:05)
[2019-04-09] MEDS: ASCORBIC ACID 500 MG TAB PO SCH (08:05)
[2019-04-09] MEDS: DIAPER RELIEF PASTE (DESITIN) 60GM TOP SCH (08:06)
[2019-04-09] MEDS: HEPARIN SOD (PORCINE) 5000 UNITS/ML VIAL (J1644 PER 1000UNITS) SC SCH ×2 (08:06→22:07)
[2019-04-09] MEDS: CARVedilol 6.25 MG TAB PO SCH ×2 (08:06→22:07)
[2019-04-09] MEDS ORDERED: POTASSIUM CHLORIDE 10 MEQ SR TABLET PO ONE (09:00)
[2019-04-09 14:00] VITALS: BP 128/60
--- NOTE | 2019-04-09 19:04 | IPNPDOC ---
Date Seen The patient was seen on 04/09/19. Progress Note SUBJECTIVE: 78-year-old female with past medical history of atrial fibrillation, CHF (EF 25-30%), coronary artery disease, recent VA, status post stent placement, peripheral vascular disease, diabetes mellitus and hypertension, presents with fever and shortness of breath. Patient was admitted to [facility]. one month ago with right lower extremity ischemia, status post angioplasty, underwent further vascular intervention along with fasciotomy. She had a postop VA and was transferred to [facility] for PCI which resulted in 3 stent placements. She also underwent right AKA and was discharged to [facility] for rehabilitation. She was admitted this time for acute on chronic congestive heart failure, infection secondary to skin excoriation over buttock/inner thigh along with bloody drainage from right AKA sutures. Patient has been evaluated by vascular surgery and AKA site drainage was sent for culture, likely hematoma, remains on empiric antibiotics. Dermatology was contacted regarding skin excoriation, recommend Allevyn, metronidazole gel and frequent position changes. Patient has progressed well throughout hospitalization and currently awaiting acute rehabilitation unit evaluation. 03/31/19 Patient seen in the morning, reports improvement in dyspnea, having dry mouth, right AKA drainage site was packed by vascular surgery, no other complaints, awaiting acute rehabilitation unit evaluation. 04/01/19 Patient seen in the morning, urine output has improved w/ addition of IV albumin, patient without dyspnea, continues to experience dry mouth, now with wound vac over R AKA incision. 04/02/19 Patient seen in the morning, increased dyspnea, increased supplemental oxygen requirement, chest x-ray repeated in the morning showing worsening pulmonary va scular congestion/edema, transferred to ICU for BiPAP and increased work of breathing. 04/04/19 Patient seen in the morning, comfortable in bed, reports significant improvement in dyspnea, downgraded to floor yesterday, wound VAC removed today by vascular surgery. She continues to require 2-3 L via nasal cannula. 04/05/19 Patient was titrated down to room air earlier today, unfortunately aspirated while taking one of her medications, was placed back on 4L via NC. She currently reports dyspnea & dry cough, worsened due to the aspiration episode, no other complaints. 04/06/19. Patient with significant improvement in dyspnea today, diuresed well with Lasix last night, FiO2 requirements down to 2 L via nasal cannula, no other complaints, awaiting insurance approval for acute rehabilitation unit. 04/07/19 Patient seen in the morning, continues to have dyspnea, continues to require supplemental oxygen via NC, no acute events overnight, no other complaints. 04/08/19 Patient comfortable in chair, continues to have slight dyspnea & requiring supplemental oxygen, unchanged from yesterday, no other complaints, awaiting insurance approval for ARU. 04/09/19 Patient seen the morning, comfortable, working with physical therapy, reports improvement in dyspnea, continues to have dry cough, no other complaints, urinary output has slightly improved from yesterday. 10 point review of system is negative except for above PHYSICAL EXAMINATION: VITAL SIGNS: Please see below. GENERAL: No distress HEENT: Normocephalic, atraumatic, moist mucous membranes NECK: Supple CARDIOVASCULAR EXAMINATION: S1, S2, no murmurs RESPIRATORY EXAMINATION: Scattered rhonchi, diminished in the bases ABDOMINAL EXAMINATION: Soft, nontender, nondistended, positive bowel sounds EXTREMITIES: Status post right AKA, left lower extremity edema improving SKIN: skin excoriation over buttock & inner thigh, improving NEUROLOGICAL EXAMINATION: Alert and oriented 3, no focal deficits PSYCHIATRIC EXAMINATION: Calm and cooperative LABORATORY DATA: See below. IMAGING: Chest x-ray shows stable infiltrate & bilateral pleural effusions. MICROBIOLOGY: Please see below. ASSESSMENT: 78-year-old female with extensive medical history who underwent recent right AKA and stent placement post VA presents from rehabilitation with symptoms concerning for pneumonia/CHF exacerbation. PLAN: 1. Bilateral pneumonia s/p antibiotics, cultures have remained negative, remains dyspneic & requiring supplemental oxygen, likely multifactorial from CHF w/ b/l pleural effusions, pneumonia & h/o radiation for Lung/breast Ca, Pulmonary consult appreciated. Patient is awaiting insurance approval for acute rehabilitation unit. 2. Acute on chronic systolic congestive heart failure. repeat CXR showing stable pleural effusions, continue Lasix to 40 mg BID. 3) diabetes mellitus. Sliding scale insulin with meals and at bedtime. 4) atrial fibrillation. Continue amiodarone, not on anticoagulation. 5) coronary artery disease. History of recent VA, status post stent placement 3, continue optimal medical management with aspirin, Plavix, statin and beta isidra. 6) hypertension. Continue Coreg DVT prophylaxis: Heparin subcutaneous GI prophylaxis: Home PPI VS, I&O, 24H, Fishbone Vital Signs/I&O Vital Signs Date Time Temp Pulse Resp B/P (MAP) Pulse Ox O2 Delivery O2 Flow Rate FiO2 04/09/19 14:00 96.4 78 22 128/60 (82) 96 Nasal Cannula 2.0 04/06/19 21:06 32 I&O- Last 24 Hours up to 6 AM 04/09/19 06:00 Intake Total 867 ml Output Total 1300 ml Balance -433 ml Laboratory Data 24H LABS Laboratory Tests 2 04/08/19 20:21: Bedside Glucose (Misc Panel) 225H 04/09/19 05:55: Immature Granulocyte % (Auto) 2.1, Neutrophils (%) (Auto) 79.5H, Lymphocytes (%) (Auto) 6.2L, Monocytes (%) (Auto) 6.9H, Eosinophils (%) (Auto) 4.3H, Basophils (%) (Auto) 1.0, Neutrophils # (Auto) 12.4H, Lymphocytes # (Auto) 1.0L, Monocytes # (Auto) 1.1H, Eosinophils # (Auto) 0.7H, Basophils # (Auto) 0.2, Nucleated Red Blood Cells % (auto) 0.1H, Anion Gap 3L, Glomerular Filtration Rate > 60.0, Calcium Level 8.6L 04/09/19 11:50: Bedside Glucose (Misc Panel) 249H 04/09/19 16:50: Bedside Glucose (Misc Panel) 194H CBC/BMP Laboratory Tests 04/09/19 05:55 Microbiology Microbiology 04/02/19 Urine Culture - Final, Complete Yeast Like Organism 03/30/19 Gram Stain - Final, Complete 03/30/19 Wound Culture - Final, Complete Staphylococcus Sp Coag Neg ZI FARMER MD Apr 09, 2019 19:04
[2019-04-09 22:00] VITALS: BP 124/61
[2019-04-09] MEDS: DOCUSATE SODIUM 100 MG CAP PO SCH (22:05)
[2019-04-09] MEDS: ATORVASTATIN 20 MG TAB PO SCH (22:07)
[2019-04-10] MEDS: IPRATROPIUM 0.5MG/ALBUTEROL 2.5MG INH SOL UD 3ML (DUONEB)(J7620) NEB SCH ×5 (03:00→22:10)
[2019-04-10 06:00] VITALS: BP 107/52
[2019-04-10 06:42] LABS: BASO # 0.1 10^3/uL (0.0-0.2); BASO % 0.6 % (0.0-1.0); EOS # 0.5 10^3/uL (0.0-0.5); EOS % 3.4 % (0.0-3.0); HEMATOCRIT 31.2 % (36.0-47.0); HEMOGLOBIN 9.6 g/dl (12.0-15.5); LYMPH # 1.1 10^3/uL (1.5-5.0); LYMPH % 7.7 % (24.0-44.0); MEAN CORPUSCULAR HEMOGLOBIN 31.4 pg (27.0-33.0); MEAN CORPUSCULAR HGB CONC 30.8 g/dl (32.0-36.5); NEUTROPHILS # 11.4 10^3/uL (1.5-8.5); NEUTROPHILS % 79.7 % (36.0-66.0); PLATELET COUNT, AUTOMATED 242 10^3/uL (150-450); RED BLOOD COUNT 3.06 10^6/uL (4.00-5.40); WHITE BLOOD COUNT 14.2 10^3/uL (4.0-10.0)
[2019-04-10 07:03] LABS: BLOOD UREA NITROGEN 24 MG/DL (7-18); CALCIUM LEVEL 8.7 MG/DL (8.8-10.2); CARBON DIOXIDE LEVEL 37 MEQ/L (21-32); CHLORIDE LEVEL 103 MEQ/L (98-107); CREATININE FOR GFR 0.78 MG/DL (0.55-1.30); GLOMERULAR FILTRATION RATE > 60.0 (>32); GLUCOSE, FASTING 155 MG/DL (70-100); POTASSIUM SERUM 4.2 MEQ/L (3.5-5.1); SODIUM LEVEL 142 MEQ/L (136-145)
[2019-04-10] MEDS: HEPARIN SOD (PORCINE) 5000 UNITS/ML VIAL (J1644 PER 1000UNITS) SC SCH ×2 (08:16→22:05)
[2019-04-10] MEDS: ASPIRIN 81 MG CHEW TABLET PO SCH (08:16)
[2019-04-10] MEDS: HumaLOG INSULIN (NovoLOG) PER UNIT SC SCH ×4 (08:16→22:23)
[2019-04-10] MEDS: GABAPENTIN 300 MG CAP PO SCH ×2 (08:17→22:08)
[2019-04-10] MEDS: POTASSIUM CHLORIDE 10 MEQ SR TABLET PO SCH (08:17)
[2019-04-10] MEDS: ASCORBIC ACID 500 MG TAB PO SCH (08:17)
[2019-04-10] MEDS: FUROSEMIDE 40 MG TAB PO SCH ×2 (08:17→17:41)
[2019-04-10] MEDS: CALCIUM/VITAMIN D 500 MG TAB PO SCH (08:17)
[2019-04-10] MEDS: CARVedilol 6.25 MG TAB PO SCH ×2 (08:19→22:07)
[2019-04-10] MEDS: CLOPIDOGREL 75 MG TAB PO SCH (08:19)
[2019-04-10] MEDS: AMIODARONE 200 MG TAB (PACERONE) PO SCH (08:21)
[2019-04-10] MEDS: DIAPER RELIEF PASTE (DESITIN) 60GM TOP SCH (08:21)
[2019-04-10] MEDS ORDERED: VARIBAR NECTAR 40% w/v 240ML SUSP BTL As Ordered ONE (09:02)
[2019-04-10] MEDS ORDERED: E-Z-PAQUE 96% w/w SUSP 176GM BTL As Ordered ONE (09:02)
[2019-04-10] MEDS ORDERED: VARIBAR PUDDING 40% w/v 230ML TUBE As Ordered ONE (09:02)
[2019-04-10] MEDS ORDERED: BARIUM SULFATE 700 MG TABLET (E-Z-DISK) As Ordered ONE (09:36)
--- NOTE | 2019-04-10 09:40 | IPNPDOC ---
Date Seen The patient was seen on 04/10/19. Progress Note Patient seen and examined. She said she woke up in the middle the night with a significant increase in right stump pain. She said it has been ongoing all morning and is driving her crazy. I took a look, and the wound VAC is intact, and there is no erythema and no pain with palpation on the incision, but the patient did have her Ilnk catheter underneath the stump. When I remove this, the patient said she felt much better. I think it might have just been putting pressure on the back of her leg. The wound VAC is dissection and there is hardly any drainage and the canister, so this is managing her drainage well. I think she just has increased drainage from the stump wound because she is third spacing all her fluid in general. The hospitalists are trying to manage her fluid, but she still has issues with volume overload. As long as she is inpatient, we will continue to wound VAC therapy to try to help this wound close down faster. I'm hoping once the base granulates better, it will not weep as much fluid. Patient is agreeable to this plan. We again encouraged her to eat as much protein is possible to drink her nutrition shakes. She says she is trying. VS, I&O, 24H, Gayle Vital Signs/I&O Vital Signs Date Time Temp Pulse Resp B/P (MAP) Pulse Ox O2 Delivery O2 Flow Rate FiO2 04/10/19 08:19 76 130/60 04/10/19 06:00 98.1 24 95 Nasal Cannula 1.0 04/06/19 21:06 32 I&O- Last 24 Hours up to 6 AM 04/10/19 06:00 Intake Total 850 ml Output Total 1225 ml Balance -375 ml Laboratory Data 24H LABS Laboratory Tests 2 04/09/19 11:50: Bedside Glucose (Misc Panel) 249H 04/09/19 16:50: Bedside Glucose (Misc Panel) 194H 04/09/19 21:54: Bedside Glucose (Misc Panel) 222H 04/10/19 06:26: Immature Granulocyte % (Auto) 1.6, Neutrophils (%) (Auto) 79.7H, Lymphocytes (%) (Auto) 7.7L, Monocytes (%) (Auto) 7.0H, Eosinophils (%) (Auto) 3.4H, Basophils (%) (Auto) 0.6, Neutrophils # (Auto) 11.4H, Lymphocytes # (Auto) 1.1L, Monocytes # (Auto) 1.0H, Eosinophils # (Auto) 0.5, Basophils # (Auto) 0.1, Nucleated Red Blood Cells % (auto) 0.0, Anion Gap 2L, Glomerular Filtration Rate > 60.0, Calcium Level 8.7L CBC/BMP Laboratory Tests 04/10/19 06:26 Microbiology Microbiology 04/02/19 Urine Culture - Final, Complete Yeast Like Organism LI OBREGON MD Apr 10, 2019 09:40
[2019-04-10] MEDS: ACETAMINOPHEN TAB 650MG DOSE (2X325MG) PO PRN (12:41)
[2019-04-10 14:00] VITALS: BP 138/72
[2019-04-10] MEDS ORDERED: FUROSEMIDE 20 MG/2 ML VIAL (J1940) IV ONE (21:30)
--- NOTE | 2019-04-10 21:37 | IPNPDOC ---
Date Seen The patient was seen on 04/10/19. Progress Note SUBJECTIVE: 78-year-old female with past medical history of atrial fibrillation, CHF (EF 25-30%), coronary artery disease, recent MS, status post stent placement, peripheral vascular disease, diabetes mellitus and hypertension, presents with fever and shortness of breath. Patient was admitted to [facility]. one month ago with right lower extremity ischemia, status post angioplasty, underwent further vascular intervention along with fasciotomy. She had a postop MS and was transferred to [facility] for PCI which resulted in 3 stent placements. She also underwent right AKA and was discharged to [facility] for rehabilitation. She was admitted this time for acute on chronic congestive heart failure, infection secondary to skin excoriation over buttock/inner thigh along with bloody drainage from right AKA sutures. Patient has been evaluated by vascular surgery and AKA site drainage was sent for culture, likely hematoma, remains on empiric antibiotics. Dermatology was contacted regarding skin excoriation, recommend Allevyn, metronidazole gel and frequent position changes. Patient has progressed well throughout hospitalization and currently awaiting acute rehabilitation unit evaluation. 04/10/19 Comfortable in bed, working with PT, no acute events overnight, dyspnea improving, awaiting rehab placement. 10 point review of system is negative except for above PHYSICAL EXAMINATION: VITAL SIGNS: Please see below. GENERAL: No distress HEENT: Normocephalic, atraumatic, moist mucous membranes NECK: Supple CARDIOVASCULAR EXAMINATION: S1, S2, no murmurs RESPIRATORY EXAMINATION: Scattered rhonchi, diminished in the bases ABDOMINAL EXAMINATION: Soft, nontender, nondistended, positive bowel sounds EXTREMITIES: Status post right AKA, left lower extremity edema improving SKIN: skin excoriation over buttock & inner thigh, improving NEUROLOGICAL EXAMINATION: Alert and oriented 3, no focal deficits PSYCHIATRIC EXAMINATION: Calm and cooperative LABORATORY DATA: See below. MICROBIOLOGY: Please see below. ASSESSMENT: 78-year-old female with extensive medical history who underwent recent right AKA and stent placement post MS presents from rehabilitation with symptoms concerning for pneumonia/CHF exacerbation. PLAN: 1. Bilateral pneumonia s/p antibiotics, cultures have remained negative, remains dyspneic & requiring supplemental oxygen, likely fluid related, will increase diuresis. 2. Acute on chronic systolic congestive heart failure. switch Lasix to 20 mg IV BID, will adjust based on output, will provide IV albumin as needed to augment diuresis. 3) diabetes mellitus. Sliding scale insulin with meals and at bedtime. 4) atrial fibrillation. Continue amiodarone, not on anticoagulation. 5) coronary artery disease. History of recent MS, status post stent placement 3, continue optimal medical management with aspirin, Plavix, statin and beta isidra. 6) hypertension. Continue Coreg DVT prophylaxis: Heparin subcutaneous GI prophylaxis: Home PPI VS, I&O, 24H, Fishbone Vital Signs/I&O Vital Signs Date Time Temp Pulse Resp B/P (MAP) Pulse Ox O2 Delivery O2 Flow Rate FiO2 04/10/19 14:00 98.1 67 18 138/72 (94) 99 Nasal Cannula 1.0 04/06/19 21:06 32 l I&O- Last 24 Hours up to 6 AM 04/10/19 06:00 Intake Total 850 ml Output Total 1225 ml Balance -375 ml Laboratory Data 24H LABS Laboratory Tests 2 04/09/19 21:54: Bedside Glucose (Misc Panel) 222H 04/10/19 06:26: Immature Granulocyte % (Auto) 1.6, Neutrophils (%) (Auto) 79.7H, Lymphocytes (%) (Auto) 7.7L, Monocytes (%) (Auto) 7.0H, Eosinophils (%) (Auto) 3.4H, Basophils (%) (Auto) 0.6, Neutrophils # (Auto) 11.4H, Lymphocytes # (Auto) 1.1L, Monocytes # (Auto) 1.0H, Eosinophils # (Auto) 0.5, Basophils # (Auto) 0.1, Nucleated Red Blood Cells % (auto) 0.0, Anion Gap 2L, Glomerular Filtration Rate > 60.0, Calcium Level 8.7L 04/10/19 11:12: Bedside Glucose (Misc Panel) 165H 04/10/19 16:36: Bedside Glucose (Misc Panel) 162H 04/10/19 20:24: Bedside Glucose (Misc Panel) 253H CBC/BMP Laboratory Tests 04/10/19 06:26 Microbiology Microbiology 04/02/19 Urine Culture - Final, Complete Yeast Like Organism ZI FARMER MD Apr 10, 2019 21:37
[2019-04-10] MEDS: ATORVASTATIN 20 MG TAB PO SCH (22:07)
[2019-04-10] MEDS: DOCUSATE SODIUM 100 MG CAP PO SCH (22:08)
[2019-04-11 01:22] VITALS: O2SAT 98
[2019-04-11] MEDS: IPRATROPIUM 0.5MG/ALBUTEROL 2.5MG INH SOL UD 3ML (DUONEB)(J7620) NEB SCH ×2 (01:22→07:51)
[2019-04-11 06:00] VITALS: BP 132/63
[2019-04-11 06:23] LABS: BASO # 0.1 10^3/uL (0.0-0.2); BASO % 0.8 % (0.0-1.0); EOS # 0.6 10^3/uL (0.0-0.5); EOS % 4.5 % (0.0-3.0); HEMATOCRIT 31.6 % (36.0-47.0); HEMOGLOBIN 9.6 g/dl (12.0-15.5); LYMPH # 1.2 10^3/uL (1.5-5.0); LYMPH % 9.3 % (24.0-44.0); MEAN CORPUSCULAR HEMOGLOBIN 30.9 pg (27.0-33.0); MEAN CORPUSCULAR HGB CONC 30.4 g/dl (32.0-36.5); MEAN CORPUSCULAR VOLUME 101.6 fl (80.0-96.0); MONO # 0.8 10^3/uL (0.0-0.8); MONO % 6.5 % (0.0-5.0); NEUTROPHILS # 9.8 10^3/uL (1.5-8.5); NEUTROPHILS % 77.5 % (36.0-66.0); PLATELET COUNT, AUTOMATED 228 10^3/uL (150-450); RED BLOOD COUNT 3.11 10^6/uL (4.00-5.40); WHITE BLOOD COUNT 12.7 10^3/uL (4.0-10.0)
[2019-04-11 06:36] LABS: BLOOD UREA NITROGEN 25 MG/DL (7-18); CALCIUM LEVEL 8.4 MG/DL (8.8-10.2); CARBON DIOXIDE LEVEL 37 MEQ/L (21-32); CHLORIDE LEVEL 102 MEQ/L (98-107); GLOMERULAR FILTRATION RATE > 60.0 (>32); GLUCOSE, FASTING 146 MG/DL (70-100); SODIUM LEVEL 142 MEQ/L (136-145)
[2019-04-11] MEDS: HumaLOG INSULIN (NovoLOG) PER UNIT SC SCH ×2 (07:30→12:31)
[2019-04-11] MEDS ORDERED: FUROSEMIDE 20 MG/2 ML VIAL (J1940) IV SCH ×2 (09:00)
--- NOTE | 2019-04-11 09:53 | IPNPDOC ---
Text Note Date of Service The patient was seen on 04/11/19. NOTE Vascular Surgery Dr Tejada. Patient seen and examined. She is possibly transferring to [facility] today. The wound VAC is noted to have hardly any drainage and the canister. In preparation for her transfer today I have removed the wound VAC. The wound appears to be granulating in slowly healing. I have thoroughly clean the wound and dressed with a small piece of Hydrofera Blue covered with a foam dressing. Would recommend daily dressing change with Hydrofera Blue and foam dressing. Would recommend referral to wound care discharge. We again encouraged her to eat as much protein is possible to drink her nutrition shakes. She says she is trying. VS,Fishbone, I+O VS, Fishbone, I+O Laboratory Tests 04/11/19 05:59 Vital Signs Date Time Temp Pulse Resp B/P (MAP) Pulse Ox O2 Delivery O2 Flow Rate FiO2 04/11/19 06:00 98.6 67 20 132/63 (86) 100 Nasal Cannula 2.0 04/11/19 01:22 28 I&O- Last 24 Hours up to 6 AM 04/11/19 06:00 Intake Total 1110 ml Output Total 1435 ml Balance -325 ml Blanche Gómez Apr 11, 2019 09:53
[2019-04-11] MEDS: POTASSIUM CHLORIDE 10 MEQ SR TABLET PO SCH (10:18)
[2019-04-11] MEDS: CLOPIDOGREL 75 MG TAB PO SCH (10:18)
[2019-04-11] MEDS: ASCORBIC ACID 500 MG TAB PO SCH (10:18)
[2019-04-11 10:19] VITALS: BP 135/64
[2019-04-11] MEDS: GABAPENTIN 300 MG CAP PO SCH (10:19)
[2019-04-11] MEDS: ASPIRIN 81 MG CHEW TABLET PO SCH (10:19)
[2019-04-11] MEDS: AMIODARONE 200 MG TAB (PACERONE) PO SCH (10:19)
[2019-04-11] MEDS: CALCIUM/VITAMIN D 500 MG TAB PO SCH (10:19)
[2019-04-11] MEDS: CARVedilol 6.25 MG TAB PO SCH (10:19)
[2019-04-11] MEDS: HEPARIN SOD (PORCINE) 5000 UNITS/ML VIAL (J1644 PER 1000UNITS) SC SCH (10:21)
[2019-04-11] MEDS: DIAPER RELIEF PASTE (DESITIN) 60GM TOP SCH (10:21)
[2019-04-11] MEDS ORDERED: VARIBAR PUDDING 40% w/v 230ML TUBE As Ordered ONE (10:25)
[2019-04-11] MEDS ORDERED: VARIBAR NECTAR 40% w/v 240ML SUSP BTL As Ordered ONE (10:25)
[2019-04-11] MEDS ORDERED: E-Z-PAQUE 96% w/w SUSP 176GM BTL As Ordered ONE (10:25)
[2019-04-11] MEDS ORDERED: BARIUM SULFATE 700 MG TABLET (E-Z-DISK) As Ordered ONE (10:25)
[2019-04-11] MEDS ORDERED: FURO40TA2 PO (12:11)
--- NOTE | 2019-04-11 17:56 | DS.PDOC ---
Discharge Summary General Date of Admission Mar 26, 2019 at 08:03 Date of Discharge 04/11/19 Attending Physician: ZI FARMER MD Discharge Summary PROCEDURES PERFORMED DURING STAY: None. ADMITTING DIAGNOSES: 1. Pneumonia, acute on chronic systolic congestive heart failure, physical deconditioning. DISCHARGE DIAGNOSES: 1. Pneumonia, acute on chronic systolic congestive heart failure, physical deconditioning. COMPLICATIONS/CHIEF COMPLAINT: Pneumonia. HISTORY OF PRESENT ILLNESS: 78-year-old female with multiple medical comorbidities, was admitted for pneumonia and acute on chronic systolic congestive heart failure. Patient was treated with IV Lasix and broad spectrum a ntibiotics with good response. Given patient's poor EF and mitral valve regurgitation she continues to have pulmonary vascular congestion and bilateral pleural effusions. She required a short stay in the ICU for BiPAP to augment diuresis. Patient's Lasix regimen was adjusted, doing well on 40 mg by mouth twice a day. Patient also had poor healing of surgical wound from BKA. Patient was evaluated by vascular surgery, intermittently treated with wound VAC, which was removed earlier today. Patient has been cleared for discharge and outpatient follow-up by vascular surgery area. Patient has completed her antibiotic course for pneumonia. Patient was evaluated by physical therapy, unable to be tra nsferred to acute rehabilitation unit due to insurance denial. Patient will be discharged back to [facility] for further management. Patient is clinically and hemodynamically stable for discharge at this time. HOSPITAL COURSE: As above. DISCHARGE MEDICATIONS: Please see below. ALLERGIES: Please see below. PHYSICAL EXAMINATION: VITAL SIGNS: Please see below. GENERAL: No distress HEENT: Normocephalic, atraumatic, moist mucous membranes NECK: Supple CARDIOVASCULAR EXAMINATION: S1, S2, no murmurs RESPIRATORY EXAMINATION: Scattered rhonchi, diminished in the bases ABDOMINAL EXAMINATION: Soft, nontender, nondistended, positive bowel sounds EXTREMITIES: Status post right AKA, left lower extremity edema improving SKIN: skin excoriation over buttock & inner thigh, improving NEUROLOGICAL EXAMINATION: Alert and oriented 3, no focal deficits PSYCHIATRIC EXAMINATION: Calm and cooperative LABORATORY DATA: Please see below. IMAGING: Chest x-ray showing pulmonary vascular congestion and bilateral pleural effusions, stable PROGNOSIS: Guarded ACTIVITY: As tolerated. DIET: Cardiac DISCHARGE PLAN: Follow-up with free lance artist, environmental systems coordinator and PCP within 1-2 weeks DISPOSITION: [facility]. DISCHARGE INSTRUCTIONS: 1. As above. DISCHARGE CONDITION: Stable. TIME SPENT ON DISCHARGE: Greater than 33 minutes. Vital Signs/I&Os Vital Signs Date Time Temp Pulse Resp B/P (MAP) Pulse Ox O2 Delivery O2 Flow Rate FiO2 04/11/19 10:30 2.0 04/11/19 10:19 80 135/64 04/11/19 06:00 98.6 20 100 Nasal Cannula 04/11/19 01:22 28 I&O- Last 24 Hours up to 6 AM 04/11/19 06:00 Intake Total 1110 ml Output Total 1435 ml Balance -325 ml Laboratory Data Labs 24H Laboratory Tests 2 04/10/19 20:24: Bedside Glucose (Misc Panel) 253H 04/11/19 05:59: Immature Granulocyte % (Auto) 1.4, Neutrophils (%) (Auto) 77.5H, Lymphocytes (%) (Auto) 9.3L, Monocytes (%) (Auto) 6.5H, Eosinophils (%) (Auto) 4.5H, Basophils (%) (Auto) 0.8, Neutrophils # (Auto) 9.8H, Lymphocytes # (Auto) 1.2L, Monocytes # (Auto) 0.8, Eosinophils # (Auto) 0.6H, Basophils # (Auto) 0.1, Nucleated Red Blood Cells % (auto) 0.0, Anion Gap 3L, Glomerular Filtration Rate > 60.0, Calcium Level 8.4L 04/11/19 12:09: Bedside Glucose (Misc Panel) 228H CBC/BMP Laboratory Tests 04/11/19 05:59 FSBS Laboratory Tests Test 04/10/19 20:24 04/11/19 12:09 Range/Units Bedside Glucose (Misc Panel) 253 228 83-110 MG/DL Microbiology Microbiology 04/02/19 Urine Culture - Final, Complete Yeast Like Organism Discharge Medications Scheduled Amiodarone HCl (Amiodarone HCl) 200 Mg Tablet, 200 MG PO DAILY, (Reported) Ascorbic Acid (Vitamin C) 500 Mg Capsule, 500 MG PO DAILY, (Reported) Aspirin (Aspirin) 81 Mg Tab.chew, 81 MG PO DAILY, (Reported) Atorvastatin Calcium (Atorvastatin Calcium) 40 Mg Tablet, 40 MG PO QPM, (Reported) @1900 Calcium Carbonate/Vitamin D3 (Calcium 500-Vit D3 200 Tablet) 1 Each Tablet, 1 TAB PO DAILY, (Reported) Calcium Carbonate/Vitamin D3 (Calcium 600-Vit D3 800 Tablet) 1 Each Tablet, 1 TAB PO DAILY, (Reported) Carvedilol (Carvedilol) 6.25 Mg Tablet, 6.25 MG PO BID, (Reported) 2ND DOSE AT 1600 Clopidogrel Bisulfate (Clopidogrel) 75 Mg Tablet, 75 MG PO DAILY, (Reported) Docusate Sodium (Docusate Sodium) 100 Mg Capsule, 100 MG PO QHS, (Reported) Furosemide (Furosemide) 40 Mg Tablet, 40 MG PO BID Gabapentin (Gabapentin) 300 Mg Capsule, 300 MG PO BID, (Reported) Glucagon,Human Recombinant (Glucagon Emergency Kit) 1 Mg Vial, 1 MG IM ASDIRECTED, (Reported) Insulin Lispro (Humalog Kwikpen U-100) 100 Unit/1 Ml Insuln.pen, 1 DOSE SC AC, (Reported) SLIDING SCALE Lactose-Reduced Food (Ensure Enlive) 237 Ml Liquid, 237 ML PO BID, (Reported) Miconazole Nitrate (Miconazole Nitrate) 30 Gm Cream..g., 1 APPLIC TOP BID, (Reported) APPLY UNDER LEFT BREAST Multivitamin (Multivitamins) 1 Each Capsule, 1 CAP PO DAILY, (Reported) Omeprazole (Omeprazole) 20 Mg Capsule.dr, 20 MG PO DAILY, (Reported) Potassium Chloride (Potassium Chloride) 20 Meq Tab.er.prt, 20 MEQ PO BID, (Reported) Saliva Stimulant Comb. No.4 (Dry Mouth) 45 Ml [place], 1 SPR PO QID, (Reported) 0800, 1300, 1700, 2100 Scheduled PRN Acetaminophen (Acetaminophen) 325 Mg Tablet, 650 MG PO Q4H PRN for PAIN, (Reported) Bisacodyl (Dulcolax) 10 Mg Supp.rect, 10 MG SD DAILY PRN for CONSTIPATION, (Reported) Hydrocodone/Acetaminophen (Hydrocodone-Acetamin 5-325 mg) 1 Each Tablet, 1 TAB PO Q4H PRN for PAIN, (Reported) Magnesium Hydroxide (Milk of Magnesia) 400 Mg/5 Ml Oral.susp, 30 ML PO DAILY PRN for CONSTIPATION, (Reported) Nitroglycerin (Nitroglycerin) 0.4 Mg Tab.subl, 0.4 MG SL NITRO PRN for CHEST PAIN, (Reported) Allergies Coded Allergies: exemestane (Verified Allergy, Mild, Rash, 03/26/19) Penicillins (Verified Adverse Reaction, Mild, Yeast Infection, 03/26/19) ZI FARMER MD Apr 11, 2019 17:56
--- NOTE | 2019-04-14 17:55 | REP ---
COOKIE SWALLOW The procedure was performed under the direct supervision of Dr. Jeffers. The procedure was performed with Rika Rain from speech pathology present. 5 ml aliquots of thin, pudding, fruit, soft and solid consistency barium was administered. There is no evidence of penetration or aspiration. The detailed report of this examination will be provided by speech pathology. 1.3 minutes of fluoroscopy time was utilized for this procedure. Electronically Signed by DMITRI Moser 04/14/2019 04:14 P Electronically Signed by Niall Jeffers MD 04/14/2019 05:47 P
== END 2019-04-11 13:51 | DRG 291 ==
LOC: EDBD 05:47 → M ED 05:47 → M ED INP 08:03 → ENRESERV 10:21 → M MSPAV 11:26 → M ICU 04-02 10:42 → M MSPAV 04-03 14:11
PROVIDERS: ADMIT Internal Medicine; ATTEND Internal Medicine
DX: I11.0 Hypertensive heart disease with heart failure (principal); J96.01 Acute respiratory failure with hypoxia; J18.9 Pneumonia, unspecified organism; B37.0 Candidal stomatitis; T83.518A Infection and inflammatory reaction due to other urinary catheter, initial encounter; I50.23 Acute on chronic systolic (congestive) heart failure; E11.51 Type 2 diabetes mellitus with diabetic peripheral angiopathy without gangrene; I48.91 Unspecified atrial fibrillation; I25.10 Atherosclerotic heart disease of native coronary artery without angina pectoris; I25.2 Old myocardial infarction; R91.1 Solitary pulmonary nodule; Z89.611 Acquired absence of right leg above knee; Z87.891 Personal history of nicotine dependence; Z95.5 Presence of coronary angioplasty implant and graft; Z79.82 Long term (current) use of aspirin; Z79.02 Long term (current) use of antithrombotics/antiplatelets; Z79.4 Long term (current) use of insulin; Z79.899 Other long term (current) drug therapy; Z88.0 Allergy status to penicillin; Z88.8 Allergy status to other drugs, medicaments and biological substances; Y95 Nosocomial condition; Z85.3 Personal history of malignant neoplasm of breast; Z92.3 Personal history of irradiation; Z85.118 Personal history of other malignant neoplasm of bronchus and lung

== ENCOUNTER → 2019-04-14 | Outpatient (REF) ==
[~2019-04-14] MED LIST changes: +ACET1TAB55 PO; +AMIO200T PO; +ASPI81CH33 PO; +ATOR40TA75 PO; +CALC1TAB26 PO; +CALC500T44 PO; +CARV6.25 PO; +CLOP75TA2 PO; +CVS1SPR4 PO; +DOCU100C16 PO; +DULC10SU2 PR; +ENSU1LIQ36 PO; +FURO40TA2 PO; +GABA-843 PO; +GLUC1KIT IM; +HUMA100I5 SC; +HYDR-3713 PO; +MICO2CRE42 TOP; +MILKSUS3 PO; +MULTCAP PO; +NITR0.4S14 SL; +OMEP-218 PO; +POTA20TA6 PO; +VITA500C24 PO
[2019-04-14 10:57] LABS: HEMATOCRIT 36.1 % (36.0-47.0); HEMOGLOBIN 10.9 g/dl (12.0-15.5); MEAN CORPUSCULAR HEMOGLOBIN 31.1 pg (27.0-33.0); MEAN CORPUSCULAR HGB CONC 30.2 g/dl (32.0-36.5); MEAN CORPUSCULAR VOLUME 102.8 fl (80.0-96.0); PLATELET COUNT, AUTOMATED 269 10^3/uL (150-450); RED BLOOD COUNT 3.51 10^6/uL (4.00-5.40)
[2019-04-14 11:32] LABS: BLOOD UREA NITROGEN 32 MG/DL (7-18); CALCIUM LEVEL 8.8 MG/DL (8.8-10.2); CARBON DIOXIDE LEVEL 33 MEQ/L (21-32); CHLORIDE LEVEL 103 MEQ/L (98-107); CREATININE FOR GFR 0.92 MG/DL (0.55-1.30); GLOMERULAR FILTRATION RATE > 60.0 (>32); GLUCOSE, FASTING 219 MG/DL (70-100); NT-PRO BNP 5456 PG/ML (<450); POTASSIUM SERUM 4.3 MEQ/L (3.5-5.1); SODIUM LEVEL 143 MEQ/L (136-145)
== END ==
PROVIDERS: ATTEND Family Medicine
DX: I50.9 Heart failure, unspecified (principal)

== ENCOUNTER → 2019-04-18 | Outpatient (REF) ==
[2019-04-18 17:58] LABS: HEMOGLOBIN 10.8 g/dl (12.0-15.5); MEAN CORPUSCULAR HEMOGLOBIN 31.2 pg (27.0-33.0); PLATELET COUNT, AUTOMATED 205 10^3/uL (150-450); RED BLOOD COUNT 3.46 10^6/uL (4.00-5.40); WHITE BLOOD COUNT 15.1 10^3/uL (4.0-10.0)
[2019-04-18 18:40] LABS: ERYTHROCYTE SEDIMENTATION RATE 53 mm/hr (0-30)
== END ==
PROVIDERS: ATTEND Family Medicine
DX: L98.9 Disorder of the skin and subcutaneous tissue, unspecified (principal)

== ENCOUNTER → 2019-04-21 | Outpatient (REF) ==
[2019-04-21 10:59] LABS: HEMATOCRIT 35.9 % (36.0-47.0); HEMOGLOBIN 11.1 g/dl (12.0-15.5); MEAN CORPUSCULAR HEMOGLOBIN 31.7 pg (27.0-33.0); MEAN CORPUSCULAR HGB CONC 30.9 g/dl (32.0-36.5); MEAN CORPUSCULAR VOLUME 102.6 fl (80.0-96.0); PLATELET COUNT, AUTOMATED 188 10^3/uL (150-450)
[2019-04-21 11:39] LABS: BLOOD UREA NITROGEN 47 MG/DL (7-18); CARBON DIOXIDE LEVEL 33 MEQ/L (21-32); CHLORIDE LEVEL 103 MEQ/L (98-107); CREATININE FOR GFR 0.88 MG/DL (0.55-1.30); GLOMERULAR FILTRATION RATE > 60.0 (>32); GLUCOSE, FASTING 217 MG/DL (70-100); NT-PRO BNP 3614 PG/ML (<450); POTASSIUM SERUM 4.3 MEQ/L (3.5-5.1); SODIUM LEVEL 144 MEQ/L (136-145)
== END ==
PROVIDERS: ATTEND Family Medicine
DX: I50.9 Heart failure, unspecified (principal)

== ENCOUNTER → 2019-04-22 | Outpatient (CLI) | payer MEDICARE, MEDICAID ==
--- NOTE | 2019-04-22 13:02 | REP ---
Bilateral lower extremity arterial Doppler of the lateral wall History: Peripheral vascular disease. Status post [id number] amputation right leg, March 08, 2019. Findings: Ankle brachial index on the left is of normal 1.25. On the right lower extremity, there is a trickle of flow in the proximal superficial femoral artery. The mid superficial femoral artery segment is occluded where there is apparently a stent. The right common iliac external iliac, femoral and profunda femoral arteries are patent with relatively normal waveforms and velocities. Incidental note is made of thrombosis of the superficial femoral vein. Profunda and common femoral vein segments are patent. On the left, abnormal monophasic waveforms are observed distal to the popliteal artery. The distal anterior tibial and dorsalis pedis artery are occluded with revascularized flow visible. There is a Sanchez's cyst in the posterior popliteal soft tissues 3.9 x 1.3 x 1.2 cm. Velocity chart right lower extremity: Distal aorta 102 cm/sec Right REBA 118 Right E I A 132 CF A 90 Profunda 121 Proximal SFA 64/148 Mid SFA stent occluded Doppler velocity chart left lower extremity: Distal aorta 102 cm/S Left REBA 139 Left E I A 111 CF A 80 Profunda 100 Proximal SFA 74 Mid SFA 112 Distal SFA 76 Popliteal 49/106 Proximal AT A 42 Tibioperoneal trunk 71 Proximal NAVIGATION OFFICER 29 Distal NAVIGATION OFFICER 23 Distal AT A occluded / revascularized 12.6 DPA revascularize reverse flow 32.6 Electronically Signed by Niall Jeffers MD 04/22/2019 12:53 P
== END ==
LOC: M RAD 10:29
PROVIDERS: ATTEND Physician Assistant
DX: I73.9 Peripheral vascular disease, unspecified (principal); M71.22 Synovial cyst of popliteal space [Baker], left knee

== ENCOUNTER → 2019-04-25 | Outpatient (REF) ==
[2019-04-25 11:15] LABS: HEMATOCRIT 32.4 % (36.0-47.0); HEMOGLOBIN 10.1 g/dl (12.0-15.5); MEAN CORPUSCULAR HEMOGLOBIN 31.6 pg (27.0-33.0); MEAN CORPUSCULAR HGB CONC 31.2 g/dl (32.0-36.5); MEAN CORPUSCULAR VOLUME 101.3 fl (80.0-96.0); PLATELET COUNT, AUTOMATED 191 10^3/uL (150-450); WHITE BLOOD COUNT 8.8 10^3/uL (4.0-10.0)
[2019-04-25 11:40] LABS: CALCIUM LEVEL 8.5 MG/DL (8.8-10.2); CREATININE FOR GFR 0.96 MG/DL (0.55-1.30); GLOMERULAR FILTRATION RATE 59.5 (>32); POTASSIUM SERUM 4.4 MEQ/L (3.5-5.1)
== END ==
PROVIDERS: ATTEND Family Medicine
DX: N17.9 Acute kidney failure, unspecified (principal)

== ENCOUNTER → 2019-05-02 | Outpatient (REF) | payer MEDICARE, MEDICAID ==
[2019-05-02 10:04] LABS: HEMATOCRIT 33.3 % (36.0-47.0); HEMOGLOBIN 10.2 g/dl (12.0-15.5); MEAN CORPUSCULAR HEMOGLOBIN 31.4 pg (27.0-33.0); MEAN CORPUSCULAR HGB CONC 30.6 g/dl (32.0-36.5); MEAN CORPUSCULAR VOLUME 102.5 fl (80.0-96.0); PLATELET COUNT, AUTOMATED 194 10^3/uL (150-450); RED BLOOD COUNT 3.25 10^6/uL (4.00-5.40); WHITE BLOOD COUNT 7.9 10^3/uL (4.0-10.0)
[2019-05-02 10:57] LABS: CALCIUM LEVEL 8.8 MG/DL (8.8-10.2); CREATININE FOR GFR 1.05 MG/DL (0.55-1.30); GLOMERULAR FILTRATION RATE 53.7 (>32)
== END ==
PROVIDERS: ATTEND Family Medicine
DX: I10 Essential (primary) hypertension (principal)

== ENCOUNTER → 2019-06-04 | Outpatient (REF) ==
[2019-06-04 11:54] LABS: HEMATOCRIT 41.4 % (36.0-47.0); HEMOGLOBIN 13.3 g/dl (12.0-15.5); MEAN CORPUSCULAR HEMOGLOBIN 31.3 pg (27.0-33.0); MEAN CORPUSCULAR HGB CONC 32.1 g/dl (32.0-36.5); MEAN CORPUSCULAR VOLUME 97.4 fl (80.0-96.0); PLATELET COUNT, AUTOMATED 179 10^3/uL (150-450); RED BLOOD COUNT 4.25 10^6/uL (4.00-5.40); WHITE BLOOD COUNT 8.8 10^3/uL (4.0-10.0)
[2019-06-04 12:23] LABS: BLOOD UREA NITROGEN 27 MG/DL (7-18); CALCIUM LEVEL 8.8 MG/DL (8.8-10.2); CARBON DIOXIDE LEVEL 29 MEQ/L (21-32); CHLORIDE LEVEL 106 MEQ/L (98-107); CREATININE FOR GFR 0.87 MG/DL (0.55-1.30); GLOMERULAR FILTRATION RATE > 60.0 (>32); GLUCOSE, FASTING 281 MG/DL (70-100); NT-PRO BNP 2867 PG/ML (<450); SODIUM LEVEL 143 MEQ/L (136-145)
== END ==
PROVIDERS: ATTEND Family Medicine
DX: I50.9 Heart failure, unspecified (principal)

== ENCOUNTER → 2019-06-06 | Outpatient (REF) | PROVIDERS: ATTEND Physician Assistant | DX: I50.9 Heart failure, unspecified (principal) ==

== ENCOUNTER → 2019-06-09 | Outpatient (REF) ==
[2019-06-09 11:27] LABS: HEMATOCRIT 42.1 % (36.0-47.0); HEMOGLOBIN 13.2 g/dl (12.0-15.5); MEAN CORPUSCULAR HEMOGLOBIN 30.8 pg (27.0-33.0); MEAN CORPUSCULAR HGB CONC 31.4 g/dl (32.0-36.5); MEAN CORPUSCULAR VOLUME 98.1 fl (80.0-96.0); PLATELET COUNT, AUTOMATED 188 10^3/uL (150-450); RED BLOOD COUNT 4.29 10^6/uL (4.00-5.40); WHITE BLOOD COUNT 8.6 10^3/uL (4.0-10.0)
[2019-06-09 12:15] LABS: HEMOGLOBIN A1c 6.8 %
[2019-06-09 12:20] LABS: ALBUMIN 2.7 GM/DL (3.2-5.2); ALT/SGPT 26 U/L (12-78); BILIRUBIN,TOTAL 0.2 MG/DL (0.2-1.0); BLOOD UREA NITROGEN 28 MG/DL (7-18); CALCIUM LEVEL 8.8 MG/DL (8.8-10.2); CARBON DIOXIDE LEVEL 27 MEQ/L (21-32); CHLORIDE LEVEL 108 MEQ/L (98-107); CREATININE FOR GFR 0.89 MG/DL (0.55-1.30); GLOMERULAR FILTRATION RATE > 60.0 (>32); GLUCOSE, FASTING 256 MG/DL (70-100); POTASSIUM SERUM 3.5 MEQ/L (3.5-5.1); SODIUM LEVEL 146 MEQ/L (136-145); TOTAL PROTEIN 6.3 GM/DL (6.4-8.2)
== END ==
PROVIDERS: ATTEND Family Medicine
DX: E11.9 Type 2 diabetes mellitus without complications (principal)

== ENCOUNTER → 2019-06-11 | Outpatient (REF) | PROVIDERS: ATTEND Family Medicine | DX: E83.42 Hypomagnesemia (principal) ==

== ENCOUNTER → 2019-06-18 | Outpatient (CLI) | payer MEDICARE, MEDICAID ==
[~2019-06-18] MED LIST changes: +ACET-897 PO; +GLIP5TAB8 PO; +LISI2.5T2 PO
== END ==
LOC: M LABSMTC 13:59
PROVIDERS: ATTEND Anesthesiology
DX: Z01.818 Encounter for other preprocedural examination (principal); Z11.59 Encounter for screening for other viral diseases
CPT/HCPCS: C9803; U0002

== ENCOUNTER 2019-06-19 14:03 | Day surgery (SDC) | payer MEDICARE, MEDICAID ==
[~2019-06-19] VITALS: Ht 162.6 cm; Wt 56.7 kg
[~2019-06-19 14:03] MED LIST changes: -ACET-897 PO; -GLIP5TAB8 PO; +LIDOCAINE 1% MDV 20ML VIAL SQ PRN; -LISI2.5T2 PO; +MIDAZOLAM INJ 2MG/2ML VIAL (J2250 PER 1MG) As Ordered ONE; +VANCOMYCIN HCL 1,000 MG, VIAL MATE ADAPTER 1 EACH in D5W 250 ML IV ONE; +fentaNYL 100 MCG/2 ML INJECTION (J3010) As Ordered ONE; +propofoL 200 MG/20 ML VIAL As Ordered ONE
[2019-06-19] MEDS ORDERED: BUPIVACAINE/EPIN 0.5% 30 ML VIAL As Ordered ONE (14:15)
[2019-06-19 14:48] LABS: HEMATOCRIT 44.3 % (36.0-47.0); HEMOGLOBIN 14.4 g/dl (12.0-15.5); MEAN CORPUSCULAR HEMOGLOBIN 31.3 pg (27.0-33.0); MEAN CORPUSCULAR HGB CONC 32.5 g/dl (32.0-36.5); MEAN CORPUSCULAR VOLUME 96.3 fl (80.0-96.0); PLATELET COUNT, AUTOMATED 179 10^3/uL (150-450); WHITE BLOOD COUNT 9.5 10^3/uL (4.0-10.0)
[2019-06-19] MEDS ORDERED: LR 1,000 ML IV ONE (14:50)
[2019-06-19] MEDS ORDERED: ACET-897 PO (14:53)
[2019-06-19] MEDS ORDERED: GLIP5TAB8 PO (14:53)
[2019-06-19 15:03] LABS: INR 0.99; PROTHROMBIN TIME 12.8 SECONDS (11.8-14.0)
[2019-06-19 15:04] LABS: PARTIAL THROMBOPLASTIN TIME 25.9 SECONDS (25.0-38.4)
[2019-06-19 15:14] LABS: BLOOD UREA NITROGEN 22 MG/DL (7-18); CALCIUM LEVEL 8.9 MG/DL (8.8-10.2); CARBON DIOXIDE LEVEL 30 MEQ/L (21-32); CHLORIDE LEVEL 105 MEQ/L (98-107); CREATININE FOR GFR 0.83 MG/DL (0.55-1.30); GLOMERULAR FILTRATION RATE > 60.0 (>32); GLUCOSE, FASTING 147 MG/DL (70-100); POTASSIUM SERUM 3.9 MEQ/L (3.5-5.1); SODIUM LEVEL 142 MEQ/L (136-145)
[2019-06-19] MEDS ORDERED: ePHEDrine SULFATE 25 MG/5 ML(5MG/ML) SYRINGE As Ordered ONE (15:45)
[2019-06-19] MEDS ORDERED: PHENYLephrine HCL 500 MCG/5 ML (100MCG/ML) SYRINGE (J2370) As Ordered ONE (15:45)
[2019-06-19] MEDS ORDERED: ONDANSETRON 4MG/2ML VIAL IV PRN (16:30)
[2019-06-19] MEDS ORDERED: oxyCODONE 5MG TAB PO PRN (16:30)
[2019-06-19] MEDS ORDERED: fentaNYL 100 MCG/2 ML INJECTION (J3010) IV PRN (16:30)
[2019-06-19] MEDS ORDERED: LR 1,000 ML IV SCH (16:30)
--- NOTE | 2019-06-19 16:34 | ROOPDOC ---
[facility] Report Of Operation Report of Operation DATE OF PROCEDURE: 06/19/19 PREPROCEDURE DIAGNOSES: Nonhealing right above-knee amputation stump with exposed SFA stent POSTPROCEDURE DIAGNOSES: Same. PROCEDURE: 1. Excisional debridement right AKA stump wound, 7 cm skin and subcutaneous tissue and scar excised. 2. Removal exposed right superficial femoral artery stent 3. Closure right AKA stump incision SURGEON: Li Tejada MD ANESTHESIA: Monitored anesthesia care and local anesthesia INDICATION FOR PROCEDURE: This is a very pleasant 79-year-old patient who had a nonhealing aspect of the central portion of her distal AKA stump status post amputation in [place]. I believe in large part this did not heal due to poor nutrition perioperatively. The patient was beginning to heal, but during routine debridement at the wound care clinic, Dr. Bertrand on 2 occasions removed bare-metal stents from the superficial femoral artery. The patient had multiple stents placed in her superficial femoral artery by Dr. Cadet prior to her amputation. Upon transection of the SFA for AKA, the vessel was likely ligated but if the stent was transected, certainly part of it could've become ectopic distally. We were contacted to explore the wound after Dr. Bertrand had removed to stents but felt there were more present and was concerned that the foreign body would limit healing. Risks benefits and alternatives to a right AKA wound exploration, possible excisional debridement, possible wound closure were explained to the patient and she was agreeable to proceed. Informed consent was obtained REPORT OF OPERATION: The patient was brought to the operating room in stable condition. Anesthesia and antibiotics were administered without complication. Her right above-knee amputation stump was prepped and draped in sterile fashion. A timeout was performed. An elliptical incision was made around the nonhealing open aspect of the mid AKA incision. This tissue down to the base of the wound was excised and sent for pathology. Bovie cautery was used for hemostasis were needed. I was better able to see the superficial femoral artery distally at this point, and the ectopic stent. I removed the stent and this was also sent for pathology. No additional stent material was encountered. The distal superficial femoral artery was oversewn. The soft tissue was carefully examined. A curette was used to remove tissue from the base of the wound. Sharp dissection was also used to remove nonviable tissue. Prior to closure, the wound measurements were a length of 1.2 cm, width of 5.7 cm, and depth of 2 cm. Copious amounts of saline irrigation were used to washout the wound. The deep tissues reapproximated with interrupted 20 Vicryl suture. The superficial tissues were approximated with interrupted 20 Vicryl suture. The deep dermal layer was approximated with interrupted 3-0 Vicryl suture. The skin was closed with nylon mattress sutures and tanner. The wound was cleaned and dried. Xeroform, 4 x 4, and Tegaderm were placed over the incision. The patient was allowed to awaken from anesthesia and was taken to recovery in stable condition. She tolerated the procedure well. ESTIMATED BLOOD LOSS: Approximately 5 mL. COMPLICATIONS: None. PLAN: It is okay to resume home diet medications, but I would hold the Plavix for at least 24 hours. We will decide tomorrow on when to restart it. The patient has a history of coronary artery stents, but they were placed greater than 60 days ago and they are bare-metal stents. I spoke with Dr. Velázquez preop and he was agreeable to holding the Plavix the day of surgery and for a day or two after. High-protein diabetic diet. Elevate right stump to minimize drainage. Vancomycin at least 24 hours postop. Local wound care daily. We appreciate the opportunity to participate in the care of this patient. LI TEJADA MD June 19, 2019 16:34
[2019-06-19] MEDS ORDERED: PERCOCET 5MG/325MG TAB PO PRN ×2 (17:00)
[2019-06-19] MEDS ORDERED: MOM 30ML SUSPENSION UDC PO PRN (17:30)
[2019-06-19 17:33] VITALS: BP 144/67
--- NOTE | 2019-06-19 17:40 | HPEPDOC ---
General Date of Admission 06/19/19 Date of Service: June 19, 2019 Chief Complaint The patient is a 79-year-old female admitted with a reason for visit of Non Healing Ulcer, Right Above Knee Amputation. Source: Patient Exam Limitations: No limitations Timing/Duration: Day(s) Severity: Moderate History of Present Illness Patient is 79 years old female with past medical history of atrial fibrillation, CHF, diabetes, coronary artery diseases status post stents placement, [place], peripheral vascular diseases presented to the hospital for elective excisional debridement right AKA stump wound. Patient has a complicated history of peripheral vascular diseases. She underwent an endovascular intervention of the right lower extremity on 02/20/19. 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 After amputation patient developed unhealed wounds on her stump. Today, Dr. Nance proceeded with excisional debridement right AKA stump wound , removal exposed right superficial femoral artery stent, closure right AKA stump incision. Of note in February patient received 3 cardiac metal stents placement secondary to [place]. Home Medications Scheduled Amiodarone HCl (Amiodarone HCl) 200 Mg Tablet, 200 MG PO DAILY, (Reported) Ascorbic Acid (Vitamin C) 500 Mg Capsule, 500 MG PO DAILY, (Reported) Aspirin (Aspirin) 81 Mg Tab.chew, 81 MG PO DAILY, (Reported) Atorvastatin Calcium (Atorvastatin Calcium) 40 Mg Tablet, 40 MG PO QPM, (Reported) @1900 Calcium Carbonate/Vitamin D3 (Calcium 500-Vit D3 200 Tablet) 1 Each Tablet, 1 TAB PO DAILY, (Reported) Carvedilol (Carvedilol) 6.25 Mg Tablet, 6.25 MG PO BID, (Reported) 2ND DOSE AT 1600 Clopidogrel Bisulfate (Clopidogrel) 75 Mg Tablet, 75 MG PO DAILY, (Reported) Docusate Sodium (Docusate Sodium) 100 Mg Capsule, 100 MG PO QHS, (Reported) Furosemide (Furosemide) 40 Mg Tablet, 40 MG PO BID, (Reported) Gabapentin (Gabapentin) 300 Mg Capsule, 300 MG PO BID, (Reported) Glipizide (Glipizide) 5 Mg Tablet, 2.5 MG PO DAILY, (Reported) Lactose-Reduced Food (Ensure Enlive) 237 Ml Liquid, 237 ML PO BID, (Reported) Lisinopril (Lisinopril) 2.5 Mg Tablet, 2.5 MG PO DAILY, (Reported) Multivitamin (Multivitamins) 1 Each Capsule, 1 CAP PO DAILY, (Reported) Omeprazole (Omeprazole) 20 Mg Capsule.dr, 20 MG PO DAILY, (Reported) Potassium Chloride (Potassium Chloride) 20 Meq Tab.er.prt, 20 MEQ PO BID, (Reported) Scheduled PRN Acetaminophen (Tylenol Extra Strength) 500 Mg Tablet, 1,000 MG PO TID PRN for PAIN, (Reported) Glucagon,Human Recombinant (Glucagon Emergency Kit) 1 Mg Vial, 1 MG IM PRN PRN for LOW BLOOD SUGAR, (Reported) Hydrocodone/Acetaminophen (Hydrocodone-Acetamin 5-325 mg) 1 Each Tablet, 1 TAB PO Q4H PRN for PAIN, (Reported) Miconazole Nitrate (Miconazole Nitrate) 30 Gm Cream..g., 1 APPLIC TOP BID PRN for RASH/ITCHING, (Reported) APPLY UNDER LEFT BREAST Nitroglycerin (Nitroglycerin) 0.4 Mg Tab.subl, 0.4 MG SL NITRO PRN for CHEST PAIN, (Reported) Allergies Coded Allergies: exemestane (Verified Allergy, Mild, Rash, 03/26/19) Penicillins (Verified Adverse Reaction, Mild, Yeast Infection, 03/26/19) Past Medical History Medical History 1. Atrial fibrillation. 2. Congestive heart failure (CHF). 3. Diabetes. 4. Hypertension. 5. Coronary artery disease (CAD). 6. Myocardial infarction (VT) status post percutaneous coronary intervention (PCI) and stent. 7. Peripheral vascular disease. 8. Right elnmi-pkj-ohci amputation (AKA). LUNG CANCER- ADENOCARCINOMA 10/2018 STAGE 1A Surgical History Myocardial infarction (VT) status post percutaneous coronary intervention (PCI) and stent. Excisional debridement right AKA stump wound Right hpzkx-kwj-yvzi amputation (AKA). Family History FATHER: 90 YRS, DIAGNOSED WITH HYPERTENSION, UNSPECIFIED HEART DISEASE MOTHER: 69 YRS, BRAIN CANCER, HYPERTENSION, OTHER MALIGNANT NEOPLASM OF UNSPECIFIED SITE SIBLINGS: ALIVE, SISTER- BREAST CANCER, OVARIAN CANCER DAUGHTER(S): ALIVE 53 YRS 1 BROTHER(S) , 2 SISTER(S) . 1DAUGHTER(S) - HEALTHY. [id number]-PANCREATIC [id number]-VYSHELTL-PANCREATIC CANCER. Social History * Smoker: Denies Alcohol: Denies Drugs: denies A-FIB/CHADSVASC A-FIB History Current/History of A-Fib/PAF?: Yes Current PO Anticoag Therapy: No Treatment Reason Anticoagulant not given: Recent/upcomin procedure (right above knee revision) Review of Systems Constitutional: Denies: Chills Eyes: Denies: Pain, Vision change ENT: Denies: Head Aches Skin: Denies: Rash, Lesions Pulmonary: Denies: Dyspnea, Cough Cardiovascular: Denies: Chest Pain, Palpitations Gastrointestinal: Denies: Nausea Genitourinary: Denies: Dysuria Endocrine: Denies: Polydipsia, Polyphagia Musculoskeletal: Denies: Neck Pain, Back Pain Neurological: Denies: Weakness Psych: Reports: Mood Normal Physical Examination General Exam: Positive: Alert, Cooperative Eye Exam: Positive: PERRLA ENT Exam: Positive: Atraumatic Neck Exam: Positive: Supple; Negative: JVD Chest Exam: Positive: Clear to auscultation Heart Exam: Positive: Irregular Rhythm Telemetry: Positive: Atrial fibrillation Abdomen Exam: Positive: Normal bowel sounds Extremity Exam: Positive: Other (right stump of above knee amputation covered with dressing); Negative: Clubbing, Cyanosis Skin Exam: Positive: Nl turgor and temperature Neuro Exam: Positive: Cranial Nerves 3-12 NL, Reflexes 2+ Psych Exam: Positive: Mental status NL Vital Signs Vital Signs Date Time Temp Pulse Resp B/P (MAP) Pulse Ox O2 Delivery O2 Flow Rate FiO2 06/19/19 17:05 97.9 61 18 137/65 (89) 95 Room Air Laboratory Data Labs 24H Laboratory Tests 2 06/19/19 14:29: Nucleated Red Blood Cells % (auto) 0.0, Prothrombin Time 12.8, Prothromb Time International Ratio 0.99, Activated Partial Thromboplast Time 25.9, Anion Gap 7L, Glomerular Filtration Rate > 60.0, Calcium Level 8.9 06/19/19 14:47: Bedside Glucose (Misc Panel) 138H CBC/BMP Laboratory Tests 06/19/19 14:29 Assessment/Plan Patient is 79 years old female with past medical history of atrial fibrillation, CHF, diabetes, coronary artery diseases status post stents placement, [place], peripheral vascular diseases presented to the hospital for elective excisional debridement right AKA stump wound. Patient has a complicated history of peripheral vascular diseases. She underwent an endovascular intervention of the right lower extremity on 02/20/19. 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 After amputation patient developed unhealed wounds on her stump. Today, Dr. Nance proceeded with excisional debridement right AKA stump wound , removal exposed right superficial femoral artery stent, closure right AKA stump incision. Of note in February patient received 3 cardiac metal stents placement secondary to [place]. Problems (1) PVD (peripheral vascular disease) Status: Acute Problem Text: Status post Excisional debridement right AKA stump wound, 7 cm skin and subcutaneous tissue and scar excised, removal exposed right superficial femoral artery stent, Closure right AKA stump incision Pain management (2) CAD (coronary artery disease) Status: Chronic Problem Text: Continue home cardioprotective medications Patient doesn't have any chest pain or palpitations Patient received multiple stents in February, will continue aspirin and Plavix on hold for 2 days (3) Diabetes mellitus Status: Chronic Problem Text: Diabetes diet Insulin sliding scale (4) CHF (congestive heart failure) Status: Chronic Problem Text: Systolic CHF Not in acute exacerbation Continue home cardioprotective medication (5) HTN (hypertension) Status: Chronic Problem Text: Blood pressures under control Continue home meds (6) Afib Status: Chronic Problem Text: We will hold anticoagulation due to recent surgical procedure Heart rate is under control Plan / VTE VTE Prophylaxis Ordered?: Yes SIOBHAN CHAN DO June 19, 2019 17:40
[2019-06-19] MEDS ORDERED: CLOPIDOGREL 75 MG TAB PO ONE (18:00)
[2019-06-19] MEDS ORDERED: LISI2.5T2 PO (18:02)
[2019-06-19] MEDS ORDERED: FURO40TA2 PO (18:02)
[2019-06-19] MEDS ORDERED: NORCO, ANEXSIA 5/325MG TABLET (HYDROcodone/ACETAMINOPHEN) PO PRN (18:15)
[2019-06-19] MEDS ORDERED: NITROGLYCERIN 0.4 MG SUBL TABLET SL PRN (18:15)
[2019-06-19] MEDS: ASPIRIN 81 MG ENTERIC TAB PO SCH (18:29)
[2019-06-19] MEDS: FUROSEMIDE 40 MG TAB PO SCH (18:29)
[2019-06-19] MEDS: GABAPENTIN 300 MG CAP PO SCH (20:14)
[2019-06-19] MEDS: POTASSIUM CHLORIDE 10 MEQ SR TABLET PO SCH (20:14)
[2019-06-19] MEDS: CARVedilol 6.25 MG TAB PO SCH (20:15)
[2019-06-19] MEDS: DOCUSATE SODIUM 100 MG CAP PO SCH (20:15)
[2019-06-19] MEDS: ATORVASTATIN 20 MG TAB PO SCH (20:15)
[2019-06-19] MEDS: HEPARIN SOD (PORCINE) 5000UNITS/ML VIAL (J1644 PER 1000UNITS) SC SCH (20:16)
[2019-06-19 22:00] VITALS: BP 140/65
[2019-06-20 06:00] VITALS: BP 149/72
[2019-06-20 06:43] LABS: HEMATOCRIT 37.2 % (36.0-47.0); HEMOGLOBIN 12.3 g/dl (12.0-15.5); MEAN CORPUSCULAR HEMOGLOBIN 31.6 pg (27.0-33.0); MEAN CORPUSCULAR HGB CONC 33.1 g/dl (32.0-36.5); MEAN CORPUSCULAR VOLUME 95.6 fl (80.0-96.0); PLATELET COUNT, AUTOMATED 163 10^3/uL (150-450); RED BLOOD COUNT 3.89 10^6/uL (4.00-5.40); WHITE BLOOD COUNT 9.8 10^3/uL (4.0-10.0)
[2019-06-20 06:52] LABS: BLOOD UREA NITROGEN 21 MG/DL (7-18); CALCIUM LEVEL 8.1 MG/DL (8.8-10.2); CARBON DIOXIDE LEVEL 31 MEQ/L (21-32); CHLORIDE LEVEL 105 MEQ/L (98-107); CREATININE FOR GFR 0.82 MG/DL (0.55-1.30); GLOMERULAR FILTRATION RATE > 60.0 (>32); GLUCOSE, FASTING 167 MG/DL (70-100); MAGNESIUM LEVEL 1.7 MG/DL (1.8-2.4); POTASSIUM SERUM 3.9 MEQ/L (3.5-5.1); SODIUM LEVEL 142 MEQ/L (136-145)
--- NOTE | 2019-06-20 08:56 | IPNPDOC ---
Date Seen The patient was seen on 06/20/19. Progress Note Patient seen and examined postoperative day one status post excisional debridement of right above-knee amputation nonhealing ulcer, removal of exposed right superficial femoral artery stent, repair superficial femoral artery, and closure of right AKA stump. The patient is doing well. Her pain is well controlled. She did have a little pain overnight, but she forgot to ask for a pain pill and says after she got a pain pill it felt much better. Today, the patient has minimal pain with exam and management of her wound during my visit. She is tolerating a diet. She is asking for the clear and sure drinks, but the accident we brought her milkshake in short drink, we discussed this with the cici se and they are going to try to get her the appropriate nutrition supplements. Nutrition will be extremely important for healing. This is a tenuous wound. It is difficult to get an above-knee amputation stump to heal after it has failed healing initially. There is risk for infection, there is risk for poor wound healing due to scar tissue, but hopefully with a wide excision and removal of foreign body, and good nutrition, the patient will be able to heel. On exam today, her incision is clean dry and intact, very scant serosanguineous drainage is present. No erythema or induration is noted at the distal wound. John and sutures are intact. The stump is nontender. We thoroughly cleaned the incision. Sterile dressings were reapplied. Following this, the patient's stump was elevated to help with edema. 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 Recommend that we hold Plavix today and restart in the morning. Continue aspirin. Okay for DVT prophylaxis. Continue antibiotics. We will decide on outpatient antibiotics based on progress of the wound at discharge. Likely home tomorrow. Today, we recommend the patient be out of bed frequently. PT OT as ordered. We do not want her to have any skin breakdown on her bottom. She has healed all the skin from her excoriations and sacral ulcer, and we do not want this to break down again. She will need vigilance while she is inpatient. Out of bed for meals would be helpful. The patient is agreeable to this and would like to get up and get around. She is looking forward to continuing physical therapy and occupational therapy. Hopefully, if we can get her stump to heal, she may have an option for a prosthetic. It is a high amputation, but there still may be an option to help her ambulate again. We will see how she does. VS, I&O, 24H, [place]bone Vital Signs/I&O Vital Signs Date Time Temp Pulse Resp B/P (MAP) Pulse Ox O2 Delivery O2 Flow Rate FiO2 06/20/19 06:00 97.4 72 19 149/72 (97) 97 Room Air I&O- Last 24 Hours up to 6 AM 06/20/19 06:00 Intake Total 1420 ml Output Total 480 ml Balance 940 ml Laboratory Data 24H LABS Laboratory Tests 2 06/19/19 14:29: Nucleated Red Blood Cells % (auto) 0.0, Prothrombin Time 12.8, Prothromb Time International Ratio 0.99, Activated Partial Thromboplast Time 25.9, Anion Gap 7L, Glomerular Filtration Rate > 60.0, Calcium Level 8.9 06/19/19 14:47: Bedside Glucose (Misc Panel) 138H 06/20/19 05:20: Nucleated Red Blood Cells % (auto) 0.0, Anion Gap 6L, Glomerular Filtration Rate > 60.0, Calcium Level 8.1L, Magnesium Level 1.7L CBC/BMP Laboratory Tests 06/19/19 14:29 06/20/19 05:20 LI OBREGON MD June 20, 2019 08:55
[2019-06-20] MEDS ORDERED: CLOPIDOGREL 75 MG TAB PO SCH (09:00)
[2019-06-20] MEDS: GABAPENTIN 300 MG CAP PO SCH ×2 (09:05→20:15)
[2019-06-20] MEDS: FUROSEMIDE 40 MG TAB PO SCH ×2 (09:05→16:41)
[2019-06-20] MEDS: POTASSIUM CHLORIDE 10 MEQ SR TABLET PO SCH ×2 (09:05→20:14)
[2019-06-20] MEDS: OMEPRAZOLE 20 MG CAP PO SCH (09:05)
[2019-06-20] MEDS: AMIODARONE 200 MG TAB (PACERONE) PO SCH (09:05)
[2019-06-20] MEDS: LISINOPRIL *2.5 MG* TAB PO SCH (09:06)
[2019-06-20] MEDS: ASPIRIN 81 MG ENTERIC TAB PO SCH (09:06)
[2019-06-20] MEDS: HEPARIN SOD (PORCINE) 5000UNITS/ML VIAL (J1644 PER 1000UNITS) SC SCH ×2 (09:07→20:16)
[2019-06-20] MEDS: VANCOMYCIN HCL 1,000 MG, VIAL MATE ADAPTER 1 EACH in D5W 250 ML IV SCH (09:07)
[2019-06-20] MEDS: CARVedilol 6.25 MG TAB PO SCH ×2 (09:07→20:15)
[2019-06-20] MEDS: ACETAMINOPHEN TAB 650MG DOSE (2X325MG) PO PRN ×2 (09:12→20:15)
[2019-06-20] MEDS: MAGNESIUM GLUCONATE 500 MG TAB PO SCH (12:52)
[2019-06-20 14:00] VITALS: BP 138/71
--- NOTE | 2019-06-20 15:42 | IPNPDOC ---
Text Note Date of Service The patient was seen on 06/20/19. NOTE Subjective: Patient is she is doing much better today. Patient denies fever, chills, nausea, vomiting, diarrhea or dysuria Objective: VITAL SIGNS: Please see below. GENERAL: awake, alert, NAD HEENT: NCAT, anicteric sclera, KIM NECK: supple, no JVD CARDIOVASCULAR EXAMINATION: S1S2, irregularly irregular RESPIRATORY EXAMINATION: CTA b/l, no wheezes/rales/rhonchi ABDOMINAL EXAMINATION: positive bowel sounds x 4, NT EXTREMITIES: right stump of above knee amputation covered with dressing SKIN: warm, no rashes. NEUROLOGICAL EXAMINATION: AAO x 3, no motor/sensory deficits PSYCHIATRIC EXAMINATION: calm, normal affect Assessment/Plan Patient is 79 years old female with past medical history of atrial fibrillation, CHF, diabetes, coronary artery diseases status post stents placement, [place], peripheral vascular diseases presented to the hospital for elective excisional debridement right AKA stump wound. Patient has a complicated history of peripheral vascular diseases. She underwent an endovascular intervention of the right lower extremity on 02/20/19. 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 After amputation patient developed unhealed wounds on her stump. Today, Dr. Nance proceeded with excisional debridement right AKA stump wound , removal exposed right superficial femoral artery stent, closure right AKA stump incision. Of note in February patient received 3 cardiac metal stents placement secondary to [place]. Problems (1) PVD (peripheral vascular disease) Status post Excisional debridement right AKA stump wound, 7 cm skin and subcutaneous tissue and scar excised, removal exposed right superficial femoral artery stent, Closure right AKA stump incision Pain management (2) CAD (coronary artery disease) Continue home cardioprotective medications Patient doesn't have any chest pain or palpitations Patient received multiple stents in February, will continue aspirin and Plavix on hold for 2 days (3) Diabetes mellitus Diabetes diet Insulin sliding scale (4) CHF (congestive heart failure) Systolic CHF Not in acute exacerbation Continue home cardioprotective medication (5) HTN (hypertension) Blood pressures under control Continue home meds (6) Afib We will hold anticoagulation due to recent surgical procedure Heart rate is under control VS,Fishbone, I+O VS, Fishbone, I+O Laboratory Tests 06/20/19 05:20 Vital Signs Date Time Temp Pulse Resp B/P (MAP) Pulse Ox O2 Delivery O2 Flow Rate FiO2 06/20/19 09:07 77 159/71 06/20/19 06:00 97.4 19 97 Room Air I&O- Last 24 Hours up to 6 AM 06/20/19 06:00 Intake Total 1420 ml Output Total 480 ml Balance 940 ml SIOBHAN CHAN DO June 20, 2019 15:42
[2019-06-20] MEDS: ATORVASTATIN 20 MG TAB PO SCH (20:14)
[2019-06-20] MEDS: DOCUSATE SODIUM 100 MG CAP PO SCH (20:14)
[2019-06-20 22:00] VITALS: BP 136/66
[2019-06-21 06:00] VITALS: BP 137/66
[2019-06-21] MEDS ORDERED: CLOPIDOGREL 75 MG TAB PO SCH (09:00)
[2019-06-21] MEDS: MAGNESIUM GLUCONATE 500 MG TAB PO SCH (09:33)
[2019-06-21 09:34] VITALS: BP 161/74
[2019-06-21] MEDS: HEPARIN SOD (PORCINE) 5000UNITS/ML VIAL (J1644 PER 1000UNITS) SC SCH (09:34)
[2019-06-21] MEDS: LISINOPRIL *2.5 MG* TAB PO SCH (09:34)
[2019-06-21] MEDS: GABAPENTIN 300 MG CAP PO SCH (09:34)
[2019-06-21] MEDS: POTASSIUM CHLORIDE 10 MEQ SR TABLET PO SCH (09:35)
[2019-06-21] MEDS: AMIODARONE 200 MG TAB (PACERONE) PO SCH (09:35)
[2019-06-21] MEDS: OMEPRAZOLE 20 MG CAP PO SCH (09:35)
[2019-06-21] MEDS: ASPIRIN 81 MG ENTERIC TAB PO SCH (09:35)
[2019-06-21] MEDS: VANCOMYCIN HCL 1,000 MG, VIAL MATE ADAPTER 1 EACH in D5W 250 ML IV SCH (09:36)
[2019-06-21] MEDS: FUROSEMIDE 40 MG TAB PO SCH (09:36)
[2019-06-21] MEDS: CARVedilol 6.25 MG TAB PO SCH (09:36)
--- NOTE | 2019-06-21 11:00 | IPNPDOC ---
Date Seen The patient was seen on 06/21/19. Progress Note Patient seen and examined postoperative day 2 status post excisional debridement right above-knee amputation for nonhealing wound, removal exposed superficial femoral artery stent and arterial repair, closure of amputation stump. Patient is doing very well today. She is only taking Tylenol for her pain. She is drinking her supplement shakes consistently. This is great and the added nutrition will definitely help with healing. She's had stable vitals and has been afebrile. She's been getting in and out of bed with standby assist. She did work with physical therapy yesterday and sent that went well. She has had very minimal drainage on her dressings per the nurses. On exam today, the right AKA stump incision is clean dry and intact. There is a very small amount of bruising, faint, at the distal mid aspect of the incision. Otherwise, all of the skin appears healthy and viable. No erythema, induration, or drainage is noted. There is a small amount of serosanguineous drainage on the dressing, but the patient did restart her Plavix. This is not unexpected. However, it is minimal. There is no discoloration to the drainage. The dressing is not saturated. There is no odor. The tanner and sutures are intact. The patient is cooperative with elevating her stump when in bed, and there is no sig nificant stump swelling noted. The incision was thoroughly cleaned and dried and a foam dressing was applied. I believe the patient is stable for discharge from a vascular surgery standpoint. Her stump incision looks good. I do not think she needs antibiotics at discharge. She will continue her Plavix daily. We would like to see her back in clinic next week to check her incision. I believe she has an appointment on . We will then see her back 2 weeks postop to discuss staple removal, and 3-4 weeks postop for suture removal. I would leave the stump crown ironer off for now, but once the end of the incision has epithelialized, it is okay to resume the stump crown ironer. I talked to the patient about this, and I think it will be fine for her to resume it in about a week postop. It is okay for her to shower daily with her dressings off. She does usually shower daily at home. So K for some water over the incision, and then pat dry with a clean towel. Then replace a dry foam dressing. The dressing change can be performed once a day if drainage is minimal, or twice a day if needed. If there is an increase in serous drainage, would recommend additional elevation to help with swelling. The patient is frequently volume overloaded and Lasix dependent, so occasionally her tissues become a bit edematous. However, right now, with her Lasix, she does not show any significant edema in the stump. It is okay for her to resume her outpatient physical and occupational therapy. We appreciate the opportunity to participate in the care of this patient. VS, I&O, 24H, Fishbone Vital Signs/I&O Vital Signs Date Time Temp Pulse Resp B/P (MAP) Pulse Ox O2 Delivery O2 Flow Rate FiO2 06/21/19 09:36 78 06/21/19 09:34 161/74 06/21/19 06:00 97.9 18 98 Room Air I&O- Last 24 Hours up to 6 AM 06/21/19 06:00 Intake Total 1670 ml Output Total 975 ml Balance 695 ml LI OBREGON MD June 21, 2019 11:00
--- NOTE | 2019-06-21 12:49 | DS.PDOC ---
Discharge Summary General Date of Admission 06/19/19 Date of Discharge 06/21/19 Discharge Summary PROCEDURES PERFORMED DURING STAY: Excisional debridement right AKA stump wound ADMITTING DIAGNOSES: Excisional debridement right AKA stump wound PVD CAD Diabetes mellitus CHF (congestive heart failure) HTN (hypertension) Afib DISCHARGE DIAGNOSES: Excisional debridement right AKA stump wound PVD CAD Diabetes mellitus CHF (congestive heart failure) HTN (hypertension) Afib COMPLICATIONS/CHIEF COMPLAINT: Non Healing Ulcer, Right Above Knee Amputation. HISTORY OF PRESENT ILLNESS:Patient is 79 years old female with past medical history of atrial fibrillation, CHF, diabetes, coronary artery diseases status post stents placement, IA, peripheral vascular diseases presented to the hospital for elective excisional debridement right AKA stump wound. Patient has a complicated history of peripheral vascular diseases. She underwent an endovascular intervention of the right lower extremity on 02/20/19. 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 After amputation patient developed unhealed wounds on her stump. Today, Dr. Nance proceeded with excisional debridement right AKA stump wound , removal exposed right superficial femoral artery stent, closure right AKA stump incision. Of note in February patient received 3 cardiac metal stents placement secondary to IA. HOSPITAL COURSE: During hospital stay following issue addressed (1) PVD (peripheral vascular disease) Status post Excisional debridement right AKA stump wound, 7 cm skin and subcutaneous tissue and scar excised, removal exposed right superficial femoral artery stent, Closure right AKA stump incision Pain management (2) CAD (coronary artery disease) Continue home cardioprotective medications Patient doesn't have any chest pain or palpitations Patient received multiple stents in February, will continue aspirin and Plavix on hold for 2 days. We will resume Plavix on the day of discharge (3) Diabetes mellitus Diabetes diet Insulin sliding scale (4) CHF (congestive heart failure) Systolic CHF Not in acute exacerbation Continue home cardioprotective medication (5) HTN (hypertension) Blood pressures under control Continue home meds (6) Afib We held anticoagulation due to recent surgical procedure Heart rate is under control. We'll defer decision to initiate anticoagulation to data warehousing specialist DISCHARGE MEDICATIONS: Please see below. ALLERGIES: Please see below. PHYSICAL EXAMINATION ON DISCHARGE: VITAL SIGNS: Please see below. GENERAL: awake, alert, NAD HEENT: NCAT, anicteric sclera, KIM NECK: supple, no JVD CARDIOVASCULAR EXAMINATION: S1S2, irregularly irregular RESPIRATORY EXAMINATION: CTA b/l, no wheezes/rales/rhonchi ABDOMINAL EXAMINATION: positive bowel sounds x 4, NT EXTREMITIES: right stump of above knee amputation covered with dressing SKIN: warm, no rashes. NEUROLOGICAL EXAMINATION: AAO x 3, no motor/sensory deficits PSYCHIATRIC EXAMINATION: calm, normal affect LABORATORY DATA: Please see below. PROGNOSIS: Fair ACTIVITY: [As tolerated]. DIET: Cardiac DISPOSITION: Home DISCHARGE INSTRUCTIONS: Discharge instruction from Dr. Nance: We will then see her back 2 weeks postop to discuss staple removal, and 3-4 weeks postop for suture removal. I would leave the stump roof fitter off for now, but once the end of the incision has epithelialized, it is okay to resume the stump roof fitter. I talked to the patient about this, and I think it will be fine for her to resume it in about a week postop. It is okay for her to shower daily with her dressings off. She does usually shower daily at home. So K for some water over the incision, and then pat dry with a clean towel. Then replace a dry foam dressing. The dressing change can be performed once a day if drainage is minimal, or twice a day if needed. If there is an increase in serous drainage, would recommend additional elevation to help with swelling. The patient is frequently volume overloaded and Lasix dependent, so occasionally her tissues become a bit edematous. However, right now, with her Lasix, she does not show any significant edema in the stump. It is okay for her to resume her outpatient physical and occupational therapy. We appreciate the opportunity to participate in the care of this patient. DISCHARGE CONDITION: [Stable]. TIME SPENT ON DISCHARGE: Greater than 20 minutes. Vital Signs/I&Os Vital Signs Date Time Temp Pulse Resp B/P (MAP) Pulse Ox O2 Delivery O2 Flow Rate FiO2 06/21/19 09:36 78 06/21/19 09:34 161/74 06/21/19 06:00 97.9 18 98 Room Air I&O- Last 24 Hours up to 6 AM 06/21/19 06:00 Intake Total 1670 ml Output Total 975 ml Balance 695 ml Discharge Medications Scheduled Amiodarone HCl (Amiodarone HCl) 200 Mg Tablet, 200 MG PO DAILY, (Reported) Ascorbic Acid (Vitamin C) 500 Mg Capsule, 500 MG PO DAILY, (Reported) Aspirin (Aspirin) 81 Mg Tab.chew, 81 MG PO DAILY, (Reported) Atorvastatin Calcium (Atorvastatin Calcium) 40 Mg Tablet, 40 MG PO QPM, (Repo rted) @1900 Calcium Carbonate/Vitamin D3 (Calcium 500-Vit D3 200 Tablet) 1 Each Tablet, 1 TAB PO DAILY, (Reported) Carvedilol (Carvedilol) 6.25 Mg Tablet, 6.25 MG PO BID, (Reported) 2ND DOSE AT 1600 Clopidogrel Bisulfate (Clopidogrel) 75 Mg Tablet, 75 MG PO DAILY, (Reported) Docusate Sodium (Docusate Sodium) 100 Mg Capsule, 100 MG PO QHS, (Reported) Furosemide (Furosemide) 40 Mg Tablet, 40 MG PO BID, (Reported) Gabapentin (Gabapentin) 300 Mg Capsule, 300 MG PO BID, (Reported) Glipizide (Glipizide) 5 Mg Tablet, 2.5 MG PO DAILY, (Reported) Lactose-Reduced Food (Ensure Enlive) 237 Ml Liquid, 237 ML PO BID, (Reported) Lisinopril (Lisinopril) 2.5 Mg Tablet, 2.5 MG PO DAILY, (Reported) Multivitamin (Multivitamins) 1 Each Capsule, 1 CAP PO DAILY, (Reported) Omeprazole (Omeprazole) 20 Mg Capsule.dr, 20 MG PO DAILY, (Reported) Potassium Chloride (Potassium Chloride) 20 Meq Tab.er.prt, 20 MEQ PO BID, (Reported) Scheduled PRN Acetaminophen (Tylenol Extra Strength) 500 Mg Tablet, 1,000 MG PO TID PRN for PAIN, (Reported) Glucagon,Human Recombinant (Glucagon Emergency Kit) 1 Mg Vial, 1 MG IM PRN PRN for LOW BLOOD SUGAR, (Reported) Hydrocodone/Acetaminophen (Hydrocodone-Acetamin 5-325 mg) 1 Each Tablet, 1 TAB PO Q4H PRN for PAIN, (Reported) Miconazole Nitrate (Miconazole Nitrate) 30 Gm Cream..g., 1 APPLIC TOP BID PRN for RASH/ITCHING, (Reported) APPLY UNDER LEFT BREAST Nitroglycerin (Nitroglycerin) 0.4 Mg Tab.subl, 0.4 MG SL NITRO PRN for CHEST PAIN, (Reported) Allergies Coded Allergies: exemestane (Verified Allergy, Mild, Rash, 03/26/19) Penicillins (Verified Adverse Reaction, Mild, Yeast Infection, 03/26/19) SIOBHAN CHAN DO June 21, 2019 12:49
== END 2019-06-21 12:26 | disposition home or self-care (01) ==
LOC: M SDC 14:03 → M MSPAV 17:30 → M SDC 06-21 12:26
PROVIDERS: ATTEND Surgery Vascular Surgery
DX: T87.89 Other complications of amputation stump (principal); I11.0 Hypertensive heart disease with heart failure; E11.9 Type 2 diabetes mellitus without complications; E78.5 Hyperlipidemia, unspecified; K21.9 Gastro-esophageal reflux disease without esophagitis; I25.10 Atherosclerotic heart disease of native coronary artery without angina pectoris; I50.9 Heart failure, unspecified; I25.2 Old myocardial infarction; Z79.899 Other long term (current) drug therapy; Z92.21 Personal history of antineoplastic chemotherapy; Z95.5 Presence of coronary angioplasty implant and graft; Z96.1 Presence of intraocular lens
CPT/HCPCS: 11042; 36415; 80048; 83735; 85027; 85610; 85730; 86850; 86900; 86901; 88300; 97161; 97165; J1644; J2250; J2370; J3010; J3370

== ENCOUNTER → 2019-10-14 | Outpatient (CLI) | payer MEDICARE, MEDICAID ==
[~2019-10-14] MED LIST changes: +ACET-897 PO; -AMIO200T PO; +AMIO200T3 PO; +GLIP5TAB8 PO; +IRON65TA2 PO; -LIDOCAINE 1% MDV 20ML VIAL SQ PRN; +LISI2.5T2 PO; -MIDAZOLAM INJ 2MG/2ML VIAL (J2250 PER 1MG) As Ordered ONE; -VANCOMYCIN HCL 1,000 MG, VIAL MATE ADAPTER 1 EACH in D5W 250 ML IV ONE; -fentaNYL 100 MCG/2 ML INJECTION (J3010) As Ordered ONE; -propofoL 200 MG/20 ML VIAL As Ordered ONE
--- NOTE | 2019-10-14 12:46 | REPMRS ---
Patient History 3D TOMOSYNTHESIS WAS PERFORMED. The patient states she had a clinical breast exam in 2019. Family history of breast cancer at age 50 or over in sister, prostate cancer at age 90 in father. Chemotherapy. Radiation therapy. Taking tamoxifen for 3 years. VOLALEXANDRAA DENSITY B. Digital Woman Screen Mammo: October 14, 2019 - Exam #: [id number] Bilateral CC and MLO view(s) were taken. Technologist: Brittani Dykes, Technologist Prior study comparison: May 06, 2018, bilateral digital mammo screening bilat, performed at [facility]. May 02, 2017, bilateral digital mammo screening bilat, performed at [facility]. FINDINGS: There are scattered fibroglandular densities. There is a fairly symmetric fibroglandular pattern in both breasts. There has been no interval development of masses, areas of architectural distortion or clusters of microcalcifications typical of malignancy. Assessment: BI-RADS/ACR category 2 mammogram. Benign Findings. Recommendation Routine screening mammogram of both breasts in 1 year (for women over age 40). This mammogram was interpreted with the aid of an FDA-approved computer-aided dectection system. Electronically Signed By: Abraham Eddy MD 10/14/19 [id number]
== END ==
LOC: M WHC 10:26
PROVIDERS: ATTEND Specialist
DX: Z12.31 Encounter for screening mammogram for malignant neoplasm of breast (principal); Z80.3 Family history of malignant neoplasm of breast; Z92.21 Personal history of antineoplastic chemotherapy; Z92.3 Personal history of irradiation

== ENCOUNTER → 2019-10-15 | Outpatient (REF) | payer MEDICARE, MEDICAID ==
[2019-10-15 19:08] LABS: BASO % 0.5 % (0.0-1.0); EOS # 0.2 10^3/uL (0.0-0.5); EOS % 2.3 % (0.0-3.0); HEMATOCRIT 45.6 % (36.0-47.0); HEMOGLOBIN 14.9 g/dl (12.0-15.5); LYMPH # 1.2 10^3/uL (1.5-5.0); LYMPH % 15.3 % (24.0-44.0); MEAN CORPUSCULAR HEMOGLOBIN 32.5 pg (27.0-33.0); MEAN CORPUSCULAR HGB CONC 32.7 g/dl (32.0-36.5); MEAN CORPUSCULAR VOLUME 99.3 fl (80.0-96.0); MONO # 0.7 10^3/uL (0.0-0.8); MONO % 9.2 % (0.0-5.0); NEUTROPHILS # 5.7 10^3/uL (1.5-8.5); NEUTROPHILS % 72.2 % (36.0-66.0); PLATELET COUNT, AUTOMATED 176 10^3/uL (150-450); RED BLOOD COUNT 4.59 10^6/uL (4.00-5.40); WHITE BLOOD COUNT 7.8 10^3/uL (4.0-10.0)
[2019-10-15 19:20] LABS: ALBUMIN 3.4 GM/DL (3.2-5.2); ALT/SGPT 25 U/L (12-78); BILIRUBIN,TOTAL 0.5 MG/DL (0.2-1.0); BLOOD UREA NITROGEN 21 MG/DL (7-18); CALCIUM LEVEL 8.9 MG/DL (8.8-10.2); CARBON DIOXIDE LEVEL 34 MEQ/L (21-32); CHLORIDE LEVEL 105 MEQ/L (98-107); CHOLESTEROL LEVEL 152 MG/DL (<200); CHOLESTEROL RISK RATIO 2.867 (<5); CREATININE FOR GFR 0.93 MG/DL (0.55-1.30); GLOMERULAR FILTRATION RATE > 60.0 (>32); GLUCOSE, FASTING 113 MG/DL (70-100); HDL CHOLESTEROL 53 MG/DL (>40); LDL CHOLESTEROL 82 MG/DL (<100); NON-HDL-C 99 MG/DL; POTASSIUM SERUM 3.6 MEQ/L (3.5-5.1); SODIUM LEVEL 143 MEQ/L (136-145); TOTAL PROTEIN 6.3 GM/DL (6.4-8.2); TRIGLYCERIDES LEVEL 85 MG/DL (<150)
[2019-10-15 19:44] LABS: HEMOGLOBIN A1c 6.7 %
== END ==
LOC: M LABDRAWC 18:34
PROVIDERS: ATTEND Family Medicine
DX: E11.9 Type 2 diabetes mellitus without complications (principal); I10 Essential (primary) hypertension; D64.9 Anemia, unspecified

== ENCOUNTER → 2019-10-27 | Outpatient (CLI) | payer MEDICARE, MEDICAID ==
--- NOTE | 2019-11-06 09:31 | REP ---
LEFT LOWER EXTREMITY DUPLEX DOPPLER ARTERIAL ULTRASOUND HISTORY: Atherosclerotic disease. TECHNIQUE: Real-time ultrasound evaluation and duplex Doppler interrogation of the left lower extremity arterial system is performed. FINDINGS: [id number]-fr-[id number] plaque is seen throughout the left lower extremity arterial system. There is mild increased peak systolic velocity in the distal superficial femoral artery and popliteal artery possibly indicating mild stenosis in this region. Distal posterior tibial artery is occluded with reconstitution more distally. Biphasic waveforms are seen diffusely, with monophasic waveforms in the distal anterior and posterior tibial arteries. VELOCITY CHART LEFT LOWER EXTREMITY LEFT (cm/s) PSV Common femoral artery 72.4 Profunda 90 Proximal SFA 60.3 Mid SFA 71.9 Distal SFA 133.8 Popliteal artery 132.3 Proximal TICO 19.5 Tibioperoneal trunk 44.2 Proximal FLY WINDER 37.9 Distal FLY WINDER Occluded/25.8 Distal TICO 63.4 MTDD
== END ==
LOC: M RAD 10:16
PROVIDERS: ATTEND Surgery Vascular Surgery
DX: I70.212 Atherosclerosis of native arteries of extremities with intermittent claudication, left leg (principal)

== ENCOUNTER 2019-12-23 08:22 | Emergency (ER) | payer MEDICARE, MEDICAID ==
[~2019-12-23] VITALS: Ht 162.6 cm; Wt 61.4 kg
[2019-12-23] MEDS ORDERED: ELIQ2.5T PO (09:02)
[2019-12-23] MEDS ORDERED: lisinopriL 20 MG TAB PO ONE (09:45)
[2019-12-23] MEDS ORDERED: CARVedilol 12.5 MG TAB PO ONE (09:45)
[2019-12-23] MEDS ORDERED: NORCO, ANEXSIA 5/325MG TABLET (HYDROcodone/ACETAMINOPHEN) PO ONE (09:45)
--- NOTE | 2019-12-23 12:04 | REPVR ---
PROCEDURE INFORMATION: Exam: CT Lumbar Spine Without Contrast Exam date and time: 12/23/2019 11:37 AM Age: 79 years old Clinical indication: Low back pain; Additional info: Fall severe pain with movements TECHNIQUE: Imaging protocol: Computed tomography images of the lumbar spine without contrast. Radiation optimization: All CT scans at this facility use at least one of these dose optimization techniques: automated exposure control; mA and/or kV adjustment per patient size (includes targeted exams where dose is matched to clinical indication); or iterative reconstruction. COMPARISON: No relevant prior studies available. FINDINGS: Vertebrae: There is a lumbar dextroscoliotic curvature. This may be partially positional. There is 4 mm of grade 1 retrolisthesis of L1 with respect to L2. There is 4 mm of grade 1 anterolisthesis of L4 with respect to L5. Normal vertebral body alignment is otherwise preserved. There is a nondisplaced sacral fracture at the S1/2 level. There is severe intervertebral disc space loss at L1/2, with endplate changes. L1-L2: There is a shallow disc osteophyte complex/uncovering related to listhesis. There is mild facet hypertrophy. The spinal canal and neural foramina are patent. L2-L3: There is shallow disc bulging. There is mild facet hypertrophy. The spinal canal and neural foramina are patent. L3-L4: There is shallow disc bulging. There is moderate facet hypertrophy. The spinal canal and neural foramina are patent. L4-L5: There is diffuse disc bulging/uncovering related to listhesis. There is moderate facet hypertrophy. There is mild bilateral neural foraminal narrowing.. L5-S1: There is shallow disc bulging. There is mild facet hypertrophy. The spinal canal and neural foramina are patent. Soft tissues: Unremarkable. IMPRESSION: 1. Nondisplaced S1/S2 fracture. 2. Degenerative disc disease and spondylosis as described. Electronically signed by: Liliana Guzman On 12/23/2019 12:03:59 PM
--- NOTE | 2019-12-23 12:07 | REP ---
INDICATION: fall severe pain with movements. COMPARISON: None. TECHNIQUE: Axial CT of the pelvis is performed without the use of intravenous contrast. Sagittal and coronal reconstruction images are performed. FINDINGS: A nondisplaced fracture is noted extending through both sides of the sacrum. Otherwise no fracture or dislocation is seen of the remaining pelvic structures. There are mild degenerative changes at both hip joints. There are mild degenerative changes of the lower lumbar spine. There are atherosclerotic calcifications of the distal abdominal aorta and its branches. There is sigmoid diverticulosis without acute diverticulitis. No pelvic mass is seen. Urinary bladder is mildly distended and grossly unremarkable. Focal hematoma is seen in the left medial gluteal soft tissues measuring about 5.5 cm in maximum diameter. There is some degree of atrophy of the right pelvic musculature. IMPRESSION: Nondisplaced fracture extending through both sides of the sacrum. Focal hematoma in the medial left gluteal soft tissues measures about 5.5 cm in maximum diameter. <Electronically signed by Abraham Eddy > 12/23/19 [id number]
[2019-12-23] MEDS ORDERED: LISI-538 PO (13:07)
[2019-12-23 14:54] VITALS: BP 172/78
== END 2019-12-23 15:00 | disposition home or self-care (01) ==
LOC: EDBD 08:22 → M ED 08:22
DX: S32.19XA Other fracture of sacrum, initial encounter for closed fracture (principal); S30.0XXA Contusion of lower back and pelvis, initial encounter; M51.37 Other intervertebral disc degeneration, lumbosacral region; M47.816 Spondylosis without myelopathy or radiculopathy, lumbar region; W19.XXXA Unspecified fall, initial encounter; Y92.89 Other specified places as the place of occurrence of the external cause; I48.91 Unspecified atrial fibrillation; I10 Essential (primary) hypertension; I25.2 Old myocardial infarction; E11.9 Type 2 diabetes mellitus without complications; Z88.0 Allergy status to penicillin; Z88.8 Allergy status to other drugs, medicaments and biological substances; Z89.511 Acquired absence of right leg below knee; Z79.899 Other long term (current) drug therapy; Z79.01 Long term (current) use of anticoagulants; Z79.82 Long term (current) use of aspirin

== ENCOUNTER → 2020-01-23 | Outpatient (REF) | payer MEDICARE ==
[~2020-01-23] MED LIST changes: +ELIQ2.5T PO; +LISI-538 PO
[2020-01-23 16:38] LABS: HEMATOCRIT 42.6 % (36.0-47.0); HEMOGLOBIN 13.8 g/dl (12.0-15.5); MEAN CORPUSCULAR HEMOGLOBIN 32.3 pg (27.0-33.0); MEAN CORPUSCULAR HGB CONC 32.4 g/dl (32.0-36.5); MEAN CORPUSCULAR VOLUME 99.8 fl (80.0-96.0); PLATELET COUNT, AUTOMATED 134 10^3/uL (150-450); RED BLOOD COUNT 4.27 10^6/uL (4.00-5.40); WHITE BLOOD COUNT 7.3 10^3/uL (4.0-10.0)
== END ==
LOC: M LABDRAWC 15:48
PROVIDERS: ATTEND Nurse Practitioner Family
DX: I48.91 Unspecified atrial fibrillation (principal)

== ENCOUNTER → 2020-05-21 | Outpatient (CLI) | payer MEDICARE, MEDICAID ==
[~2020-05-21] MED LIST changes: -CALC500T44 PO; +GABA-282 PO; -GABA-843 PO; -LISI-538 PO; +LISI20TA33 PO; +OYST500T92 PO
--- NOTE | 2020-05-21 13:03 | REP ---
INDICATION: LT LEG ATHSCL ARTERIES W/CLAUDICATION. COMPARISON: 10/27/2019. TECHNIQUE: Real time eddy scale and Duplex Doppler evaluation of the right lower extremity arterial vasculature using linear high frequency transducer. FINDINGS: Duplex Doppler interrogation demonstrates heavily calcified vessels with severe plaque throughout the left lower extremity arterial system. Biphasic and triphasic waveforms are noted in the thigh through the popliteal artery with monophasic waveforms in the tibioperoneal trunk, throughout the anterior tibial artery and in the distal posterior tibial artery. The distal superficial femoral artery demonstrates approximately 2-1 stenosis. At the origin of the left anterior tibial artery there is approximately 6-1 stenosis. The proximal left posterior tibial artery is occluded approximately 1.7 cm from its origin and is reconstituted at the ankle. Multifocal high-grade stenosis is seen of the anterior tibial artery with multiple collateral revascularization. Left dorsalis pedis is revascularized at its origin and is patent. The findings have worsened since the prior study. PSV(cm/sec) Common femoral artery: 110 cm/s Profunda femoris artery: 78 cm/s Proximal superficial femoral artery: 82 cm/s Mid superficial femoral artery: 95 cm/s Distal superficial femoral artery: 153 cm/s Popliteal artery: 54 cm/s Proximal TICO: 282/occluded cm/s Tibioperoneal trunk: 46 cm/s Proximal REGULAR SENIOR CARE PROVIDER: 42/occluded cm/s Distal REGULAR SENIOR CARE PROVIDER: 92 cm/s Distal TICO: 11 cm/s IMPRESSION: Severe diffuse plaque. Approximately 2-1 stenosis distal SFA. Approximately 6-1 stenosis origin left TICO. Occlusion proximal REGULAR SENIOR CARE PROVIDER with reconstitution at the ankle. Multifocal high-grade stenosis anterior tibial artery with multiple areas of revascularization via collaterals. Stenosis and narrowing has worsened since the prior study. <Electronically signed by Abraham Eddy > 05/21/20 [id number]
== END ==
LOC: M RAD 11:31
PROVIDERS: ATTEND Surgery Vascular Surgery
DX: I70.212 Atherosclerosis of native arteries of extremities with intermittent claudication, left leg (principal)

== ENCOUNTER → 2020-10-19 | Outpatient (REF) | payer MEDICARE, MEDICAID ==
[~2020-10-19] MED LIST changes: -LISI2.5T2 PO; +LISI2.5T9 PO; +SPIR-10
[2020-10-19 15:56] LABS: ALBUMIN 3.2 GM/DL (3.2-5.2); BILIRUBIN,TOTAL 0.4 MG/DL (0.2-1.0); CALCIUM LEVEL 9.5 MG/DL (8.8-10.2); CHOLESTEROL RISK RATIO 3.324 (<5); CREATININE FOR GFR 1.04 MG/DL (0.55-1.30); TOTAL PROTEIN 6.1 GM/DL (6.4-8.2)
== END ==
LOC: M SFHCCLAY 11:41
PROVIDERS: ATTEND Family Medicine
DX: E11.9 Type 2 diabetes mellitus without complications (principal)

== ENCOUNTER → 2020-11-18 | Outpatient (CLI) | payer MEDICARE ==
--- NOTE | 2020-11-18 13:22 | REPMRS ---
Patient History The patient states she had a clinical breast exam in September 2020. Patient is postmenopausal, had previous chest radiation therapy at age 78, has history of lung cancer at age 78, has history of breast cancer at age 67, and had previous chemotherapy. Family history of breast cancer at age 50 or over in sister, prostate cancer at age 90 in father, ovarian cancer at age 76 in sister, pancreatic cancer at age 68 in brother, pancreatic cancer at age 65 in sister. Excisional biopsy of the right breast, 2008. Chemotherapy. Radiation therapy. Took tamoxifen for 5 years. Tomosynthesis is performed. Volpara breast density is b. Patient states no breast complaints today. Patient has signed MRS History Sheet. Digital Woman Screen Mammo: November 18, 2020 - Exam #: [id number] Bilateral CC and MLO view(s) were taken. Technologist: Wendy Richards, Technologist Prior study comparison: October 14, 2019, bilateral digital woman screen mammo performed at [facility]. May 06, 2018, bilateral digital mammo screening bilat, performed at [facility]. FINDINGS: There are scattered fibroglandular densities. There is a fairly symmetric fibroglandular pattern in both breasts. There has been no interval development of masses, areas of architectural distortion or clusters of microcalcifications typical of malignancy.There stable postsurgical changes again seen in the right breast. No significant changes when compared with prior studies. Assessment: BI-RADS/ACR category 2 mammogram. Benign Findings. Recommendation Routine screening mammogram of both breasts in 1 year (for women over age 40). This mammogram was interpreted with the aid of an FDA-approved computer-aided dectection system. Electronically Signed By: Abraham Eddy MD 11/18/20 [id number]
== END ==
LOC: M WHC 11:40
PROVIDERS: ATTEND Specialist
DX: Z85.3 Personal history of malignant neoplasm of breast (principal); Z12.31 Encounter for screening mammogram for malignant neoplasm of breast

== ENCOUNTER → 2021-01-11 | Outpatient (CLI) | payer MEDICARE ==
--- NOTE | 2021-01-11 13:41 | REP ---
INDICATION: LT LEG UNSP ATHSCL KASHIA ARTERIES. COMPARISON: 05/21/2020. TECHNIQUE: Real time eddy scale and Duplex Doppler evaluation of the right lower extremity arterial vasculature using linear high frequency transducer. FINDINGS: Duplex doppler interrogation demonstrates severe diffuse plaquing. There are biphasic waveforms in the common femoral and superficial femoral arteries with monophasic waveforms in the popliteal artery and more distally in the calf arteries. Multifocal occlusion is noted of the anterior tibial artery and posterior tibial artery with revascularization distally. There is a patent dorsalis pedis artery. PSV(cm/sec) Common femoral artery: Not recorded due to technologist error Profunda femoris artery: 123 Proximal superficial femoral artery: 103 Mid superficial femoral artery: 103 Distal superficial femoral artery: 150 Popliteal artery: 63 Tibioperoneal trunk: 69 SUPERVISOR CHEMICAL (prox.): 37 SUPERVISOR CHEMICAL (distal): 61 Peroneal (prox.): 32 Peroneal (dist.): 32 TICO (prox.): 20 TICO (distal): 18 IMPRESSION: Severe diffuse plaquing. Biphasic waveforms common femoral and superficial femoral arteries, with monophasic waveforms in the popliteal artery and calf arteries. Multifocal occlusion of anterior and posterior tibial arteries with revascularization distally. There is a patent dorsalis pedis artery. <Electronically signed by Abraham Eddy > 01/11/21 [id number]
== END ==
LOC: M RAD 11:12
PROVIDERS: ATTEND Surgery Vascular Surgery
DX: I77.1 Stricture of artery (principal)

== ENCOUNTER → 2021-06-03 | Outpatient (REF) | payer MEDICARE, MEDICAID ==
[~2021-06-03] MED LIST changes: -AMIO200T3 PO; +AMIO200T49 PO; +OMEP-173 PO; -OMEP-218 PO; +OMEP40CA4 PO; +POTA-151 PO; -POTA20TA6 PO
[2021-06-03 16:08] LABS: BASO # 0.1 10^3/uL (0.0-0.2); EOS # 0.1 10^3/uL (0.0-0.5); EOS % 1.9 % (0.0-3.0); HEMATOCRIT 39.1 % (36.0-47.0); HEMOGLOBIN 13.3 g/dl (12.0-15.5); LYMPH # 1.4 10^3/uL (1.5-5.0); LYMPH % 19.2 % (24.0-44.0); MONO # 0.5 10^3/uL (0.0-0.8); MONO % 7.1 % (2.0-8.0); NEUTROPHILS # 5.2 10^3/uL (1.5-8.5); NEUTROPHILS % 70.5 % (36.0-66.0); PLATELET COUNT, AUTOMATED 134 10^3/uL (150-450); RED BLOOD COUNT 4.03 10^6/uL (4.00-5.40); WHITE BLOOD COUNT 7.4 10^3/uL (4.0-10.0)
[2021-06-03 16:40] LABS: ALBUMIN 3.4 GM/DL (3.2-5.2); BILIRUBIN,TOTAL 0.4 MG/DL (0.2-1.0); CREATININE FOR GFR 1.16 MG/DL (0.55-1.30); GLOMERULAR FILTRATION RATE 47.6 (>32); MAGNESIUM LEVEL 2.1 MG/DL (1.8-2.4); POTASSIUM SERUM 4.6 MEQ/L (3.5-5.1); TOTAL PROTEIN 6.1 GM/DL (6.4-8.2)
[2021-06-03 17:12] LABS: HEMOGLOBIN A1c 6.7 %
== END ==
LOC: M SFHCCLAY 11:46
PROVIDERS: ATTEND Family Medicine
DX: E11.9 Type 2 diabetes mellitus without complications (principal); K21.9 Gastro-esophageal reflux disease without esophagitis; I10 Essential (primary) hypertension

== ENCOUNTER → 2021-12-15 | Outpatient (CLI) | payer MEDICARE, MEDICAID ==
[~2021-12-15] MED LIST changes: +ONETAB33 PO
== END ==
LOC: M RAD 12:08
PROVIDERS: ATTEND Physician Assistant
DX: I70.212 Atherosclerosis of native arteries of extremities with intermittent claudication, left leg (principal)

== ENCOUNTER → 2022-01-03 | Outpatient (REF) | payer MEDICARE, MEDICAID ==
[2022-01-03 18:29] LABS: HEMOGLOBIN A1c 6.5 % (4.0-6.0)
[2022-01-03 18:58] LABS: POTASSIUM SERUM 4.7 MMOL/L (3.5-5.1)
[2022-01-03 18:59] LABS: ALBUMIN 3.4 G/DL (3.2-5.2)
[2022-01-03 19:04] LABS: CALCIUM LEVEL 8.9 MG/DL (8.3-10.6)
[2022-01-03 19:06] LABS: BILIRUBIN,TOTAL 0.3 MG/DL (0.3-1.2); CHOLESTEROL RISK RATIO 4.06 (<5); CREATININE FOR GFR 1.05 MG/DL (0.55-1.30); GLOMERULAR FILTRATION RATE 53.3 (>32); LDL CHOLESTEROL 43.2 MG/DL (<100); TOTAL PROTEIN 5.9 G/DL (5.7-8.2)
== END ==
LOC: M SFHCCLAY 15:08
PROVIDERS: ATTEND Family Medicine
DX: E11.9 Type 2 diabetes mellitus without complications (principal)

== ENCOUNTER → 2022-03-06 | Outpatient (CLI) | payer MEDICARE, MEDICAID ==
[~2022-03-06] MED LIST changes: -POTA10CA32 PO; +POTA10CA33 PO
== END ==
LOC: M WHC 14:20
PROVIDERS: ATTEND Nurse Practitioner
DX: Z12.31 Encounter for screening mammogram for malignant neoplasm of breast (principal); Z85.3 Personal history of malignant neoplasm of breast

== ENCOUNTER → 2022-06-07 | Outpatient (CLI) | payer MEDICARE, MEDICAID | LOC: M RAD 10:21 | PROVIDERS: ATTEND Physician Assistant | DX: I70.212 Atherosclerosis of native arteries of extremities with intermittent claudication, left leg (principal) ==

== ENCOUNTER → 2022-08-15 | Outpatient (REF) | payer MEDICARE, MEDICAID ==
[~2022-08-15] MED LIST changes: -POTA10CA33 PO; +POTA10CA60 PO
[2022-08-15 18:51] LABS: ALBUMIN 3.5 G/DL (3.2-5.2); BILIRUBIN,TOTAL 0.5 MG/DL (0.3-1.2); GLOMERULAR FILTRATION RATE 56.2 (>32); POTASSIUM SERUM 4.5 MMOL/L (3.5-5.1); TOTAL PROTEIN 6.1 G/DL (5.7-8.2)
== END ==
LOC: M SFHCCLAY 13:24
PROVIDERS: ATTEND Family Medicine
DX: E11.9 Type 2 diabetes mellitus without complications (principal)

== ENCOUNTER → 2023-02-12 | Outpatient (REF) | payer MEDICARE, MEDICAID ==
[~2023-02-12] MED LIST changes: +FURO20TA2; +GLIP5TAB17 PO; -GLIP5TAB8 PO
[2023-02-12 19:28] LABS: HEMOGLOBIN A1c 6.6 % (4.0-6.0)
[2023-02-12 19:29] LABS: ALBUMIN 3.4 G/DL (3.2-5.2); BILIRUBIN,TOTAL 0.4 MG/DL (0.3-1.2); CHOLESTEROL RISK RATIO 4.12 (<5); CREATININE FOR GFR 0.99 MG/DL (0.55-1.30); GLOMERULAR FILTRATION RATE 56.9 (>32); HDL CHOLESTEROL 31.5 MG/DL (>40); LDL CHOLESTEROL 70.1 MG/DL (<100); NON-HDL-C 98.5 MG/DL; POTASSIUM SERUM 4.5 MMOL/L (3.5-5.1)
== END ==
LOC: M SFHCCLAY 11:49
PROVIDERS: ATTEND Family Medicine
DX: E11.9 Type 2 diabetes mellitus without complications (principal)

== ENCOUNTER → 2023-03-13 | Outpatient (CLI) | payer MEDICARE, MEDICAID | LOC: M WHC 14:01 | PROVIDERS: ATTEND Nurse Practitioner | DX: Z12.31 Encounter for screening mammogram for malignant neoplasm of breast (principal); Z85.3 Personal history of malignant neoplasm of breast; Z13.820 Encounter for screening for osteoporosis; M81.0 Age-related osteoporosis without current pathological fracture ==

== ENCOUNTER → 2023-05-03 | Outpatient (CLI) | payer MEDICARE, MEDICAID | LOC: M CLY 11:34 | PROVIDERS: ATTEND Physician Assistant | DX: M25.511 Pain in right shoulder (principal) ==

== ENCOUNTER → 2023-08-31 | Outpatient (REF) | payer MEDICARE, MEDICAID ==
[~2023-08-31] MED LIST changes: -POTA10CA60 PO; +POTA10CA70 PO
[2023-08-31 17:55] LABS: HEMOGLOBIN A1c 6.7 % (4.0-6.0)
[2023-08-31 18:09] LABS: ALBUMIN 3.3 G/DL (3.2-5.2); ALKALINE PHOSPHATASE 91 U/L (46-116); ALT/SGPT 19 U/L (7.0-40); AST/SGOT 16 U/L (<34); BILIRUBIN,TOTAL 0.4 MG/DL (0.3-1.2); BLOOD UREA NITROGEN 19 MG/DL (9-23); CALCIUM LEVEL 9.2 MG/DL (8.3-10.6); CARBON DIOXIDE LEVEL 29 MMOL/L (20-31); CHLORIDE LEVEL 107 MMOL/L (98-107); CREATININE FOR GFR 0.93 MG/DL (0.55-1.30); GLOMERULAR FILTRATION RATE > 60.0 (>32); GLUCOSE, FASTING 133 MG/DL (74-106); POTASSIUM SERUM 4.5 MMOL/L (3.5-5.1); SODIUM LEVEL 142 MMOL/L (136-145); TOTAL PROTEIN 5.7 G/DL (5.7-8.2)
== END ==
LOC: M SFHCCLAY 09:41
PROVIDERS: ATTEND Family Medicine
DX: E11.51 Type 2 diabetes mellitus with diabetic peripheral angiopathy without gangrene (principal); I11.0 Hypertensive heart disease with heart failure; I48.91 Unspecified atrial fibrillation; I50.9 Heart failure, unspecified

== ENCOUNTER → 2024-02-21 | Outpatient (REF) | payer MEDICARE, MEDICAID ==
[~2024-02-21] MED LIST changes: +GABA-1172 PO; -GABA-282 PO; +OXYB-54
[2024-02-21 17:41] LABS: HEMATOCRIT 37.8 % (36.0-47.0); HEMOGLOBIN 12.7 g/dl (12.0-15.5); MEAN CORPUSCULAR HEMOGLOBIN 32.8 pg (27.0-33.0); MEAN CORPUSCULAR HGB CONC 33.6 g/dl (32.0-36.5); MEAN CORPUSCULAR VOLUME 97.7 fl (80.0-96.0); PLATELET COUNT, AUTOMATED 130 10^3/uL (150-450); RED BLOOD COUNT 3.87 10^6/uL (4.00-5.40); WHITE BLOOD COUNT 8.8 10^3/uL (4.0-10.0)
[2024-02-21 18:25] LABS: ALBUMIN 3.1 G/DL (3.2-5.2); BILIRUBIN,TOTAL 0.3 MG/DL (0.3-1.2); CHOLESTEROL RISK RATIO 3.21 (<5); CREATININE FOR GFR 1.05 MG/DL (0.55-1.30); HDL CHOLESTEROL 36.7 MG/DL (>40); LDL CHOLESTEROL 64.3 MG/DL (<100); NON-HDL-C 81.3 MG/DL; POTASSIUM SERUM 5.1 MMOL/L (3.5-5.1); TOTAL PROTEIN 6.1 G/DL (5.7-8.2)
[2024-02-21 19:21] LABS: HEMOGLOBIN A1c 7.2 % (4.0-6.0)
== END ==
LOC: M SFHCCLAY 10:54
PROVIDERS: ATTEND Family Medicine
DX: E11.51 Type 2 diabetes mellitus with diabetic peripheral angiopathy without gangrene (principal); Z23 Encounter for immunization; E78.2 Mixed hyperlipidemia; I11.0 Hypertensive heart disease with heart failure

== ENCOUNTER → 2024-06-06 | Outpatient (CLI) | payer MEDICARE, MEDICAID ==
[~2024-06-06] MED LIST changes: -GLUC1KIT IM; +GLUC1VIA14 IM
== END ==
LOC: M WHC 12:20
PROVIDERS: ATTEND Dietitian, Registered
DX: Z12.31 Encounter for screening mammogram for malignant neoplasm of breast (principal); M81.0 Age-related osteoporosis without current pathological fracture

== ENCOUNTER → 2024-08-06 | Outpatient (CLI) | payer MEDICAID, MEDICARE ==
[~2024-08-06] MED LIST changes: -AMIO200T49 PO; +AMIO200T54 PO
== END ==
LOC: M ONCR 12:49
PROVIDERS: ATTEND General Practice
DX: C34.11 Malignant neoplasm of upper lobe, right bronchus or lung (principal); Z85.3 Personal history of malignant neoplasm of breast; Z98.890 Other specified postprocedural states; Z92.21 Personal history of antineoplastic chemotherapy; Z92.3 Personal history of irradiation; Z88.0 Allergy status to penicillin; Z88.1 Allergy status to other antibiotic agents; Z88.8 Allergy status to other drugs, medicaments and biological substances; Z79.01 Long term (current) use of anticoagulants; Z79.82 Long term (current) use of aspirin; Z79.84 Long term (current) use of oral hypoglycemic drugs; Z79.899 Other long term (current) drug therapy

== ENCOUNTER → 2024-08-21 | Outpatient (REF) | payer MEDICARE, MEDICAID ==
[2024-08-21 18:04] LABS: ESTIMATED AVERAGE GLUCOSE 157.0 MG/DL (60-110)
[2024-08-21 18:22] LABS: ALT/SGPT 24.0 U/L (7.0-40); AST/SGOT 27.0 U/L (<34); CALCIUM LEVEL 8.7 MG/DL (8.3-10.6); CARBON DIOXIDE LEVEL 27.0 MMOL/L (20-31); CHLORIDE LEVEL 104.0 MMOL/L (98-107); CREATININE FOR GFR 1.1 MG/DL (0.55-1.30); GLOMERULAR FILTRATION RATE 48.9 (>32); POTASSIUM SERUM 4.9 MMOL/L (3.5-5.1); SODIUM LEVEL 142.0 MMOL/L (136-145)
== END ==
LOC: M SFHCCLAY 11:18
PROVIDERS: ATTEND Family Medicine
DX: E11.51 Type 2 diabetes mellitus with diabetic peripheral angiopathy without gangrene (principal); Z23 Encounter for immunization

== ENCOUNTER 2024-08-25 21:41 | Emergency (ER) | payer MEDICARE, MEDICAID ==
[~2024-08-25] VITALS: Ht 162.6 cm; Wt 59.0 kg
[2024-08-25 22:23] LABS: BASO # 0.1 10^3/uL (0.0-0.2); BASO % 0.6 % (0.0-1.0); EOS # 0.2 10^3/uL (0.0-0.5); EOS % 2.1 % (0.0-3.0); LYMPH # 1.4 10^3/uL (1.5-5.0); LYMPH % 15.1 % (24.0-44.0); MONO # 0.7 10^3/uL (0.0-0.8); MONO % 7.6 % (2.0-8.0); NEUTROPHILS # 6.8 10^3/uL (1.5-8.5); NEUTROPHILS % 74.2 % (36.0-66.0); PLATELET COUNT, AUTOMATED 156 10^3/uL (150-450)
[2024-08-25 22:46] LABS: INR 1.16
[2024-08-25 22:54] LABS: CK-MB VALUE MASS 3.9 NG/ML (<3.6)
[2024-08-25 22:56] LABS: ALT/SGPT 21.0 U/L (7.0-40); AST/SGOT 21.0 U/L (<34); CALCIUM LEVEL 8.6 MG/DL (8.3-10.6); CARBON DIOXIDE LEVEL 24.0 MMOL/L (20-31); CHLORIDE LEVEL 106.0 MMOL/L (98-107); CREATININE FOR GFR 1.55 MG/DL (0.55-1.30); GLOMERULAR FILTRATION RATE 32.4 (>32); POTASSIUM SERUM 5.4 MMOL/L (3.5-5.1); SODIUM LEVEL 144.0 MMOL/L (136-145)
[2024-08-25 23:00] LABS: CPK CREATINE PHOSPHOKINASE 84.0 U/L (34-145); MB/CK RELATIVE INDEX 4.64 (< OR =4)
[2024-08-25 23:51] LABS: CK-MB VALUE MASS 3.8 NG/ML (<3.6)
[2024-08-26 00:03] LABS: CPK CREATINE PHOSPHOKINASE 77.0 U/L (34-145); MB/CK RELATIVE INDEX 4.93 (< OR =4)
[2024-08-26] MEDS: ASPIRIN 81 MG CHEWABLE TABLET PO ONE (00:38)
[2024-08-26] MEDS ORDERED: HEPARIN SOD 5000 UNITS/ML 1 ML VIAL/SYRINGE IV PRN (01:25)
[2024-08-26 01:52] LABS: PLATELET COUNT, AUTOMATED 145 10^3/uL (150-450)
[2024-08-26 01:56] LABS: CK-MB VALUE MASS 4.7 NG/ML (<3.6)
[2024-08-26 01:59] LABS: CPK CREATINE PHOSPHOKINASE 74.0 U/L (34-145); MB/CK RELATIVE INDEX 6.35 (< OR =4)
[2024-08-26 02:16] VITALS: BP 165/85; TEMP 97.5; O2SAT 96
[2024-08-26] MEDS: HEPARIN DRIP 25,000 UNITS in IV 1 EA IV SCH (02:23)
== END 2024-08-26 02:41 | disposition short-term general hospital (02) ==
LOC: EDBD 21:41 → M ED 21:41
DX: I21.4 Non-ST elevation (NSTEMI) myocardial infarction (principal); I44.0 Atrioventricular block, first degree; I45.3 Trifascicular block; I25.119 Atherosclerotic heart disease of native coronary artery with unspecified angina pectoris; I50.22 Chronic systolic (congestive) heart failure; K21.9 Gastro-esophageal reflux disease without esophagitis; E11.9 Type 2 diabetes mellitus without complications; I11.0 Hypertensive heart disease with heart failure; E78.5 Hyperlipidemia, unspecified; Z88.0 Allergy status to penicillin; Z88.1 Allergy status to other antibiotic agents; Z88.8 Allergy status to other drugs, medicaments and biological substances; Z79.1 Long term (current) use of non-steroidal anti-inflammatories (NSAID); Z79.01 Long term (current) use of anticoagulants; Z79.84 Long term (current) use of oral hypoglycemic drugs; Z79.899 Other long term (current) drug therapy; Z79.810 Long term (current) use of selective estrogen receptor modulators (SERMs)

== ENCOUNTER → 2024-10-02 | Outpatient (REF) | payer MEDICARE, MEDICAID | LOC: M SFHCCLAY 11:19 | PROVIDERS: ATTEND Family Medicine | DX: Z53.9 Procedure and treatment not carried out, unspecified reason (principal) ==

== ENCOUNTER → 2024-10-07 | Outpatient (REF) | payer MEDICAID, MEDICARE | LOC: M SFHCCLAY 09:11 | PROVIDERS: ATTEND Family Medicine | DX: Z11.1 Encounter for screening for respiratory tuberculosis (principal) ==

== ENCOUNTER 2024-10-31 14:58 | Inpatient (IN) | payer MEDICARE, MEDICAID ==
[~2024-10-31] VITALS: Ht 162.6 cm; Wt 62.2 kg
[~2024-10-31 14:58] MED LIST changes: -FURO20TA2; +FURO20TA2 PO; -OXYB-54; +OXYB-54 PO
[2024-10-31 15:59] LABS: BASO # 0.1 10^3/uL (0.0-0.2); BASO % 0.8 % (0.0-1.0); EOS # 0.2 10^3/uL (0.0-0.5); EOS % 2.1 % (0.0-3.0); LYMPH # 1.4 10^3/uL (1.5-5.0); LYMPH % 17.6 % (24.0-44.0); MONO # 0.8 10^3/uL (0.0-0.8); MONO % 10.2 % (2.0-8.0); NEUTROPHILS # 5.5 10^3/uL (1.5-8.5); NEUTROPHILS % 69.0 % (36.0-66.0); PLATELET COUNT, AUTOMATED 134 10^3/uL (150-450)
[2024-10-31 16:22] LABS: ALT/SGPT 18.0 U/L (7.0-40); AST/SGOT 20.0 U/L (<34); CALCIUM LEVEL 8.7 MG/DL (8.3-10.6); CARBON DIOXIDE LEVEL 27.0 MMOL/L (20-31); CHLORIDE LEVEL 107.0 MMOL/L (98-107); CREATININE FOR GFR 0.89 MG/DL (0.55-1.30); GLOMERULAR FILTRATION RATE 63.1 (>32); POTASSIUM SERUM 4.4 MMOL/L (3.5-5.1); SODIUM LEVEL 144.0 MMOL/L (136-145)
[2024-10-31 16:24] LABS: THYROXINE (T4) 5.9 UG/DL (4.5-10.9)
[2024-10-31] MEDS ORDERED: PANT40TA29 PO (17:37)
[2024-10-31] MEDS ORDERED: FLUT15.820 NARES (17:37)
[2024-10-31] MEDS ORDERED: DICL100G10 TOP (17:37)
[2024-10-31] MEDS ORDERED: LEVOTAB10 PO (17:37)
[2024-10-31] MEDS ORDERED: SYST1SOL OU (17:37)
[2024-10-31] MEDS ORDERED: MICOCRE TOP (17:37)
[2024-10-31] MEDS ORDERED: LOPE2TAB12 PO (17:37)
[2024-10-31] MEDS ORDERED: HOME MED LIST COMPLETE! XX SCH (17:40)
[2024-10-31] MEDS: FUROSEMIDE 40 MG/4 ML VIAL IV ONE (17:53)
[2024-10-31 21:11] LABS: MAGNESIUM LEVEL 1.5 MG/DL (1.8-2.4)
[2024-10-31] MEDS ORDERED: GLUCAGON INJ 1 MG VIAL SC PRN (22:20)
[2024-10-31] MEDS ORDERED: POLYVINYL ALCOHOL OPHTH SOLN 15ML (LIQUITEARS) OU PRN (22:20)
[2024-10-31] MEDS ORDERED: MOM 30 ML SUSPENSION UDC PO PRN (22:20)
[2024-10-31] MEDS ORDERED: MAALOX 30 ML SUSP *UDC PO PRN (22:20)
[2024-10-31] MEDS ORDERED: NITROGLYCERIN 0.4 MG SUBL TABLET SL PRN (22:20)
[2024-10-31] MEDS ORDERED: DEXTROSE 50% 50 ML SYRINGE IV PRN (22:20)
[2024-10-31] MEDS ORDERED: GLUCOSE 4 GM CHEW PO PRN (22:20)
[2024-10-31] MEDS ORDERED: ACETAMINOPHEN 500 MG TAB PO PRN (22:20)
[2024-10-31 22:46] LABS: INR 1.13
[2024-10-31] MEDS: MAGNESIUM OXIDE 400 MG TAB PO ONE (22:51)
[2024-10-31] MEDS: APIXABAN 2.5 MG TAB PO SCH (22:51)
[2024-11-01 01:07] VITALS: BP 119/74; TEMP 97.3; O2SAT 94
[2024-11-01 04:46] VITALS: BP 132/61; TEMP 97.3; O2SAT 95
[2024-11-01 06:57] LABS: PLATELET COUNT, AUTOMATED 147 10^3/uL (150-450)
[2024-11-01 07:20] LABS: ALT/SGPT 15.0 U/L (7.0-40); AST/SGOT 14.0 U/L (<34); CALCIUM LEVEL 8.4 MG/DL (8.3-10.6); CARBON DIOXIDE LEVEL 30.0 MMOL/L (20-31); CHLORIDE LEVEL 106.0 MMOL/L (98-107); CREATININE FOR GFR 0.96 MG/DL (0.55-1.30); GLOMERULAR FILTRATION RATE 57.6 (>32); MAGNESIUM LEVEL 1.6 MG/DL (1.8-2.4); POTASSIUM SERUM 3.9 MMOL/L (3.5-5.1); SODIUM LEVEL 144.0 MMOL/L (136-145)
[2024-11-01 08:00] VITALS: BP 129/85; TEMP 97.5; O2SAT 94
[2024-11-01] MEDS: AZITHROMYCIN 250 MG TABLET PO ONE (09:17)
[2024-11-01] MEDS: PANTOPRAZOLE 40MG TAB PO SCH (09:17)
[2024-11-01] MEDS: MAGNESIUM OXIDE 400 MG TAB PO SCH (09:17)
[2024-11-01] MEDS: POTASSIUM CHLORIDE 10MEQ SR TABLET PO SCH (09:17)
[2024-11-01] MEDS: CLOPIDOGREL 75 MG TAB PO SCH (09:17)
[2024-11-01] MEDS: FERROUS SULFATE 325 MG TAB PO SCH (09:17)
[2024-11-01] MEDS: GABAPENTIN 300 MG CAP PO SCH (09:17)
[2024-11-01] MEDS: ASCORBIC ACID 500 MG TAB PO SCH (09:17)
[2024-11-01] MEDS: DOCUSATE SODIUM 100 MG CAPSULE PO SCH (09:17)
[2024-11-01] MEDS: ASPIRIN 81 MG CHEWABLE TABLET PO SCH (09:17)
[2024-11-01] MEDS: FUROSEMIDE 20 MG/2 ML VIAL IV SCH (09:18)
[2024-11-01] MEDS: INSULIN LISPRO (NovoLOG) PER UNIT SC SCH ×2 (09:18→21:00)
[2024-11-01 09:22] LABS: C REACTIVE PROTEIN QUANTITATIV 1.03 MG/DL (<1.0)
[2024-11-01] MEDS: cefTRIAXone SOD 1 GM in DEXTROSE 5% (D5W) ADV/MINI-BAG 50 ML IV SCH (10:57)
[2024-11-01 12:00] VITALS: BP 121/61; TEMP 97.5; O2SAT 93
[2024-11-01 16:00] VITALS: BP 122/60; TEMP 97.7; O2SAT 95
[2024-11-01 20:34] VITALS: BP 127/61; TEMP 97.7; O2SAT 95
[2024-11-01] MEDS: ATORVASTATIN 20 MG TAB PO SCH (20:59)
[2024-11-02 01:18] VITALS: BP 125/62; TEMP 97.7; O2SAT 91
[2024-11-02 06:07] VITALS: BP 130/64; TEMP 97.2; O2SAT 94
[2024-11-02 07:15] LABS: BASO # 0.0 10^3/uL (0.0-0.2); BASO % 0.5 % (0.0-1.0); EOS # 0.2 10^3/uL (0.0-0.5); EOS % 2.6 % (0.0-3.0); LYMPH # 1.3 10^3/uL (1.5-5.0); LYMPH % 16.2 % (24.0-44.0); MONO # 0.7 10^3/uL (0.0-0.8); MONO % 8.9 % (2.0-8.0); NEUTROPHILS # 5.8 10^3/uL (1.5-8.5); NEUTROPHILS % 71.6 % (36.0-66.0); PLATELET COUNT, AUTOMATED 139 10^3/uL (150-450)
[2024-11-02 07:52] LABS: CALCIUM LEVEL 8.6 MG/DL (8.3-10.6); CARBON DIOXIDE LEVEL 33.0 MMOL/L (20-31); CHLORIDE LEVEL 106.0 MMOL/L (98-107); CREATININE FOR GFR 1.04 MG/DL (0.55-1.30); GLOMERULAR FILTRATION RATE 52.3 (>32); MAGNESIUM LEVEL 1.8 MG/DL (1.8-2.4); POTASSIUM SERUM 4.2 MMOL/L (3.5-5.1); SODIUM LEVEL 144.0 MMOL/L (136-145)
[2024-11-02 08:00] VITALS: BP 160/71; TEMP 97.5; O2SAT 94
[2024-11-02] MEDS: AZITHROMYCIN 250 MG TABLET PO SCH (08:15)
[2024-11-02 09:00] LABS: C REACTIVE PROTEIN QUANTITATIV 0.98 MG/DL (<1.0)
[2024-11-02] MEDS ORDERED: ANALGESIC BALM CRM 3 OZ TOP PRN (09:45)
[2024-11-02 12:00] VITALS: BP 135/59; TEMP 97.9; O2SAT 96
[2024-11-02] MEDS: FLUZONE HIGH DOSE (65+) 0.5 ML SYRINGE (25-26) IM.IMMUN ONE (13:38)
[2024-11-02 20:00] VITALS: BP 159/63; TEMP 98.8; O2SAT 92
[2024-11-02] MEDS: APIXABAN 5 MG TAB PO SCH (20:12)
[2024-11-02] MEDS: DEXTROMETHORPHAN 60 MG/10 ML SUSP 90 ML BTL PO PRN (20:56)
[2024-11-03 03:15] VITALS: BP 158/66; TEMP 98.1; O2SAT 90
[2024-11-03 06:15] LABS: BASO # 0.0 10^3/uL (0.0-0.2); BASO % 0.4 % (0.0-1.0); EOS # 0.0 10^3/uL (0.0-0.5); EOS % 0.4 % (0.0-3.0); LYMPH # 0.7 10^3/uL (1.5-5.0); LYMPH % 7.8 % (24.0-44.0); MONO # 0.8 10^3/uL (0.0-0.8); MONO % 8.2 % (2.0-8.0); NEUTROPHILS # 7.8 10^3/uL (1.5-8.5); NEUTROPHILS % 82.5 % (36.0-66.0); PLATELET COUNT, AUTOMATED 124 10^3/uL (150-450)
[2024-11-03 06:31] LABS: CALCIUM LEVEL 8.5 MG/DL (8.3-10.6); CARBON DIOXIDE LEVEL 31.0 MMOL/L (20-31); CHLORIDE LEVEL 104.0 MMOL/L (98-107); CREATININE FOR GFR 0.92 MG/DL (0.55-1.30); GLOMERULAR FILTRATION RATE 60.6 (>32); MAGNESIUM LEVEL 1.9 MG/DL (1.8-2.4); POTASSIUM SERUM 4.2 MMOL/L (3.5-5.1); SODIUM LEVEL 144.0 MMOL/L (136-145)
[2024-11-03 07:30] VITALS: O2SAT 91
[2024-11-03] MEDS: TORSEMIDE 20 MG TAB PO SCH (09:00)
[2024-11-03 12:00] VITALS: BP 134/66; TEMP 98.1; O2SAT 90
[2024-11-03 20:00] VITALS: BP 133/58; TEMP 98.1; O2SAT 91
[2024-11-03] MEDS: guaiFENesin ER TABLET 600 MG TAB PO SCH (20:07)
[2024-11-04 04:00] VITALS: BP 145/66; TEMP 97.9; O2SAT 96
[2024-11-04 07:20] LABS: BASO # 0.1 10^3/uL (0.0-0.2); BASO % 0.6 % (0.0-1.0); EOS # 0.1 10^3/uL (0.0-0.5); EOS % 1.0 % (0.0-3.0); LYMPH # 1.0 10^3/uL (1.5-5.0); LYMPH % 12.1 % (24.0-44.0); MONO # 1.0 10^3/uL (0.0-0.8); MONO % 11.4 % (2.0-8.0); NEUTROPHILS # 6.4 10^3/uL (1.5-8.5); NEUTROPHILS % 74.2 % (36.0-66.0); PLATELET COUNT, AUTOMATED 113 10^3/uL (150-450)
[2024-11-04 07:39] LABS: CALCIUM LEVEL 8.0 MG/DL (8.3-10.6); CARBON DIOXIDE LEVEL 31.0 MMOL/L (20-31); CHLORIDE LEVEL 102.0 MMOL/L (98-107); CREATININE FOR GFR 0.9 MG/DL (0.55-1.30); GLOMERULAR FILTRATION RATE 62.3 (>32); MAGNESIUM LEVEL 1.8 MG/DL (1.8-2.4); POTASSIUM SERUM 4.6 MMOL/L (3.5-5.1); SODIUM LEVEL 140.0 MMOL/L (136-145)
[2024-11-04 12:21] VITALS: BP_DIAS 55; TEMP 97.7; O2SAT 92
[2024-11-04] MEDS: dexAMETHasone 4 MG/ML 1 ML VIAL IV SCH (15:30)
[2024-11-04] MEDS: REMDESIVIR 200 MG in NS 250 ML IV ONE (15:31)
[2024-11-04 20:00] VITALS: BP 120/52; TEMP 97.9; O2SAT 91
[2024-11-05 04:00] VITALS: BP 136/51; TEMP 97.3; O2SAT 98
[2024-11-05 06:49] LABS: CALCIUM LEVEL 8.3 MG/DL (8.3-10.6); CARBON DIOXIDE LEVEL 30.0 MMOL/L (20-31); CHLORIDE LEVEL 104.0 MMOL/L (98-107); CREATININE FOR GFR 0.99 MG/DL (0.55-1.30); GLOMERULAR FILTRATION RATE 55.5 (>32); POTASSIUM SERUM 4.5 MMOL/L (3.5-5.1); SODIUM LEVEL 138.0 MMOL/L (136-145)
[2024-11-05] MEDS: FUROSEMIDE 20 MG TAB PO SCH (10:27)
[2024-11-05 12:00] VITALS: BP 142/61; TEMP 97.5; O2SAT 93
[2024-11-05] MEDS ORDERED: guaiFENesin DM LIQ 10ML UD PO PRN (12:25)
[2024-11-05 14:38] VITALS: O2SAT 86
[2024-11-05 14:41] VITALS: O2SAT 98
[2024-11-05 20:00] VITALS: BP 138/59; TEMP 97.7; O2SAT 93
[2024-11-05] MEDS: CEFDINIR 300 MG CAP PO SCH (22:35)
[2024-11-06 04:00] VITALS: BP 137/61; TEMP 97.5; O2SAT 94
[2024-11-06 07:45] LABS: CALCIUM LEVEL 8.6 MG/DL (8.3-10.6); CARBON DIOXIDE LEVEL 30.0 MMOL/L (20-31); CHLORIDE LEVEL 103.0 MMOL/L (98-107); CREATININE FOR GFR 0.99 MG/DL (0.55-1.30); GLOMERULAR FILTRATION RATE 55.5 (>32); POTASSIUM SERUM 4.7 MMOL/L (3.5-5.1); SODIUM LEVEL 142.0 MMOL/L (136-145)
[2024-11-06 12:00] VITALS: BP 130/60; TEMP 97.7; O2SAT 90
[2024-11-06 19:41] VITALS: BP 136/67; TEMP 97.9; O2SAT 96
[2024-11-07 03:47] VITALS: BP 140/66; TEMP 97.2; O2SAT 94
[2024-11-07 07:03] LABS: CALCIUM LEVEL 8.2 MG/DL (8.3-10.6); CARBON DIOXIDE LEVEL 29.0 MMOL/L (20-31); CHLORIDE LEVEL 103.0 MMOL/L (98-107); CREATININE FOR GFR 0.95 MG/DL (0.55-1.30); GLOMERULAR FILTRATION RATE 58.4 (>32); POTASSIUM SERUM 4.4 MMOL/L (3.5-5.1); SODIUM LEVEL 139.0 MMOL/L (136-145)
[2024-11-07 08:43] VITALS: BP 138/64
[2024-11-07] MEDS ORDERED: AZIT-12 PO (08:57)
[2024-11-07] MEDS ORDERED: DELS30LI8 PO (08:57)
[2024-11-07] MEDS ORDERED: DEXA2TA PO (08:57)
[2024-11-07] MEDS ORDERED: CEFD300CAP PO (08:57)
== END 2024-11-07 10:07 | DRG 291 ==
LOC: M ED 14:58 → M ED INP 22:17 → M MSPAV 11-01 01:07
PROVIDERS: ADMIT Student in an Organized Health Care Education/Training Program; ATTEND Student in an Organized Health Care Education/Training Program
PROC: B246ZZZ Ultrasonography of Right and Left Heart (ICD-10-PCS; principal; 2024-11-03)
PROC: XW033E5 Introduction of Remdesivir Anti-infective into Peripheral Vein, Percutaneous Approach, New Technology Group 5 (ICD-10-PCS; 2024-11-04)
DX: I11.0 Hypertensive heart disease with heart failure (principal); I50.23 Acute on chronic systolic (congestive) heart failure; J18.9 Pneumonia, unspecified organism; J96.01 Acute respiratory failure with hypoxia; U07.1 COVID-19; I48.91 Unspecified atrial fibrillation; I25.10 Atherosclerotic heart disease of native coronary artery without angina pectoris; E11.51 Type 2 diabetes mellitus with diabetic peripheral angiopathy without gangrene; K21.9 Gastro-esophageal reflux disease without esophagitis; E78.5 Hyperlipidemia, unspecified; I25.2 Old myocardial infarction; E83.42 Hypomagnesemia; G54.6 Phantom limb syndrome with pain; N39.3 Stress incontinence (female) (male); Z85.3 Personal history of malignant neoplasm of breast; Z85.118 Personal history of other malignant neoplasm of bronchus and lung; Z95.5 Presence of coronary angioplasty implant and graft; Z98.41 Cataract extraction status, right eye; Z98.42 Cataract extraction status, left eye; Z89.611 Acquired absence of right leg above knee; Z79.01 Long term (current) use of anticoagulants; Z79.02 Long term (current) use of antithrombotics/antiplatelets; Z79.84 Long term (current) use of oral hypoglycemic drugs; Z79.899 Other long term (current) drug therapy; Z88.0 Allergy status to penicillin; Z88.1 Allergy status to other antibiotic agents; Z88.8 Allergy status to other drugs, medicaments and biological substances

== ENCOUNTER → 2024-11-14 | Outpatient (REF) | payer MEDICARE, MEDICAID ==
[~2024-11-14] MED LIST changes: +AZIT-12 PO; +CEFD300CAP PO; +DELS30LI8 PO; +DEXA2TA PO; +DICL100G10 TOP; +FLUT15.820 NARES; +LEVOTAB10 PO; +LOPE2TAB12 PO; +MICOCRE TOP; +PANT40TA29 PO; +SYST1SOL OU
[2024-11-14 17:21] LABS: PLATELET COUNT, AUTOMATED 129 10^3/uL (150-450)
[2024-11-14 17:40] LABS: ALT/SGPT 20.0 U/L (7.0-40); AST/SGOT 15.0 U/L (<34); CALCIUM LEVEL 7.8 MG/DL (8.3-10.6); CARBON DIOXIDE LEVEL 26.0 MMOL/L (20-31); CHLORIDE LEVEL 105.0 MMOL/L (98-107); CREATININE FOR GFR 0.89 MG/DL (0.55-1.30); GLOMERULAR FILTRATION RATE 63.1 (>32); POTASSIUM SERUM 4.6 MMOL/L (3.5-5.1); SODIUM LEVEL 139.0 MMOL/L (136-145)
== END ==
LOC: M SFHCCLAY 14:27
PROVIDERS: ATTEND Physician Assistant
DX: U07.1 COVID-19 (principal); J18.9 Pneumonia, unspecified organism; I11.0 Hypertensive heart disease with heart failure; E11.51 Type 2 diabetes mellitus with diabetic peripheral angiopathy without gangrene; E78.2 Mixed hyperlipidemia; I50.42 Chronic combined systolic (congestive) and diastolic (congestive) heart failure; I48.91 Unspecified atrial fibrillation; Z95.5 Presence of coronary angioplasty implant and graft; N18.31 Chronic kidney disease, stage 3a; N39.3 Stress incontinence (female) (male); C34.91 Malignant neoplasm of unspecified part of right bronchus or lung; Z85.3 Personal history of malignant neoplasm of breast; Z89.611 Acquired absence of right leg above knee; G54.7 Phantom limb syndrome without pain; L29.9 Pruritus, unspecified

== ENCOUNTER → 2024-11-21 | Outpatient (CLI) | payer MEDICARE, MEDICAID | LOC: M PLAIMG 09:54 | PROVIDERS: ATTEND Physician Assistant | DX: J18.9 Pneumonia, unspecified organism (principal) ==

== ENCOUNTER 2024-11-22 10:20 | Emergency (ER) | payer MEDICARE, MEDICAID ==
[~2024-11-22] VITALS: Ht 162.6 cm; Wt 70.1 kg
[2024-11-22 10:20] VITALS: TEMP 98.1
[2024-11-22 12:30] VITALS: BP 141/66
[2024-11-22 12:35] VITALS: O2SAT 99
== END 2024-11-22 13:16 | disposition home or self-care (01) ==
LOC: M ED 10:20
DX: S96.912A Strain of unspecified muscle and tendon at ankle and foot level, left foot, initial encounter (principal); Y92.9 Unspecified place or not applicable; Y93.9 Activity, unspecified; Y99.9 Unspecified external cause status; I25.119 Atherosclerotic heart disease of native coronary artery with unspecified angina pectoris; I25.2 Old myocardial infarction; E11.9 Type 2 diabetes mellitus without complications; I10 Essential (primary) hypertension; E78.5 Hyperlipidemia, unspecified; C34.90 Malignant neoplasm of unspecified part of unspecified bronchus or lung; C50.919 Malignant neoplasm of unspecified site of unspecified female breast; Z88.0 Allergy status to penicillin; Z88.1 Allergy status to other antibiotic agents; Z88.8 Allergy status to other drugs, medicaments and biological substances; Z79.1 Long term (current) use of non-steroidal anti-inflammatories (NSAID); Z79.01 Long term (current) use of anticoagulants; Z79.84 Long term (current) use of oral hypoglycemic drugs; Z79.899 Other long term (current) drug therapy; J18.9 Pneumonia, unspecified organism

== ENCOUNTER 2024-11-24 11:59 | Emergency (ER) | payer MEDICARE, MEDICAID ==
[~2024-11-24] VITALS: Ht 162.6 cm; Wt 60.9 kg
[2024-11-24] MEDS ORDERED: HOME MED LIST COMPLETE! XX SCH (12:35)
[2024-11-24 14:17] LABS: BASO # 0.0 10^3/uL (0.0-0.2); BASO % 0.5 % (0.0-1.0); EOS # 0.2 10^3/uL (0.0-0.5); EOS % 1.9 % (0.0-3.0); LYMPH # 1.1 10^3/uL (1.5-5.0); LYMPH % 13.9 % (24.0-44.0); MONO # 0.6 10^3/uL (0.0-0.8); MONO % 7.0 % (2.0-8.0); NEUTROPHILS # 6.0 10^3/uL (1.5-8.5); NEUTROPHILS % 76.3 % (36.0-66.0); PLATELET COUNT, AUTOMATED 103 10^3/uL (150-450)
[2024-11-24 14:31] LABS: INR 1.38
[2024-11-24 14:46] LABS: CPK CREATINE PHOSPHOKINASE 40.0 U/L (34-145)
[2024-11-24 14:47] LABS: ALT/SGPT 22.0 U/L (7.0-40); AST/SGOT 15.0 U/L (<34); CALCIUM LEVEL 8.7 MG/DL (8.3-10.6); CARBON DIOXIDE LEVEL 26.0 MMOL/L (20-31); CHLORIDE LEVEL 109.0 MMOL/L (98-107); CK-MB VALUE MASS 1.7 NG/ML (<3.6); CREATININE FOR GFR 1.0 MG/DL (0.55-1.30); GLOMERULAR FILTRATION RATE 54.9 (>32); MB/CK RELATIVE INDEX 4.25 (< OR =4); POTASSIUM SERUM 4.5 MMOL/L (3.5-5.1); SODIUM LEVEL 146.0 MMOL/L (136-145)
[2024-11-24 16:22] LABS: CK-MB VALUE MASS 1.6 NG/ML (<3.6)
[2024-11-24 16:24] LABS: CPK CREATINE PHOSPHOKINASE 39.0 U/L (34-145); MB/CK RELATIVE INDEX 4.1 (< OR =4)
[2024-11-24 18:04] LABS: CK-MB VALUE MASS 1.6 NG/ML (<3.6)
[2024-11-24 18:07] LABS: CPK CREATINE PHOSPHOKINASE 29.0 U/L (34-145); MB/CK RELATIVE INDEX 5.51 (< OR =4)
[2024-11-24 20:36] VITALS: BP 154/74; TEMP 97.5; O2SAT 95
== END 2024-11-24 21:17 | disposition home or self-care (01) ==
LOC: EDBD 11:59 → M ED 11:59
DX: R22.42 Localized swelling, mass and lump, left lower limb (principal); I45.10 Unspecified right bundle-branch block; I44.4 Left anterior fascicular block; I45.81 Long QT syndrome; I25.119 Atherosclerotic heart disease of native coronary artery with unspecified angina pectoris; I48.91 Unspecified atrial fibrillation; E11.9 Type 2 diabetes mellitus without complications; I10 Essential (primary) hypertension; E78.5 Hyperlipidemia, unspecified; C50.919 Malignant neoplasm of unspecified site of unspecified female breast; Z88.0 Allergy status to penicillin; Z88.1 Allergy status to other antibiotic agents; Z88.8 Allergy status to other drugs, medicaments and biological substances; Z79.1 Long term (current) use of non-steroidal anti-inflammatories (NSAID); Z79.01 Long term (current) use of anticoagulants; Z79.84 Long term (current) use of oral hypoglycemic drugs; Z79.899 Other long term (current) drug therapy; Z79.810 Long term (current) use of selective estrogen receptor modulators (SERMs)

== ENCOUNTER 2024-12-08 07:16 | Emergency (ER) | payer MEDICARE, MEDICAID ==
[2024-12-08 08:11] LABS: BASO # 0.1 10^3/uL (0.0-0.2); BASO % 0.8 % (0.0-1.0); EOS # 0.1 10^3/uL (0.0-0.5); EOS % 1.0 % (0.0-3.0); LYMPH # 1.0 10^3/uL (1.5-5.0); LYMPH % 10.0 % (24.0-44.0); MONO # 0.7 10^3/uL (0.0-0.8); MONO % 7.0 % (2.0-8.0); NEUTROPHILS # 7.7 10^3/uL (1.5-8.5); NEUTROPHILS % 80.8 % (36.0-66.0); PLATELET COUNT, AUTOMATED 160 10^3/uL (150-450)
[2024-12-08 08:14] LABS: VENOUS BASE EXCESS 4.2 (-2.0-2.0); VENOUS HCO3 29.5 MMOL/L (23.0-27.0); VENOUS O2 SATURATION 90.0 % (60.0-80.0); VENOUS PARTIAL PRESSURE CO2 46.9 mmHg (38.0-50.0); VENOUS PARTIAL PRESSURE O2 61.7 mmHg (30.0-50.0); VENOUS PH 7.417 UNITS (7.330-7.430); VENOUS STANDARD HCO3 28.0 MMOL/L; VENOUS TOTAL CO2 31.0 MMOL/L (24.0-28.0)
[2024-12-08 08:35] LABS: ALT/SGPT 29.0 U/L (7.0-40); AST/SGOT 39.0 U/L (<34); CALCIUM LEVEL 8.7 MG/DL (8.3-10.6); CARBON DIOXIDE LEVEL 32.0 MMOL/L (20-31); CHLORIDE LEVEL 100.0 MMOL/L (98-107); CREATININE FOR GFR 1.01 MG/DL (0.55-1.30); GLOMERULAR FILTRATION RATE 54.2 (>32); POTASSIUM SERUM 4.9 MMOL/L (3.5-5.1); SODIUM LEVEL 143.0 MMOL/L (136-145)
[2024-12-08 08:37] LABS: THYROXINE (T4) 6.6 UG/DL (4.5-10.9)
[2024-12-08] MEDS ORDERED: CARV25TA PO (09:30)
[2024-12-08] MEDS ORDERED: VITA100065 PO (09:30)
[2024-12-08] MEDS ORDERED: NYST0.1C TOP (09:33)
[2024-12-08] MEDS ORDERED: HOME MED LIST COMPLETE! XX SCH (09:35)
[2024-12-08] MEDS ORDERED: ISOVUE-370 76% 100 ML VIAL As Ordered ONE (10:25)
[2024-12-08 12:50] VITALS: BP 123/61
[2024-12-08] MEDS: FUROSEMIDE 100 MG/10 ML VIAL IV ONE (12:50)
[2024-12-08 16:42] VITALS: BP 153/74; TEMP 97.3; O2SAT 95
== END 2024-12-08 17:19 | disposition home or self-care (01) ==
LOC: M ED 07:16 → EDUNIT# 07:16 → EDBD 07:16 → M ED 17:19
DX: I48.91 Unspecified atrial fibrillation (principal); I25.119 Atherosclerotic heart disease of native coronary artery with unspecified angina pectoris; I25.2 Old myocardial infarction; E11.9 Type 2 diabetes mellitus without complications; I10 Essential (primary) hypertension; Z79.1 Long term (current) use of non-steroidal anti-inflammatories (NSAID); Z79.01 Long term (current) use of anticoagulants; Z79.84 Long term (current) use of oral hypoglycemic drugs; Z79.899 Other long term (current) drug therapy; Z79.810 Long term (current) use of selective estrogen receptor modulators (SERMs); Z88.0 Allergy status to penicillin; Z88.1 Allergy status to other antibiotic agents; Z88.8 Allergy status to other drugs, medicaments and biological substances; Z91.041 Radiographic dye allergy status
CPT/HCPCS: 71045; 80048; 80076; 82803; 83605; 83880; 84145; 84436; 84443; 85025; 87040; 87486; 87581; 87633; 87798; 93005; 93041; 94760; 96374; 99285; J1938

== ENCOUNTER → 2024-12-11 | Outpatient (CLI) | payer MEDICARE ==
[~2024-12-11] MED LIST changes: +CARV25TA PO; +EMER1PAK6 PO; +NYST0.1C TOP; +OXYB5TAB14 PO; +VITA100065 PO
== END ==
LOC: M RAD 08:49
PROVIDERS: ATTEND Surgery Vascular Surgery
DX: I70.202 Unspecified atherosclerosis of native arteries of extremities, left leg (principal)

== ENCOUNTER 2024-12-15 17:01 | Emergency (ER) | payer MEDICARE, MEDICAID ==
[~2024-12-15 17:01] MED LIST changes: -OXYB5TAB14 PO
[2024-12-15 17:32] LABS: BASO # 0.1 10^3/uL (0.0-0.2); BASO % 0.6 % (0.0-1.0); EOS # 0.1 10^3/uL (0.0-0.5); EOS % 0.9 % (0.0-3.0); LYMPH # 1.0 10^3/uL (1.5-5.0); LYMPH % 11.7 % (24.0-44.0); MONO # 0.8 10^3/uL (0.0-0.8); MONO % 9.6 % (2.0-8.0); NEUTROPHILS # 6.7 10^3/uL (1.5-8.5); NEUTROPHILS % 76.7 % (36.0-66.0); PLATELET COUNT, AUTOMATED 116 10^3/uL (150-450)
[2024-12-15 17:53] LABS: INR 1.32
[2024-12-15 17:54] LABS: ALT/SGPT 33.0 U/L (7.0-40); AST/SGOT 29.0 U/L (<34); CALCIUM LEVEL 8.6 MG/DL (8.3-10.6); CARBON DIOXIDE LEVEL 35.0 MMOL/L (20-31); CHLORIDE LEVEL 103.0 MMOL/L (98-107); CREATININE FOR GFR 1.1 MG/DL (0.55-1.30); GLOMERULAR FILTRATION RATE 48.9 (>32); POTASSIUM SERUM 4.3 MMOL/L (3.5-5.1); SODIUM LEVEL 146.0 MMOL/L (136-145)
[2024-12-15 18:10] LABS: MAGNESIUM LEVEL 2.1 MG/DL (1.8-2.4)
[2024-12-15] MEDS: FUROSEMIDE 40 MG/4 ML VIAL IV ONE (19:29)
[2024-12-15] MEDS ORDERED: HOME MED LIST COMPLETE! XX SCH (20:30)
[2024-12-15] MEDS ORDERED: OXYB5TAB14 PO (20:30)
[2024-12-15] MEDS ORDERED: FURO20TA2 PO (22:31)
[2024-12-16 04:00] VITALS: TEMP 97.3
[2024-12-16 07:00] VITALS: BP 158/74
[2024-12-16 07:15] VITALS: O2SAT 92
== END 2024-12-16 07:39 | disposition home or self-care (01) ==
LOC: M ED 17:01
DX: R06.00 Dyspnea, unspecified (principal); J91.8 Pleural effusion in other conditions classified elsewhere; I48.91 Unspecified atrial fibrillation; I45.10 Unspecified right bundle-branch block; I45.81 Long QT syndrome; I44.4 Left anterior fascicular block; I25.119 Atherosclerotic heart disease of native coronary artery with unspecified angina pectoris; I50.22 Chronic systolic (congestive) heart failure; I25.2 Old myocardial infarction; E11.9 Type 2 diabetes mellitus without complications; I11.0 Hypertensive heart disease with heart failure; E78.5 Hyperlipidemia, unspecified; K21.9 Gastro-esophageal reflux disease without esophagitis; D50.9 Iron deficiency anemia, unspecified; Z88.0 Allergy status to penicillin; Z88.1 Allergy status to other antibiotic agents; Z88.8 Allergy status to other drugs, medicaments and biological substances; Z91.041 Radiographic dye allergy status; Z79.01 Long term (current) use of anticoagulants; Z79.899 Other long term (current) drug therapy; Z79.810 Long term (current) use of selective estrogen receptor modulators (SERMs)
CPT/HCPCS: 71045; 71250; 80048; 80076; 83735; 83880; 85025; 85610; 93005; 93041; 94760; 96374; 99285; G0463; J1938